=== PATIENT | female | born 1955 | race Caucasian/White ===

== ENCOUNTER 2017-04-06 16:28 | Inpatient (IN) ==
[~2017-04-06 16:28] MED LIST: *HR* Adenosine 6 MG/2 ML SYRINGE IVP ONE; Aminoglycoside Consult 1 EACH MC ONE
[2017-04-06] MEDS ORDERED: *HR* FentaNYL (PF) 100 MCG/2 ML VIAL ONE (16:55)
[2017-04-06] MEDS ORDERED: *HR* Midazolam HCl 2 MG/2 ML VIAL ONE (16:55)
[2017-04-06] MEDS ORDERED: *HR* Adenosine 6 MG/2 ML VIAL IVP ONE (17:00)
[2017-04-06] MEDS: 0.9 % Sodium Chloride 1,000 ML IVC SCH ×4 (17:00→21:39)
[2017-04-06 17:09] LABS: Hematocrit 22.3 % (35.3-44.9); Mean Corpuscular HGB Conc 32.7 g/dL (31.6-35.5); Mean Corpuscular Hemoglobin 32.6 pg (28.0-33.3); Mean Corpuscular Volume 99.6 fL (83.0-100.0); Mean Platelet Volume 12.7 fL (9.4-12.4); Nucleated Red Blood Cells 0.6 /100 WBC (0); Platelet Count 173 K/mcL (140-400); Red Blood Count 2.24 M/mcL (3.82-4.97); Red Cell Distribution Width 18.3 % (11.5-14.5)
[2017-04-06] MEDS ORDERED: 0.9 % Sodium Chloride 1,000 ML ONE (17:16)
[2017-04-06 17:22] LABS: Albumin/Globulin Ratio 0.5 (1.1-2.2); Bilirubin,Total 4.5 mg/dL (0.2-1.2); Calcium 7.6 mg/dL (8.6-10.8); Globulin 3.5 g/dL (2.4-3.5); Potassium 3.6 mEq/L (3.5-4.5); Total Protein 5.2 g/dL (6.0-8.3)
[2017-04-06 17:26] LABS: Albumin 1.7 g/dL (3.5-5.0)
[2017-04-06 17:31] LABS: Hemoglobin 7.3 g/dL (11.5-15.4)
--- NOTE | 2017-04-06 17:31 | Emergency Department Note ---
Disposition Clinical Impression: Elevated troponin, SVT (supraventricular tachycardia), Total bilirubin, elevated, History of pancreatic cancer, Hyponatremia, Hypochloremia, Hypomagnesemia, Hypophosphatemia Leukocytosis Qualifiers: Leukocytosis type: unspecified Qualified Code(s): D72.829 - Elevated white blood cell count, unspecified Hypotension Qualifiers: Hypotension type: unspecified hypotension type Qualified Code(s): I95.9 - Hypotension, unspecified Anemia Qualifiers: Anemia type: other cause Other causes of anemia: other cause, not classified Qualified Code(s): D64.89 - Other specified anemias Disposition: Admitted As Inpatient Condition: Serious Time of Disposition: 19:20 Weakness HPI - General Chief complaint: ED Weakness Stated complaint: Weakness Time Seen by Provider: 04/06/17 16:42 Source: family Mode of arrival: wheelchair Limitations: other Nursing Notes Reviewed: Yes Vital Signs Reviewed: Yes - History of Present Illness HPI Narrative: Patient is a 62-year-old female with past medical history of pancreatic cancer, receives chemotherapy with Dr. Dwyer. She also has a history of DVTs and PEs and is currently on Lovenox. Patient presented to the ED due to generalized weakness and shortness of breath. She says that she has been significantly short of breath for the past 24 hours. When hooked up to the monitor, patient was tachycardic in the 200s. Blood pressure was 50s over 40s. Patient appeared fatigued, was having some trouble concentrating. Denies any overt chest pain. Admits to current shortness of breath. She says that she has not been eating and drinking well over the past several days. She has also been having significant diarrhea over the past several days. Denies any history of arrhythmias or tachycardia in the past. Pain Scale: 0 - Related Data Home Medications Medication Instructions Recorded Confirmed Loperamide HCl [Imodium A-D] 2 mg PO PER PKG DI PRN 04/06/17 04/06/17 Morphine Sulfate SR (12 HR) [MS 30 mg PO Q8HR 04/06/17 04/06/17 Contin] OxyCODONE Immed Rel [Roxicodone 5 10 mg PO Q2HR PRN 04/06/17 04/06/17 MG] Stomatitis Mixture 5 ml PO Q4H PRN 04/06/17 04/06/17 Previous Rx's Medication Instructions Recorded Lidocaine/Prilocaine [Emla] 1 appl TP AD #30 gm 02/11/17 Ondansetron HCl [Zofran] 4 mg PO Q6H PRN #40 tablet 02/11/17 Prochlorperazine Maleate 10 mg PO Q6HR PRN #40 tablet 02/11/17 [Compazine] Dronabinol [Marinol] 5 mg PO BIDWM #60 capsule 02/20/17 Enoxaparin [Lovenox] 100 mg SQ Q12HR #60 02/20/17 Omeprazole 20 mg PO DAILY #90 tablet. 03/04/17 Furosemide [Lasix] 20 mg PO DAILY #90 tablet 03/25/17 Spironolactone [Aldactone] 25 mg PO DAILY #90 tablet 03/25/17 Sucralfate [Carafate] 1 gm PO QIDAC #120 tablet 03/25/17 Allergies Allergy/AdvReac Type Severity Reaction Status Date / Time No Known Drug Allergies Allergy none Verified 04/06/17 16:37 All systems ED: reviewed and negative except as stated. Constitutional: Denies: fever Cardiovascular: Denies: chest pain Respiratory: Reports: dyspnea Gastrointestinal: Reports: diarrhea. Denies: abdominal pain, nausea, vomiting Endocrine: Reports: fatigue Past Medical History - Past Medical History Attestation: Yes The following information was validated with the patient. Source: patient, obtained from family Medical history: Reports: cancer - Social History Smoking Status: Former smoker Smokeless Tobacco Status: No Alcohol use: Reports: none Drug use: Reports: none Physical Exam - General Limitations: other General appearance: alert, other (Patient appears very fatigued, mildly confused ) - Head Head exam: atraumatic, normocephalic, normal inspection - Eye Eye exam: Present: PERRL, EOMI, scleral icterus - ENT ENT exam: normal exam, normal oropharynx, mucous membranes moist - Neck Neck exam: Present: normal inspection, full ROM, trachea midline - Chest Chest inspection: Present: normal inspection, symmetric chest wall rise - Respiratory Respiratory exam: Present: normal lung sounds bilaterally, other (tachypnic). Absent: respiratory distress, wheezes - Cardiovascular Cardiovascular exam: Present: tachycardia (SVT) - Abdominal Exam Abdominal exam: Present: soft, Non-Tender. Absent: tenderness, distention, guarding, rebound, rigidity - Extremities Exam Extremities exam: Present: full ROM, pedal edema. Absent: tenderness - Neurological Exam Neurological exam: Present: alert, oriented X3 - Psychiatric Psychiatric exam: Present: normal affect, normal mood - Skin Skin exam: Present: warm, dry, intact, normal color Course Course Narrative: Patient's heart rate was in the 200s, blood pressure was 70s over 50s. Patient was hooked up to pads, crash cart was at the bedside. Respiratory and ancillary staff was called to bedside. Patient was given IV fluids while we were getting prepped for synchronized cardioversion due to tachycardia with hypertension and confusion, she temporarily went to a blood pressure 110 systolic. We tried adenosine 6 mg. This brought her rate down from 200s down to sinus tachycardia of 102. EKG was performed and she is now in normal sinus rhythm. No acute ST elevation or depression. Patient immediately is feeling better subjectively. Patient was ordered 3 L normal saline. Blood pressure is slowly improving. Now 80s systolic of 90, will start Levophed that through her port. Cardiology has been paged to discuss elevated troponin level s/p sinus tach, possible PE and discuss starting heparin. 17:46 labs show leukocytosis, anemia of 7.3. Hyponatremia, hypochloremia. Total bili and alkaline phosphatase are elevated but trending down from previous labs. She does have acute kidney injury. Troponin is elevated 0.47 This could be due to patient being in SVT for last 24 hours. CXR negative. Concern for PE, but patient cannot have CTA due to creatinine >2. Not stable enough BP [place] to take to V/Q scan currently. 18:09 while waiting on cardiology, I have consulted oncology and spoke with Dr. Dwyer to update him on the patient. I have also consulted Dr. Smith for new onset ANGELA. Both have agreed to be consults and orders are placed. Repeat blood pressure shows BP in the 60s over 30s. We will start Levophed at this time. Will also start empiric vanc and zosyn due to leukocytosis. 18:52 I spoke with powerhouse laborer, Dr. Chong. I discussed elevated troponin in the setting of unstable SVT that was converted with adenosine, history of PE, currently on Lovenox. After discussion, Dr. Chong recommended that for anticoagulation would not be started at this time due to patient's acute drop in hemoglobin from 9 to 7.3 with unexplained bleeding. Hemoccult was negative. Patient denies any current known bleeding. We will admit the patient to ICU for further care. Vital Signs Temperature 98.4 F 04/06/17 16:38 Pulse Rate 206 04/06/17 16:38 Respiratory Rate 18 04/06/17 16:38 Blood Pressure 82/49 04/06/17 16:38 O2 Sat by Pulse Oximetry 94 04/06/17 16:38 Temperature 98.2 F 04/06/17 23:41 Pulse Rate 82 04/06/17 23:41 Respiratory Rate 18 04/06/17 23:41 Blood Pressure 96/69 04/06/17 23:41 O2 Sat by Pulse Oximetry 96 04/06/17 23:41 Oxygen Delivery Oxygen Delivery Nasal Cannula Weakness - MDM Narrative Medical decision making narrative: Patient's heart rate was in the 200s, blood pressure was 70s over 50s. Patient was hooked up to pads, crash cart was at the bedside. Respiratory and ancillary staff was called to bedside. Patient was given IV fluids while we were getting prepped for synchronized cardioversion due to tachycardia with hypertension and confusion, she temporarily went to a blood pressure 110 systolic. We tried adenosine 6 mg. This brought her rate down from 200s down to sinus tachycardia of 102. EKG was performed and she is now in normal sinus rhythm. No acute ST elevation or depression. Patient immediately is feeling better subjectively. Patient was ordered 3 L normal saline. Blood pressure is slowly improving. Now 80s systolic of 90, will start Levophed that through her port. Cardiology has been paged to discuss elevated troponin level s/p sinus tach, possible PE and discuss starting heparin. labs show leukocytosis, anemia of 7.3. Hyponatremia, hypochloremia. Total bili and alkaline phosphatase are elevated but trending down from previous labs. She does have acute kidney injury. Troponin is elevated 0.47 This could be due to patient being in SVT for last 24 hours. CXR negative. Concern for PE, but patient cannot have CTA due to creatinine >2. Not stable enough BP [place] to take to V/Q scan currently. 18:09 while waiting on cardiology, I have consulted oncology and spoke with Dr. Dwyer to update him on the patient. I have also consulted Dr. Smith for new onset ANGELA. Both have agreed to be consults and orders are placed. Repeat blood pressure shows BP in the 60s over 30s. We will start Levophed at this time. Will also start empiric vanc and zosyn due to leukocytosis. 18:52 I spoke with powerhouse laborer, Dr. Chong. I discussed elevated troponin in the setting of unstable SVT that was converted with adenosine, history of PE, currently on Lovenox. After discussion, Dr. Chong recommended that for anticoagulation would not be started at this time due to patient's acute drop in hemoglobin from 9 to 7.3 with unexplained bleeding. Hemoccult was negative. Patient denies any current known bleeding. We will admit the patient to ICU for further care. - Lab Data Lab results reviewed: Yes I reviewed the patient's lab results. Result diagrams: 04/06/17 16:59 04/06/17 16:59 Lab Results 04/06/17 04/06/17 04/06/17 Range/Units 16:49 16:59 16:59 WBC 13.3 H (4.3-11.1) K/mcL RBC 2.24 L (3.82-4.97) M/mcL Hgb 7.3 L (11.5-15.4) g/dL Hct 22.3 L (35.3-44.9) % MCV 99.6 (83.0-100.0) fL MCH 32.6 (28.0-33.3) pg MCHC 32.7 (31.6-35.5) g/dL RDW 18.3 H (11.5-14.5) % Plt Count 173 (140-400) K/mcL MPV 12.7 H (9.4-12.4) fL Immature Gran % Test Not Performed Seg Neutrophils % 64.0 % Band Neutrophils % 12.0 H (0-4) % Lymphocytes % 16.0 % Monocytes % 4.0 % Eosinophils % Test Not Performed Basophils % Test Not Performed Myelocytes % 4.0 H (0) % Neutrophils # 10.1 H (1.6-8.9) K/mcL Lymphocytes # 2.1 (0.6-4.6) K/mcL Monocytes # 0.5 (0.0-1.3) K/mcL Eosinophils # Test Not Performed Basophils # Test Not Performed Nucleated RBCs/100 WBC 0.6 H (0) /100 WBC Toxic Granulation Present A (Not Present) Platelet Estimate Normal (Normal) Large Platelets Present A (Not Present) Polychromasia 2+ A (Not Present) Anisocytosis 1+ A (Not Present) Macrocytosis Present A (Not Present) PT (9.4-12.1) Seconds INR APTT (26.0-36.0) Seconds Sodium 127 L (136-145) mEq/L Potassium 3.6 (3.5-4.5) mEq/L Chloride 93 L (98-109) mEq/L Carbon Dioxide 20 (19-29) mEq/L BUN 22 H (7-20) mg/dL Creatinine 2.58 H (0.57-1.11) mg/dL Est GFR ( Amer) 23 L (> 60) Est GFR (Non-Af Amer) 19 L (> 60) BUN/Creatinine Ratio 9 (6-26) Glucose 103 H (70-99) mg/dL POC Glucose 130 H (58-89) Calculated Osmolality 268 L (280-300) Lactic Acid (0.5-2.2) mmol/L Calcium 7.6 L (8.6-10.8) mg/dL Phosphorus 2.0 L (2.3-4.7) mg/dL Magnesium 1.3 L (1.6-2.6) mg/dL Total Bilirubin 4.5 H (0.2-1.2) mg/dL Direct Bilirubin 3.1 H (0.0-0.5) mg/dL Indirect Bilirubin 1.4 H (0.0-1.2) mg/dL AST 71 H (5-34) Units/L ALT 35 (0-55) Units/L Alkaline Phosphatase 525 H (38-126) Units/L Troponin I (0-0.03) ng/mL Serum Total Protein 5.2 L (6.0-8.3) g/dL Albumin 1.7 L (3.5-5.0) g/dL Globulin 3.5 (2.4-3.5) g/dL Albumin/Globulin Ratio 0.5 L (1.1-2.2) Blood Type Antibody Screen Crossmatch 04/06/17 04/06/17 04/06/17 Range/Units 16:59 16:59 16:59 WBC (4.3-11.1) K/mcL RBC (3.82-4.97) M/mcL Hgb (11.5-15.4) g/dL Hct (35.3-44.9) % MCV (83.0-100.0) fL MCH (28.0-33.3) pg MCHC (31.6-35.5) g/dL RDW (11.5-14.5) % Plt Count (140-400) K/mcL MPV (9.4-12.4) fL Immature Gran % Seg Neutrophils % % Band Neutrophils % (0-4) % Lymphocytes % % Monocytes % % Eosinophils % Basophils % Myelocytes % (0) % Neutrophils # (1.6-8.9) K/mcL Lymphocytes # (0.6-4.6) K/mcL Monocytes # (0.0-1.3) K/mcL Eosinophils # Basophils # Nucleated RBCs/100 WBC (0) /100 WBC Toxic Granulation (Not Present) Platelet Estimate (Normal) Large Platelets (Not Present) Polychromasia (Not Present) Anisocytosis (Not Present) Macrocytosis (Not Present) PT 31.5 H (9.4-12.1) Seconds INR 2.9 APTT 47.9 H (26.0-36.0) Seconds Sodium (136-145) mEq/L Potassium (3.5-4.5) mEq/L Chloride (98-109) mEq/L Carbon Dioxide (19-29) mEq/L BUN (7-20) mg/dL Creatinine (0.57-1.11) mg/dL Est GFR ( Amer) (> 60) Est GFR (Non-Af Amer) (> 60) BUN/Creatinine Ratio (6-26) Glucose (70-99) mg/dL POC Glucose (58-89) Calculated Osmolality (280-300) Lactic Acid (0.5-2.2) mmol/L Calcium (8.6-10.8) mg/dL Phosphorus (2.3-4.7) mg/dL Magnesium (1.6-2.6) mg/dL Total Bilirubin (0.2-1.2) mg/dL Direct Bilirubin (0.0-0.5) mg/dL Indirect Bilirubin (0.0-1.2) mg/dL AST (5-34) Units/L ALT (0-55) Units/L Alkaline Phosphatase (38-126) Units/L Troponin I 0.47 H* (0-0.03) ng/mL Serum Total Protein (6.0-8.3) g/dL Albumin (3.5-5.0) g/dL Globulin (2.4-3.5) g/dL Albumin/Globulin Ratio (1.1-2.2) Blood Type A POSITIVE Antibody Screen NEGATIVE Crossmatch See Detail 04/06/17 Range/Units 17:58 WBC (4.3-11.1) K/mcL RBC (3.82-4.97) M/mcL Hgb (11.5-15.4) g/dL Hct (35.3-44.9) % MCV (83.0-100.0) fL MCH (28.0-33.3) pg MCHC (31.6-35.5) g/dL RDW (11.5-14.5) % Plt Count (140-400) K/mcL MPV (9.4-12.4) fL Immature Gran % Seg Neutrophils % % Band Neutrophils % (0-4) % Lymphocytes % % Monocytes % % Eosinophils % Basophils % Myelocytes % (0) % Neutrophils # (1.6-8.9) K/mcL Lymphocytes # (0.6-4.6) K/mcL Monocytes # (0.0-1.3) K/mcL Eosinophils # Basophils # Nucleated RBCs/100 WBC (0) /100 WBC Toxic Granulation (Not Present) Platelet Estimate (Normal) Large Platelets (Not Present) Polychromasia (Not Present) Anisocytosis (Not Present) Macrocytosis (Not Present) PT (9.4-12.1) Seconds INR APTT (26.0-36.0) Seconds Sodium (136-145) mEq/L Potassium (3.5-4.5) mEq/L Chloride (98-109) mEq/L Carbon Dioxide (19-29) mEq/L BUN (7-20) mg/dL Creatinine (0.57-1.11) mg/dL Est GFR ( Amer) (> 60) Est GFR (Non-Af Amer) (> 60) BUN/Creatinine Ratio (6-26) Glucose (70-99) mg/dL POC Glucose (58-89) Calculated Osmolality (280-300) Lactic Acid 2.0 (0.5-2.2) mmol/L Calcium (8.6-10.8) mg/dL Phosphorus (2.3-4.7) mg/dL Magnesium (1.6-2.6) mg/dL Total Bilirubin (0.2-1.2) mg/dL Direct Bilirubin (0.0-0.5) mg/dL Indirect Bilirubin (0.0-1.2) mg/dL AST (5-34) Units/L ALT (0-55) Units/L Alkaline Phosphatase (38-126) Units/L Troponin I (0-0.03) ng/mL Serum Total Protein (6.0-8.3) g/dL Albumin (3.5-5.0) g/dL Globulin (2.4-3.5) g/dL Albumin/Globulin Ratio (1.1-2.2) Blood Type Antibody Screen Crossmatch - Radiology Data Radiology results reviewed: Yes I reviewed the patient's radiology results. Chest X-Ray 04/06/17 16:43 IMPRESSION: No acute abnormalities seen in the chest D/ / 04/06/2017 17:26:52 Savage Irizarry MD / [facility] Interpreting Provider: Savage Irizarry MD - EKG Data EKG attestation: Yes I reviewed and interpreted this EKG. EKG results narrative: EKG #1. 04/06/2017 at 16:42. SVT. Rate 206. QRS 140. QTC 359. Normal axis. EKG #2 after adenosine. 04/06/2017 17:02. Sinus tachycardia. Rate 102. MN 147. QRS 88. QTC 387. Mild left axis deviation. No acute ST elevation or depression. T-wave inversion in lead 3, Q waves in lead 3. S.B.A.R. - S.B.A.R. Situation: Demographics, MOA Background: Presenting Complaint, Relevant PMH, Meds, & Allergies Assessment: Vital Signs, Course and respsone to treatment, Exam Concerns, Patient/Family Expectation, Pertinant Lab Results Recommendation: Barrier(s) to disposition, Recommendation based on pending studies, treatments, or consults Fabiola Report Given to: Dr. Hudson Hicks Repor Time: 19:20 Attestation Statement - Attestation Attestation: I, Maxime Solis, examined this patient and my medical decision-making was reviewed with the [employer]/PA/Advanced Practice Nurse/Resident Physician. I agree with the documented findings, disposition and treatment plan as described except to the extent set forth below. 62-year-old female presents to emergency department with acute onset of weakness over the past 2-3 days. On initial evaluation the patient has a heart rate greater than 200. It appears to be a regular narrow QRS rhythm which is likely a reentrant supraventricular tachycardia. Patient blood pressure was hypotensive during initial evaluation and patient was being prepped for cardioversion. She has been taking Lovenox twice a day at home for treatment of PE. Patient remained awake and alert and he was taking a longer than usual amount of time for respiratory to get to the room. While waiting we used adenosine 6 mg fast push which resolved the patient's arrhythmia. A laboratory evaluation the patient has a mild leukocytosis however she has a significant bandemia. Septic workup was initiated. She was given antibiotics in the emergency department. Patient has significant elevation in her troponin at 0.47 although she denies chest pain in the emergency department. Patient comfortable with the plan for admission to the hospital for further care and evaluation.
[2017-04-06 17:40] LABS: INR 2.9; Prothrombin Time 31.5 Seconds (9.4-12.1)
[2017-04-06 17:42] LABS: Activated Partial Thrombo Time 47.9 Seconds (26.0-36.0)
[2017-04-06 17:49] LABS: Lymphocytes # 2.1 K/mcL (0.6-4.6); Monocytes # 0.5 K/mcL (0.0-1.3); Neutrophils # 10.1 K/mcL (1.6-8.9)
[2017-04-06 17:50] LABS: Polychromasia 2+ (Not Present)
[2017-04-06 17:51] LABS: Anisocytosis 1+ (Not Present); Toxic Granulation Present (Not Present)
[2017-04-06 17:54] LABS: Large Platelets Present (Not Present); Macrocytosis Present (Not Present); Platelet Estimate Normal (Normal)
[2017-04-06 17:57] LABS: Bilirubin,Direct 3.1 mg/dL (0.0-0.5); Bilirubin,Indirect 1.4 mg/dL (0.0-1.2); Magnesium 1.3 mg/dL (1.6-2.6)
[2017-04-06] MEDS: Norepinephrine 4 MG in D5% in Water 250 ML IVC SCH ×2 (18:14→23:53)
[2017-04-06] MEDS ORDERED: Magnesium Sulfate 1 GM in D5% in Water 100 ML IVPB ONE ×2 (18:19→19:34)
[2017-04-06] MEDS ORDERED: Piperacillin/Tazobactam 3.375 GM in D5% in Water (Mini-Bag+) 100 ML IVPB ONE (18:49)
[2017-04-06] MEDS ORDERED: Vancomycin 1,500 MG in D5% in Water 250 ML IVPB ONE (19:00)
[2017-04-06] MEDS ORDERED: Vancomycin 1,500 MG in D5% in Water 250 ML IVPB SCH (19:00)
[2017-04-06] MEDS ORDERED: Naloxone 0.4 MG/ML INJ IVP PRN (19:36)
[2017-04-06] MEDS ORDERED: Ondansetron 4 MG/2 ML VIAL IVP PRN (19:49)
--- NOTE | 2017-04-06 19:50 | Internal Med History&Physical ---
<Tristan Sheehan - Last Filed: 04/06/17 22:03> Date of Encounter: 04/06/17 Time of Encounter: 19:50 Assessment and Plan (1) Sepsis Current visit: Yes Status: Acute Patient met 2 SIRS criteria with WBC 13.3 and HR 102 (after resolution of SVT) Patient reports increased diarrhea 5 times per day for the past 1 week (worse than chronic chemo induced diarrhea). Fecal occult blood test negative. Stool studies pending Blood cultures pending, patient has right upper chest port for chemo CXR negative. Sputum culture and Urine culture ordered. Continue empiric antibiotics Vanc, Zosyn, and Flagyl until culture resulted. ( Covering for possible port infection vs intra-abdominal infection) Steroids started for possible stress induced response Qualifiers: Qualified Code(s): A41.9 - Sepsis, unspecified organism (2) Hypotension Current visit: Yes Status: Acute Secondary to hypovolemic shock vs septic shock vs dehydration. Continue Levophed. Patient has right upper chest port. Consider orthostatics once patient improved. Qualifiers: Hypotension type: unspecified hypotension type Qualified Code(s): I95.9 - Hypotension, unspecified (3) Elevated troponin Current visit: Yes Status: Acute Initial Troponin 0.47. Likely related to demand ischemia from sepsis, trend serial troponins. Cardiology consulted. (4) Pancreatic cancer metastasized to liver Current visit: No Status: Acute Hold analgesics secondary to hypotension. Continue symptomatic management. Ensure TID for anorexia Oncology consulted. (5) SVT (supraventricular tachycardia) Current visit: Yes Status: Acute SVT resolved after Adenosine. EKGs reviewed. Patient hemodynamically unstable with hypotension but was not cardioverted before Adenosine trial. She remains A& Ox3. Cardiology consulted TSH pending. Consider ordering CTA to r/o PE once patient hemodynamically stable. (6) Anemia Current visit: Yes Status: Acute Transfuse 1 unit PRBC. Trend serial H&H q8h. No active bleeding. Hemoccult blood test negative. Qualifiers: Anemia type: other cause Other causes of anemia: other cause, not classified Qualified Code(s): D64.89 - Other specified anemias (7) ANGELA (acute kidney injury) Current visit: Yes Status: Acute Likely related to dehydration / diarrhea. Nephrology consulted. Continue IVF. (8) Hyponatremia Current visit: Yes Status: Acute Likely related to dehydration vs component of SIADH associated with cancer. Urine electrolytes ordered. Nephrology consulted. Continue IVF. 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 Of note, patient received her third round of chemotherapy on 03/25/17 and is scheduled for next chemo treatment on 04/08/17. She has a port in her right upper chest and Oncologist is Dr. Dwyer. She reports associated palpitations, SOB , decreased appetite, poor urine output, and drinking ensure BID. She recently started Lasix 2 weeks ago due to lower extremity edema. Patient denies fever, chills, CP, abd pain, N/V, recent travel, current tobacco use, contraceptives use, and has been compliant with home Lovenox use for DVT prophylaxis. Daughter is also a nurse and is at bedside during time of exam. In the ED, patient had SVT with initial HR 206 and was given Adenosine with relief of symptoms. She was started on a levophed drip due to hypotension despite IVFs and Troponin was elevated at 0.47. Fecal occult blood test was negative. Past Med Surg Social Fam HX - Past Medical History Medical history: cancer (pancreatic), DVT, pulmonary embolus - Past Surgical History Surgical History: other (biliary stent, BTL, left shoulder) - Social History Smoking Status: Former smoker Smokeless Tobacco Status: No Alcohol use: none Drug use: none Internal Medicine - H&P: Meds Lidocaine/Prilocaine [Emla] 1 appl TP AD #30 gm 02/11/17 [Rx] Ondansetron HCl [Zofran] 4 mg PO Q6H PRN #40 tablet 02/11/17 [Rx] Prochlorperazine Maleate [Compazine] 10 mg PO Q6HR PRN #40 tablet 02/11/17 [Rx] Dronabinol [Marinol] 5 mg PO BIDWM #60 capsule 02/20/17 [Rx] Enoxaparin [Lovenox] 100 mg SQ Q12HR #60 02/20/17 [Rx] Omeprazole 20 mg PO DAILY #90 tablet. 03/04/17 [Rx] Furosemide [Lasix] 20 mg PO DAILY #90 tablet 03/25/17 [Rx] Spironolactone [Aldactone] 25 mg PO DAILY #90 tablet 03/25/17 [Rx] Sucralfate [Carafate] 1 gm PO QIDAC #120 tablet 03/25/17 [Rx] Loperamide HCl [Imodium A-D] 2 mg PO PER PKG DI PRN 04/06/17 [History] Morphine Sulfate SR (12 HR) [MS Contin] 30 mg PO Q8HR 04/06/17 [History] OxyCODONE Immed Rel [Roxicodone 5 MG] 10 mg PO Q2HR PRN 04/06/17 [History] Stomatitis Mixture 5 ml PO Q4H PRN 04/06/17 [History] 3 Allergy/AdvReac Type Severity Reaction Status Date / Time No Known Drug Allergies Allergy none Verified 04/06/17 16:37 All Systems PM: A 10-system review of systems was performed and is negative for pertinent findings except as documented above in the HPI. - Constitutional Constitutional: anorexia, fatigue, lethargy, weakness, no chills, no fever(s), no weight gain, no weight loss - EENT Eyes: no change in vision Nose, mouth and throat: no dysphagia, no nasal congestion, no sore throat - Cardiovascular Cardiovascular ROS IM: edema, palpitations, no chest pain - Respiratory Respiratory: dyspnea, no cough, no chest congestion, no excessive phlegm production - Gastrointestinal Gastrointestinal: change in bowel habits, diarrhea, no abdominal pain, no nausea , no vomiting - Genitourinary Genitourinary: no dysuria, no urinary frequency, no urinary urgency - Musculoskeletal Musculoskeletal ROS IM: no back pain, no numbness, no tingling - Integumentary Integumentary IM: no erythema, no new lesions, no rash - Neurological Neurological ROS: weakness, no dizziness, no numbness, no tingling - Psychiatric Psychiatric: no anxiety, no depression - Endocrine Endocrine IM: fatigue, no polydipsia, no polyphagia, no polyuria - Constitutional Vitals: Temp Pulse Resp BP Pulse Ox 98.4 F 91 16 87/58 100 04/06/17 16:38 04/06/17 19:30 04/06/17 19:30 04/06/17 19:30 04/06/17 19:30 General appearance: Present: cooperative, A&O X 3, pleasant, no acute distress, obese, answers questions appropriately - Head Head exam: Present: atraumatic, normal inspection, normocephalic - Eye Eye exam: Present: EOMI, PERRL - ENT ENT exam: Present: mucous membranes moist, normal oropharynx - Neck Neck exam general surgery: Present: normal inspection, supple. Absent: lymphadenopathy, tenderness - Respiratory Respiratory exam: Present: CTAB. Absent: rhonchi, wheezes - Cardiovascular Cardiovascular exam: Present: RRR, +S1, +S2 - GI/Abdominal GI/Abdominal exam: Present: normal bowel sounds, soft. Absent: distended, guarding, tenderness - Extremities Exam Extremities exam: Present: normal capillary refill, pedal edema (2+), warm. Absent: tenderness - Neurological Exam Neurological exam: Present: alert, oriented X3, no focal deficits, strengths equal and symetr throughout. Absent: altered - Psychiatric Psychiatric exam: Present: normal affect, normal mood - Skin Skin exam: Present: dry, intact, warm. Absent: erythema Additional comments: jaundice Internal Med - H&P Results - Labs CBC & Chem 7: 04/06/17 16:59 04/06/17 16:59 Labs: Short CBC 04/06/17 Range/Units 16:59 WBC 13.3 H (4.3-11.1) K/mcL Hgb 7.3 L (11.5-15.4) g/dL Hct 22.3 L (35.3-44.9) % Plt Count 173 (140-400) K/mcL Neutrophils # 10.1 H (1.6-8.9) K/mcL BMP 04/06/17 16:59 Sodium 127 L Potassium 3.6 Chloride 93 L Carbon Dioxide 20 BUN 22 H Creatinine 2.58 H Glucose 103 H Calcium 7.6 L Cardiac Enzymes 04/06/17 Range/Units 16:59 Troponin I 0.47 H* (0-0.03) ng/mL Liver Function 04/06/17 Range/Units 16:59 Total Bilirubin 4.5 H (0.2-1.2) mg/dL Direct Bilirubin 3.1 H (0.0-0.5) mg/dL AST 71 H (5-34) Units/L ALT 35 (0-55) Units/L Alkaline Phosphatase 525 H (38-126) Units/L Albumin 1.7 L (3.5-5.0) g/dL - EKG Data -: EKG Interpreted by Myself Rate: tachycardia (Initial EKG HR 206 SVT QRS 140. QTC 359. Normal axis. Repeat EKG Rate 102. SD 147. QRS 88. QTC 387. Mild left axis deviation. No acute ST elevation or depression. T-wave inversion in lead 3, Q waves in lead 3.) - Impressions ITS Impressions Chest X-Ray 04/06/17 16:43 IMPRESSION: No acute abnormalities seen in the chest D/ / 04/06/2017 17:26:52 Savage Irizarry MD / [facility] Interpreting Provider: Savage Irizarry MD <Valentin Jiang - Last Filed: 04/06/17 23:16> Date of Encounter: 04/06/17 Time of Encounter: 21:50 Past Med Surg Social Fam HX - Additional Family History Additional family history: negative for pancreatic CA - Constitutional Constitutional: anorexia, fatigue - EENT Eyes: no blurry vision, no change in vision Ears: no ear pain, no tinnitus Nose, mouth and throat: no sinus pressure, no sore throat - Cardiovascular Cardiovascular ROS IM: dyspnea, lightheadedness, palpitations, no chest pain - Respiratory Respiratory: dyspnea, pain on inspiration, no hemoptysis - Gastrointestinal Gastrointestinal: diarrhea, early satiety - Genitourinary Genitourinary: no dysuria, no flank pain, no hematuria - Musculoskeletal Musculoskeletal ROS IM: no arthralgias, no back pain - Integumentary Integumentary IM: jaundice, no rash - Neurological Neurological ROS: weakness, no focal weakness, no frequent falls, no headache(s) - Allergic/Immunologic Allergic/Immunologic: no wheezing, no GI upset with certain foods - Constitutional Vitals: Temp Pulse Resp BP Pulse Ox 98.9 F 85 16 81/53 99 04/06/17 22:37 04/06/17 22:37 04/06/17 22:37 04/06/17 22:37 04/06/17 22:37 General appearance: Present: cooperative, A&O X 3, pleasant, no acute distress, answers questions appropriately - Head Head exam: Present: normal inspection - Eye Eye exam: Present: EOMI, PERRL, scleral icterus (mild) - ENT ENT exam: Present: mucous membranes dry, normal oropharynx - Neck Neck exam general surgery: Present: full ROM, supple - Respiratory Respiratory exam: Present: CTAB. Absent: accessory muscle use, rales, rhonchi, wheezes - Cardiovascular Cardiovascular exam: Present: RRR, +S1, +S2. Absent: diastolic murmur, systolic murmur Additional comments: A port site clean, dry, without redness or swelling or pain - GI/Abdominal GI/Abdominal exam: Present: normal bowel sounds, soft. Absent: tenderness - Extremities Exam Extremities exam: Present: pedal edema, warm. Absent: calf tenderness - Back Exam Back exam: Absent: CVA tenderness (L), CVA tenderness (R) - Neurological Exam Neurological exam: Present: no focal deficits - Psychiatric Psychiatric exam: Present: normal affect, normal mood - Skin Skin exam: Present: dry, warm Internal Med - H&P Results - Labs CBC & Chem 7: 04/06/17 16:59 04/06/17 16:59 - EKG Data -: EKG Interpreted by Myself Rate: tachycardia (appears SVT) - Diagnostic Studies Chest x-ray Status: image reviewed by me (negative) - Attending Attestation I discussed the patient CADDO, PMH, ROS, lab data, and exam findings with Dr. Sheehan. I then saw and examined patient in ICU. Pt is resting in bed now in no distress. She presented in shock, likely due to cardiogenic (rhythm induced) cause, which was likely precipitated by electrolyte imbalance from her diarrhea. She also likely had hypovolemic shock from severe diarrhea and possibly septic shock as well. She reports low grade fevers at home and some pleuritic chest pain with deep inspiration. She is known to have PE and DVT since November and had been on Lovenox since then. She is currently being treated with chemotherapy for pancreatic cancer. She has not been on antibiotics recently and has not been hospitalized since November. I suspect her diarrhea is related to her chemotherapy and/or pancreatic cancer. I have low suspicion for C. Diff Colitis. I am concerned, however, for progression of her PE given her complaints of pleuritic CP and presentation in SVT. Despite drop in hemoglobin , I do not feel comfortable stopping her Lovenox. We will monitor H/H and transfuse to keep hgb > 8. When stable, she needs CTA chest to better image her prior PE and possible progression. I suspect her troponin elevation is due to demand ischemia from SVT, sepsis, and volume depletion. Pt remains on IVF, Levophed, and I requested Dr. Sheehan add stress dose steroids as well. I agree with the antibiotic choices as prescribed. Pt will remain in ICU remains critical at this time. Cardiology has been consulted, and we'll consult Pulmonology as well to manage ICU care. Other than my comments above and noted exam findings, I agree with Dr. Sheehan's assessment and plan. Total 65 minutes critical care time spent with patient, assessing her, and managing her care with Dr. Sheehan.
[2017-04-06] MEDS ORDERED: Vancomycin (wt based) 1,000 MG VIAL IVPB SCH (20:00)
[2017-04-06] MEDS ORDERED: 0.9 % Sodium Chloride 250 ML ONE (22:00)
[2017-04-06] MEDS: MetroNIDAZOLE 500 MG/100 ML 500 MG/100 ML BAG IVPB SCH (23:06)
[2017-04-06] MEDS: Hydrocortisone Sodium Succ 100 MG/2 ML VIAL IVP SCH (23:06)
[2017-04-06 23:58] LABS: Hematocrit 23.5 % (35.3-44.9); Hemoglobin 7.8 g/dL (11.5-15.4); Immature Platelets 11.8 % (1.1-6.1); Mean Corpuscular HGB Conc 33.2 g/dL (31.6-35.5); Mean Corpuscular Hemoglobin 32.6 pg (28.0-33.3); Mean Corpuscular Volume 98.3 fL (83.0-100.0); Mean Platelet Volume 11.3 fL (9.4-12.4); Nucleated Red Blood Cells 0.3 /100 WBC (0); Platelet Count 169 K/mcL (140-400); Red Blood Count 2.39 M/mcL (3.82-4.97); Red Cell Distribution Width 17.5 % (11.5-14.5)
[2017-04-07 00:17] LABS: Albumin/Globulin Ratio 0.5 (1.1-2.2); Bilirubin,Total 4.4 mg/dL (0.2-1.2); Calcium 6.9 mg/dL (8.6-10.8); Globulin 3.1 g/dL (2.4-3.5); Potassium 2.9 mEq/L (3.5-4.5); Total Protein 4.6 g/dL (6.0-8.3)
[2017-04-07 00:20] LABS: Albumin 1.5 g/dL (3.5-5.0)
[2017-04-07 00:34] LABS: Dohle Bodies Present (Not Present); Lymphocytes # 2.1 K/mcL (0.6-4.6); Monocytes # 0.6 K/mcL (0.0-1.3); Neutrophils # 11.8 K/mcL (1.6-8.9); Polychromasia 1+ (Not Present)
[2017-04-07 00:35] LABS: Burr Cells 1+ (Not Present); Large Platelets Present (Not Present)
[2017-04-07 00:50] LABS: Thyroid Stimulating Hormone 1.781 mcIU/mL (0.350-4.840)
[2017-04-07] MEDS: 0.9 % Sodium Chloride 1,000 ML IVC SCH ×2 (01:08→04:44)
[2017-04-07 03:24] LABS: Basophils # 0.1 K/mcL (0.0-0.2); Basophils % 0.3 %; Hematocrit 23.7 % (35.3-44.9); Immature Granulocytes % 7.6 % (0-4); Lymphocytes % 7.4 %; Mean Corpuscular HGB Conc 33.8 g/dL (31.6-35.5); Mean Corpuscular Hemoglobin 33.1 pg (28.0-33.3); Mean Corpuscular Volume 97.9 fL (83.0-100.0); Mean Platelet Volume 11.6 fL (9.4-12.4); Monocytes # 1.2 K/mcL (0.0-1.3); Neutrophils # 13.1 K/mcL (1.6-8.9); Nucleated Red Blood Cells 0.2 /100 WBC (0); Platelet Count 156 K/mcL (140-400); Red Blood Count 2.42 M/mcL (3.82-4.97); Red Cell Distribution Width 17.7 % (11.5-14.5); Segmented Neutrophils % 77.7 %
[2017-04-07 03:25] LABS: Lymphocytes # 1.2 K/mcL (0.6-4.6)
[2017-04-07 03:39] LABS: Albumin 1.6 g/dL (3.5-5.0); Albumin/Globulin Ratio 0.5 (1.1-2.2); Bilirubin,Total 4.4 mg/dL (0.2-1.2); Calcium 6.9 mg/dL (8.6-10.8); Magnesium 1.3 mg/dL (1.6-2.6); Potassium 3.2 mEq/L (3.5-4.5); Total Protein 4.6 g/dL (6.0-8.3)
[2017-04-07 03:42] LABS: Dohle Bodies Present (Not Present); Large Platelets Present (Not Present); Toxic Vacuolation Present (Not Present)
[2017-04-07 03:43] LABS: Burr Cells 1+ (Not Present)
[2017-04-07] MEDS ORDERED: Magnesium Sulfate 2 GM in D5% in Water 100 ML IVPB ONE (03:50)
[2017-04-07] MEDS: Norepinephrine 4 MG in D5% in Water 250 ML IVC SCH ×3 (04:45→20:07)
[2017-04-07 05:35] LABS: Acinetobacter baumannii by PCR Not Detected (Not Detect); Candida albicans by PCR Not Detected (Not Detect); Candida glabrata by PCR Not Detected (Not Detect); Candida krusei by PCR Not Detected (Not Detect); Candida parapsilosis by PCR Not Detected (Not Detect); Candida tropicalis by PCR Not Detected (Not Detect); Enterococcus by PCR Not Detected (Not Detect); Escherichia coli by PCR Not Detected (Not Detect); Klebsiella oxytoca by PCR Not Detected (Not Detect); Klebsiella pneumoniae by PCR ***DETECTED*** (Not Detect); Pseudomonas aeruginosa by PCR Not Detected (Not Detect); Serratia marcescens by PCR Not Detected (Not Detect); Staphylococcus aureus by PCR Not Detected (Not Detect); Streptococcus agalactiae(B)PCR Not Detected (Not Detect); Streptococcus by PCR Not Detected (Not Detect); Streptococcus pneumoniae PCR Not Detected (Not Detect); Streptococcus pyogenes (A) PCR Not Detected (Not Detect); blaKPC Carbapenem-Resist Gene Not Detected (Not Detect); mecA Methicillin-Resist Gene Not Detected (Not Detect); vanA/B Vancomycin-Resist Genes Not Detected (Not Detect)
[2017-04-07] MEDS ORDERED: *HR* Enoxaparin 100 MG/ML SYRINGE SQ SCH (06:00)
[2017-04-07] MEDS ORDERED: Famotidine 20 MG/2 ML VIAL IVP SCH (06:00)
--- NOTE | 2017-04-07 07:06 | Pulmonology Consult Note ---
<Samuel Cuellar W - Last Filed: 04/07/17 10:22> Date of Encounter: 04/07/17 Medications and Allergies Lidocaine/Prilocaine [Emla] 1 appl TP AD #30 gm 02/11/17 [Rx] Ondansetron HCl [Zofran] 4 mg PO Q6H PRN #40 tablet 02/11/17 [Rx] Prochlorperazine Maleate [Compazine] 10 mg PO Q6HR PRN #40 tablet 02/11/17 [Rx] Dronabinol [Marinol] 5 mg PO BIDWM #60 capsule 02/20/17 [Rx] Enoxaparin [Lovenox] 100 mg SQ Q12HR #60 02/20/17 [Rx] Omeprazole 20 mg PO DAILY #90 tablet. 03/04/17 [Rx] Furosemide [Lasix] 20 mg PO DAILY #90 tablet 03/25/17 [Rx] Spironolactone [Aldactone] 25 mg PO DAILY #90 tablet 03/25/17 [Rx] Sucralfate [Carafate] 1 gm PO QIDAC #120 tablet 03/25/17 [Rx] Loperamide HCl [Imodium A-D] 2 mg PO PER PKG DI PRN 04/06/17 [History] Morphine Sulfate SR (12 HR) [MS Contin] 30 mg PO Q8HR 04/06/17 [History] OxyCODONE Immed Rel [Roxicodone 5 MG] 10 mg PO Q2HR PRN 04/06/17 [History] Stomatitis Mixture 5 ml PO Q4H PRN 04/06/17 [History] 3 Allergy/AdvReac Type Severity Reaction Status Date / Time No Known Drug Allergies Allergy none Verified 04/06/17 16:37 All Systems: A 10-system review of systems was performed and is negative for pertinent findings except as documented above in the HPI. Physical Examination Vital Signs: Vital Signs, Last 4 Hours Temp Pulse Resp BP Pulse Ox 04/07/17 06:00 74 14 90/60 98 04/07/17 05:00 77 12 90/58 98 04/07/17 04:32 98.4 F Results - Laboratory Findings CBC and BMP: 04/07/17 03:15 04/07/17 03:15 PT/INR, D-dimer PT 31.5 Seconds (9.4-12.1) H 04/06/17 16:59 Abnormal lab findings: Abnormal lab results WBC 16.8 K/mcL (4.3-11.1) H 04/07/17 03:15 RBC 2.42 M/mcL (3.82-4.97) L 04/07/17 03:15 Hgb 8.0 g/dL (11.5-15.4) L 04/07/17 03:15 Hct 23.7 % (35.3-44.9) L 04/07/17 03:15 RDW 17.7 % (11.5-14.5) H 04/07/17 03:15 Immature Gran % 7.6 % (0-4) H 04/07/17 03:15 Myelocytes % 2.0 % (0) H 04/06/17 23:55 Neutrophils # 13.1 K/mcL (1.6-8.9) H 04/07/17 03:15 Nucleated RBCs/100 WBC 0.2 /100 WBC (0) H 04/07/17 03:15 Toxic Granulation Present (Not Present) A 04/06/17 16:59 Toxic Vacuolation Present (Not Present) A 04/07/17 03:15 Dohle Bodies Present (Not Present) A 04/07/17 03:15 Large Platelets Present (Not Present) A 04/07/17 03:15 Immature Plt Fraction 11.8 % (1.1-6.1) H 04/06/17 23:55 Polychromasia 1+ (Not Present) A 04/06/17 23:55 Anisocytosis 1+ (Not Present) A 04/06/17 16:59 Macrocytosis Present (Not Present) A 04/06/17 16:59 Barry Cells 1+ (Not Present) A 04/07/17 03:15 PT 31.5 Seconds (9.4-12.1) H 04/06/17 16:59 APTT 47.9 Seconds (26.0-36.0) H 04/06/17 16:59 Sodium 127 mEq/L (136-145) L 04/07/17 03:15 Potassium 3.2 mEq/L (3.5-4.5) L 04/07/17 03:15 Chloride 97 mEq/L (98-109) L 04/07/17 03:15 BUN 24 mg/dL (7-20) H 04/07/17 03:15 Creatinine 2.44 mg/dL (0.57-1.11) H 04/07/17 03:15 Est GFR ( Amer) 24 (> 60) L 04/07/17 03:15 Est GFR (Non-Af Amer) 20 (> 60) L 04/07/17 03:15 Glucose 166 mg/dL (70-99) H 04/07/17 03:15 POC Glucose 147 (58-89) H 04/06/17 21:25 Calculated Osmolality 272 (280-300) L 04/07/17 03:15 Calcium 6.9 mg/dL (8.6-10.8) L 04/07/17 03:15 Magnesium 1.3 mg/dL (1.6-2.6) L 04/07/17 03:15 Total Bilirubin 4.4 mg/dL (0.2-1.2) H 04/07/17 03:15 Direct Bilirubin 3.1 mg/dL (0.0-0.5) H 04/06/17 16:59 Indirect Bilirubin 1.4 mg/dL (0.0-1.2) H 04/06/17 16:59 AST 48 Units/L (5-34) H 04/07/17 03:15 Alkaline Phosphatase 485 Units/L (38-126) H 04/07/17 03:15 Troponin I 0.54 ng/mL (0-0.03) H* 04/07/17 03:15 Serum Total Protein 4.6 g/dL (6.0-8.3) L 04/07/17 03:15 Albumin 1.6 g/dL (3.5-5.0) L 04/07/17 03:15 Albumin/Globulin Ratio 0.5 (1.1-2.2) L 04/07/17 03:15 Enterobacteriac sp PCR DETECTED (Not Detect) A 04/06/17 17:58 Klebsiella pneumoniae DETECTED (Not Detect) A 04/06/17 17:58 - Clinical Findings Intake & Output: Intake & Output 04/06/17 04/07/17 04/07/17 23:59 07:59 15:59 Intake Total 1235 / 4358 1663 / 1663 Balance 1235 / 4358 1663 / 1663 Weight 104.2 kg Consult Discharge Plan - Plan Referrals: NONE,PCP [Primary Care Provider] - - Attending Attestation I examined this patient and my medical decision-making was reviewed with the Resident Physician. I agree with the documented findings, disposition and treatment plan as described except to the extent set forth below. We independently had [id number] contact with the patient I spent 35min of Critical Care time with this patient. It involved decision making of high complexity to assess, manipulate, and support vital organ system failure and/or to prevent further life threatening deterioration of the patient' s condition. The time involved in the performance of separately reportable procedures was not counted toward critical care time. Patient seen and examined at bedside Labs, radiology, chart personally reviewed. Management was reviewed during multidisciplinary critical care rounds. Neuropsych:Mild encephalopathy related to sepsis. Pulm: acceptable oxygenation on 2LNC cont to monitor. Cards: SVT responded to NSTEMI suspected type 2 demand ischemia ECHO pending. We will evaluate need for cardiology consultation based upon clinical course and echocardiographic findings FEN-GI: NPO for now. History of Pancreatic Ca with obstruction s/p stenting. LFTs stable. Evaluate for Cholangitis. Diarrhea likely s/t sepsis Renal: ANGELA replace lytes as needed. High likelihood of obstructive hydronephrosis given underlying intra-abdominal metastatic disease CT abdomen should allow us to ferret this out as well urinary Vasquez catheter placed for more accurate monitoring of urine output. Hyponatremia ?volume depletion and increased ADH with critical illness. Urine and serum osmolarity and urine lytes pending. ID: Septic Shock s/t Klebsiella PNA ?UTI vs Intrabdominal Source cont Vanc/ Zosyn deescalate in next 24-48 based upon micro s/s Cont Flagyl for possible colitis GI panel pending. 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 Hisrory of Pancreatic Ca with active malignancy oncology following. Anemia which is chronic and no overt signs of bleeding repeat CBC in 6hours Endo: Glucose Monitored and controlled cont bolus dosing of Integ/MSK: Skin Care per routine ICU Nursing Protocol to prevent ulcers. Lines: All lines examined without evidence of infection Dispo: She will remain in the ICU today for critical illness. CODE: Dispo <Ndiaye,Yamil - Last Filed: 04/07/17 14:29> Date of Encounter: 04/07/17 Time of Encounter: 07:45 Assessment and Plan (1) Septic shock due to Klebsiella pneumoniae Current Visit: Yes Status: Acute Patient has increased white blood cell count (16.8). She continues to be borderline hypotensive, currently on norepinephrine 15 mcg per minute. Blood culture is positive for Klebsiella pneumonia 2 pending sensitivities. She denies any fever, chills, nausea, and vomiting. Chest x-ray shows no acute abnormalities. CT abdomen/pelvis without contrast demonstrated right hydronephrosis and nephrology is currently following. UA today demonstrates positive UTI . Septic shock likely due to Klebsiella UTI. We will discontinue Flagyl and Vanco, and the patient will start on Zosyn today. Patient is currently on 25% albumin bolus with goal of controlling blood pressure and weaning Levophed. Continue pain management as needed. Continue to monitor with a.m. labs. (2) Encephalopathy acute Current Visit: Yes Status: Acute Patient is currently alert and oriented 3. She expresses some confusion. Mild encephalopathy likely related to sepsis. We expect her to recover once sepsis is resolved (3) Demand ischemia Current Visit: Yes Status: Acute Patient has positive troponin 3 with unremarkable EKG. She likely had type II demand ischemia as there is no presence of an acute primary coronary thrombotic event. Echocardiogram performed today demonstrates normal left ventricular systolic function with ejection fraction of 65%, mild to moderate pulmonary hypertension with estimated RVSP of 46 mmHg. Consider outpatient follow up as cardiology consult not necessary at this time. (4) ANGELA (acute kidney injury) Current Visit: Yes Status: Acute ANGELA in the setting of septic shock. Patient is on electrolyte protocol. CT abdomen without contrast demonstrates likely obstructive hydronephrosis on the right given underlying pancreatic cancer with ongoing chemotherapy. Urine Vasquez catheter was placed for more adequate monitoring of urine output. Patient has hypotonic hyponatremia with renal function panel pending. Urology was consulted for possible recommendations/ surgical intervention. Nephrology is following, pending renal ultrasound to rule out obstructive uropathy. Lower extremity edema may be related to venous obstruction. Avoid nephrotoxins. Patient is to remain nothing by mouth with strict I and O's. Continue IV fluids. (5) Anemia Current Visit: Yes Status: Acute Patient is on home Lovenox 100 mg due to history of DVT and PE. We are switching to heparin for DVT prophylaxis as it is more appropriate for possible future procedures. Qualifiers: Anemia type: other cause Other causes of anemia: other cause, not classified Qualified Code(s): D64.89 - Other specified anemias (6) Hyperglycemia Current Visit: Yes Status: Acute Hyperglycemia in the setting of steroid use. Continue with SSI. (7) History of pancreatic cancer Current Visit: No Status: Acute Continue outpatient treatment after discharge. 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 Patient is on her third round of chemotherapy on 03/25/17 and is scheduled for next chemotherapy treatment on 04/08/17. She has a port in her right upper chest, her oncologist is Dr. Dwyer. She reports associated palpitations, shortness of breath for the last 24 hours, decreased appetite, poor urine output, and is drinking ensure twice a day. She also recently started Lasix 2 weeks ago due to lower extremity edema. At the time of arrival to ED, the patient denied fever, chills, chest pain, abdominal pain, nausea and vomiting, recent travel. She states that she has been compliant with home Lovenox for DVT prophylaxis. In the ED, patient had SVT with initial heart rate of 206 and was given adenosine with relief of symptoms. She was started on levophed drip due to hypotension despite fluids. Troponin was elevated 3. Fecal occult blood test was negative. EKG is normal sinus rhythm. Patient has leukocytosis and low electrolytes. Past Med Surg Social Fam HX - Past Medical History Medical history: cancer - Past Surgical History Surgical History: other (biliary stent, BTL, left shoulder) - Social History Smoking Status: Former smoker Smokeless Tobacco Status: No Alcohol use: none Drug use: none All Systems: A 10-system review of systems was performed and is negative for pertinent findings except as documented above in the HPI. - Constitutional Constitutional: as per HPI - EENT Eyes: no loss of peripheral vision, no loss of vision Nose, mouth and throat: no sore throat - Cardiovascular Cardiovascular: as per HPI - Respiratory Respiratory: dyspnea, no hemoptysis - Gastrointestinal Gastrointestinal: as per HPI - Genitourinary Genitourinary: as per HPI, change in urinary stream, no dysuria - Musculoskeletal Musculoskeletal: as per HPI - Neurological Neurological: confusion, no abnormal speech - Endocrine Endocrine: palpitations - Hematologic/Lymphatic Hematologic/Lymphatic: no easy bleeding Physical Examination Vital Signs: Vital Signs, Last 4 Hours Temp Pulse Resp BP Pulse Ox 04/07/17 06:00 74 14 90/60 98 04/07/17 05:00 77 12 90/58 98 04/07/17 04:32 98.4 F 04/07/17 04:00 78 F L 79 16 87/60 98 General appearance: no acute distress Eyes: icteric Neck: supple Effort: normal Inspection: normal Auscultation: bilateral: clear Cardiovascular: regular rate and rhythm Gastrointestinal: normoactive bowel sounds, non-distended, other (Urine Vasquez present with tea-colored urine) Integumentary: normal Extremities: no cyanosis, edema (Bilateral LE edema 2+) Musculoskeletal: no deformities normal mental status, non-focal exam, CN II-XII normal, motor strength normal and symmetric Results - Laboratory Findings CBC and BMP: 04/07/17 03:15 04/07/17 03:15 PT/INR, D-dimer PT 31.5 Seconds (9.4-12.1) H 04/06/17 16:59 Abnormal lab findings: Abnormal lab results WBC 16.8 K/mcL (4.3-11.1) H 04/07/17 03:15 RBC 2.42 M/mcL (3.82-4.97) L 04/07/17 03:15 Hgb 8.0 g/dL (11.5-15.4) L 04/07/17 03:15 Hct 23.7 % (35.3-44.9) L 04/07/17 03:15 RDW 17.7 % (11.5-14.5) H 04/07/17 03:15 Immature Gran % 7.6 % (0-4) H 04/07/17 03:15 Myelocytes % 2.0 % (0) H 04/06/17 23:55 Neutrophils # 13.1 K/mcL (1.6-8.9) H 04/07/17 03:15 Nucleated RBCs/100 WBC 0.2 /100 WBC (0) H 04/07/17 03:15 Toxic Granulation Present (Not Present) A 04/06/17 16:59 Toxic Vacuolation Present (Not Present) A 04/07/17 03:15 Dohle Bodies Present (Not Present) A 04/07/17 03:15 Large Platelets Present (Not Present) A 04/07/17 03:15 Immature Plt Fraction 11.8 % (1.1-6.1) H 04/06/17 23:55 Polychromasia 1+ (Not Present) A 04/06/17 23:55 Anisocytosis 1+ (Not Present) A 04/06/17 16:59 Macrocytosis Present (Not Present) A 04/06/17 16:59 Barry Cells 1+ (Not Present) A 04/07/17 03:15 PT 31.5 Seconds (9.4-12.1) H 04/06/17 16:59 APTT 47.9 Seconds (26.0-36.0) H 04/06/17 16:59 Sodium 127 mEq/L (136-145) L 04/07/17 03:15 Potassium 3.2 mEq/L (3.5-4.5) L 04/07/17 03:15 Chloride 97 mEq/L (98-109) L 04/07/17 03:15 BUN 24 mg/dL (7-20) H 04/07/17 03:15 Creatinine 2.44 mg/dL (0.57-1.11) H 04/07/17 03:15 Est GFR ( Amer) 24 (> 60) L 04/07/17 03:15 Est GFR (Non-Af Amer) 20 (> 60) L 04/07/17 03:15 Glucose 166 mg/dL (70-99) H 04/07/17 03:15 POC Glucose 147 (58-89) H 04/06/17 21:25 Calculated Osmolality 272 (280-300) L 04/07/17 03:15 Calcium 6.9 mg/dL (8.6-10.8) L 04/07/17 03:15 Magnesium 1.3 mg/dL (1.6-2.6) L 04/07/17 03:15 Total Bilirubin 4.4 mg/dL (0.2-1.2) H 04/07/17 03:15 Direct Bilirubin 3.1 mg/dL (0.0-0.5) H 04/06/17 16:59 Indirect Bilirubin 1.4 mg/dL (0.0-1.2) H 04/06/17 16:59 AST 48 Units/L (5-34) H 04/07/17 03:15 Alkaline Phosphatase 485 Units/L (38-126) H 04/07/17 03:15 Troponin I 0.54 ng/mL (0-0.03) H* 04/07/17 03:15 Serum Total Protein 4.6 g/dL (6.0-8.3) L 04/07/17 03:15 Albumin 1.6 g/dL (3.5-5.0) L 04/07/17 03:15 Albumin/Globulin Ratio 0.5 (1.1-2.2) L 04/07/17 03:15 Enterobacteriac sp PCR DETECTED (Not Detect) A 04/06/17 17:58 Klebsiella pneumoniae DETECTED (Not Detect) A 04/06/17 17:58 - Clinical Findings Intake & Output: Intake & Output 04/06/17 04/06/17 04/07/17 15:59 23:59 07:59 Intake Total 1235 / 4358 1663 / 1663 Balance 1235 / 4358 1663 / 1663 Weight 104.2 kg
--- NOTE | 2017-04-07 07:57 | Oncology Inp Consult Note ---
Date of Encounter: 04/07/17 Time of Encounter: 07:30 Assessment and Plan (1) History of pancreatic cancer Status: Acute Assessment and plan: Patient has had a very difficult course since her diagnosis. She was due for her fourth treatment of chemotherapy today. Obviously this will be on hold till she recovers from this. CT scan findings were reviewed and noted. These will be discussed with the patient as well. Further decisions regarding her treatment will be made at a later date. If she has continued issues with sepsis or has difficulty recovering, hospice could be considered, but based off her current status this morning, I think she should recover from this event. We will continue to follow. Do not hesitate to call [phone] (2) Sepsis Status: Acute Assessment and plan: Patient has sepsis with klebsiella bacteremia. This appears secondary to urinary source. She is on appropriate antimicrobial treatment. In addition, urologic evaluation has recommended stenting which I agree with. Appreciate the expert care provided by my pulmonary and urology colleagues. Qualifiers: Sepsis type: sepsis due to unspecified organism Qualified Code(s): A41.9 - Sepsis, unspecified organism - Data of Consult Requesting Physician: Polo Garces Primary Care Provider: PCP NONE - Consult Narrative Reason for consult: Pancreatic cancer, patient known to you History of present illness: Ms. Trevizo is a 62 year old female with known metastatic pancreatic cancer who is currently under my care. I just met this patient to short weeks ago after the departure of her previous oncologist. She has a complicated oncologic history where she had a pancreatic head mass causing obstructive jaundice. She is status post ERCP and metal stent placement 01/27/2017. In addition to this, she has been found of a probable malignant left renal lesion and OS. Her course of comp Karissa by bilateral DVT with PE. Should manage with Lovenox 100 mg twice a day. She was placed on palliative FOLFIRINOX 02/18/17 and has received 3 treatments to date. Her family contacted our office yesterday. She was confused, lethargic and complained of abdominal discomfort. We asked her to proceed to the closest emergency Department. The family is resistant about going to [facility]. Therefore, we recommended a drive her to our emergency department for further evaluation. In the emergency department, she was hypotensive, tachycardic and septic. She required adenosine to break SVT and was admitted to the ICU. She is found to have a Klebsiella bacteremia with associated sepsis from a urinary source. Mrs. Kelly feels much better today. She does not remove much about yesterday. She does admit to having rigors. No other new aches or pains. Past Med Surg Social Fam HX - Past Medical History Medical history: cancer (metastatic pancreatic cancer) - Past Surgical History Surgical History: other (biliary stent, BTL, left shoulder) - Social History Smoking Status: Former smoker Smokeless Tobacco Status: No Alcohol use: none Drug use: none Medications and Allergies Lidocaine/Prilocaine [Emla] 1 appl TP AD #30 gm 02/11/17 [Rx] Ondansetron HCl [Zofran] 4 mg PO Q6H PRN #40 tablet 02/11/17 [Rx] Prochlorperazine Maleate [Compazine] 10 mg PO Q6HR PRN #40 tablet 02/11/17 [Rx] Dronabinol [Marinol] 5 mg PO BIDWM #60 capsule 02/20/17 [Rx] Enoxaparin [Lovenox] 100 mg SQ Q12HR #60 02/20/17 [Rx] Omeprazole 20 mg PO DAILY #90 tablet. 03/04/17 [Rx] Furosemide [Lasix] 20 mg PO DAILY #90 tablet 03/25/17 [Rx] Spironolactone [Aldactone] 25 mg PO DAILY #90 tablet 03/25/17 [Rx] Sucralfate [Carafate] 1 gm PO QIDAC #120 tablet 03/25/17 [Rx] Loperamide HCl [Imodium A-D] 2 mg PO PER PKG DI PRN 04/06/17 [History] Morphine Sulfate SR (12 HR) [MS Contin] 30 mg PO Q8HR 04/06/17 [History] OxyCODONE Immed Rel [Roxicodone 5 MG] 10 mg PO Q2HR PRN 04/06/17 [History] Stomatitis Mixture 5 ml PO Q4H PRN 04/06/17 [History] 3 Allergy/AdvReac Type Severity Reaction Status Date / Time No Known Drug Allergies Allergy none Verified 04/06/17 16:37 All systems: reviewed and no additional remarkable complaints except as stated Constitutional: Present: chills, fever(s), lethargy, malaise Eyes: Present: as per HPI Cardiovascular: Present: as per HPI Respiratory: Present: dyspnea on exertion Gastrointestinal: Present: abdominal pain Genitourinary: Present: urinary frequency Musculoskeletal: Present: as per HPI Neurological: Present: confusion Oncology - Exam - Constitutional Vitals: Temp Pulse Resp BP Pulse Ox 98.4 F 74 14 90/60 98 04/07/17 04:32 04/07/17 06:00 04/07/17 06:00 04/07/17 06:00 04/07/17 06:00 - Head Head exam: Present: atraumatic, normal inspection, normocephalic - Eye Eye exam: Present: normal appearance, conjuntiva pink, sclera anicteric - ENT ENT exam: Present: mucous membranes moist, normal exam - Neck Neck exam: Present: full ROM, normal inspection - Respiratory Respiratory exam: Present: CTAB - Cardiovascular Cardiovascular exam: Present: RRR - GI/Abdominal GI/Abdominal exam: Present: hypoactive bowel sounds, soft - Neurological Exam Neurological exam: Present: alert, CN II-XII intact, oriented X3 Oncology - Results Labs: Short CBC 04/06/17 04/07/17 Range/Units 23:55 03:15 WBC 14.7 H 16.8 H (4.3-11.1) K/mcL Hgb 7.8 L 8.0 L (11.5-15.4) g/dL Hct 23.5 L 23.7 L (35.3-44.9) % Plt Count 169 156 (140-400) K/mcL Neutrophils # 11.8 H 13.1 H (1.6-8.9) K/mcL BMP 04/06/17 04/07/17 23:55 03:15 Sodium 127 L 127 L Potassium 2.9 L 3.2 L Chloride 98 97 L Carbon Dioxide 19 20 BUN 21 H 24 H Creatinine 2.30 H 2.44 H Glucose 160 H 166 H Calcium 6.9 L 6.9 L Cardiac Enzymes 04/06/17 04/07/17 Range/Units 23:55 03:15 Troponin I 0.56 H* 0.54 H* (0-0.03) ng/mL Liver Function 04/06/17 04/07/17 Range/Units 23:55 03:15 Total Bilirubin 4.4 H 4.4 H (0.2-1.2) mg/dL AST 53 H 48 H (5-34) Units/L ALT 32 34 (0-55) Units/L Alkaline Phosphatase 488 H 485 H (38-126) Units/L Albumin 1.5 L 1.6 L (3.5-5.0) g/dL CT OF THE ABDOMEN AND PELVIS WITHOUT CONTRAST 04/07/2017 8:46 am TECHNIQUE: CT of the abdomen and pelvis was performed without the administration of intravenous contrast. Multiplanar reformatted images are provided for review. Dose modulation, iterative reconstruction, and/or weight based adjustment of the mA/kV was utilized to reduce the radiation dose to as low as reasonably achievable. COMPARISON: 03/10/2017, 01/22/2017 HISTORY: ORDERING SYSTEM PROVIDED HISTORY: bacteremia, biliary stent Initial encounter. FINDINGS: Lower Chest: Trace left pleural effusion. Focal opacities in the lung bases, left worse than right, likely atelectasis however there is no significant interval change of a 1.8 cm left and a 0.5 cm right slightly irregular nodular opacities in the costophrenic angles. Organs: Vague areas of low-attenuation are noted throughout the liver some of which may be related to fatty change. Liver metastases noted on the prior exam are less conspicuous on this study due to lack of intravenous contrast and fatty change. Common bile duct stent is again identified. There is debris in the proximal common bile duct. There is pneumobilia. The unenhanced spleen and adrenal glands are without focal abnormality. There is prominence of the pancreatic head which correlates to known underlying mass but is otherwise not well-visualized due to lack of intravenous contrast. The pancreatic duct is dilated and the pancreatic head is stable with upstream mild pancreatic atrophy. There is persistent moderate to severe right hydroureteral nephrosis extending to the level of the mid to distal right ureter. No obstructing stone is identified. No left hydronephrosis. There is a stable 2.3 cm cystic lesion in the upper pole of the left kidney. There is high-density material within the gallbladder which may be related to stones, sludge or contrast material. GI/Bowel: Bowel is relatively decompressed, however there is apparent wall thickening of the colon with mild pericolonic stranding. No dilated loops of bowel. No free air. Pelvis: Small volume free fluid. There is gas within the bladder likely related to recent intervention. No pelvic adenopathy. Peritoneum/Retroperitoneum: The aorta is normal caliber with mild atherosclerosis. There is increased mesenteric edema and stranding as well as small volume ascites. No drainable fluid collection. There are scattered subcentimeter mesenteric lymph nodes not significantly changed since the prior exam. Bones/Soft Tissues: Increased subcutaneous edema. There is a new 1.7 x 0.8 cm mixed lytic and sclerotic lesion in the anterior L2 vertebral body with similar appearing foci along the anterior aspect of L3 and L4 as well. There is also a new 7 mm sclerotic lesion in the right iliac crest and a subtle 9 mm lesion in the inferior right pubic ramus. CT/CT abd pelvis wo no iv no oral IMPRESSION: 1. Worsening anasarca with subcutaneous edema, trace left pleural effusion and worsening small volume ascites. 2. Although the bowel is not well distended, there is apparent wall thickening of the colon which could reflect colitis. 3. Vague areas of low attenuation throughout the liver which may reflect known metastases versus fatty change. Evaluation for metastatic disease in the liver as well as evaluation of the primary pancreatic mass is otherwise limited due to lack of intravenous contrast. 4. Common bile duct stent in place with pneumobilia. 5. High-density material within the gallbladder which may be related to stones, sludge or contrast material. 6. Persistent moderate severe right hydroureteronephrosis extending to the level of the mid to distal ureter. Underlying stricture is suspected. Overall findings are new since 01/22/2017, but grossly stable since 03/10/2017. No discrete stone is otherwise identified. 7. There are a few new predominately sclerotic lesions noted within the lumbar spine and pelvis suspicious for metastatic disease. 8. Bibasilar opacities, which are nonspecific and could be related to atelectasis, however it should be noted there are stable somewhat nodular opacities in the costophrenic angles bilaterally and metastatic disease cannot be excluded and should be followed on subsequent exams. Consult Discharge Plan - Plan Referrals: NONE,PCP [Primary Care Provider] -
[2017-04-07] MEDS ORDERED: D5% in Water 1,000 ML IVC PRN (08:58)
[2017-04-07] MEDS ORDERED: *HR* Dextrose 50 % in Water (Syg) 50 ML SYRINGE IVP PRN (08:58)
[2017-04-07] MEDS ORDERED: Dextrose Gel 15 GM PO PRN ×2 (08:58)
[2017-04-07 09:17] LABS: Bilirubin,Urine Large (Negative); Blood,Urine Small (Negative); Clarity,Urine Turbid (Clear); Glucose,Urine (UA) Normal (Normal); Ketones,Urine Trace mg/dL (Negative); Leukocyte Esterase,Urine Large (Negative); Nitrite,Urine Positive (Negative); Protein,Urine 100 mg/dL (Neg-Trace); Specific Gravity,Urine 1.019 (1.010-1.025); Urobilinogen,Urine Normal (Normal)
[2017-04-07 09:19] LABS: Hyaline Casts,Urine None Seen per lpf (None-Few); RBC,Urine 0-3 per hpf (0-3); Squamous Epithelial Cell,Urine Moderate per lpf (None-Few); WBC,Urine TNTC per hpf (0-3)
[2017-04-07 09:21] LABS: Color,Urine Amber (Yellow)
[2017-04-07 09:44] LABS: Bacteria,Urine Many per hpf (None-Few)
[2017-04-07 09:48] LABS: Calcium Oxalate Crystals,Urine Present
[2017-04-07] MEDS: Piperacillin/Tazobactam 3.375 GM in D5% in Water (Mini-Bag+) 100 ML IVPB SCH ×2 (10:06→20:12)
[2017-04-07] MEDS: MetroNIDAZOLE 500 MG/100 ML 500 MG/100 ML BAG IVPB SCH (10:06)
[2017-04-07] MEDS: Hydrocortisone Sodium Succ 100 MG/2 ML VIAL IVP SCH ×3 (10:06→23:56)
--- NOTE | 2017-04-07 10:14 | Nephrology Consult Note ---
Date of Encounter: 04/07/17 Time of Encounter: 09:00 Assessment and Plan (1) ANGELA (acute kidney injury) Current Visit: Yes Status: Acute ANGELA in setting of sepsis/shock, decreased oral intake with continued use of diuretics, GI losses, possible tumor lysis. Will order uric acid. Renal US to rule out obstructive uropathy. Lower extremity swelling may be related to venous obstruction. Continue IV fluids. Avoid unnecessary nephrotoxins. History of Present Illness - Reason for Consult Acute Kidney Injury - History of Present Illness Ms. Trevizo is a 62 year old female with history of pancreatic cancer, involving retroperitoneal lymph nodes and liver and Malignant left renal lesion. Other PMH -DVT, PE. Currently on chemotherapy, last dose on Mar 25. Ms. Trevizo presented to ER yesterday with SOB and weakness. Was found to have heart rate in 200's, SBP in 70's. Converted on own with IV fluids and Adenosine. Levophed added for BP support. Labs Hgb 7.3, hemoccult negative. Leukocytosis, hyponatremia, hypochloremia, creat 2.58, troponin 0.47. CXR negative. Blood cultures from Apr 06-gm neg, klebsiella pneumoniae. On Vanco, Zosyn and Flagyl. This morning at consult patient alert, oriented x 3. NSR. Continues with pressor support. Daughter at bedside.States has had increasing weakness, SOB, ongoing diarrhea and lower extremity swelling for past two weeks with marked decreased urine output and decreasing appetite and decreased fluid intake. Admits mild transient nausea, denies emesis. States started on Lasix and Aldactone two weeks ago per oncology for LE swelling. States did not see improvement in swelling or urine output. Admits past remote NSAID use, denies any recent use. Denies any past renal history. Prior creat 0.63-0.97 from January 2017 to Mar 25, 2017. Creat 2.44 today. Per nursing only 200cc urine output since admission, "murky tea color." Spec to lab. Past Med Surg Social Fam HX - Past Medical History Medical history: cancer - Past Surgical History Surgical History: other (biliary stent, BTL, left shoulder) - Social History Smoking Status: Former smoker Smokeless Tobacco Status: No Alcohol use: none Drug use: none Medications and Allergies Lidocaine/Prilocaine [Emla] 1 appl TP AD #30 gm 02/11/17 [Rx] Ondansetron HCl [Zofran] 4 mg PO Q6H PRN #40 tablet 02/11/17 [Rx] Prochlorperazine Maleate [Compazine] 10 mg PO Q6HR PRN #40 tablet 02/11/17 [Rx] Dronabinol [Marinol] 5 mg PO BIDWM #60 capsule 02/20/17 [Rx] Enoxaparin [Lovenox] 100 mg SQ Q12HR #60 02/20/17 [Rx] Omeprazole 20 mg PO DAILY #90 tablet. 03/04/17 [Rx] Furosemide [Lasix] 20 mg PO DAILY #90 tablet 03/25/17 [Rx] Spironolactone [Aldactone] 25 mg PO DAILY #90 tablet 03/25/17 [Rx] Sucralfate [Carafate] 1 gm PO QIDAC #120 tablet 03/25/17 [Rx] Loperamide HCl [Imodium A-D] 2 mg PO PER PKG DI PRN 04/06/17 [History] Morphine Sulfate SR (12 HR) [MS Contin] 30 mg PO Q8HR 04/06/17 [History] OxyCODONE Immed Rel [Roxicodone 5 MG] 10 mg PO Q2HR PRN 04/06/17 [History] Stomatitis Mixture 5 ml PO Q4H PRN 04/06/17 [History] 3 Allergy/AdvReac Type Severity Reaction Status Date / Time No Known Drug Allergies Allergy none Verified 04/06/17 16:37 Review of Systems All Systems: reviewed and no additional remarkable complaints except as stated Exam - Vital Signs Vital signs: Initial Vital Signs Temp Pulse Resp BP Pulse Ox 98.4 F 206 18 82/49 94 04/06/17 16:38 04/06/17 16:38 04/06/17 16:38 04/06/17 16:38 04/06/17 16:38 Vital Signs - Last 8 Hours Temp Pulse Resp BP Pulse Ox 04/07/17 08:40 77 20 88/54 96 04/07/17 08:33 98.0 F 04/07/17 07:30 76 20 93/63 99 04/07/17 06:00 74 14 90/60 98 04/07/17 05:00 77 12 90/58 98 04/07/17 04:32 98.4 F 04/07/17 04:00 78 F L 79 16 87/60 98 04/07/17 03:00 79 18 84/57 100 Intake and Output 04/06/17 04/07/17 04/07/17 23:59 07:59 15:59 Intake Total 1235 / 4358 1663 / 1663 Balance 1235 / 4358 1663 / 1663 Intake: IV Fluids 785 / 806 1613 / 1613 0.9 % Sodium Chloride 1, 1000 / 1000 000 ML @ 125 mls/hr IVC . Q8H [facility] Rx#:[id number] Levophed 4 MG In Dextrose 233 / 254 254 / 254 5% 250 ML @ 8 MCG/MIN 30 .48 mls/hr IVC CONT [facility] Rx#:[id number] Magnesium Sulfate 2 GM In 102 / 102 104 / 104 Dextrose 5% 100 ML @ 100 mls/hr IVPB ONCE ONE Rx# :[id number] Flagyl Premix 500 MG/100 100 / 100 ML 500 mg In 100 ml @ 100 mls/hr IVPB Q8HR [facility] Rx# :[id number] Zosyn 3.375 GM In 100 / 100 Dextrose 5% (Minibag+) 100 ML 100 ML @ 25 mls/hr IVPB ONCE ONE Rx#: [id number] Potassium Phosphate 22 255 / 255 MEQ In 0.9 % Sodium Chloride 250 ML @ 40 mls/ hr IVPB ONCE ONE Rx#: [id number] Vancocin 1,500 MG In 250 / 250 Dextrose 5% 250 ML @ 166. 67 mls/hr IVPB ONCE ONE Rx#:[id number] Oral 100 / 100 50 / 50 Blood Product 350 / 350 Rbcs Leuko Poor As-1 350 / 350 Unit [id number] Other: Weight 104.2 kg Patient Weight 04/07/17 23:59 Weight 104.2 kg - General Appearance General appearance: well-developed, well-nourished, appears started age EENT: mucous membranes moist Neck: no JVD Respiratory: clear Cardiology: edema, regular rate, regular rhythm Additional Comments: 1-2+ pitting/dependent edema buttock down Gastrointestinal: normoactive bowel sounds, no tenderness Integumentary: warm and dry Neurologic: alert and oriented x3 Psychiatric: mood/affect appropriate, cooperative Results - Lab Results 04/07/17 03:15 04/07/17 03:15 Most recent lab results Calcium 6.9 mg/dL (8.6-10.8) L 04/07/17 03:15 Phosphorus 3.0 mg/dL (2.3-4.7) 04/07/17 03:15 Magnesium 1.3 mg/dL (1.6-2.6) L 04/07/17 03:15 Consult Discharge Plan - Plan Referrals: NONE,PCP [Primary Care Provider] -
[2017-04-07 10:46] LABS: Creatinine,Urine 243 mg/dL
[2017-04-07 10:57] LABS: Sodium, Urine < 20.0 mEq/L
[2017-04-07] MEDS ORDERED: *HR* Heparin 5,000 UNIT/ML VIAL IVP PRN ×2 (11:00)
[2017-04-07 11:12] LABS: INR 2.8
[2017-04-07 11:14] LABS: Activated Partial Thrombo Time 53.2 Seconds (26.0-36.0)
[2017-04-07] MEDS ORDERED: Albumin 25% 25gram/100mL 25 GM/100 ML IV.SOLN IVPB ONE (11:22)
[2017-04-07] MEDS ORDERED: Calcium Gluconate 1,000 MG in D5% in Water 100 ML IVPB PRN (11:24)
[2017-04-07] MEDS: Insulin LISPRO 300 UNITS/3 ML VIAL SQ SCH ×2 (11:40→17:02)
[2017-04-07] MEDS: Heparin 25,000 UNIT/500 ML D5W 25,000 UNIT/500 ML MLS IVC SCH (12:08)
[2017-04-07 12:13] LABS: Osmolality,Urine 290 mOsm/kg (300-1090)
--- NOTE | 2017-04-07 12:43 | Cardiology Consult Note ---
<Lina More Christina - Last Filed: 04/07/17 13:12> Date of Encounter: 04/07/17 Time of Encounter: 12:30 Assessment and Plan (1) Elevated troponin Current Visit: Yes Status: Acute Mild troponin elevation in the setting of ARF/ANGELA, acute anemia, sepsis, and hypovolemic shock; likely secondary to demand ischemia. Doubt ACS. Patient is chest pain free upon exam. Continue medical management; patient has pancreatic CA with mets to liver and possibly bone. No statin due to liver mets, no asa due to acute anemia, no betablocker due to hypotension/pressors. Anticipate sign-off if no significant findings on echocardiogram. (2) SVT (supraventricular tachycardia) Current Visit: Yes Status: Acute Resolved. Likely secondary to hypovolemic shock, ARF, sepsis No further testing as inpatient from Cardiology recommended. (3) Sepsis Current Visit: Yes Status: Acute Continue supportive care per ICU team. On pressors, IV atb. Qualifiers: Sepsis type: sepsis due to unspecified organism Qualified Code(s): A41.9 - Sepsis, unspecified organism (4) ANGELA (acute kidney injury) Current Visit: Yes Status: Acute ANGELA/ARF, Nephrology following. Urology consulted for right hydronephorsis. (5) Pancreatic cancer metastasized to liver Current Visit: Yes Status: Acute Discussion w patient/family: The assessment and plan as outlined above was discussed with the patient and/or family members who expressed understanding and agreement. All questions were answered. Thank you for involving us in the care of your patient. Please call with any questions. The patient will be discussed and reviewed with Dr. Chong; changes to be made accordingly. History of Present Illness Consult date: 04/07/17 Requesting physician: Wes Rodas Consult reason: Elevated troponin, SVT Chief complaint: Weakness History of present illness: Ms. Trevizo is a 62 year old female with PMHx significant for PE/DVT, pancreatic CA with mets who presented with 4-5 day history of significant weakness, fatigue , and malaise. Associated symptoms include diarrhea for the past several days. Has been undergoing chemotherapy since January 2017 for pancreatic cancer (total of 3 treatments). Upon arrival she was found to be in SVT and given adenosine. Labs were also remarkable for acute anemia, acute renal failure, and sepsis likely secondary to hypovolemic shock. She denies any prior cardiac history or testing. Past Med Surg Social Fam HX - Past Medical History Attestation: Yes The following information was validated with the patient. Source: patient Medical history: cancer, DVT (PE), pulmonary embolus - Past Surgical History Surgical History: other (biliary stent, BTL, left shoulder) - Social History Smoking Status: Former smoker Smokeless Tobacco Status: No Alcohol use: none Drug use: none Medications and Allergies Lidocaine/Prilocaine [Emla] 1 appl TP AD #30 gm 02/11/17 [Rx] Ondansetron HCl [Zofran] 4 mg PO Q6H PRN #40 tablet 02/11/17 [Rx] Prochlorperazine Maleate [Compazine] 10 mg PO Q6HR PRN #40 tablet 02/11/17 [Rx] Dronabinol [Marinol] 5 mg PO BIDWM #60 capsule 02/20/17 [Rx] Enoxaparin [Lovenox] 100 mg SQ Q12HR #60 02/20/17 [Rx] Omeprazole 20 mg PO DAILY #90 tablet. 03/04/17 [Rx] Furosemide [Lasix] 20 mg PO DAILY #90 tablet 03/25/17 [Rx] Spironolactone [Aldactone] 25 mg PO DAILY #90 tablet 03/25/17 [Rx] Sucralfate [Carafate] 1 gm PO QIDAC #120 tablet 03/25/17 [Rx] Loperamide HCl [Imodium A-D] 2 mg PO PER PKG DI PRN 04/06/17 [History] Morphine Sulfate SR (12 HR) [MS Contin] 30 mg PO Q8HR 04/06/17 [History] OxyCODONE Immed Rel [Roxicodone 5 MG] 10 mg PO Q2HR PRN 04/06/17 [History] Stomatitis Mixture 5 ml PO Q4H PRN 04/06/17 [History] 3 Allergy/AdvReac Type Severity Reaction Status Date / Time No Known Drug Allergies Allergy none Verified 04/06/17 16:37 All Systems Review: A 10-system review of systems was performed and is negative for pertinent findings except as documented above in the HPI. - Cardiovascular Cardiovascular: as per HPI Physical Examination Vital Signs, Last 4 Hours Pulse Resp BP Pulse Ox 04/07/17 11:30 81 21 100/71 96 04/07/17 10:33 77 19 95/66 95 04/07/17 09:40 76 19 105/75 96 General: Conversant (appears chronically ill) HEENT: Atraumatic, Normocephaly Cardiac: Reg Rate and Rhythm, Normal S1 and S2 Lungs: Other (Diminished bibasilar) Neuro: Alert and responsive Abdomen: Soft Skin: No rashes noted on visualized skin Musculoskeletal: No Chest Wall Tenderness Extremities: Normal Pulses, Other (bilateral lower extremity edema) Results 04/07/17 03:15 04/07/17 03:15 Lab Results 04/06/17 04/06/17 04/06/17 23:55 23:55 23:55 WBC 14.7 H Hgb 7.8 L Hct 23.5 L Plt Count 169 INR APTT Sodium 127 L Potassium 2.9 L Chloride 98 Carbon Dioxide 19 BUN 21 H Creatinine 2.30 H Glucose 160 H Calcium 6.9 L Magnesium Total Bilirubin 4.4 H AST 53 H ALT 32 Alkaline Phosphatase 488 H Troponin I 0.56 H* TSH 1.781 04/07/17 04/07/17 04/07/17 03:15 03:15 03:15 WBC 16.8 H Hgb 8.0 L Hct 23.7 L Plt Count 156 INR APTT Sodium 127 L Potassium 3.2 L Chloride 97 L Carbon Dioxide 20 BUN 24 H Creatinine 2.44 H Glucose 166 H Calcium 6.9 L Magnesium 1.3 L Total Bilirubin 4.4 H AST 48 H ALT 34 Alkaline Phosphatase 485 H Troponin I 0.54 H* TSH Active Medications Dextrose/Water (Dextrose 50% (Syg)) 25 ml IVP AD PRN PRN Reason: Hypoglycemia Stop: 10/07/17 08:59 Glucagon (Glucagen) 1 mg IM ONCE PRN PRN Reason: Hypoglycemia Stop: 10/07/17 08:59 Glucose (Gluctose) 15 gm PO ONCE PRN PRN Reason: Hypoglycemia Stop: 10/07/17 08:59 Glucose (Gluctose) 30 gm PO ONCE PRN PRN Reason: Hypoglycemia Stop: 10/07/17 08:59 Heparin Sodium (Porcine) (Heparin) 7,300 unit 70 unit/kg (7300 unit) IVP Q6HR PRN PRN Reason: SEE COMMENTS Stop: 10/07/17 11:01 Heparin Sodium (Porcine) (Heparin) 3,600 unit 35 unit/kg (3600 unit) IVP Q6H PRN PRN Reason: SEE COMMENTS Stop: 10/07/17 11:01 Hydrocortisone Sodium Succinate (Solu-Cortef) 100 mg IVP Q8HR AYAN Stop: 10/07/17 00:01 Last Admin: 04/07/17 10:06 Dose: 100 mg Norepinephrine Bitartrate 4 mg (/ Dextrose) 254 mls @ 30.48 mls/hr IVC CONT AYAN ; 8 MCG/MIN PRN Reason: Protocol Stop: 10/06/17 17:31 Last Admin: 04/07/17 10:45 Dose: 15 mcg/min, 57.15 mls/hr Sodium Chloride (0.9 % Sodium Chloride) 1,000 mls @ 125 mls/hr IVC .Q8H AYAN Stop: 04/07/17 19:44 Last Admin: 04/07/17 04:44 Dose: 125 mls/hr Piperacillin Sod/Tazobactam (Sod 3.375 gm/ Dextrose) 100 mls @ 25 mls/hr IVPB Q12H AYAN Stop: 10/07/17 08:01 Last Admin: 04/07/17 10:06 Dose: 25 mls/hr Metronidazole (Flagyl Premix 500 Mg/100 Ml) 500 mg in 100 mls @ 100 mls/hr IVPB Q8HR AYAN Stop: 10/07/17 00:01 Last Infusion: 04/07/17 11:06 Dose: Infused Heparin Sodium/Dextrose (Heparin 25,000 Unit/500 Ml D5w) 25,000 unit in 500 mls @ 29.176 mls/hr IVC .Q17H9M AYAN; 14 UNIT/KG/HR PRN Reason: Protocol Stop: 10/07/17 11:01 Last Admin: 04/07/17 12:08 Dose: 14 unit/kg/hr, 29.176 mls/hr Dextrose (Dextrose 5%) 1,000 mls @ 100 mls/hr IVC .Q10H PRN PRN Reason: HYPOGLYCEMIA Stop: 10/07/17 08:59 Albumin Human (Flexbumin) 25 gm in 100 mls @ 60 mls/hr IVPB ONCE ONE Stop: 04/07/17 13:01 Last Admin: 04/07/17 11:56 Dose: 100 mls/hr Calcium Gluconate 1,000 mg/ (Dextrose) 110 mls @ 50 mls/hr IVPB Q6HR PRN PRN Reason: Hypocalcemia Stop: 10/07/17 11:25 Potassium Chloride (Potassium Chloride 10 Meq/100ml) 10 meq in 100 mls @ 100 mls/hr IVPB Q1H PRN PRN Reason: Potassium less than 4 Stop: 10/07/17 11:25 Insulin Human Lispro (Humalog) 0 units SQ TIDAC AYAN PRN Reason: Protocol Stop: 10/07/17 11:31 Naloxone HCl (Narcan) 0.4 mg IVP Q2MIN PRN PRN Reason: Opioid Reversal Stop: 10/06/17 19:37 Ondansetron HCl (Zofran) 4 mg IVP Q6H PRN; Protocol PRN Reason: Nausea And Vomiting Stop: 10/06/17 20:01 Prochlorperazine Maleate (Compazine) 10 mg PO Q6HR PRN PRN Reason: nausea/vomiting Stop: 10/06/17 19:48 Impressions Chest X-Ray 04/06/17 16:43 IMPRESSION: No acute abnormalities seen in the chest D/ / 04/06/2017 17:26:52 Savage Irizarry MD / justice Interpreting Provider: Savage Irizarry MD Abdomen/Pelvis CT 04/07/17 06:54 IMPRESSION: 1. Worsening anasarca with subcutaneous edema, trace left pleural effusion and worsening small volume ascites. 2. Although the bowel is not well distended, there is apparent wall thickening of the colon which could reflect colitis. 3. Vague areas of low attenuation throughout the liver which may reflect known metastases versus fatty change. Evaluation for metastatic disease in the liver as well as evaluation of the primary pancreatic mass is otherwise limited due to lack of intravenous contrast. 4. Common bile duct stent in place with pneumobilia. 5. High-density material within the gallbladder which may be related to stones, sludge or contrast material. 6. Persistent moderate severe right hydroureteronephrosis extending to the level of the mid to distal ureter. Underlying stricture is suspected. Overall findings are new since 01/22/2017, but grossly stable since 03/10/2017. No discrete stone is otherwise identified. 7. There are a few new predominately sclerotic lesions noted within the lumbar spine and pelvis suspicious for metastatic disease. 8. Bibasilar opacities, which are nonspecific and could be related to atelectasis, however it should be noted there are stable somewhat nodular opacities in the costophrenic angles bilaterally and metastatic disease cannot be excluded and should be followed on subsequent exams. Interpreting Provider: Bhakti Ledesma MD - Imaging and Cardiology Echo: pending Other Results: Tele: avg HR=79 SR. - EKG Interpretation EKG results cardiology: personally reviewed Consult Discharge Plan - Plan Referrals: NONE,PCP [Primary Care Provider] - <Makenzie Chong - Last Filed: 04/07/17 17:05> Date of Encounter: 04/07/17 Assessment and Plan Discussion w patient/family: The assessment and plan as outlined above was discussed with the patient and/or family members who expressed understanding and agreement. All questions were answered. Thank you for involving us in the care of your patient. Please call with any questions. History of Present Illness History of present illness: Ms. Trevizo is a 62 year old female All Systems Review: A 10-system review of systems was performed and is negative for pertinent findings except as documented above in the HPI. Physical Examination Vital Signs, Last 4 Hours Temp Pulse Resp BP Pulse Ox 04/07/17 16:44 98.0 F 04/07/17 15:30 98 F 76 20 91/63 95 04/07/17 14:30 77 20 94/64 96 04/07/17 13:30 76 21 95/68 95 04/07/17 12:57 98.0 F Results 04/07/17 14:20 04/07/17 14:20 Lab Results 04/06/17 04/06/17 04/06/17 23:55 23:55 23:55 WBC 14.7 H Hgb 7.8 L Hct 23.5 L Plt Count 169 INR APTT Sodium 127 L Potassium 2.9 L Chloride 98 Carbon Dioxide 19 BUN 21 H Creatinine 2.30 H Glucose 160 H Calcium 6.9 L Magnesium Total Bilirubin 4.4 H AST 53 H ALT 32 Alkaline Phosphatase 488 H Troponin I 0.56 H* TSH 1.781 04/07/17 04/07/17 04/07/17 03:15 03:15 03:15 WBC 16.8 H Hgb 8.0 L Hct 23.7 L Plt Count 156 INR APTT Sodium 127 L Potassium 3.2 L Chloride 97 L Carbon Dioxide 20 BUN 24 H Creatinine 2.44 H Glucose 166 H Calcium 6.9 L Magnesium 1.3 L Total Bilirubin 4.4 H AST 48 H ALT 34 Alkaline Phosphatase 485 H Troponin I 0.54 H* TSH 04/07/17 04/07/17 04/07/17 10:45 14:20 14:20 WBC 18.3 H Hgb 7.7 L Hct 23.1 L Plt Count 105 L INR 2.8 APTT 53.2 H Sodium 127 L Potassium 3.2 L Chloride 97 L Carbon Dioxide 19 BUN 27 H Creatinine 2.37 H Glucose 193 H Calcium 7.1 L Magnesium Total Bilirubin AST ALT Alkaline Phosphatase Troponin I TSH - Attending Attestation I examined this patient and my medical decision-making was reviewed with the Resident Physician. I agree with the documented findings, disposition and treatment plan. Ms. Trevizo presents with tachycardia, HR 200's per documentation in the ER. She was hypotensive at the time. They administered 6mg IV adenosine and per notes, heart rates slowed to 102 bpm demonstrating sinus tachycardia. Underlying rhythm given this information is difficult to determine. She has not demonstrated any further episodes since admission. She was also noted to be hypotensive which subsequently has been determined to be secondary to sepsis. Additionally, blood counts dropped from 10.8 (February) to 9.5 (March ) to 7.3 on admit. Complicating this is a mild troponin elevation which does not clearly represent ACS in the setting of acute renal failure. Patient is chest pain free on exam and does not recall having recent chest pain. Her echo returned demonstrating normal LVEF. Patient is not on statin due to liver mets , is not on aspirin due to concern for drop in blood count and cannot tolerate AVN blockers due to hypotension. No further cardiac recommendations at this time. Will sign off. Please call with questions.
[2017-04-07 14:42] LABS: Hematocrit 23.1 % (35.3-44.9); Hemoglobin 7.7 g/dL (11.5-15.4); Mean Corpuscular HGB Conc 33.3 g/dL (31.6-35.5); Mean Corpuscular Hemoglobin 32.5 pg (28.0-33.3); Mean Corpuscular Volume 97.5 fL (83.0-100.0); Mean Platelet Volume 11.4 fL (9.4-12.4); Nucleated Red Blood Cells 0.1 /100 WBC (0); Platelet Count 105 K/mcL (140-400); Red Blood Count 2.37 M/mcL (3.82-4.97); Red Cell Distribution Width 18.2 % (11.5-14.5)
[2017-04-07 14:59] LABS: Calcium 7.1 mg/dL (8.6-10.8); Phosphorous 2.8 mg/dL (2.3-4.7); Potassium 3.2 mEq/L (3.5-4.5)
--- NOTE | 2017-04-07 15:24 | Urology - Consult Note ---
Date of Encounter: 04/07/17 Time of Encounter: 15:22 - Assessment and Plan (1) Hydronephrosis due to obstruction of ureter Current Visit: Yes Status: Acute Assessment and plan: 62-year-old woman with a history of pancreatic cancer and now a new right hydroureteronephrosis. She has concern for bacteremia. I recommend proceeding with a cystoscopy and right ureteral stent placement. She was informed of the risks of the surgery which include but are not limited to bleeding, infection, injury to structures, need for further procedures, stent irritation, need for nephrostomy tube, and failure to place a stent. I will attempt to place this stent at the bedside given that she has need for vasopressor support. Urology CN:HPI Consult date: 04/07/17 Reason for consult Urology: Hydronephrosis History of present illness: 62-year-old woman with a history of pancreatic cancer was admitted with sepsis. She has been hypotensive and is requiring vasopressors. A CT scan showed concern for right hydroureteronephrosis. Although there is no distinct retroperitoneal mass, there does seem to be a transition point within the right ureter. She has not been febrile. A catheter has been inserted. A blood culture has been positive for Klebsiella and her urinalysis was purulent. Past Med Surg Social Fam HX - Past Medical History Medical history: cancer - Past Surgical History Surgical History: other (biliary stent, BTL, left shoulder) - Social History Smoking Status: Former smoker Smokeless Tobacco Status: No Alcohol use: none Drug use: none Medications and Allergies Lidocaine/Prilocaine [Emla] 1 appl TP AD #30 gm 02/11/17 [Rx] Ondansetron HCl [Zofran] 4 mg PO Q6H PRN #40 tablet 02/11/17 [Rx] Prochlorperazine Maleate [Compazine] 10 mg PO Q6HR PRN #40 tablet 02/11/17 [Rx] Dronabinol [Marinol] 5 mg PO BIDWM #60 capsule 02/20/17 [Rx] Enoxaparin [Lovenox] 100 mg SQ Q12HR #60 02/20/17 [Rx] Omeprazole 20 mg PO DAILY #90 tablet. 03/04/17 [Rx] Furosemide [Lasix] 20 mg PO DAILY #90 tablet 03/25/17 [Rx] Spironolactone [Aldactone] 25 mg PO DAILY #90 tablet 03/25/17 [Rx] Sucralfate [Carafate] 1 gm PO QIDAC #120 tablet 03/25/17 [Rx] Loperamide HCl [Imodium A-D] 2 mg PO PER PKG DI PRN 04/06/17 [History] Morphine Sulfate SR (12 HR) [MS Contin] 30 mg PO Q8HR 04/06/17 [History] OxyCODONE Immed Rel [Roxicodone 5 MG] 10 mg PO Q2HR PRN 04/06/17 [History] Stomatitis Mixture 5 ml PO Q4H PRN 04/06/17 [History] 3 Allergy/AdvReac Type Severity Reaction Status Date / Time No Known Drug Allergies Allergy none Verified 04/06/17 16:37 Review of Systems - Constitutional no chills, no fever(s) - EENT Nose, mouth and throat: no dizziness - Cardiovascular no chest pain - Respiratory no dyspnea - Gastrointestinal no nausea, no vomiting - Genitourinary Genitourinary: no flank pain, no hematuria - Musculoskeletal no back pain - Integumentary no erythema, no rash - Neurological no weakness - Psychiatric no suicidal ideation - Hematologic/Lymphatic no easy bleeding - Allergic/Immunologic no wheezing Exam Initial Vital Signs Temp Pulse Resp BP Pulse Ox 98.4 F 206 18 82/49 94 04/06/17 16:38 04/06/17 16:38 04/06/17 16:38 04/06/17 16:38 04/06/17 16:38 - General physical appearance Present: well developed, well nourished, no distress - Eyes Present: icteric - ENT Present: normal nares - Neck Present: trachea midline - Respiratory Present: normal respiratory effort - Cardiovascular Cardiovascular exam IM: RRR - Abdomen Abdomen: Present: soft Urology Results - Labs 04/07/17 14:20 04/07/17 14:20 Abnormal lab results WBC 18.3 K/mcL (4.3-11.1) H 04/07/17 14:20 RBC 2.37 M/mcL (3.82-4.97) L 04/07/17 14:20 Hgb 7.7 g/dL (11.5-15.4) L 04/07/17 14:20 Hct 23.1 % (35.3-44.9) L 04/07/17 14:20 RDW 18.2 % (11.5-14.5) H 04/07/17 14:20 Plt Count 105 K/mcL (140-400) L 04/07/17 14:20 Immature Gran % 7.6 % (0-4) H 04/07/17 03:15 Myelocytes % 2.0 % (0) H 04/06/17 23:55 Neutrophils # 13.1 K/mcL (1.6-8.9) H 04/07/17 03:15 Nucleated RBCs/100 WBC 0.1 /100 WBC (0) H 04/07/17 14:20 Toxic Granulation Present (Not Present) A 04/06/17 16:59 Toxic Vacuolation Present (Not Present) A 04/07/17 03:15 Dohle Bodies Present (Not Present) A 04/07/17 03:15 Large Platelets Present (Not Present) A 04/07/17 03:15 Immature Plt Fraction 11.8 % (1.1-6.1) H 04/06/17 23:55 Polychromasia 1+ (Not Present) A 04/06/17 23:55 Anisocytosis 1+ (Not Present) A 04/06/17 16:59 Macrocytosis Present (Not Present) A 04/06/17 16:59 [place] Cells 1+ (Not Present) A 04/07/17 03:15 PT 31.0 Seconds (9.4-12.1) H 04/07/17 10:45 APTT 53.2 Seconds (26.0-36.0) H 04/07/17 10:45 Sodium 127 mEq/L (136-145) L 04/07/17 14:20 Potassium 3.2 mEq/L (3.5-4.5) L 04/07/17 14:20 Chloride 97 mEq/L (98-109) L 04/07/17 14:20 BUN 27 mg/dL (7-20) H 04/07/17 14:20 Creatinine 2.37 mg/dL (0.57-1.11) H 04/07/17 14:20 Est GFR ( Amer) 25 (> 60) L 04/07/17 14:20 Est GFR (Non-Af Amer) 21 (> 60) L 04/07/17 14:20 Glucose 193 mg/dL (70-99) H 04/07/17 14:20 POC Glucose 147 (58-89) H 04/06/17 21:25 Calculated Osmolality 274 (280-300) L 04/07/17 14:20 Calcium 7.1 mg/dL (8.6-10.8) L 04/07/17 14:20 Magnesium 1.3 mg/dL (1.6-2.6) L 04/07/17 03:15 Total Bilirubin 4.4 mg/dL (0.2-1.2) H 04/07/17 03:15 Direct Bilirubin 3.1 mg/dL (0.0-0.5) H 04/06/17 16:59 Indirect Bilirubin 1.4 mg/dL (0.0-1.2) H 04/06/17 16:59 AST 48 Units/L (5-34) H 04/07/17 03:15 Alkaline Phosphatase 485 Units/L (38-126) H 04/07/17 03:15 Troponin I 0.54 ng/mL (0-0.03) H* 04/07/17 03:15 Serum Total Protein 4.6 g/dL (6.0-8.3) L 04/07/17 03:15 Albumin 2.0 g/dL (3.5-5.0) L D 04/07/17 14:20 Albumin/Globulin Ratio 0.5 (1.1-2.2) L 04/07/17 03:15 Urine Color Juanita (Yellow) A 04/07/17 08:50 Urine Clarity Turbid (Clear) A 04/07/17 08:50 Urine Protein 100 mg/dL (Neg-Trace) H 04/07/17 08:50 Urine Ketones Trace mg/dL (Negative) H 04/07/17 08:50 Urine Blood Small (Negative) H 04/07/17 08:50 Urine Nitrite Positive (Negative) A 04/07/17 08:50 Urine Bilirubin Large (Negative) H 04/07/17 08:50 Ur Leukocyte Esterase Large (Negative) H 04/07/17 08:50 Urine Microscopic WBC TNTC per hpf (0-3) H 04/07/17 08:50 Ur Squamous Epith Cells Moderate per lpf (None-Few) H 04/07/17 08:50 Urine Bacteria Many per hpf (None-Few) H 04/07/17 08:50 Ur Culture Indicated? YES (NO) A 04/07/17 08:50 Urine Osmolality 290 mOsm/kg (300-1090) L 04/07/17 08:40 Enterobacteriac sp PCR DETECTED (Not Detect) A 04/06/17 17:58 Klebsiella pneumoniae DETECTED (Not Detect) A 04/06/17 17:58 Diabetes panel 04/06/17 04/07/17 04/07/17 Range/Units 23:55 03:15 14:20 Sodium 127 L 127 L 127 L (136-145) mEq/L Potassium 2.9 L 3.2 L 3.2 L (3.5-4.5) mEq/L Chloride 98 97 L 97 L (98-109) mEq/L Carbon Dioxide 19 20 19 (19-29) mEq/L BUN 21 H 24 H 27 H (7-20) mg/dL Creatinine 2.30 H 2.44 H 2.37 H (0.57-1.11) mg/dL Glucose 160 H 166 H 193 H (70-99) mg/dL Calcium 6.9 L 6.9 L 7.1 L (8.6-10.8) mg/dL AST 53 H 48 H (5-34) Units/L ALT 32 34 (0-55) Units/L Alkaline Phosphatase 488 H 485 H (38-126) Units/L Albumin 1.5 L 1.6 L 2.0 L D (3.5-5.0) g/dL Thyroid panel 04/06/17 Range/Units 23:55 TSH 1.781 (0.350-4.840) mcIU/mL Calcium panel 04/06/17 04/07/17 04/07/17 Range/Units 23:55 03:15 14:20 Calcium 6.9 L 6.9 L 7.1 L (8.6-10.8) mg/dL Phosphorus 3.0 2.8 (2.3-4.7) mg/dL Albumin 1.5 L 1.6 L 2.0 L D (3.5-5.0) g/dL Pituitary panel 04/06/17 04/07/17 04/07/17 Range/Units 23:55 03:15 14:20 Sodium 127 L 127 L 127 L (136-145) mEq/L Potassium 2.9 L 3.2 L 3.2 L (3.5-4.5) mEq/L Chloride 98 97 L 97 L (98-109) mEq/L Carbon Dioxide 19 20 19 (19-29) mEq/L BUN 21 H 24 H 27 H (7-20) mg/dL Creatinine 2.30 H 2.44 H 2.37 H (0.57-1.11) mg/dL Glucose 160 H 166 H 193 H (70-99) mg/dL Calcium 6.9 L 6.9 L 7.1 L (8.6-10.8) mg/dL TSH 1.781 (0.350-4.840) mcIU/mL Adrenal panel 04/06/17 04/07/17 04/07/17 Range/Units 23:55 03:15 14:20 Sodium 127 L 127 L 127 L (136-145) mEq/L Potassium 2.9 L 3.2 L 3.2 L (3.5-4.5) mEq/L Chloride 98 97 L 97 L (98-109) mEq/L Carbon Dioxide 19 20 19 (19-29) mEq/L BUN 21 H 24 H 27 H (7-20) mg/dL Creatinine 2.30 H 2.44 H 2.37 H (0.57-1.11) mg/dL Glucose 160 H 166 H 193 H (70-99) mg/dL Calcium 6.9 L 6.9 L 7.1 L (8.6-10.8) mg/dL Total Bilirubin 4.4 H 4.4 H (0.2-1.2) mg/dL AST 53 H 48 H (5-34) Units/L ALT 32 34 (0-55) Units/L Alkaline Phosphatase 488 H 485 H (38-126) Units/L Albumin 1.5 L 1.6 L 2.0 L D (3.5-5.0) g/dL All other labs normal. - Imaging CT scan - abdomen: report reviewed, image reviewed CT scan - pelvis: report reviewed, image reviewed Consult Discharge Plan - Plan Referrals: NONE,PCP [Primary Care Provider] -
[2017-04-07 15:34] LABS: Lymphocytes # 1.5 K/mcL (0.6-4.6); Monocytes # 0.7 K/mcL (0.0-1.3); Neutrophils # 16.1 K/mcL (1.6-8.9); Platelet Estimate Slight Decrease (Normal)
[2017-04-07] MEDS: Albumin 25% 25gram/100mL 25 GM/100 ML IV.SOLN IVC SCH ×4 (16:14→18:00)
[2017-04-07 17:04] LABS: Albumin/Globulin Ratio 0.7 (1.1-2.2); Bilirubin,Direct 3.4 mg/dL (0.0-0.5); Bilirubin,Indirect 1.1 mg/dL (0.0-1.2); Bilirubin,Total 4.5 mg/dL (0.2-1.2); Globulin 2.9 g/dL (2.4-3.5); Magnesium 1.8 mg/dL (1.6-2.6); Total Protein 4.9 g/dL (6.0-8.3)
--- NOTE | 2017-04-07 18:01 | Urology Procedure Note ---
Date of Encounter: 04/07/17 Time of Encounter: 17:58 Procedures:Urology - Cystoscopy Additional comments: After informed consent was obtained, cystoscopy was performed under sterile conditions. The right ureteral orifice was identified and a Zip wire was placed. Resistance was met. The scope was removed. A KUB was obtained and the wire was in the proximal ureter. I advanced the open ended catheter and could not get the wire past the curve in the ureter. A retrograde pyelogram was performed which showed a dilated and tortuous right ureter. An angle tipped zip wire was placed and I was able to get the wire into the kidney. The open ended catheter was advanced into the kidney. The zip wire was exchanged for a sensor wire. The ureter straigthened. I then placed a 6 Swiss x 26cm JJ stent. The stent appeared to have a good placement. Cystoscopy confirmed stent placement in the bladder. A garcia was placed. She tolerated the procedure well.
[2017-04-07] MEDS ORDERED: Vancomycin 1,500 MG in D5% in Water 250 ML IVPB SCH (19:00)
[2017-04-08 04:15] LABS: INR 3.4; Prothrombin Time 37.1 Seconds (9.4-12.1)
[2017-04-08 06:00] LABS: Activated Partial Thrombo Time 186.6 Seconds (26.0-36.0)
[2017-04-08 06:01] LABS: Heparin anti-factor XA UFH 0.35 IU/mL (0.30-0.70)
[2017-04-08] MEDS: Norepinephrine 4 MG in D5% in Water 250 ML IVC SCH (06:12)
[2017-04-08 06:25] LABS: Mean Corpuscular Volume 98.1 fL (83.0-100.0); Nucleated Red Blood Cells 0.2 /100 WBC (0)
[2017-04-08 06:28] LABS: Hematocrit 20.5 % (35.3-44.9); Hemoglobin 6.7 g/dL (11.5-15.4); Immature Platelets 17.3 % (1.1-6.1); Mean Corpuscular HGB Conc 32.7 g/dL (31.6-35.5); Mean Corpuscular Hemoglobin 32.1 pg (28.0-33.3); Mean Platelet Volume 12.4 fL (9.4-12.4); Red Blood Count 2.09 M/mcL (3.82-4.97); Red Cell Distribution Width 18.3 % (11.5-14.5)
[2017-04-08] MEDS: Heparin 25,000 UNIT/500 ML D5W 25,000 UNIT/500 ML MLS IVC SCH ×2 (06:57→10:27)
[2017-04-08] MEDS: Hydrocortisone Sodium Succ 100 MG/2 ML VIAL IVP SCH ×2 (07:12→15:06)
[2017-04-08 07:13] LABS: Calcium 7.4 mg/dL (8.6-10.8); Potassium 3.4 mEq/L (3.5-4.5)
[2017-04-08] MEDS: Piperacillin/Tazobactam 3.375 GM in D5% in Water (Mini-Bag+) 100 ML IVPB SCH (07:13)
[2017-04-08] MEDS: Insulin LISPRO 300 UNITS/3 ML VIAL SQ SCH ×3 (07:15→16:27)
--- NOTE | 2017-04-08 07:37 | Oncology Inp Progress Note ---
Date of Encounter: 04/08/17 Time of Encounter: 07:35 (1) History of pancreatic cancer Current Visit: No Status: Acute Assessment and plan: Patient has had a very difficult course since her diagnosis. She was due for her fourth treatment of chemotherapy today. Obviously this will be on hold till she recovers from this. We will continue to follow. Do not hesitate to call [phone] (2) Sepsis Current Visit: Yes Status: Acute Assessment and plan: Patient has sepsis with klebsiella bacteremia. This appears secondary to urinary source. She is on appropriate antimicrobial treatment. In addition, urologic evaluation has recommended stenting which I agree with. Appreciate the expert care provided by my pulmonary and urology colleagues. Qualifiers: Sepsis type: sepsis due to unspecified organism Qualified Code(s): A41.9 - Sepsis, unspecified organism (3) Anemia Current Visit: Yes Status: Acute Assessment and plan: Multifactorial secondary to infection/ANGELA/chemotherapy/malignancy. H/H stable. Continue to observe. Transfuse if hgb <7 or symptomatic. Further evaluation once at steady state as an outpatient. Qualifiers: Anemia type: other cause Other causes of anemia: other cause, not classified Qualified Code(s): D64.89 - Other specified anemias (4) Hydronephrosis due to obstruction of ureter Current Visit: Yes Status: Acute Assessment and plan: Identified 03/10/17 imaging. Associated with ANGELA and UTI with sepsis. S/P stent right ureter 04/07/17. Indices improving. (5) Leukocytosis Current Visit: Yes Status: Acute Assessment and plan: Secondary to infection and recent neulasta. Observe. Qualifiers: Leukocytosis type: bandemia Qualified Code(s): D72.825 - Bandemia Oncology: Subj Interval history: Feeling much better this AM. Strength better. Remains afebrile. No chills. Underwent right renal stenting yesterday for right hydronephrosis. This was identified 03/10/17 CT imaging. Urine cultures with GNR. Blood cultures x 2 with Klebsiella. Renal failure improving. - Constitutional Vitals: Vital Signs Temp Pulse Resp BP Pulse Ox 04/08/17 07:24 80 04/08/17 07:00 81 16 95/66 97 04/08/17 06:00 98 22 107/72 92 04/08/17 05:59 98.0 F 04/08/17 05:00 83 18 112/77 94 04/08/17 04:00 82 14 96/60 92 04/08/17 03:00 86 16 90/58 92 04/08/17 01:44 84 16 103/69 92 04/08/17 00:49 83 12 102/67 92 04/08/17 00:15 98.7 F 04/07/17 23:45 81 20 98/67 92 04/07/17 22:46 78 16 103/69 91 04/07/17 22:00 71 16 99/67 92 04/07/17 20:46 81 16 102/70 93 04/07/17 20:00 97.6 F 89 16 102/72 93 04/07/17 19:00 87 18 107/78 92 04/07/17 18:25 80 20 119/82 96 04/07/17 17:30 75 21 98/60 95 04/07/17 16:44 98.0 F 04/07/17 15:30 98 F 76 20 91/63 95 04/07/17 14:30 77 20 94/64 96 04/07/17 13:30 76 21 95/68 95 04/07/17 12:57 98.0 F 04/07/17 12:30 81 20 92/66 94 04/07/17 11:30 81 21 100/71 96 04/07/17 10:33 77 19 95/66 95 04/07/17 09:40 76 19 105/75 96 04/07/17 08:40 77 20 88/54 96 04/07/17 08:33 98.0 F Intake and Output 04/07/17 04/08/17 04/08/17 16:59 00:59 08:59 Intake Total 943 / 943 529 / 529 384 / 384 Output Total 550 / 550 275 / 275 150 / 150 Balance 393 / 393 254 / 254 234 / 234 Intake: IV Fluids 943 / 943 529 / 529 384 / 384 Flexbumin 25 gm In 100 ml @ 60 100 / 100 300 / 300 mls/hr IVC .Q1H40M [facility] Rx#: [id number] Heparin 25,000 UNIT/500 ML D5W 135 / 135 129 / 129 130 / 130 25,000 unit In 500 ml @ 14 UNIT /KG/HR 29.176 mls/hr IVC . Q17H9M [facility] Rx#:[id number] Levophed 4 MG In Dextrose 5% 508 / 508 254 / 254 250 ML @ 8 MCG/MIN 30.48 mls/hr IVC CONT [facility] Rx#:[id number] Flagyl Premix 500 MG/100 ML 500 100 / 100 mg In 100 ml @ 100 mls/hr IVPB Q8HR [facility] Rx#:[id number] Zosyn 3.375 GM In Dextrose 5% ( 100 / 100 100 / 100 Minibag+) 100 ML 100 ML @ 25 mls/hr IVPB Q12H [facility] Rx#: [id number] Oral 0 / 0 0 / 0 Output: Catheter 550 / 550 275 / 275 150 / 150 Other: Stool Size Small Stool Consistency loose Stool Color Brown # Bowel Movements 2 Weight 107.1 kg - Head Head exam: Present: atraumatic, normal inspection, normocephalic - Eye Eye exam: Present: scleral icterus, conjuntiva pink - ENT ENT exam: Present: mucous membranes moist, normal exam - Neck Neck exam: Present: full ROM, normal inspection - Respiratory Respiratory exam: Present: CTAB - Cardiovascular Cardiovascular exam: Present: RRR - GI/Abdominal GI/Abdominal exam: Present: normal bowel sounds, soft - Extremities Exam Extremities exam: Present: normal inspection - Neurological Exam Neurological exam: Present: alert, CN II-XII intact, oriented X3 Oncology: Obj Data - Labs CBC & Chem 7: 04/07/17 14:20 04/08/17 03:42 Labs: Laboratory Results - last 24 hr 04/07/17 04/07/17 04/07/17 08:40 08:50 10:45 WBC RBC Hgb Hct MCV MCH MCHC RDW Plt Count MPV Seg Neutrophils % Lymphocytes % Monocytes % Neutrophils # Lymphocytes # Monocytes # Nucleated RBCs/100 WBC Platelet Estimate PT 31.0 H INR 2.8 APTT 53.2 H Heparin Anti-Xa, Unfract Sodium Potassium Chloride Carbon Dioxide BUN Creatinine Est GFR ( Amer) Est GFR (Non-Af Amer) BUN/Creatinine Ratio Glucose POC Glucose Calculated Osmolality Uric Acid Calcium Phosphorus Magnesium Total Bilirubin Direct Bilirubin Indirect Bilirubin AST ALT Alkaline Phosphatase Serum Total Protein Albumin Globulin Albumin/Globulin Ratio Urine Color Juanita A Urine Clarity Turbid A Urine pH 6.0 Ur Specific [place] 1.019 Urine Protein 100 H Urine Glucose (UA) Normal Urine Ketones Trace H Urine Blood Small H Urine Nitrite Positive A Urine Bilirubin Large H Urine Urobilinogen Normal Ur Leukocyte Esterase Large H Urine Microscopic RBC 0-3 Urine Microscopic WBC TNTC H Ur Squamous Epith Cells Moderate H Calcium Oxalate Crystal Present Urine Bacteria Many H Hyaline Casts None Seen Ur Culture Indicated? YES A Urine Osmolality 290 L Urine Creatinine 243 Urine Sodium < 20.0 Specimen Rejected 04/07/17 04/07/17 04/07/17 14:20 14:20 14:20 WBC 18.3 H RBC 2.37 L Hgb 7.7 L Hct 23.1 L MCV 97.5 MCH 32.5 MCHC 33.3 RDW 18.2 H Plt Count 105 L MPV 11.4 Seg Neutrophils % 88.0 Lymphocytes % 8.0 Monocytes % 4.0 Neutrophils # 16.1 H Lymphocytes # 1.5 Monocytes # 0.7 Nucleated RBCs/100 WBC 0.1 H Platelet Estimate Slight Decrease L PT INR APTT Heparin Anti-Xa, Unfract Sodium 127 L Potassium 3.2 L Chloride 97 L Carbon Dioxide 19 BUN 27 H Creatinine 2.37 H Est GFR ( Amer) 25 L Est GFR (Non-Af Amer) 21 L BUN/Creatinine Ratio 11 Glucose 193 H POC Glucose Calculated Osmolality 274 L Uric Acid 7.5 H Calcium 7.1 L Phosphorus 2.8 Magnesium 1.8 Total Bilirubin 4.5 H Direct Bilirubin 3.4 H Indirect Bilirubin 1.1 AST 37 H ALT 31 Alkaline Phosphatase 459 H Serum Total Protein 4.9 L Albumin 2.0 L D Globulin 2.9 Albumin/Globulin Ratio 0.7 L Urine Color Urine Clarity Urine pH Ur Specific [place] Urine Protein Urine Glucose (UA) Urine Ketones Urine Blood Urine Nitrite Urine Bilirubin Urine Urobilinogen Ur Leukocyte Esterase Urine Microscopic RBC Urine Microscopic WBC Ur Squamous Epith Cells Calcium Oxalate Crystal Urine Bacteria Hyaline Casts Ur Culture Indicated? Urine Osmolality Urine Creatinine Urine Sodium Specimen Rejected 04/07/17 04/07/17 04/07/17 16:03 17:01 18:15 WBC RBC Hgb Hct MCV MCH MCHC RDW Plt Count MPV Seg Neutrophils % Lymphocytes % Monocytes % Neutrophils # Lymphocytes # Monocytes # Nucleated RBCs/100 WBC Platelet Estimate PT INR APTT Heparin Anti-Xa, Unfract Sodium Potassium Chloride Carbon Dioxide BUN Creatinine Est GFR ( Amer) Est GFR (Non-Af Amer) BUN/Creatinine Ratio Glucose POC Glucose 193 H 383 H Calculated Osmolality Uric Acid Calcium Phosphorus Magnesium Total Bilirubin Direct Bilirubin Indirect Bilirubin AST ALT Alkaline Phosphatase Serum Total Protein Albumin Globulin Albumin/Globulin Ratio Urine Color Urine Clarity Urine pH Ur Specific [place] Urine Protein Urine Glucose (UA) Urine Ketones Urine Blood Urine Nitrite Urine Bilirubin Urine Urobilinogen Ur Leukocyte Esterase Urine Microscopic RBC Urine Microscopic WBC Ur Squamous Epith Cells Calcium Oxalate Crystal Urine Bacteria Hyaline Casts Ur Culture Indicated? Urine Osmolality Urine Creatinine Urine Sodium Specimen Rejected Not Liquid 04/08/17 04/08/17 04/08/17 01:36 03:42 03:42 WBC RBC Hgb Hct MCV MCH MCHC RDW Plt Count MPV Seg Neutrophils % Lymphocytes % Monocytes % Neutrophils # Lymphocytes # Monocytes # Nucleated RBCs/100 WBC Platelet Estimate PT 37.1 H INR 3.4 APTT 186.6 H* D 98.0 H Heparin Anti-Xa, Unfract 0.35 Sodium 127 L Potassium 3.4 L Chloride 98 Carbon Dioxide 15 L BUN 27 H Creatinine 2.14 H Est GFR ( Amer) 28 L Est GFR (Non-Af Amer) 23 L BUN/Creatinine Ratio 13 Glucose 153 H POC Glucose Calculated Osmolality 272 L Uric Acid Calcium 7.4 L Phosphorus Magnesium Total Bilirubin Direct Bilirubin Indirect Bilirubin AST ALT Alkaline Phosphatase Serum Total Protein Albumin Globulin Albumin/Globulin Ratio Urine Color Urine Clarity Urine pH Ur Specific [place] Urine Protein Urine Glucose (UA) Urine Ketones Urine Blood Urine Nitrite Urine Bilirubin Urine Urobilinogen Ur Leukocyte Esterase Urine Microscopic RBC Urine Microscopic WBC Ur Squamous Epith Cells Calcium Oxalate Crystal Urine Bacteria Hyaline Casts Ur Culture Indicated? Urine Osmolality Urine Creatinine Urine Sodium Specimen Rejected 04/08/17 07:12 WBC RBC Hgb Hct MCV MCH MCHC RDW Plt Count MPV Seg Neutrophils % Lymphocytes % Monocytes % Neutrophils # Lymphocytes # Monocytes # Nucleated RBCs/100 WBC Platelet Estimate PT INR APTT Heparin Anti-Xa, Unfract Sodium Potassium Chloride Carbon Dioxide BUN Creatinine Est GFR ( Amer) Est GFR (Non-Af Amer) BUN/Creatinine Ratio Glucose POC Glucose 181 H Calculated Osmolality Uric Acid Calcium Phosphorus Magnesium Total Bilirubin Direct Bilirubin Indirect Bilirubin AST ALT Alkaline Phosphatase Serum Total Protein Albumin Globulin Albumin/Globulin Ratio Urine Color Urine Clarity Urine pH Ur Specific [place] Urine Protein Urine Glucose (UA) Urine Ketones Urine Blood Urine Nitrite Urine Bilirubin Urine Urobilinogen Ur Leukocyte Esterase Urine Microscopic RBC Urine Microscopic WBC Ur Squamous Epith Cells Calcium Oxalate Crystal Urine Bacteria Hyaline Casts Ur Culture Indicated? Urine Osmolality Urine Creatinine Urine Sodium Specimen Rejected - Impressions Impressions KUB X-Ray 04/07/17 00:00 IMPRESSION: 1. C-arm fluoroscopy provided for right ureteral stent placement. D/ / Bear Kern MD / Bear Kern MD Interpreting Provider: Bear Kern MD X-Ray 04/07/17 00:00 IMPRESSION: 1. C-arm fluoroscopy provided for right ureteral stent placement. D/ / Bear Kern MD / Bear Kern MD Interpreting Provider: Bear Kern MD X-Ray 04/07/17 00:00 IMPRESSION: 1. C-arm fluoroscopy provided for right ureteral stent placement. D/ / Bear Kern MD / Bear Kern MD Interpreting Provider: Bear Kern MD Abdomen/Pelvis CT 04/07/17 06:54 IMPRESSION: 1. Worsening anasarca with subcutaneous edema, trace left pleural effusion and worsening small volume ascites. 2. Although the bowel is not well distended, there is apparent wall thickening of the colon which could reflect colitis. 3. Vague areas of low attenuation throughout the liver which may reflect known metastases versus fatty change. Evaluation for metastatic disease in the liver as well as evaluation of the primary pancreatic mass is otherwise limited due to lack of intravenous contrast. 4. Common bile duct stent in place with pneumobilia. 5. High-density material within the gallbladder which may be related to stones, sludge or contrast material. 6. Persistent moderate severe right hydroureteronephrosis extending to the level of the mid to distal ureter. Underlying stricture is suspected. Overall findings are new since 01/22/2017, but grossly stable since 03/10/2017. No discrete stone is otherwise identified. 7. There are a few new predominately sclerotic lesions noted within the lumbar spine and pelvis suspicious for metastatic disease. 8. Bibasilar opacities, which are nonspecific and could be related to atelectasis, however it should be noted there are stable somewhat nodular opacities in the costophrenic angles bilaterally and metastatic disease cannot be excluded and should be followed on subsequent exams. D/ / 04/07/2017 09:17:07 Bhakti Ledesma MD / laurie Interpreting Provider: Bhakti Ledesma MD Echocardiogram 04/07/17 07:00 Impressions: Normal LV systolic function, LVEF 65%. Mildly dilated right ventricle with normal systolic function. Mild mitral regurgitation. Mild-moderate pulmonary hypertension. Estimated RVSP = 46 mmHg. Left Ventricular Wall Motion: Rest Echo Findings All wall segments showed normal motion. Findings: Study Quality * Suboptimal echo windows. ECG Findings * Normal sinus rhythm. Left Ventricle * Normal LV systolic function, LVEF 65%. * Normal LV chamber size and wall thickness. * Normal left ventricular diastolic function. Right Ventricle * Mildly dilated right ventricle with normal systolic function. Left Atrium * Normal left atrial size. Right Atrium * Normal right atrial size. Aorta * Normally sized aortic root. Pericardium * There is no pericardial effusion present. IVC * The IVC is not well evaluated. Aortic Valve * Trileaflet aortic valve. * No aortic stenosis. * No aortic regurgitation. Mitral Valve * Normal mitral valve structure. * No mitral stenosis. * Mild mitral regurgitation. Tricuspid Valve * Normal tricuspid valve structure. * No tricuspid stenosis. * Trace tricuspid regurgitation. * Mild-moderate pulmonary hypertension. Estimated RVSP = 46 mmHg. Pulmonic Valve * Pulmonic valve not well visualized. * No pulmonic stenosis. * Trace pulmonic regurgitation. KUB X-Ray 04/07/17 17:06 IMPRESSION: 1. C-arm fluoroscopy provided for right ureteral stent placement. D/ / Bear Kern MD / Bear Kern MD Interpreting Provider: Bear Kern MD Retroperitoneum Ultrasound 04/07/17 20:00 IMPRESSION: Moderate right hydronephrosis status post right ureteral stent placement. D/ / 04/07/2017 20:50:40 Leander Geller MD / bcarter Interpreting Provider: Leander Geller MD - ABG Interpretation ABG results: PT/INR, D-dimer PT 37.1 Seconds (9.4-12.1) H 04/08/17 03:42 Consult Discharge Plan - Plan Referrals: NONE,PCP [Primary Care Provider] -
--- NOTE | 2017-04-08 07:41 | Pulmonology Progress Note ---
<MarienisaSamuel W - Last Filed: 04/08/17 12:04> Date of Encounter: 04/08/17 Objective PUL Vital signs: Last Vital Signs Temp 97.4 F L 04/08/17 11:48 Pulse 80 04/08/17 11:00 Resp 16 04/08/17 11:00 BP 107/91 04/08/17 11:00 Pulse Ox 94 04/08/17 11:00 Results - Laboratory Findings CBC and BMP: 04/08/17 03:42 04/08/17 03:42 PT/INR, D-dimer PT 37.1 Seconds (9.4-12.1) H 04/08/17 03:42 Abnormal lab findings: Abnormal lab results WBC 16.6 K/mcL (4.3-11.1) H 04/08/17 03:42 RBC 2.09 M/mcL (3.82-4.97) L 04/08/17 03:42 Hgb 6.7 g/dL (11.5-15.4) L 04/08/17 03:42 Hct 20.5 % (35.3-44.9) L 04/08/17 03:42 RDW 18.3 % (11.5-14.5) H 04/08/17 03:42 Plt Count 77 K/mcL (140-400) L 04/08/17 03:42 Immature Gran % 7.6 % (0-4) H 04/07/17 03:15 Myelocytes % 2.0 % (0) H 04/06/17 23:55 Neutrophils # 14.6 K/mcL (1.6-8.9) H 04/08/17 03:42 Nucleated RBCs/100 WBC 0.2 /100 WBC (0) H 04/08/17 03:42 Toxic Granulation Present (Not Present) A 04/08/17 03:42 Toxic Vacuolation Present (Not Present) A 04/07/17 03:15 Dohle Bodies Present (Not Present) A 04/07/17 03:15 Platelet Estimate Decreased (Normal) L 04/08/17 03:42 Large Platelets Present (Not Present) A 04/07/17 03:15 Immature Plt Fraction 17.3 % (1.1-6.1) H 04/08/17 03:42 Polychromasia 1+ (Not Present) A 04/08/17 03:42 Anisocytosis 1+ (Not Present) A 04/08/17 03:42 Microcytosis Present (Not Present) A 04/08/17 03:42 Macrocytosis Present (Not Present) A 04/08/17 03:42 [place] Cells 1+ (Not Present) A 04/07/17 03:15 PT 37.1 Seconds (9.4-12.1) H 04/08/17 03:42 APTT 128.2 Seconds (26.0-36.0) H* 04/08/17 08:51 Sodium 127 mEq/L (136-145) L 04/08/17 03:42 Potassium 3.4 mEq/L (3.5-4.5) L 04/08/17 03:42 Carbon Dioxide 15 mEq/L (19-29) L 04/08/17 03:42 BUN 27 mg/dL (7-20) H 04/08/17 03:42 Creatinine 2.14 mg/dL (0.57-1.11) H 04/08/17 03:42 Est GFR ( Amer) 28 (> 60) L 04/08/17 03:42 Est GFR (Non-Af Amer) 23 (> 60) L 04/08/17 03:42 Glucose 153 mg/dL (70-99) H 04/08/17 03:42 POC Glucose 165 (58-89) H 04/08/17 11:28 Calculated Osmolality 272 (280-300) L 04/08/17 03:42 Uric Acid 7.5 mg/dL (2.6-6.0) H 04/07/17 14:20 Calcium 7.4 mg/dL (8.6-10.8) L 04/08/17 03:42 Total Bilirubin 4.5 mg/dL (0.2-1.2) H 04/07/17 14:20 Direct Bilirubin 3.4 mg/dL (0.0-0.5) H 04/07/17 14:20 AST 37 Units/L (5-34) H 04/07/17 14:20 Alkaline Phosphatase 459 Units/L (38-126) H 04/07/17 14:20 Troponin I 0.54 ng/mL (0-0.03) H* 04/07/17 03:15 Serum Total Protein 4.9 g/dL (6.0-8.3) L 04/07/17 14:20 Albumin 2.0 g/dL (3.5-5.0) L D 04/07/17 14:20 Albumin/Globulin Ratio 0.7 (1.1-2.2) L 04/07/17 14:20 Urine Color Juanita (Yellow) A 04/07/17 08:50 Urine Clarity Turbid (Clear) A 04/07/17 08:50 Urine Protein 100 mg/dL (Neg-Trace) H 04/07/17 08:50 Urine Ketones Trace mg/dL (Negative) H 04/07/17 08:50 Urine Blood Small (Negative) H 04/07/17 08:50 Urine Nitrite Positive (Negative) A 04/07/17 08:50 Urine Bilirubin Large (Negative) H 04/07/17 08:50 Ur Leukocyte Esterase Large (Negative) H 04/07/17 08:50 Urine Microscopic WBC TNTC per hpf (0-3) H 04/07/17 08:50 Ur Squamous Epith Cells Moderate per lpf (None-Few) H 04/07/17 08:50 Urine Bacteria Many per hpf (None-Few) H 04/07/17 08:50 Ur Culture Indicated? YES (NO) A 04/07/17 08:50 Urine Osmolality 290 mOsm/kg (300-1090) L 04/07/17 08:40 Enterobacteriac sp PCR DETECTED (Not Detect) A 04/06/17 17:58 Klebsiella pneumoniae DETECTED (Not Detect) A 04/06/17 17:58 - Microbiology Findings Microbiology Findings: Microbiology, Last 48 Hours 04/07/17 08:50 Urine Culture - Preliminary Urine,Clean Catch Gram Negative Viral - Clinical Findings Intake & Output: Intake & Output 04/07/17 04/08/17 04/08/17 23:59 07:59 15:59 Intake Total 664 / 664 484 / 484 1118 / 1118 Output Total 600 / 600 425 / 425 300 / 300 Balance 64 / 64 59 / 59 818 / 818 Weight 107.1 kg 107.048 kg Consult Discharge Plan - Plan Referrals: NONE,PCP [Primary Care Provider] - - Attending Attestation I examined this patient and my medical decision-making was reviewed with the Resident Physician. I agree with the documented findings, disposition and treatment plan as described except to the extent set forth below. We independently had [id number] contact with the patient Patient seen and examined at bedside Labs, radiology, chart personally reviewed. Management was reviewed during multidisciplinary critical care rounds. Neuropsych:Mild encephalopathy related to sepsis she is much more awake today continue to focus on the establishment of sleep-wake cycle and avoidance of sensory deprivation Pulm: acceptable oxygenation on 2LNC cont to monitor. Cards: Atrial fibrillation today which is likely related to vasopressor and possible anemia echo done yesterday did not show any evidence of new reduced ejection fraction or wall motion abnormalities. We will switch levo fed to phenylephrine for ongoing treatment of distributive shock secondary to sepsis. However encouragingly vasopressor requirements has nearly been eliminated FEN-GI: Advance diet as tolerated. History of Pancreatic Ca with obstruction s/ p stenting. LFTs stable.Diarrhea likely s/t sepsis and since she has been in the hospital she is only had formed stools I will stop treatment for colitis as I think that this is less likely Renal: ANGELA which is a combination of prerenal likely intrinsic renal and postrenal causes replace lytes as needed she has undergone ureteral stenting yesterday on the right side with overall improvement in AK appreciate nephrology and urology recommendations ID: Septic Shock s/t Klebsiella Bacteremia s/t Urinary Source we will de- escalate her antimicrobials based upon sensitivities which are pending at this time Heme/Onc: 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 Hisrory of Pancreatic Ca with active malignancy oncology following. Unfortunately blood counts have dropped slightly overnight hemoglobin now less than 7 there is some evidence of blood in her urine which is likely from recent manipulation this is a challenging case in that she has developed new thrombocytopenia which is a combination of things but most acutely I suspect critical illness and medication effect possibly from Zosyn and need for anticoagulation for ongoing PTE with active malignancy balance I favor continuing anticoagulation at present repeating CBC after blood cell transfusion and if blood counts continue to drop and/or worsening thrombocytopenia (in addition to any evidence of brank bleeding) likely will have to discontinue infusion of heparin. She also developed worsening coagulopathy which is again multifactorial but related to nutrition and critical illness we will dose of vitamin K for this. Hematology/ oncology is also following this case Endo: Glucose Monitored and controlled cont bolus dosing of insulin Integ/MSK: Skin Care per routine ICU Nursing Protocol to prevent ulcers. Lines: All lines examined without evidence of infection Dispo: She will remain in the ICU today for critical illness. CODE: Full code <Yamil Ndiaye - Last Filed: 04/08/17 16:06> Date of Encounter: 04/08/17 Time of Encounter: 08:20 Assessment and Plan (1) Septic shock due to Klebsiella pneumoniae Current Visit: Yes Status: Acute Patient continues to have leukocytosis. Due to an episode of A. fib with RVR, we obtained a 12-lead EKG, her Levophed was discontinued and she was started on phenylephrine. Magnesium levels are normal and stable. Electrolytes are stable for patient. We will continue monitoring with BMP. Her blood pressure is currently stable, she is tachycardic with heart rate in the 120s. Blood cultures are positive 2 for Klebsiella pneumonia pending sensitivities. CT abdomen without contrast demonstrated right hydronephrosis, uriteral stent was placed yesterday and new urine Vasquez is draining bloody urine. Septic shock is likely due to Klebsiella UTI. We will discontinue Zosyn as it can attribute to new onset thrombocytopenia and start her on Rocephin. Continue pain management as needed. Monitor with a.m. labs. (2) Encephalopathy acute Current Visit: Yes Status: Acute Patient is alert and oriented 3. Her mental status is improved today. She is able to follow verbal commands. Mild encephalopathy likely related to sepsis. we expect her to continue recovering (3) Demand ischemia Current Visit: Yes Status: Acute Patient has positive troponin 3 with unremarkable EKG. She likely had type II demand ischemia as there is no presence of an acute primary coronary thrombotic event. Echocardiogram performed today demonstrates normal left ventricular systolic function with ejection fraction of 65%, mild to moderate pulmonary hypertension with estimated RVSP of 46 mmHg. Consider outpatient follow up as cardiology consult not necessary at this time. (4) Anemia Current Visit: Yes Status: Acute Patient's H/H is downtrending and urine Vasquez contains bloody urine. We are giving patient 1 unit of blood products. Recheck CBC once transfusion is completed. Vitamin K was administered. Qualifiers: Anemia type: other cause Other causes of anemia: other cause, not classified Qualified Code(s): D64.89 - Other specified anemias (5) Atrial fibrillation with RVR Current Visit: Yes Status: Acute Patient had an episode of A. fib with RVR today. Her Levophed was discontinued as it can cause tachycardia and phenylephrine was started. Dose of digoxin was given. Continue to monitor with telemetry (6) Thrombocytopenia Current Visit: Yes Status: Acute Patient's platelets have decreased today, could be due to heparin. Recheck CBC and discontinue heparin if hemoglobin and platelets continues to decrease. Patient is receiving 1 unit of blood due to decrease hemoglobin. The patient also developed worsening coagulopathy which could be related to nutrition and critical illness. Vitamin K was administered (7) ANGELA (acute kidney injury) Current Visit: Yes Status: Acute ANGELA in the setting of septic shock. Patient is on electrolyte protocol. CT abdomen without contrast demonstrates likely obstructive hydronephrosis on the right given underlying pancreatic cancer with ongoing chemotherapy. Ureteral stent was inserted. Renal ultrasound demonstrate moderate right hydronephrosis. Urine Vasquez catheter was placed for more adequate monitoring of urine output and is draining red urine. Lower extremity edema may be related to venous obstruction. Avoid nephrotoxins. ANGELA likely intrinsic and post renal causes, continue electrolyte protocol. Patient okay to continue diabetic diet (8) Hyperglycemia Current Visit: Yes Status: Acute Hyperglycemia in the setting of steroid use. Continue with SSI (9) History of pancreatic cancer Current Visit: No Status: Acute Continue outpatient treatment after discharge (10) DVT prophylaxis Current Visit: Yes Status: Acute Patient has history for DVTs and PE. However, urine Vasquez draining bloody urine and her H/H is downtrending. She is receiving a unit of blood. Recheck CBC and if H/H continues to drop, we will discontinue heparin. Subjective Principal diagnosis: Septic shock Interval history: Patient had a ureteral stent placed yesterday night. New Vasquez was inserted draining bloody urine. Heparin was discontinued for an hour. The patient also experienced an episode of A. fib with RVR, 12-lead EKG obtained. Patient was switched to phenylephrine and Levophed was discontinued. Patient is alert and oriented 3. She states that she feels weak. Her appetite is improving. She has been passing gas and has had bowel movements. Objective PUL Vital signs: Last Vital Signs Temp 98.0 F 04/08/17 05:59 Pulse 80 04/08/17 07:24 Resp 16 04/08/17 07:00 BP 95/66 04/08/17 07:00 Pulse Ox 97 04/08/17 07:00 General appearance: no acute distress Eyes: icteric ENT: oropharynx moist Neck: supple Auscultation: bilateral: clear Cardiovascular: irregular rhythm, other (Tachycardic) Gastrointestinal: normoactive bowel sounds, soft, non-tender, non-distended Integumentary: normal Extremities: no cyanosis, no edema, no clubbing Musculoskeletal: no deformities Gait: normal posture normal mental status, non-focal exam, other (Patient is alert and oriented 3) mood appropriate, affect normal Results - Laboratory Findings CBC and BMP: 04/08/17 03:42 04/08/17 03:42 PT/INR, D-dimer PT 37.1 Seconds (9.4-12.1) H 04/08/17 03:42 Abnormal lab findings: Abnormal lab results WBC 18.3 K/mcL (4.3-11.1) H 04/07/17 14:20 RBC 2.37 M/mcL (3.82-4.97) L 04/07/17 14:20 Hgb 7.7 g/dL (11.5-15.4) L 04/07/17 14:20 Hct 23.1 % (35.3-44.9) L 04/07/17 14:20 RDW 18.2 % (11.5-14.5) H 04/07/17 14:20 Plt Count 105 K/mcL (140-400) L 04/07/17 14:20 Immature Gran % 7.6 % (0-4) H 04/07/17 03:15 Myelocytes % 2.0 % (0) H 04/06/17 23:55 Neutrophils # 16.1 K/mcL (1.6-8.9) H 04/07/17 14:20 Nucleated RBCs/100 WBC 0.1 /100 WBC (0) H 04/07/17 14:20 Toxic Granulation Present (Not Present) A 04/06/17 16:59 Toxic Vacuolation Present (Not Present) A 04/07/17 03:15 Dohle Bodies Present (Not Present) A 04/07/17 03:15 Platelet Estimate Slight Decrease (Normal) L 04/07/17 14:20 Large Platelets Present (Not Present) A 04/07/17 03:15 Immature Plt Fraction 11.8 % (1.1-6.1) H 04/06/17 23:55 Polychromasia 1+ (Not Present) A 04/06/17 23:55 Anisocytosis 1+ (Not Present) A 04/06/17 16:59 Macrocytosis Present (Not Present) A 04/06/17 16:59 Lois Cells 1+ (Not Present) A 04/07/17 03:15 PT 37.1 Seconds (9.4-12.1) H 04/08/17 03:42 APTT 98.0 Seconds (26.0-36.0) H 04/08/17 03:42 Sodium 127 mEq/L (136-145) L 04/08/17 03:42 Potassium 3.4 mEq/L (3.5-4.5) L 04/08/17 03:42 Carbon Dioxide 15 mEq/L (19-29) L 04/08/17 03:42 BUN 27 mg/dL (7-20) H 04/08/17 03:42 Creatinine 2.14 mg/dL (0.57-1.11) H 04/08/17 03:42 Est GFR ( Amer) 28 (> 60) L 04/08/17 03:42 Est GFR (Non-Af Amer) 23 (> 60) L 04/08/17 03:42 Glucose 153 mg/dL (70-99) H 04/08/17 03:42 POC Glucose 181 (58-89) H 04/08/17 07:12 Calculated Osmolality 272 (280-300) L 04/08/17 03:42 Uric Acid 7.5 mg/dL (2.6-6.0) H 04/07/17 14:20 Calcium 7.4 mg/dL (8.6-10.8) L 04/08/17 03:42 Total Bilirubin 4.5 mg/dL (0.2-1.2) H 04/07/17 14:20 Direct Bilirubin 3.4 mg/dL (0.0-0.5) H 04/07/17 14:20 AST 37 Units/L (5-34) H 04/07/17 14:20 Alkaline Phosphatase 459 Units/L (38-126) H 04/07/17 14:20 Troponin I 0.54 ng/mL (0-0.03) H* 04/07/17 03:15 Serum Total Protein 4.9 g/dL (6.0-8.3) L 04/07/17 14:20 Albumin 2.0 g/dL (3.5-5.0) L D 04/07/17 14:20 Albumin/Globulin Ratio 0.7 (1.1-2.2) L 04/07/17 14:20 Urine Color Juanita (Yellow) A 04/07/17 08:50 Urine Clarity Turbid (Clear) A 04/07/17 08:50 Urine Protein 100 mg/dL (Neg-Trace) H 04/07/17 08:50 Urine Ketones Trace mg/dL (Negative) H 04/07/17 08:50 Urine Blood Small (Negative) H 04/07/17 08:50 Urine Nitrite Positive (Negative) A 04/07/17 08:50 Urine Bilirubin Large (Negative) H 04/07/17 08:50 Ur Leukocyte Esterase Large (Negative) H 04/07/17 08:50 Urine Microscopic WBC TNTC per hpf (0-3) H 04/07/17 08:50 Ur Squamous Epith Cells Moderate per lpf (None-Few) H 04/07/17 08:50 Urine Bacteria Many per hpf (None-Few) H 04/07/17 08:50 Ur Culture Indicated? YES (NO) A 04/07/17 08:50 Urine Osmolality 290 mOsm/kg (300-1090) L 04/07/17 08:40 Enterobacteriac sp PCR DETECTED (Not Detect) A 04/06/17 17:58 Klebsiella pneumoniae DETECTED (Not Detect) A 04/06/17 17:58 - Microbiology Findings Microbiology Findings: Microbiology, Last 48 Hours 04/07/17 08:50 Urine Culture - Preliminary Urine,Clean Catch Gram Negative Viral - Clinical Findings Intake & Output: Intake & Output 04/07/17 04/07/17 04/08/17 15:59 23:59 07:59 Intake Total 708 / 708 664 / 664 484 / 484 Output Total 150 / 150 600 / 600 225 / 225 Balance 558 / 558 64 / 64 259 / 259 Weight 107.1 kg
[2017-04-08] MEDS ORDERED: Ringers Solution, Lactated 500 ML IVC ONE ×2 (08:07→08:30)
[2017-04-08 08:39] LABS: Platelet Count 77 K/mcL (140-400)
[2017-04-08 08:42] LABS: Neutrophils # 14.6 K/mcL (1.6-8.9); Platelet Estimate Decreased (Normal); Polychromasia 1+ (Not Present)
[2017-04-08 08:43] LABS: Anisocytosis 1+ (Not Present); Macrocytosis Present (Not Present); Microcytosis Present (Not Present); Toxic Granulation Present (Not Present)
--- NOTE | 2017-04-08 08:43 | Urology Progress Note ---
Date of Encounter: 04/08/17 Time of Encounter: 08:41 - Assessment and Plan (1) Hydronephrosis due to obstruction of ureter Current Visit: Yes Status: Acute Assessment and plan: s/p right ureteral stent placement. POD #1. 1. Continue stent. 2. Await urine culture results. 3. Continue abx for Klebsiella. 4. Ultrasound reviewed. Stent can be seen in the kidney. (2) Renal cyst Current Visit: Yes Status: Acute Assessment and plan: Left renal cyst not well seen on U/S. Will observe for now. Consider repeat CT with contrast if creatinine improves. Progress Note Narrative: POD #1 s/p right ureteral stent placement. Doing well. Urine has been light pink. She denies any pain associated with the stent. Still on vasopressor. Objective Initial Vital Signs Temp Pulse Resp BP Pulse Ox 98.4 F 206 18 82/49 94 04/06/17 16:38 04/06/17 16:38 04/06/17 16:38 04/06/17 16:38 04/06/17 16:38 - General physical appearance Present: well developed, well nourished, no distress - Respiratory Present: normal respiratory effort - Abdomen Present: soft - Genitourinary Urine Appearance: Present: Clear, Hematuria (Clear to light pink urine with garcia.) - Labs 04/08/17 03:42 04/08/17 03:42 Diabetes panel 04/07/17 04/08/17 Range/Units 14:20 03:42 Sodium 127 L 127 L (136-145) mEq/L Potassium 3.2 L 3.4 L (3.5-4.5) mEq/L Chloride 97 L 98 (98-109) mEq/L Carbon Dioxide 19 15 L (19-29) mEq/L BUN 27 H 27 H (7-20) mg/dL Creatinine 2.37 H 2.14 H (0.57-1.11) mg/dL Glucose 193 H 153 H (70-99) mg/dL Calcium 7.1 L 7.4 L (8.6-10.8) mg/dL AST 37 H (5-34) Units/L ALT 31 (0-55) Units/L Alkaline Phosphatase 459 H (38-126) Units/L Albumin 2.0 L D (3.5-5.0) g/dL Calcium panel 04/07/17 04/08/17 Range/Units 14:20 03:42 Calcium 7.1 L 7.4 L (8.6-10.8) mg/dL Phosphorus 2.8 (2.3-4.7) mg/dL Albumin 2.0 L D (3.5-5.0) g/dL Pituitary panel 04/07/17 04/08/17 Range/Units 14:20 03:42 Sodium 127 L 127 L (136-145) mEq/L Potassium 3.2 L 3.4 L (3.5-4.5) mEq/L Chloride 97 L 98 (98-109) mEq/L Carbon Dioxide 19 15 L (19-29) mEq/L BUN 27 H 27 H (7-20) mg/dL Creatinine 2.37 H 2.14 H (0.57-1.11) mg/dL Glucose 193 H 153 H (70-99) mg/dL Calcium 7.1 L 7.4 L (8.6-10.8) mg/dL Adrenal panel 04/07/17 04/08/17 Range/Units 14:20 03:42 Sodium 127 L 127 L (136-145) mEq/L Potassium 3.2 L 3.4 L (3.5-4.5) mEq/L Chloride 97 L 98 (98-109) mEq/L Carbon Dioxide 19 15 L (19-29) mEq/L BUN 27 H 27 H (7-20) mg/dL Creatinine 2.37 H 2.14 H (0.57-1.11) mg/dL Glucose 193 H 153 H (70-99) mg/dL Calcium 7.1 L 7.4 L (8.6-10.8) mg/dL Total Bilirubin 4.5 H (0.2-1.2) mg/dL AST 37 H (5-34) Units/L ALT 31 (0-55) Units/L Alkaline Phosphatase 459 H (38-126) Units/L Albumin 2.0 L D (3.5-5.0) g/dL Consult Discharge Plan - Plan Referrals: NONE,PCP [Primary Care Provider] -
--- NOTE | 2017-04-08 08:44 | Nephrology Progress Note ---
Date of Encounter: 04/08/17 Time of Encounter: 08:42 Subjective Interval history: Patient reports overall she is feeling better. She is requiring less levo fed for blood pressure support. However she did go into A. fib earlier today with a rapid ventricular response. She does not appear to be experiencing any symptoms. She status post placement of a right ureteral stent for a right hydronephrosis noted on previous CAT scan. Serum creatinine is slightly improved from 2.37 down to 2.14. Patient seems to be improving from the standpoint of her acute kidney injury in the setting of Klebsiella bacteremia sepsis ureter tract infection and right hydronephrosis along with septic shock. Supportive treatment and antibiotics will be continued. We will continue to monitor her renal function. Potassium was slightly low she will require some potassium supplementation. There is no indication for acute dialytic intervention at this time. Objective - Vital Signs Vital signs: Vital Signs Temp Pulse Resp BP Pulse Ox 04/08/17 08:00 135 18 104/80 98 04/08/17 07:47 97.8 F 04/08/17 07:24 80 04/08/17 07:00 81 16 95/66 97 04/08/17 06:00 98 22 107/72 92 04/08/17 05:59 98.0 F 04/08/17 05:00 83 18 112/77 94 04/08/17 04:00 82 14 96/60 92 04/08/17 03:00 86 16 90/58 92 04/08/17 01:44 84 16 103/69 92 04/08/17 00:49 83 12 102/67 92 04/08/17 00:15 98.7 F 04/07/17 23:45 81 20 98/67 92 04/07/17 22:46 78 16 103/69 91 04/07/17 22:00 71 16 99/67 92 04/07/17 20:46 81 16 102/70 93 04/07/17 20:00 97.6 F 89 16 102/72 93 04/07/17 19:00 87 18 107/78 92 04/07/17 18:25 80 20 119/82 96 04/07/17 17:30 75 21 98/60 95 04/07/17 16:44 98.0 F 04/07/17 15:30 98 F 76 20 91/63 95 04/07/17 14:30 77 20 94/64 96 04/07/17 13:30 76 21 95/68 95 04/07/17 12:57 98.0 F 04/07/17 12:30 81 20 92/66 94 04/07/17 11:30 81 21 100/71 96 04/07/17 10:33 77 19 95/66 95 04/07/17 09:40 76 19 105/75 96 Intake and Output 04/07/17 04/08/17 04/08/17 23:59 07:59 15:59 Intake Total 664 / 664 484 / 484 75 / 75 Output Total 600 / 600 425 / 425 Balance 64 / 64 59 / 59 75 / 75 Intake: IV Fluids 664 / 664 484 / 484 75 / 75 Flexbumin 25 gm In 100 ml @ 60 400 / 400 mls/hr IVC .Q1H40M [facility] Rx#: [id number] Heparin 25,000 UNIT/500 ML D5W 264 / 264 130 / 130 25,000 unit In 500 ml @ 14 UNIT /KG/HR 29.176 mls/hr IVC . Q17H9M [facility] Rx#:[id number] Levophed 4 MG In Dextrose 5% 254 / 254 75 / 75 250 ML @ 8 MCG/MIN 30.48 mls/hr IVC CONT [facility] Rx#:[id number] Zosyn 3.375 GM In Dextrose 5% ( 100 / 100 Minibag+) 100 ML 100 ML @ 25 mls/hr IVPB Q12H [facility] Rx#: [id number] Oral 0 / 0 0 / 0 Output: Catheter 600 / 600 425 / 425 Other: Stool Size Small Stool Consistency loose liquid Stool Color Brown Green # Bowel Movements 1 Weight 107.1 kg 107.048 kg Blood Glucose* 181 Patient Weight 04/08/17 23:59 Weight 107.048 kg - General Appearance Exam: Patient is alert and oriented. She is in no acute distress. Lungs essentially clear to auscultation. Heart irregular rate and rhythm consistent with atrial fibrillation. Abdomen is nontender. There is 2+ lower extremity swelling. - Lab 04/08/17 03:42 04/08/17 03:42 Most recent lab results Calcium 7.4 mg/dL (8.6-10.8) L 04/08/17 03:42 Phosphorus 2.8 mg/dL (2.3-4.7) 04/07/17 14:20 Magnesium 1.8 mg/dL (1.6-2.6) 04/07/17 14:20 Urine Creatinine 243 mg/dL 04/07/17 08:40 Urine Sodium < 20.0 mEq/L 04/07/17 08:40 Consult Discharge Plan - Plan Referrals: NONE,PCP [Primary Care Provider] -
[2017-04-08 08:52] LABS: Magnesium 1.9 mg/dL (1.6-2.6)
[2017-04-08 09:21] LABS: Activated Partial Thrombo Time 128.2 Seconds (26.0-36.0)
[2017-04-08 09:26] LABS: Heparin anti-factor XA UFH 0.3 IU/mL (0.30-0.70)
[2017-04-08] MEDS ORDERED: 0.9 % Sodium Chloride 250 ML ONE (10:21)
[2017-04-08] MEDS: Phenylephrine 10 MG in D5% in Water 250 ML IVC SCH ×2 (10:28→17:46)
[2017-04-08] MEDS: *HR* Morphine Sulfate SR (12 HR) 30 MG TABLET.ER PO SCH ×2 (11:23→20:18)
[2017-04-08] MEDS ORDERED: *HR* Digoxin 0.5 MG/2 ML AMPUL IVP ONE (13:15)
[2017-04-08 16:40] LABS: Immature Platelets 18.7 % (1.1-6.1)
[2017-04-08 16:56] LABS: Hemoglobin 9.2 g/dL (11.5-15.4); Mean Corpuscular HGB Conc 34.1 g/dL (31.6-35.5); Mean Corpuscular Hemoglobin 31.5 pg (28.0-33.3); Mean Corpuscular Volume 92.5 fL (83.0-100.0); Mean Platelet Volume 12.7 fL (9.4-12.4); Nucleated Red Blood Cells 0.1 /100 WBC (0); Red Blood Count 2.92 M/mcL (3.82-4.97); Red Cell Distribution Width 18.6 % (11.5-14.5)
[2017-04-08 17:17] LABS: Platelet Count 64 K/mcL (140-400)
[2017-04-08 17:21] LABS: Dohle Bodies Present (Not Present); Lymphocytes # 1.2 K/mcL (0.6-4.6); Toxic Granulation Present (Not Present)
[2017-04-08 17:22] LABS: Polychromasia 1+ (Not Present)
[2017-04-08] MEDS: *HR* Digoxin 0.5 MG/2 ML AMPUL IVP SCH (20:17)
[2017-04-08 23:06] LABS: Red Blood Count 2.87 M/mcL (3.82-4.97); Red Cell Distribution Width 19.2 % (11.5-14.5)
[2017-04-08 23:08] LABS: Basophils # 0.1 K/mcL (0.0-0.2); Basophils % 0.4 %; Hematocrit 26.5 % (35.3-44.9); Hemoglobin 8.9 g/dL (11.5-15.4); Immature Granulocytes % 5.8 % (0-4); Immature Platelets 18.8 % (1.1-6.1); Lymphocytes # 1.2 K/mcL (0.6-4.6); Lymphocytes % 6.3 %; Mean Corpuscular HGB Conc 33.6 g/dL (31.6-35.5); Mean Corpuscular Volume 92.3 fL (83.0-100.0); Mean Platelet Volume 13.4 fL (9.4-12.4); Monocytes # 0.3 K/mcL (0.0-1.3); Monocytes % 1.8 %; Nucleated Red Blood Cells 0.1 /100 WBC (0); Segmented Neutrophils % 85.7 %
[2017-04-08 23:39] LABS: Platelet Count 54 K/mcL (140-400)
[2017-04-08 23:40] LABS: Toxic Granulation Present (Not Present)
[2017-04-08 23:41] LABS: Dohle Bodies Present (Not Present); Polychromasia 1+ (Not Present)
[2017-04-09] MEDS: Hydrocortisone Sodium Succ 100 MG/2 ML VIAL IVP SCH ×2 (00:46→07:09)
[2017-04-09] MEDS ORDERED: *HR* Digoxin 0.5 MG/2 ML AMPUL ONE (04:50)
[2017-04-09] MEDS: *HR* Digoxin 0.5 MG/2 ML AMPUL IVP SCH (04:58)
[2017-04-09] MEDS: *HR* Morphine Sulfate SR (12 HR) 30 MG TABLET.ER PO SCH ×3 (05:03→21:07)
[2017-04-09 05:52] LABS: Nucleated Red Blood Cells 0.1 /100 WBC (0); Red Blood Count 2.99 M/mcL (3.82-4.97)
[2017-04-09 05:54] LABS: Hematocrit 27.4 % (35.3-44.9); Immature Platelets 18.8 % (1.1-6.1); Mean Corpuscular HGB Conc 32.8 g/dL (31.6-35.5); Mean Corpuscular Hemoglobin 30.1 pg (28.0-33.3); Mean Corpuscular Volume 91.6 fL (83.0-100.0); Mean Platelet Volume 13.8 fL (9.4-12.4); Red Cell Distribution Width 19.3 % (11.5-14.5)
[2017-04-09 05:56] LABS: Platelet Count 48 K/mcL (140-400)
[2017-04-09 06:01] LABS: Calcium 7.5 mg/dL (8.6-10.8); Potassium 3.9 mEq/L (3.5-4.5)
[2017-04-09 06:36] LABS: Lymphocytes # 1.4 K/mcL (0.6-4.6); Neutrophils # 15.5 K/mcL (1.6-8.9)
[2017-04-09 06:37] LABS: Anisocytosis 2+ (Not Present); Platelet Estimate Decreased (Normal)
[2017-04-09 06:39] LABS: Hypersegmented Neutrophils Present (Not Present)
[2017-04-09] MEDS ORDERED: Furosemide 20 MG/2 ML VIAL IVP ONE ×2 (07:10→07:26)
[2017-04-09] MEDS: Insulin LISPRO 300 UNITS/3 ML VIAL SQ SCH ×3 (07:27→16:02)
--- NOTE | 2017-04-09 07:44 | Pulmonology Progress Note ---
<Mague Macias - Last Filed: 04/09/17 10:45> Date of Encounter: 04/09/17 Time of Encounter: 07:45 Assessment and Plan (1) Septic shock due to Klebsiella pneumoniae Current Visit: Yes Status: Acute Patient came in with septic shock from UTI. Culture showed Klebsiella which was sensitive to Rocephin. Patient currently off pressors. White blood cell count trending downward and is now 17.2. Urine continues to be darker in color. Turn towards a straw like color overnight and then this morning change back to blood. We stopped the heparin. (2) Encephalopathy acute Current Visit: Yes Status: Acute Patient's a and O 3 at this time but has periods of time where she is confused and no longer alert and oriented. Most likely due to sepsis but will obtain a CT of the head without contrast today to rule out any metastasis or bleed. (3) History of pancreatic cancer Current Visit: Yes Status: Acute Continue outpatient chemotherapy. (4) Anemia Current Visit: Yes Status: Acute Hemoglobin 9.0 today. Patient received 2 units of blood yesterday. Heparin stopped due to bloody urine this a.m. Qualifiers: Anemia type: other cause Other causes of anemia: other cause, not classified Qualified Code(s): D64.89 - Other specified anemias (5) ANGELA (acute kidney injury) Current Visit: Yes Status: Acute ANGELA in the setting of septic shock. Patient is on electrolyte protocol. CT abdomen without contrast demonstrated likely obstructive hydronephrosis on the right given underlying pancreatic cancer with ongoing chemotherapy. Ureteral stent was inserted. Renal ultrasound demonstrated moderate right hydronephrosis. Urine Vasquez catheter was placed for more adequate monitoring of urine output and is draining red urine. Yesterday evening the urine started to change towards a strawcolored. This a.m. it changed back to a dark red color. We stopped the heparin. Lower extremity edema may be related to venous obstruction. Avoid nephrotoxins. ANGELA likely intrinsic and post renal causes, continue electrolyte protocol. Patient okay to continue diabetic diet (6) Demand ischemia Current Visit: Yes Status: Acute Patient had positive troponin 3 with unremarkable EKG. She likely had type II demand ischemia as there is no presence of an acute primary coronary thrombotic event. Echocardiogram performed demonstrates normal left ventricular systolic function with ejection fraction of 65%, mild to moderate pulmonary hypertension with estimated RVSP of 46 mmHg. Consider outpatient follow up as cardiology consult not necessary at this time. (7) Hyperglycemia Current Visit: Yes Status: Acute Hyperglycemia in the setting of steroid use. Continue with SSI (8) Atrial fibrillation with RVR Current Visit: Yes Status: Acute Levophed was discontinued as it can cause tachycardia and phenylephrine was started. Dose of digoxin was given. Continue to monitor with telemetry (9) Thrombocytopenia Current Visit: Yes Status: Acute Platelets now 48. Continue to trend down. Administered vitamin K and 1 unit of blood yesterday. Consult hematology. (10) DVT prophylaxis Current Visit: Yes Status: Acute Patient on heparin until this morning. We will follow up with oncology to determine next steps for DVT prophylaxis. Subjective Principal diagnosis: Septic shock Interval history: Overnight the patient's urine turned into a strawlike color. Then early this morning and returned back into a bright red. Heparin stopped this morning. We will speak with oncologist about future need of anticoagulation. Patient is a and O 2 this morning. Multiple episodes overnight of confusion. She states no pain at this time. Objective PUL Vital signs: Last Vital Signs Temp 97.4 F L 04/09/17 05:02 Pulse 76 04/09/17 07:32 Resp 14 04/09/17 07:00 BP 133/91 04/09/17 07:00 Pulse Ox 98 04/09/17 07:00 General appearance: no acute distress, alert Eyes: nonicteric ENT: oropharynx moist Neck: supple Effort: normal Auscultation: bilateral: clear Cardiovascular: regular rate and rhythm Gastrointestinal: normoactive bowel sounds, non-distended Integumentary: normal Extremities: no cyanosis, edema Musculoskeletal: no deformities Gait: normal posture normal mental status, non-focal exam mood appropriate, affect normal Results - Laboratory Findings CBC and BMP: 04/09/17 05:40 04/09/17 05:40 PT/INR, D-dimer PT 37.1 Seconds (9.4-12.1) H 04/08/17 03:42 Abnormal lab findings: Abnormal lab results WBC 17.2 K/mcL (4.3-11.1) H 04/09/17 05:40 RBC 2.99 M/mcL (3.82-4.97) L 04/09/17 05:40 Hgb 9.0 g/dL (11.5-15.4) L 04/09/17 05:40 Hct 27.4 % (35.3-44.9) L 04/09/17 05:40 RDW 19.3 % (11.5-14.5) H 04/09/17 05:40 Plt Count 48 K/mcL (140-400) L 04/09/17 05:40 MPV 13.8 fL (9.4-12.4) H 04/09/17 05:40 Immature Gran % 5.8 % (0-4) H 04/08/17 22:42 Myelocytes % 2.0 % (0) H 04/09/17 05:40 Neutrophils # 15.5 K/mcL (1.6-8.9) H 04/09/17 05:40 Nucleated RBCs/100 WBC 0.1 /100 WBC (0) H 04/09/17 05:40 Hypersegmented Neuts Present (Not Present) A 04/09/17 05:40 Toxic Granulation Present (Not Present) A 04/08/17 22:42 Toxic Vacuolation Present (Not Present) A 04/07/17 03:15 Dohle Bodies Present (Not Present) A 04/08/17 22:42 Platelet Estimate Decreased (Normal) L 04/09/17 05:40 Large Platelets Present (Not Present) A 04/07/17 03:15 Immature Plt Fraction 18.8 % (1.1-6.1) H 04/09/17 05:40 Polychromasia 1+ (Not Present) A 04/08/17 22:42 Anisocytosis 2+ (Not Present) A 04/09/17 05:40 Microcytosis Present (Not Present) A 04/08/17 03:42 Macrocytosis Present (Not Present) A 04/08/17 03:42 Kewadin Cells 1+ (Not Present) A 04/07/17 03:15 PT 37.1 Seconds (9.4-12.1) H 04/08/17 03:42 APTT 51.9 Seconds (26.0-36.0) H 04/09/17 05:40 Sodium 128 mEq/L (136-145) L 04/09/17 05:40 Carbon Dioxide 16 mEq/L (19-29) L 04/09/17 05:40 BUN 24 mg/dL (7-20) H 04/09/17 05:40 Creatinine 1.58 mg/dL (0.57-1.11) H 04/09/17 05:40 Est GFR ( Amer) 40 (> 60) L 04/09/17 05:40 Est GFR (Non-Af Amer) 33 (> 60) L 04/09/17 05:40 Glucose 141 mg/dL (70-99) H 04/09/17 05:40 POC Glucose 149 (58-89) H 04/09/17 07:17 Calculated Osmolality 272 (280-300) L 04/09/17 05:40 Uric Acid 7.5 mg/dL (2.6-6.0) H 04/07/17 14:20 Calcium 7.5 mg/dL (8.6-10.8) L 04/09/17 05:40 Total Bilirubin 4.5 mg/dL (0.2-1.2) H 04/07/17 14:20 Direct Bilirubin 3.4 mg/dL (0.0-0.5) H 04/07/17 14:20 AST 37 Units/L (5-34) H 04/07/17 14:20 Alkaline Phosphatase 459 Units/L (38-126) H 04/07/17 14:20 Troponin I 0.54 ng/mL (0-0.03) H* 04/07/17 03:15 Serum Total Protein 4.9 g/dL (6.0-8.3) L 04/07/17 14:20 Albumin 2.0 g/dL (3.5-5.0) L D 04/07/17 14:20 Albumin/Globulin Ratio 0.7 (1.1-2.2) L 04/07/17 14:20 Urine Color Juanita (Yellow) A 04/07/17 08:50 Urine Clarity Turbid (Clear) A 04/07/17 08:50 Urine Protein 100 mg/dL (Neg-Trace) H 04/07/17 08:50 Urine Ketones Trace mg/dL (Negative) H 04/07/17 08:50 Urine Blood Small (Negative) H 04/07/17 08:50 Urine Nitrite Positive (Negative) A 04/07/17 08:50 Urine Bilirubin Large (Negative) H 04/07/17 08:50 Ur Leukocyte Esterase Large (Negative) H 04/07/17 08:50 Urine Microscopic WBC TNTC per hpf (0-3) H 04/07/17 08:50 Ur Squamous Epith Cells Moderate per lpf (None-Few) H 04/07/17 08:50 Urine Bacteria Many per hpf (None-Few) H 04/07/17 08:50 Ur Culture Indicated? YES (NO) A 04/07/17 08:50 Urine Osmolality 290 mOsm/kg (300-1090) L 04/07/17 08:40 Enterobacteriac sp PCR DETECTED (Not Detect) A 04/06/17 17:58 Klebsiella pneumoniae DETECTED (Not Detect) A 04/06/17 17:58 - Microbiology Findings Microbiology Findings: Microbiology, Last 48 Hours 04/07/17 08:50 Urine Culture - Final Urine,Clean Catch Klebsiella pneu.ssp pneumoniae - Clinical Findings Intake & Output: Intake & Output 04/08/17 04/08/17 04/09/17 15:59 23:59 07:59 Intake Total 2382 / 2382 723 / 723 389 / 389 Output Total 600 / 600 1100 / 1100 1150 / 1150 Balance 1782 / 1782 -377 / -377 -761 / -761 Weight 107.048 kg Consult Discharge Plan - Plan Referrals: NONE,PCP [Primary Care Provider] - <Samuel Cuellar W - Last Filed: 04/09/17 13:13> Date of Encounter: 04/09/17 Objective PUL Vital signs: Last Vital Signs Temp 97.4 F L 04/09/17 11:46 Pulse 100 04/09/17 13:00 Resp 16 04/09/17 13:00 BP 111/88 04/09/17 13:00 Pulse Ox 100 04/09/17 13:00 Results - Laboratory Findings CBC and BMP: 04/09/17 05:40 04/09/17 05:40 PT/INR, D-dimer PT 12.4 Seconds (9.4-12.1) H D 04/09/17 11:26 Abnormal lab findings: Abnormal lab results WBC 17.2 K/mcL (4.3-11.1) H 04/09/17 05:40 RBC 2.99 M/mcL (3.82-4.97) L 04/09/17 05:40 Hgb 9.0 g/dL (11.5-15.4) L 04/09/17 05:40 Hct 27.4 % (35.3-44.9) L 04/09/17 05:40 RDW 19.3 % (11.5-14.5) H 04/09/17 05:40 Plt Count 48 K/mcL (140-400) L 04/09/17 05:40 MPV 13.8 fL (9.4-12.4) H 04/09/17 05:40 Immature Gran % 5.8 % (0-4) H 04/08/17 22:42 Myelocytes % 2.0 % (0) H 04/09/17 05:40 Neutrophils # 15.5 K/mcL (1.6-8.9) H 04/09/17 05:40 Nucleated RBCs/100 WBC 0.1 /100 WBC (0) H 04/09/17 05:40 Hypersegmented Neuts Present (Not Present) A 04/09/17 05:40 Toxic Granulation Present (Not Present) A 04/08/17 22:42 Toxic Vacuolation Present (Not Present) A 04/07/17 03:15 Dohle Bodies Present (Not Present) A 04/08/17 22:42 Platelet Estimate Decreased (Normal) L 04/09/17 05:40 Large Platelets Present (Not Present) A 04/07/17 03:15 Immature Plt Fraction 18.8 % (1.1-6.1) H 04/09/17 05:40 Polychromasia 1+ (Not Present) A 04/08/17 22:42 Anisocytosis 2+ (Not Present) A 04/09/17 05:40 Microcytosis Present (Not Present) A 04/08/17 03:42 Macrocytosis Present (Not Present) A 04/08/17 03:42 Kewadin Cells 1+ (Not Present) A 04/07/17 03:15 PT 12.4 Seconds (9.4-12.1) H D 04/09/17 11:26 APTT 51.9 Seconds (26.0-36.0) H 04/09/17 05:40 Sodium 128 mEq/L (136-145) L 04/09/17 05:40 Carbon Dioxide 16 mEq/L (19-29) L 04/09/17 05:40 BUN 24 mg/dL (7-20) H 04/09/17 05:40 Creatinine 1.58 mg/dL (0.57-1.11) H 04/09/17 05:40 Est GFR ( Amer) 40 (> 60) L 04/09/17 05:40 Est GFR (Non-Af Amer) 33 (> 60) L 04/09/17 05:40 Glucose 141 mg/dL (70-99) H 04/09/17 05:40 POC Glucose 131 (58-89) H 04/09/17 11:29 Calculated Osmolality 272 (280-300) L 04/09/17 05:40 Uric Acid 7.5 mg/dL (2.6-6.0) H 04/07/17 14:20 Calcium 7.5 mg/dL (8.6-10.8) L 04/09/17 05:40 Total Bilirubin 4.5 mg/dL (0.2-1.2) H 04/07/17 14:20 Direct Bilirubin 3.4 mg/dL (0.0-0.5) H 04/07/17 14:20 AST 37 Units/L (5-34) H 04/07/17 14:20 Alkaline Phosphatase 459 Units/L (38-126) H 04/07/17 14:20 Troponin I 0.54 ng/mL (0-0.03) H* 04/07/17 03:15 Serum Total Protein 4.9 g/dL (6.0-8.3) L 04/07/17 14:20 Albumin 2.0 g/dL (3.5-5.0) L D 04/07/17 14:20 Albumin/Globulin Ratio 0.7 (1.1-2.2) L 04/07/17 14:20 Urine Color Juanita (Yellow) A 04/07/17 08:50 Urine Clarity Turbid (Clear) A 04/07/17 08:50 Urine Protein 100 mg/dL (Neg-Trace) H 04/07/17 08:50 Urine Ketones Trace mg/dL (Negative) H 04/07/17 08:50 Urine Blood Small (Negative) H 04/07/17 08:50 Urine Nitrite Positive (Negative) A 04/07/17 08:50 Urine Bilirubin Large (Negative) H 04/07/17 08:50 Ur Leukocyte Esterase Large (Negative) H 04/07/17 08:50 Urine Microscopic WBC TNTC per hpf (0-3) H 04/07/17 08:50 Ur Squamous Epith Cells Moderate per lpf (None-Few) H 04/07/17 08:50 Urine Bacteria Many per hpf (None-Few) H 04/07/17 08:50 Ur Culture Indicated? YES (NO) A 04/07/17 08:50 Urine Osmolality 290 mOsm/kg (300-1090) L 04/07/17 08:40 Enterobacteriac sp PCR DETECTED (Not Detect) A 04/06/17 17:58 Klebsiella pneumoniae DETECTED (Not Detect) A 04/06/17 17:58 - Microbiology Findings Microbiology Findings: Microbiology, Last 48 Hours 04/07/17 08:50 Urine Culture - Final Urine,Clean Catch Klebsiella pneu.ssp pneumoniae - Clinical Findings Intake & Output: Intake & Output 04/08/17 04/09/17 04/09/17 23:59 07:59 15:59 Intake Total 723 / 723 389 / 389 390.5 / 390.5 Output Total 1100 / 1100 1500 / 1500 1000 / 1000 Balance -377 / -377 -1111 / -1111 -609.5 / -609.5 Weight 107 kg - Attending Attestation I examined this patient and my medical decision-making was reviewed with the Resident Physician. I agree with the documented findings, disposition and treatment plan as described except to the extent set forth below. We independently had [id number] contact with the patient Patient seen and examined at bedside Labs, radiology, chart personally reviewed. Management was reviewed during multidisciplinary critical care rounds. Neuropsych: Worsening delirium today without focal neurological deficit given thrombocytopenia and use of anticoagulation I have performed a CT of the head. Again we will continue to focus on sleep wake cycle samaritan avoidance of CLINICAL TECHNICIAN depressant medications and avoidance of sensory deprivation Pulm: acceptable oxygenation on 2LNC cont to monitor. Cards: A. fib with RVR yesterday which converted to sinus after load being with digoxin. She had dysuria shock which has resolved she has been off vasopressors now since last evening FEN-GI: Advance diet as tolerated. History of Pancreatic Ca with obstruction s/ p stenting. LFTs stable.no further episodes of diarrhea Renal: ANGELA resolving continue to replace electrolytes per protocol and employee nephro protective strategy. She is status post ureteral stenting for obstruction. Grossly she has hematuria but H&H stable. Appreciate nephrology and Urology's recommendations ID: Septic Shock s/t Klebsiella Bacteremia s/t Urinary Source improving repeat blood cultures today continue ceftriaxone to complete 10-14 day course Heme/Onc: History of VT E was on long-term anticoagulation including heparin drip while inpatient here. Given thrombocytopenia I have stopped infusion of heparin as the risk of bleeding outweighs the benefit of prevention of further venous thromboembolism area and I discussed the case with hematology who agrees with this plan. Additionally she has a mild coagulopathy which is being treated with vitamin K. H&H after transfusion of 2 units packed red blood cells yesterday is stable after appropriate increment although her urine is grossly bloody there is no overt evidence of overt signs of bleeding Endo: Glucose Monitored and controlled cont bolus dosing of insulin. Stop stress dose steroids Integ/MSK: Skin Care per routine ICU Nursing Protocol to prevent ulcers. Lines: All lines examined without evidence of infection Dispo: She will remain in the ICU today CODE: Full code
--- NOTE | 2017-04-09 08:08 | Electrocardiograph Report ---
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
--- NOTE | 2017-04-09 08:08 | Electrocardiograph Report ---
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
--- NOTE | 2017-04-09 08:08 | Electrocardiograph Report ---
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
--- NOTE | 2017-04-09 09:46 | Nephrology Progress Note ---
Date of Encounter: 04/09/17 Time of Encounter: 09:25 - Assessment and Plan (1) ANGELA (acute kidney injury) Current Visit: Yes Status: Acute S/P right ureteral stent. Renal fct improving, creat 1.58. Urine output 2125cc. ANGELA in setting of sepsis/shock, decreased oral intake with continued use of diuretics, GI losses, possible tumor lysis. Lower extremity swelling may be related to venous obstruction. Avoid unnecessary nephrotoxins. Subjective Principal diagnosis: Septic shock Interval history: S/P right ureteral stent. Sitting up in chair. Tearful because hair beginning to fall out. Vasquez with dark anderson/wine urine with few clots. Objective - Vital Signs Vital signs: Vital Signs Temp Pulse Resp BP Pulse Ox 04/09/17 09:00 98 16 119/96 100 04/09/17 08:00 96 14 132/98 96 04/09/17 07:49 96.4 F L 04/09/17 07:32 76 04/09/17 07:00 85 14 133/91 98 04/09/17 06:00 73 10 126/90 99 04/09/17 05:02 97.4 F L 04/09/17 05:00 71 10 115/71 99 04/09/17 04:00 70 12 104/72 99 04/09/17 03:00 70 15 105/73 99 04/09/17 02:00 76 13 112/79 98 04/09/17 01:00 83 13 117/81 98 04/09/17 00:00 97.5 F L 84 12 118/81 98 04/08/17 23:00 84 11 109/90 98 04/08/17 22:00 112 12 114/92 98 04/08/17 21:00 120 12 127/91 98 04/08/17 20:00 97.3 F L 115 16 116/95 98 04/08/17 18:00 130 20 112/83 97 04/08/17 17:00 120 20 104/89 98 04/08/17 16:00 115 14 122/89 98 04/08/17 15:34 97.4 F L 04/08/17 15:00 122 18 117/80 98 04/08/17 14:53 97.8 F 128 18 103/81 97 04/08/17 14:00 126 14 85/63 95 04/08/17 13:00 131 16 101/81 95 04/08/17 12:56 98.7 F 128 16 101/81 04/08/17 12:41 97.8 F 130 14 101/73 95 04/08/17 12:29 97.8 F 128 16 109/82 96 04/08/17 12:00 129 04/08/17 11:48 97.4 F L 04/08/17 11:00 80 16 107/91 94 04/08/17 10:45 97.8 F 84 16 96/73 96 04/08/17 10:30 97.8 F 126 14 113/96 97 04/08/17 10:00 123 16 85/71 97 Intake and Output 04/08/17 04/09/17 04/09/17 23:59 07:59 15:59 Intake Total 723 / 723 389 / 389 Output Total 1100 / 1100 1500 / 1500 Balance -377 / -377 -1111 / -1111 Intake: IV Fluids 603 / 603 239 / 239 Heparin 25,000 UNIT/500 ML D5W 103 / 103 239 / 239 25,000 unit In 500 ml @ 14 UNIT /KG/HR 29.176 mls/hr IVC . Q17H9M AYAN Rx#:[id number] Phenylephrine 10 MG In Dextrose 100 / 100 5% 250 ML @ 100 MCG/MIN 150.6 mls/hr IVC CONT AYAN Rx#: [id number] Potassium Chloride 10 mEq/100mL 400 / 400 10 meq In 100 ml @ 100 mls/hr IVPB Q1H PRN Rx#:[id number] Oral 120 / 120 150 / 150 Output: Urine 550 / 550 Urethral (Vasquez) 550 / 550 Catheter 550 / 550 1500 / 1500 Other: Weight 107 kg Blood Glucose* 133 149 Patient Weight 04/09/17 23:59 Weight 107 kg - General Appearance General appearance: Present: well-developed, well-nourished, appears started age EENT: Present: mucous membranes moist Neck: Present: no JVD Respiratory: Present: clear Cardiology: Present: edema, regular rate, regular rhythm Additional Comments: 2+ pitting LE Gastrointestinal: Present: normoactive bowel sounds, no tenderness Integumentary: Present: warm and dry Neurologic: Present: alert and oriented x3 Psychiatric: Present: mood/affect appropriate, cooperative - Lab 04/09/17 05:40 04/09/17 05:40 Most recent lab results Calcium 7.5 mg/dL (8.6-10.8) L 04/09/17 05:40 Phosphorus 2.8 mg/dL (2.3-4.7) 04/07/17 14:20 Magnesium 1.9 mg/dL (1.6-2.6) 04/08/17 03:42 Urine Creatinine 243 mg/dL 04/07/17 08:40 Urine Sodium < 20.0 mEq/L 04/07/17 08:40 Consult Discharge Plan - Plan Referrals: NONE,PCP [Primary Care Provider] -
[2017-04-09 12:10] LABS: INR 1.1; Prothrombin Time 12.4 Seconds (9.4-12.1)
[2017-04-09] MEDS: Sucralfate 1 GM TABLET PO SCH ×3 (12:40→21:07)
[2017-04-09] MEDS: Heparin 25,000 UNIT/500 ML D5W 25,000 UNIT/500 ML MLS IVC SCH (12:41)
[2017-04-09 16:30] LABS: Hematocrit 29.7 % (35.3-44.9); Immature Platelets 19.9 % (1.1-6.1); Mean Corpuscular HGB Conc 33.7 g/dL (31.6-35.5); Nucleated Red Blood Cells 0.1 /100 WBC (0); Red Blood Count 3.23 M/mcL (3.82-4.97); Red Cell Distribution Width 19.5 % (11.5-14.5)
[2017-04-09 16:43] LABS: Platelet Count 44 K/mcL (140-400)
[2017-04-09 17:06] LABS: Lymphocytes # 0.8 K/mcL (0.6-4.6); Neutrophils # 18.1 K/mcL (1.6-8.9)
[2017-04-09 17:07] LABS: Anisocytosis 1+ (Not Present); Platelet Estimate Marked Decrease (Normal)
[2017-04-10] MEDS: *HR* Morphine Sulfate SR (12 HR) 30 MG TABLET.ER PO SCH ×3 (04:25→19:42)
[2017-04-10 07:07] LABS: Hemoglobin 10.3 g/dL (11.5-15.4); Mean Corpuscular Volume 92.3 fL (83.0-100.0)
[2017-04-10 07:08] LABS: Hematocrit 31.3 % (35.3-44.9); Immature Platelets 20.3 % (1.1-6.1); Mean Corpuscular HGB Conc 32.9 g/dL (31.6-35.5); Mean Corpuscular Hemoglobin 30.4 pg (28.0-33.3); Nucleated Red Blood Cells 0.1 /100 WBC (0); Red Blood Count 3.39 M/mcL (3.82-4.97); Red Cell Distribution Width 19.7 % (11.5-14.5)
[2017-04-10 07:09] LABS: Platelet Count 40 K/mcL (140-400)
[2017-04-10 07:20] LABS: Potassium 3.3 mEq/L (3.5-4.5)
[2017-04-10] MEDS: Sucralfate 1 GM TABLET PO SCH ×4 (07:23→21:18)
--- NOTE | 2017-04-10 07:23 | Pulmonology Progress Note ---
<Mague Macias - Last Filed: 04/10/17 12:00> Date of Encounter: 04/10/17 Time of Encounter: 07:30 Assessment and Plan (1) Septic shock due to Klebsiella pneumoniae Current Visit: Yes Status: Acute Patient came in with septic shock from UTI. Culture showed Klebsiella which was sensitive to Rocephin. Patient currently off pressors. White blood cell count trending is now 19.6 . Urine continues to be darker in color. We stopped the heparin. And we will continue to trend blood work. (2) Encephalopathy acute Current Visit: Yes Status: Acute Patient's A &O 3 at this time but has periods of time where she is confused and no longer alert and oriented. Most likely due to sepsis vs. delirium. Patient showing signs of inattentiveness therefore most likely delirium. CT of the head completed yesterday was within normal limits. (3) History of pancreatic cancer Current Visit: Yes Status: Acute Continue outpatient chemotherapy. (4) Anemia Current Visit: Yes Status: Acute Hemoglobin 10.3 today. Heparin discontinued yesterday due to continued bloody urine. We will continue to trend. Qualifiers: Anemia type: other cause Other causes of anemia: other cause, not classified Qualified Code(s): D64.89 - Other specified anemias (5) ANGELA (acute kidney injury) Current Visit: Yes Status: Acute ANGELA in the setting of septic shock. Patient is on electrolyte protocol. CT abdomen without contrast demonstrated likely obstructive hydronephrosis on the right given underlying pancreatic cancer with ongoing chemotherapy. Ureteral stent was inserted. Renal ultrasound demonstrated moderate right hydronephrosis. Urine Vasquez catheter was placed for more adequate monitoring of urine output and is draining red urine. Heparin was discontinued yesterday due to continuous red colored urine output. Patient still maintaining red urine. Avoid nephrotoxins. ANGELA likely intrinsic and post renal causes, continue electrolyte protocol. (6) Demand ischemia Current Visit: Yes Status: Acute Patient had positive troponin 3 with unremarkable EKG. She likely had type II demand ischemia as there is no presence of an acute primary coronary thrombotic event. Echocardiogram performed demonstrates normal left ventricular systolic function with ejection fraction of 65%, mild to moderate pulmonary hypertension with estimated RVSP of 46 mmHg. Consider outpatient follow up as cardiology consult not necessary at this time. (7) Hyperglycemia Current Visit: Yes Status: Acute Hyperglycemia in the setting of steroid use. Continue with SSI (8) Atrial fibrillation with RVR Current Visit: Yes Status: Acute Levophed was discontinued as it can cause tachycardia and phenylephrine was started. Dose of digoxin was given. Continue to monitor with telemetry. No episodes overnight. (9) Thrombocytopenia Current Visit: Yes Status: Acute Platelets now 40. Continue to trend down. Hematology has been consulted (10) DVT prophylaxis Current Visit: Yes Status: Acute Patient cannot receive subcutaneous heparin due to platelets only being 40. Patient also recently had a DVT therefore we cannot use SCDs at this time. Subjective Principal diagnosis: Septic shock Interval history: No acute events overnight. Patient urine remains dark red. Platelets continued to decrease and now are 40. Oncology has been consulted. Patient has no acute complaints at this time. Objective PUL Vital signs: Last Vital Signs Temp 96.7 F L 04/10/17 04:00 Pulse 99 04/10/17 06:00 Resp 14 04/10/17 06:00 BP 104/70 04/10/17 06:00 Pulse Ox 96 04/10/17 06:00 General appearance: no acute distress, alert Eyes: nonicteric ENT: oropharynx moist Neck: supple, no JVD Effort: normal Auscultation: bilateral: clear Cardiovascular: regular rate and rhythm Gastrointestinal: normoactive bowel sounds, soft, non-distended Integumentary: normal Extremities: no cyanosis, pink and warm Musculoskeletal: no deformities Gait: normal posture normal mental status, non-focal exam mood appropriate, affect normal Results - Laboratory Findings CBC and BMP: 04/10/17 07:00 04/10/17 07:00 PT/INR, D-dimer PT 12.4 Seconds (9.4-12.1) H D 04/09/17 11:26 Abnormal lab findings: Abnormal lab results WBC 19.6 K/mcL (4.3-11.1) H 04/10/17 07:00 RBC 3.39 M/mcL (3.82-4.97) L 04/10/17 07:00 Hgb 10.3 g/dL (11.5-15.4) L 04/10/17 07:00 Hct 31.3 % (35.3-44.9) L 04/10/17 07:00 RDW 19.7 % (11.5-14.5) H 04/10/17 07:00 Plt Count 40 K/mcL (140-400) L 04/10/17 07:00 Immature Gran % 5.8 % (0-4) H 04/08/17 22:42 Metamyelocytes % 2.0 % (0) H 04/09/17 16:20 Myelocytes % 2.0 % (0) H 04/09/17 05:40 Neutrophils # 18.1 K/mcL (1.6-8.9) H 04/09/17 16:20 Nucleated RBCs/100 WBC 0.1 /100 WBC (0) H 04/10/17 07:00 Hypersegmented Neuts Present (Not Present) A 04/09/17 05:40 Toxic Granulation Present (Not Present) A 04/08/17 22:42 Toxic Vacuolation Present (Not Present) A 04/07/17 03:15 Dohle Bodies Present (Not Present) A 04/08/17 22:42 Platelet Estimate Marked Decrease (Normal) L 04/09/17 16:20 Large Platelets Present (Not Present) A 04/07/17 03:15 Immature Plt Fraction 20.3 % (1.1-6.1) H 04/10/17 07:00 Polychromasia 1+ (Not Present) A 04/08/17 22:42 Anisocytosis 1+ (Not Present) A 04/09/17 16:20 Microcytosis Present (Not Present) A 04/08/17 03:42 Macrocytosis Present (Not Present) A 04/08/17 03:42 [place] Cells 1+ (Not Present) A 04/07/17 03:15 PT 12.4 Seconds (9.4-12.1) H D 04/09/17 11:26 APTT 51.9 Seconds (26.0-36.0) H 04/09/17 05:40 Sodium 133 mEq/L (136-145) L 04/10/17 07:00 Potassium 3.3 mEq/L (3.5-4.5) L 04/10/17 07:00 BUN 23 mg/dL (7-20) H 04/10/17 07:00 Creatinine 1.31 mg/dL (0.57-1.11) H 04/10/17 07:00 Est GFR ( Amer) 50 (> 60) L 04/10/17 07:00 Est GFR (Non-Af Amer) 41 (> 60) L 04/10/17 07:00 Glucose 144 mg/dL (70-99) H 04/10/17 07:00 POC Glucose 140 (58-89) H 04/10/17 07:17 Uric Acid 7.5 mg/dL (2.6-6.0) H 04/07/17 14:20 Calcium 8.0 mg/dL (8.6-10.8) L 04/10/17 07:00 Total Bilirubin 4.5 mg/dL (0.2-1.2) H 04/07/17 14:20 Direct Bilirubin 3.4 mg/dL (0.0-0.5) H 04/07/17 14:20 AST 37 Units/L (5-34) H 04/07/17 14:20 Alkaline Phosphatase 459 Units/L (38-126) H 04/07/17 14:20 Troponin I 0.54 ng/mL (0-0.03) H* 04/07/17 03:15 Serum Total Protein 4.9 g/dL (6.0-8.3) L 04/07/17 14:20 Albumin 2.0 g/dL (3.5-5.0) L D 04/07/17 14:20 Albumin/Globulin Ratio 0.7 (1.1-2.2) L 04/07/17 14:20 Urine Color Juanita (Yellow) A 04/07/17 08:50 Urine Clarity Turbid (Clear) A 04/07/17 08:50 Urine Protein 100 mg/dL (Neg-Trace) H 04/07/17 08:50 Urine Ketones Trace mg/dL (Negative) H 04/07/17 08:50 Urine Blood Small (Negative) H 04/07/17 08:50 Urine Nitrite Positive (Negative) A 04/07/17 08:50 Urine Bilirubin Large (Negative) H 04/07/17 08:50 Ur Leukocyte Esterase Large (Negative) H 04/07/17 08:50 Urine Microscopic WBC TNTC per hpf (0-3) H 04/07/17 08:50 Ur Squamous Epith Cells Moderate per lpf (None-Few) H 04/07/17 08:50 Urine Bacteria Many per hpf (None-Few) H 04/07/17 08:50 Ur Culture Indicated? YES (NO) A 04/07/17 08:50 Urine Osmolality 290 mOsm/kg (300-1090) L 04/07/17 08:40 Enterobacteriac sp PCR DETECTED (Not Detect) A 04/06/17 17:58 Klebsiella pneumoniae DETECTED (Not Detect) A 04/06/17 17:58 - Microbiology Findings Microbiology Findings: Microbiology, Last 48 Hours 04/07/17 08:50 Urine Culture - Final Urine,Clean Catch Klebsiella pneu.ssp pneumoniae - Clinical Findings Intake & Output: Intake & Output 04/09/17 04/09/17 04/10/17 15:59 23:59 07:59 Intake Total 390.5 / 390.5 480 / 480 240 / 240 Output Total 1600 / 1600 475 / 475 350 / 350 Balance -1209.5 / -1209.5 5 / 5 -110 / -110 Weight 107 kg 105.9 kg Consult Discharge Plan - Plan Referrals: NONE,PCP [Primary Care Provider] - <Samuel Cuellar W - Last Filed: 04/10/17 14:25> Date of Encounter: 04/10/17 Objective PUL Vital signs: Last Vital Signs Temp 98.5 F 04/10/17 13:03 Pulse 108 04/10/17 13:00 Resp 24 04/10/17 13:00 BP 103/75 04/10/17 13:00 Pulse Ox 96 04/10/17 13:00 Results - Laboratory Findings CBC and BMP: 04/10/17 12:30 04/10/17 07:00 PT/INR, D-dimer PT 12.4 Seconds (9.4-12.1) H D 04/09/17 11:26 Abnormal lab findings: Abnormal lab results WBC 20.8 K/mcL (4.3-11.1) H 04/10/17 12:30 RBC 3.34 M/mcL (3.82-4.97) L 04/10/17 12:30 Hgb 10.3 g/dL (11.5-15.4) L 04/10/17 12:30 Hct 30.9 % (35.3-44.9) L 04/10/17 12:30 RDW 19.6 % (11.5-14.5) H 04/10/17 12:30 Plt Count 35 K/mcL (140-400) L 04/10/17 12:30 Immature Gran % 5.2 % (0-4) H 04/10/17 12:30 Metamyelocytes % 2.0 % (0) H 04/09/17 16:20 Myelocytes % 2.0 % (0) H 04/09/17 05:40 Neutrophils # 18.1 K/mcL (1.6-8.9) H 04/10/17 12:30 Nucleated RBCs/100 WBC 0.2 /100 WBC (0) H 04/10/17 12:30 Hypersegmented Neuts Present (Not Present) A 04/09/17 05:40 Toxic Granulation Present (Not Present) A 04/10/17 12:30 Toxic Vacuolation Present (Not Present) A 04/07/17 03:15 Dohle Bodies Present (Not Present) A 04/08/17 22:42 Platelet Estimate Marked Decrease (Normal) L 04/10/17 12:30 Large Platelets Present (Not Present) A 04/07/17 03:15 Immature Plt Fraction 21.8 % (1.1-6.1) H 04/10/17 12:30 Polychromasia 1+ (Not Present) A 04/10/17 07:00 Anisocytosis 1+ (Not Present) A 04/10/17 12:30 Microcytosis Present (Not Present) A 04/08/17 03:42 Macrocytosis Present (Not Present) A 04/08/17 03:42 Lois Cells 1+ (Not Present) A 04/07/17 03:15 PT 12.4 Seconds (9.4-12.1) H D 04/09/17 11:26 APTT 51.9 Seconds (26.0-36.0) H 04/09/17 05:40 Sodium 133 mEq/L (136-145) L 04/10/17 07:00 Potassium 3.3 mEq/L (3.5-4.5) L 04/10/17 07:00 BUN 23 mg/dL (7-20) H 04/10/17 07:00 Creatinine 1.31 mg/dL (0.57-1.11) H 04/10/17 07:00 Est GFR ( Amer) 50 (> 60) L 04/10/17 07:00 Est GFR (Non-Af Amer) 41 (> 60) L 04/10/17 07:00 Glucose 144 mg/dL (70-99) H 04/10/17 07:00 POC Glucose 145 (58-89) H 04/10/17 11:30 Uric Acid 7.5 mg/dL (2.6-6.0) H 04/07/17 14:20 Calcium 8.0 mg/dL (8.6-10.8) L 04/10/17 07:00 Total Bilirubin 4.2 mg/dL (0.2-1.2) H 04/10/17 07:00 Direct Bilirubin 3.2 mg/dL (0.0-0.5) H 04/10/17 07:00 Alkaline Phosphatase 555 Units/L (38-126) H 04/10/17 07:00 Troponin I 0.54 ng/mL (0-0.03) H* 04/07/17 03:15 Serum Total Protein 4.6 g/dL (6.0-8.3) L 04/10/17 07:00 Albumin 2.2 g/dL (3.5-5.0) L 04/10/17 07:00 Albumin/Globulin Ratio 0.9 (1.1-2.2) L 04/10/17 07:00 Urine Color Juanita (Yellow) A 04/07/17 08:50 Urine Clarity Turbid (Clear) A 04/07/17 08:50 Urine Protein 100 mg/dL (Neg-Trace) H 04/07/17 08:50 Urine Ketones Trace mg/dL (Negative) H 04/07/17 08:50 Urine Blood Small (Negative) H 04/07/17 08:50 Urine Nitrite Positive (Negative) A 04/07/17 08:50 Urine Bilirubin Large (Negative) H 04/07/17 08:50 Ur Leukocyte Esterase Large (Negative) H 04/07/17 08:50 Urine Microscopic WBC TNTC per hpf (0-3) H 04/07/17 08:50 Ur Squamous Epith Cells Moderate per lpf (None-Few) H 04/07/17 08:50 Urine Bacteria Many per hpf (None-Few) H 04/07/17 08:50 Ur Culture Indicated? YES (NO) A 04/07/17 08:50 Urine Osmolality 290 mOsm/kg (300-1090) L 04/07/17 08:40 Enterobacteriac sp PCR DETECTED (Not Detect) A 04/06/17 17:58 Klebsiella pneumoniae DETECTED (Not Detect) A 04/06/17 17:58 - Microbiology Findings Microbiology Findings: Microbiology, Last 48 Hours 04/07/17 08:50 Urine Culture - Final Urine,Clean Catch Klebsiella pneu.ssp pneumoniae - Clinical Findings Intake & Output: Intake & Output 04/09/17 04/10/17 04/10/17 23:59 07:59 15:59 Intake Total 480 / 480 240 / 240 390.5 / 390.5 Output Total 475 / 475 450 / 450 125 / 125 Balance 5 / 5 -210 / -210 265.5 / 265.5 Weight 105.9 kg 107 kg - Attending Attestation I examined this patient and my medical decision-making was reviewed with the Resident Physician. I agree with the documented findings, disposition and treatment plan as described except to the extent set forth below. We independently had [id number] contact with the patient Patient seen and examined at bedside Labs, radiology, chart personally reviewed. Management was reviewed during multidisciplinary critical care rounds. Neuropsych: Worsening delirium without focal neurologic deficit head CT negative for acute process checking ammonia level to rule out hepatic encephalopathy contribution I think this is a combination of resolving renal failure critical illness and poor health. Again we will continue to focus on sleep wake cycle anabaptism avoidance of SCHED[employer]LE [employer] depressant medications and avoidance of sensory deprivation Pulm: acceptable oxygenation on 2LNC cont to monitor. Cards: Distributive shock has resolved . No longer in SVT blood pressure stable continue to monitor FEN-GI: Advance diet as tolerated. History of Pancreatic Ca with obstruction s/ p stenting. LFTs stable.no further episodes of diarrhea Renal: ANGELA resolving continue to replace electrolytes per protocol and employee nephro protective strategy. She is status post ureteral stenting for obstruction. Grossly she has hematuria but H&H stable. Appreciate nephrology and Urology's recommendations ID: Septic Shock s/t Klebsiella Bacteremia s/t Urinary Source improving repeat blood cultures today continue ceftriaxone to complete 14 day course. 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 I suspect that the etiology of thrombocytopenia is consumption although fibrinogen normal at is low normal for a critical illness patient. Thrombocytopenia precludes anticoagulation I have discussed the case with hematology plan for IVC filter placement to be performed by interventional radiology. Peripheral smear pending. Hemoglobin stable Endo: Glucose Monitored and controlled cont bolus dosing of insulin. Integ/MSK: Skin Care per routine ICU Nursing Protocol to prevent ulcers. Lines: All lines examined without evidence of infection Dispo: She will remain in the ICU today CODE: Full code family updated at bedside including her daughter and her son
[2017-04-10] MEDS: Phenylephrine 10 MG in D5% in Water 250 ML IVC SCH (07:24)
[2017-04-10] MEDS: Insulin LISPRO 300 UNITS/3 ML VIAL SQ SCH ×3 (07:24→16:00)
[2017-04-10] MEDS: Heparin 25,000 UNIT/500 ML D5W 25,000 UNIT/500 ML MLS IVC SCH (07:24)
[2017-04-10 07:54] LABS: Lymphocytes # 1.6 K/mcL (0.6-4.6)
[2017-04-10 07:55] LABS: Anisocytosis 1+ (Not Present); Platelet Estimate Marked Decrease (Normal)
[2017-04-10 07:56] LABS: Polychromasia 1+ (Not Present)
[2017-04-10 07:57] LABS: Toxic Granulation Present (Not Present)
[2017-04-10 08:10] LABS: Albumin 2.2 g/dL (3.5-5.0); Albumin/Globulin Ratio 0.9 (1.1-2.2); Bilirubin,Direct 3.2 mg/dL (0.0-0.5); Bilirubin,Total 4.2 mg/dL (0.2-1.2); Globulin 2.4 g/dL (2.4-3.5); Total Protein 4.6 g/dL (6.0-8.3)
--- NOTE | 2017-04-10 12:06 | Nephrology Progress Note ---
Date of Encounter: 04/10/17 Time of Encounter: 11:00 - Assessment and Plan (1) ANGELA (acute kidney injury) Current Visit: Yes Status: Acute S/P right ureteral stent. Renal fct improving, creat 1.31. Urine output 3575cc. ANGELA in setting of sepsis/shock, decreased oral intake with continued use of diuretics, GI losses, possible tumor lysis. Lower extremity swelling may be related to venous obstruction. Avoid unnecessary nephrotoxins. Subjective Principal diagnosis: Septic shock Interval history: S/P right ureteral stent. Laying in bed. Vasquez with dark anderson/wine urine. Objective - Vital Signs Vital signs: Vital Signs Temp Pulse Resp BP Pulse Ox 04/10/17 11:00 104 24 93/62 100 04/10/17 09:00 110 16 106/74 100 04/10/17 08:00 108 22 96/77 100 04/10/17 07:41 102 04/10/17 07:00 97.8 F 120 20 121/65 100 04/10/17 06:00 99 14 104/70 96 04/10/17 05:00 99 10 95/73 96 04/10/17 04:00 96.7 F L 99 16 102/70 96 04/10/17 03:00 86 14 101/70 94 04/10/17 02:00 93 10 99/70 95 04/10/17 01:00 85 10 97/72 96 04/10/17 00:18 97.6 F 04/10/17 00:00 97.6 F 89 11 98/62 94 04/09/17 23:00 86 10 100/73 96 04/09/17 22:00 97 8 92/76 95 04/09/17 21:00 97 16 117/86 98 04/09/17 20:00 96.8 F L 99 10 96/71 94 04/09/17 19:00 95 30 132/96 95 04/09/17 17:00 103 16 118/90 100 04/09/17 16:00 90 16 116/82 98 04/09/17 15:00 97.4 F L 93 14 115/80 98 04/09/17 14:00 100 18 115/89 97 04/09/17 13:00 100 16 111/88 100 Intake and Output 04/09/17 04/10/17 04/10/17 23:59 07:59 15:59 Intake Total 480 / 480 240 / 240 240 / 240 Output Total 475 / 475 450 / 450 Balance 5 / 5 -210 / -210 240 / 240 Intake: Oral 480 / 480 240 / 240 240 / 240 Output: Catheter 475 / 475 450 / 450 Other: Stool Size Moderate Stool Consistency liquid Stool Color Green Weight 105.9 kg 107 kg Blood Glucose* 138 140 Patient Weight 04/10/17 23:59 Weight 107 kg - General Appearance General appearance: Present: well-developed, well-nourished, appears started age EENT: Present: mucous membranes moist Neck: Present: no JVD Respiratory: Present: clear Cardiology: Present: edema, regular rate, regular rhythm Additional Comments: dependent edema buttock/thighs. 1+ knees down Gastrointestinal: Present: normoactive bowel sounds, no tenderness Integumentary: Present: warm and dry Neurologic: Present: alert and oriented x3 Psychiatric: Present: mood/affect appropriate, cooperative - Lab 04/10/17 07:00 04/10/17 07:00 Most recent lab results Calcium 8.0 mg/dL (8.6-10.8) L 04/10/17 07:00 Phosphorus 2.8 mg/dL (2.3-4.7) 04/07/17 14:20 Magnesium 1.9 mg/dL (1.6-2.6) 04/08/17 03:42 Urine Creatinine 243 mg/dL 04/07/17 08:40 Urine Sodium < 20.0 mEq/L 04/07/17 08:40 Consult Discharge Plan - Plan Referrals: NONE,PCP [Primary Care Provider] -
[2017-04-10 12:42] LABS: Basophils # 0.1 K/mcL (0.0-0.2); Basophils % 0.3 %; Hematocrit 30.9 % (35.3-44.9); Hemoglobin 10.3 g/dL (11.5-15.4); Immature Granulocytes % 5.2 % (0-4); Immature Platelets 21.8 % (1.1-6.1); Lymphocytes # 1.2 K/mcL (0.6-4.6); Lymphocytes % 5.7 %; Mean Corpuscular HGB Conc 33.3 g/dL (31.6-35.5); Mean Corpuscular Hemoglobin 30.8 pg (28.0-33.3); Mean Corpuscular Volume 92.5 fL (83.0-100.0); Monocytes # 0.4 K/mcL (0.0-1.3); Monocytes % 1.7 %; Neutrophils # 18.1 K/mcL (1.6-8.9); Nucleated Red Blood Cells 0.2 /100 WBC (0); Red Blood Count 3.34 M/mcL (3.82-4.97); Red Cell Distribution Width 19.6 % (11.5-14.5); Segmented Neutrophils % 87.1 %
--- NOTE | 2017-04-10 12:42 | Event Note ---
Date of Encounter: 04/10/17 Time of Encounter: 12:40 This patient who presented with septic shock which is resolved and Klebsiella bacteremia which is being treated appropriately is at high-risk for development of pulmonary embolus given recent diagnosis of DVT and inability anti-coagulate given thrombocytopenia. Discussed the case with substation mechanic Dr. De La Vega and interventional radiologist and I feel that IVC filter is warranted at this time risk of possible seeding of IVC filter is low (although possible) at least from an infectious standpoint but on balance given pulmonary embolus in this situation could be catastrophic and life ending the balance would favor placement of IVC filter discussed with patient and family at bedside plan to proceed with IVC filter.
[2017-04-10 12:51] LABS: Platelet Count 35 K/mcL (140-400)
[2017-04-10 13:13] LABS: Anisocytosis 1+ (Not Present); Platelet Estimate Marked Decrease (Normal); Toxic Granulation Present (Not Present)
[2017-04-10] MEDS ORDERED: Heparin 1,000 UNITS/500 mL NS 500 ML ONE (14:45)
[2017-04-10] MEDS ORDERED: Acetaminophen 325 MG TABLET PO PRN (15:16)
--- NOTE | 2017-04-10 15:16 | IR Procedure Note ---
Date of procedure: 04/10/17 Consent Obtained: Written consent Timeout: Correct patient and procedure verified, Time out performed, Skin prep completed Local anesthetic: Lidocaine 1% Indications: DVT with thrombocytopenia and unable to anticoagulate Procedure Performed: IVC filter placement Results/Findings: Celect filter Complications: None; Tolerated procedure well (Monitor in holding)
[2017-04-10 18:51] LABS: Hematocrit 31.2 % (35.3-44.9); Hemoglobin 10.4 g/dL (11.5-15.4); Immature Platelets 22.9 % (1.1-6.1); Mean Corpuscular HGB Conc 33.3 g/dL (31.6-35.5); Mean Corpuscular Hemoglobin 30.9 pg (28.0-33.3); Mean Corpuscular Volume 92.6 fL (83.0-100.0); Nucleated Red Blood Cells 0.2 /100 WBC (0); Red Blood Count 3.37 M/mcL (3.82-4.97); Red Cell Distribution Width 19.6 % (11.5-14.5)
[2017-04-10 19:14] LABS: Platelet Count 37 K/mcL (140-400)
--- NOTE | 2017-04-10 19:14 | Oncology Inp Progress Note ---
Date of Encounter: 04/13/17 Time of Encounter: 19:12 (1) Septic shock Current Visit: Yes Status: Acute Assessment and plan: Presented with septic shock. Creatinine normal prior to admission and went up to 2.5 on 04/06/2017. She has right hydronephrosis and post stent. Creatinine has improved 1.3 Neutrophil count elevated at 18,000 from sepsis. Also persistent thrombocytopenia likely from combination of sepsis and medications including Zosyn (2) Thrombocytopenia Current Visit: Yes Status: Acute Assessment and plan: Total counts normal prior to admission and currently around 35-40,000. Clinically no bleeding. D-dimer elevated around 2400. Fibrinogen 267 which is normal. Given that it is an acute phase reactant probably fibrinogen is lower than expected. Recent diagnosis of DVT in past history of PE Discussed with pulmonology Dr. Fish. She is not a suitable candidate for anticoagulation and risk of PE is high Agree with IVC filter placement which she had through interventional radiology today on 04/10/2017 (3) Pancreatic cancer metastasized to liver Current Visit: Yes Status: Acute Assessment and plan: She got palliative treatment with FOLFIRINOX about 3 doses. Multiple liver metastasis Her CA-19-9 is very high at [id number] Oncology: Subj Interval history: Metastatic pancreatic cancer with septic shock admitted to ICU. Persistent thrombocytopenia.she is alert and oriented. Intermittent episodes of confusion during conversation. No major distress or shortness of breath. She tolerated IVC filter placement. No clinical evidence of bleeding - Constitutional Vitals: Vital Signs Temp Pulse Resp BP Pulse Ox 04/10/17 18:00 107 22 108/76 100 04/10/17 17:00 105 20 88/66 100 04/10/17 16:10 104 04/10/17 16:00 104 20 87/64 100 04/10/17 15:16 86 04/10/17 13:03 98.5 F 04/10/17 13:00 108 24 103/75 96 04/10/17 12:00 101 18 78/65 100 04/10/17 11:00 104 24 93/62 100 04/10/17 09:00 110 16 106/74 100 04/10/17 08:00 108 22 96/77 100 04/10/17 07:41 102 04/10/17 07:00 97.8 F 120 20 121/65 100 04/10/17 06:00 99 14 104/70 96 04/10/17 05:00 99 10 95/73 96 04/10/17 04:00 96.7 F L 99 16 102/70 96 04/10/17 03:00 86 14 101/70 94 04/10/17 02:00 93 10 99/70 95 04/10/17 01:00 85 10 97/72 96 04/10/17 00:18 97.6 F 04/10/17 00:00 97.6 F 89 11 98/62 94 04/09/17 23:00 86 10 100/73 96 04/09/17 22:00 97 8 92/76 95 04/09/17 21:00 97 16 117/86 98 04/09/17 20:00 96.8 F L 99 10 96/71 94 Intake and Output 04/10/17 04/10/17 04/10/17 07:59 15:59 23:59 Intake Total 240 / 240 390.5 / 390.5 200 / 200 Output Total 450 / 450 125 / 125 150 / 150 Balance -210 / -210 265.5 / 265.5 50 / 50 Intake: IV Fluids 150.5 / 150.5 200 / 200 AquaMephyton 5 MG In 0.9 % 50.5 / 50.5 Sodium Chloride 50 ML @ 101 mls /hr IVPB Q24H [facility] Rx#: [id number] Potassium Chloride 10 mEq/100mL 200 / 200 10 meq In 100 ml @ 100 mls/hr IVPB Q1H PRN Rx#:[id number] Rocephin 2,000 MG In Dextrose 5 100 / 100 % (Minibag+) 100 ML 100 ML @ 200 mls/hr IVPB Q24H [facility] Rx#: [id number] Oral 240 / 240 240 / 240 Output: Catheter 450 / 450 125 / 125 150 / 150 Other: Stool Size Moderate Stool Consistency liquid Stool Color Green Weight 105.9 kg 107 kg Blood Glucose* 140 145 Patient Weight 04/10/17 23:59 Weight 107 kg Exam: GENERAL: Alert and oriented, able to carry on a conversation. No distress Mental Status: Affect appropriate for circumstances HEENT: Sclerae anicteric. No mucositis or thrush. No other oral or pharyngeal lesions or erythema. Skin: No rashes or petechiae. No evidence of skin malignancy Lymph nodes: No cervical, supraclavicular, axillary, or inguinal adenopathy. Lungs: Air entry decreased at bases Cardiovascular: Regular rate and rhythm. No skipped beats Abdomen: Soft, nontender; no organomegaly or masses palpable. Extremities: Trace edema. No calf swelling or tenderness. No joint deformity. Neurologic: Alert, cranial nerves II-XII intact; normal gait; no focal weakness or sensory abnormalities Oncology: Obj Data - Labs CBC & Chem 7: 04/13/17 07:30 04/13/17 07:30 Labs: Laboratory Results - last 24 hr 04/09/17 04/10/17 04/10/17 21:26 07:00 07:00 WBC 19.6 H RBC 3.39 L Hgb 10.3 L Hct 31.3 L MCV 92.3 MCH 30.4 MCHC 32.9 RDW 19.7 H Plt Count 40 L MPV TNP Immature Gran % Test Not Performed Seg Neutrophils % 92.0 Lymphocytes % 8.0 Monocytes % Test Not Performed Eosinophils % Test Not Performed Basophils % Test Not Performed Neutrophils # 18.0 H Lymphocytes # 1.6 Monocytes # Test Not Performed Eosinophils # Test Not Performed Basophils # Test Not Performed Nucleated RBCs/100 WBC 0.1 H Toxic Granulation Present A Platelet Estimate Marked Decrease L Immature Plt Fraction 20.3 H Polychromasia 1+ A Anisocytosis 1+ A Smear Path Review See Below Fibrinogen Sodium 133 L Potassium 3.3 L Chloride 101 Carbon Dioxide 21 BUN 23 H Creatinine 1.31 H Est GFR ( Amer) 50 L Est GFR (Non-Af Amer) 41 L BUN/Creatinine Ratio 18 Glucose 144 H POC Glucose 139 H Calculated Osmolality 282 Calcium 8.0 L Total Bilirubin 4.2 H Direct Bilirubin 3.2 H Indirect Bilirubin 1.0 AST 24 ALT 29 Alkaline Phosphatase 555 H Ammonia Serum Total Protein 4.6 L Albumin 2.2 L Globulin 2.4 Albumin/Globulin Ratio 0.9 L 04/10/17 04/10/17 04/10/17 07:00 07:17 08:00 WBC RBC Hgb Hct MCV MCH MCHC RDW Plt Count MPV Immature Gran % Seg Neutrophils % Lymphocytes % Monocytes % Eosinophils % Basophils % Neutrophils # Lymphocytes # Monocytes # Eosinophils # Basophils # Nucleated RBCs/100 WBC Toxic Granulation Platelet Estimate Immature Plt Fraction Polychromasia Anisocytosis Smear Path Review Fibrinogen 267 Sodium Potassium Chloride Carbon Dioxide BUN Creatinine Est GFR ( Amer) Est GFR (Non-Af Amer) BUN/Creatinine Ratio Glucose POC Glucose 140 H Calculated Osmolality Calcium Total Bilirubin Direct Bilirubin Indirect Bilirubin AST ALT Alkaline Phosphatase Ammonia 28 Serum Total Protein Albumin Globulin Albumin/Globulin Ratio 04/10/17 04/10/17 04/10/17 11:30 12:30 16:00 WBC 20.8 H RBC 3.34 L Hgb 10.3 L Hct 30.9 L MCV 92.5 MCH 30.8 MCHC 33.3 RDW 19.6 H Plt Count 35 L MPV TNP Immature Gran % 5.2 H Seg Neutrophils % 87.1 Lymphocytes % 5.7 Monocytes % 1.7 Eosinophils % 0.0 Basophils % 0.3 Neutrophils # 18.1 H Lymphocytes # 1.2 Monocytes # 0.4 Eosinophils # 0.0 Basophils # 0.1 Nucleated RBCs/100 WBC 0.2 H Toxic Granulation Present A Platelet Estimate Marked Decrease L Immature Plt Fraction 21.8 H Polychromasia Anisocytosis 1+ A Smear Path Review Fibrinogen Sodium Potassium Chloride Carbon Dioxide BUN Creatinine Est GFR ( Amer) Est GFR (Non-Af Amer) BUN/Creatinine Ratio Glucose POC Glucose 145 H 108 H Calculated Osmolality Calcium Total Bilirubin Direct Bilirubin Indirect Bilirubin AST ALT Alkaline Phosphatase Ammonia Serum Total Protein Albumin Globulin Albumin/Globulin Ratio - Impressions Impressions Abdomen/Pelvis CT 04/07/17 06:54 IMPRESSION: 1. Worsening anasarca with subcutaneous edema, trace left pleural effusion and worsening small volume ascites. 2. Although the bowel is not well distended, there is apparent wall thickening of the colon which could reflect colitis. 3. Vague areas of low attenuation throughout the liver which may reflect known metastases versus fatty change. Evaluation for metastatic disease in the liver as well as evaluation of the primary pancreatic mass is otherwise limited due to lack of intravenous contrast. 4. Common bile duct stent in place with pneumobilia. 5. High-density material within the gallbladder which may be related to stones, sludge or contrast material. 6. Persistent moderate severe right hydroureteronephrosis extending to the level of the mid to distal ureter. Underlying stricture is suspected. Overall findings are new since 01/22/2017, but grossly stable since 03/10/2017. No discrete stone is otherwise identified. 7. There are a few new predominately sclerotic lesions noted within the lumbar spine and pelvis suspicious for metastatic disease. 8. Bibasilar opacities, which are nonspecific and could be related to atelectasis, however it should be noted there are stable somewhat nodular opacities in the costophrenic angles bilaterally and metastatic disease cannot be excluded and should be followed on subsequent exams. D/ / 04/07/2017 09:17:07 Bhakti Ledesma MD / laurie Interpreting Provider: Bhakti Ledesma MD Guidance Needle Placement Ultrasound 04/10/17 00:00 IMPRESSION: 1. IVC has normal appearance, suitable for filter placement. 2. Infrarenal inferior vena cava filter placement as discussed above. D/ / Bear Kern MD / Bear Kern MD Interpreting Provider: Bear Kern MD Filter Placement 04/10/17 00:00 IMPRESSION: 1. IVC has normal appearance, suitable for filter placement. 2. Infrarenal inferior vena cava filter placement as discussed above. D/ / Bear Kern MD / Baer Kern MD Interpreting Provider: Bear Kern MD - ABG Interpretation ABG results: PT/INR, D-dimer PT 12.4 Seconds (9.4-12.1) H D 04/09/17 11:26 Consult Discharge Plan - Plan Referrals: NONE,PCP [Primary Care Provider] -
[2017-04-10 19:17] LABS: Lymphocytes # 4.2 K/mcL (0.6-4.6); Monocytes # 0.5 K/mcL (0.0-1.3); Neutrophils # 18.6 K/mcL (1.6-8.9); Toxic Granulation Present (Not Present)
[2017-04-10 19:18] LABS: Anisocytosis 1+ (Not Present); Platelet Estimate Marked Decrease (Normal)
[2017-04-11] MEDS: *HR* Morphine Sulfate SR (12 HR) 30 MG TABLET.ER PO SCH ×3 (04:01→20:13)
[2017-04-11 04:42] LABS: Calcium 7.7 mg/dL (8.6-10.8); Magnesium 1.6 mg/dL (1.6-2.6); Potassium 3.7 mEq/L (3.5-4.5)
[2017-04-11 04:44] LABS: Hematocrit 28.4 % (35.3-44.9); Hemoglobin 9.6 g/dL (11.5-15.4); Immature Platelets 26.6 % (1.1-6.1); Mean Corpuscular HGB Conc 33.8 g/dL (31.6-35.5); Mean Corpuscular Hemoglobin 31.7 pg (28.0-33.3); Mean Corpuscular Volume 93.7 fL (83.0-100.0); Nucleated Red Blood Cells 0.2 /100 WBC (0); Red Blood Count 3.03 M/mcL (3.82-4.97); Red Cell Distribution Width 19.8 % (11.5-14.5)
[2017-04-11 05:07] LABS: Platelet Count 28 K/mcL (140-400)
[2017-04-11 05:10] LABS: Monocytes # 0.8 K/mcL (0.0-1.3); Neutrophils # 16.9 K/mcL (1.6-8.9); Platelet Estimate Marked Decrease (Normal); Reactive Lymphocytes Present (Not Present); Toxic Granulation Present (Not Present)
[2017-04-11 05:11] LABS: Anisocytosis 1+ (Not Present)
[2017-04-11 07:00] LABS: Albumin/Globulin Ratio 0.9 (1.1-2.2); Bilirubin,Direct 2.8 mg/dL (0.0-0.5); Bilirubin,Indirect 0.9 mg/dL (0.0-1.2); Bilirubin,Total 3.7 mg/dL (0.2-1.2); Globulin 2.2 g/dL (2.4-3.5); Total Protein 4.1 g/dL (6.0-8.3)
[2017-04-11 07:08] LABS: Albumin 1.9 g/dL (3.5-5.0)
[2017-04-11] MEDS ORDERED: *HR* Metoprolol 5 MG/5 ML VIAL IVP PRN (07:35)
[2017-04-11] MEDS ORDERED: Magnesium Sulfate 2 GM in D5% in Water 100 ML IVPB ONE (07:37)
[2017-04-11] MEDS ORDERED: *HR* Metoprolol 5 MG/5 ML VIAL IVP ONE (07:41)
[2017-04-11] MEDS: Sucralfate 1 GM TABLET PO SCH ×4 (08:21→20:13)
--- NOTE | 2017-04-11 08:24 | Pulmonology Progress Note ---
Date of Encounter: 04/11/17 Time of Encounter: 08:22 Assessment and Plan (1) Septic shock due to Klebsiella pneumoniae Current Visit: Yes Status: Acute Management was reviewed during multidisciplinary critical care rounds. Neuropsych: Persistent delirium without focal neurologic deficit head CT negative for acute process ammonia within normal limits. I think this is a combination of resolving renal failure critical illness and poor health. Again we will continue to focus on sleep wake cycle latter-day avoidance of [employer] depressant medications and avoidance of sensory deprivation Pulm: acceptable oxygenation on 2LNC cont to monitor. Cards: Distributive shock has resolved . Atrial fibrillation with RVR today given notable blocking agent which we can titrate to effect FEN-GI: Advance diet as tolerated. History of Pancreatic Ca with obstruction s/ p stenting. LFTs stable.no further episodes of diarrhea Renal: ANGELA resolved continue to replace electrolytes per protocol and employ a nephro protective strategy. She is status post ureteral stenting for obstruction. Grossly she has hematuria but H&H stable. Appreciate nephrology and Urology's recommendations ID: Septic Shock s/t Klebsiella Bacteremia s/t Urinary Source improving. Repeat blood cultures no growth to date. Persistent leukocytosis and no diarrhea change be concern for untreated colitis I will restart Flagyl for this and check a C. difficile antigen. Heme/Onc: History of VTE however continues to be significantly thrombocytopenia with dropped counts that are dropping status post IVC filter yesterday I suspect that the etiology of thrombocytopenia is consumption although fibrinogen normal at is low normal for a critical illness patient. Peripheral smear without evidence of schistocytes Hemoglobin stable. Hematology/Oncology following Endo: Glucose Monitored and controlled cont bolus dosing of insulin. Integ/MSK: Skin Care per routine ICU Nursing Protocol to prevent ulcers. Lines: All lines examined without evidence of infection Dispo: Stable for transfer to telemetry for ongoing needs CODE: Full code family updated at bedside including her daughter and her son. Her overall prognosis is very poor it is possible that she will not make a significant enough recovery to leave the hospital and resume chemotherapy although this remains to be determined. We will consider palliative care consult after discussion with family today and oncologist (2) Colitis Current Visit: Yes Status: Acute (3) Total bilirubin, elevated Current Visit: Yes Status: Acute (4) History of pancreatic cancer Current Visit: Yes Status: Acute (5) Hyponatremia Current Visit: Yes Status: Acute (6) DVT prophylaxis Current Visit: Yes Status: Acute (7) ANGELA (acute kidney injury) Current Visit: Yes Status: Acute (8) Encephalopathy acute Current Visit: Yes Status: Acute (9) Hyperglycemia Current Visit: Yes Status: Acute (10) Atrial fibrillation with RVR Current Visit: Yes Status: Acute (11) Thrombocytopenia Current Visit: Yes Status: Acute (12) Pancreatic cancer metastasized to liver Current Visit: Yes Status: Acute Subjective Principal diagnosis: Septic shock Interval history: She had episode of atrial fibrillation with rapid ventricular response without associated hypotension earlier this morning. She remains considerably confused per nursing staff with but intermittently is able to follow commands and makes sense. No overt evidence of bleeding per nursing staff. IVC filter placed yesterday by interventional radiology. Platelet count continues to drop she has been evaluated by hematology for this. She had several loose bowel movements overnight Objective PUL Vital signs: Last Vital Signs Temp 97.9 F 04/11/17 08:12 Pulse 166 04/11/17 07:45 Resp 20 04/11/17 07:45 BP 107/58 04/11/17 07:45 Pulse Ox 100 04/11/17 07:45 General appearance: no acute distress, other (She is noted to be emotionally labile and bouts of crying can be triggered relatively easily) ENT: oropharynx moist Effort: normal Auscultation: bilateral: diminished breath sounds (In lung bases) Cardiovascular: irregular rhythm Gastrointestinal: normoactive bowel sounds, soft (Distended but nontender she has active bowel sounds) Extremities: anasarca non-focal exam anxious Results - Laboratory Findings CBC and BMP: 04/11/17 04:13 04/11/17 04:13 PT/INR, D-dimer PT 12.4 Seconds (9.4-12.1) H D 04/09/17 11:26 Abnormal lab findings: Abnormal lab results WBC 19.6 K/mcL (4.3-11.1) H 04/11/17 04:13 RBC 3.03 M/mcL (3.82-4.97) L 04/11/17 04:13 Hgb 9.6 g/dL (11.5-15.4) L 04/11/17 04:13 Hct 28.4 % (35.3-44.9) L 04/11/17 04:13 RDW 19.8 % (11.5-14.5) H 04/11/17 04:13 Plt Count 28 K/mcL (140-400) L* 04/11/17 04:13 Immature Gran % 5.2 % (0-4) H 04/10/17 12:30 Metamyelocytes % 2.0 % (0) H 04/09/17 16:20 Myelocytes % 2.0 % (0) H 04/09/17 05:40 Neutrophils # 16.9 K/mcL (1.6-8.9) H 04/11/17 04:13 Nucleated RBCs/100 WBC 0.2 /100 WBC (0) H 04/11/17 04:13 Hypersegmented Neuts Present (Not Present) A 04/09/17 05:40 Reactive Lymphocytes Present (Not Present) A 04/11/17 04:13 Toxic Granulation Present (Not Present) A 04/11/17 04:13 Toxic Vacuolation Present (Not Present) A 04/07/17 03:15 Dohle Bodies Present (Not Present) A 04/08/17 22:42 Platelet Estimate Marked Decrease (Normal) L 04/11/17 04:13 Large Platelets Present (Not Present) A 04/07/17 03:15 Immature Plt Fraction 26.6 % (1.1-6.1) H 04/11/17 04:13 Polychromasia 1+ (Not Present) A 04/10/17 07:00 Anisocytosis 1+ (Not Present) A 04/11/17 04:13 Microcytosis Present (Not Present) A 04/08/17 03:42 Macrocytosis Present (Not Present) A 04/08/17 03:42 Lois Cells 1+ (Not Present) A 04/07/17 03:15 PT 12.4 Seconds (9.4-12.1) H D 04/09/17 11:26 APTT 51.9 Seconds (26.0-36.0) H 04/09/17 05:40 Sodium 133 mEq/L (136-145) L 04/11/17 04:13 BUN 22 mg/dL (7-20) H 04/11/17 04:13 Creatinine 1.15 mg/dL (0.57-1.11) H 04/11/17 04:13 Est GFR ( Amer) 58 (> 60) L 04/11/17 04:13 Est GFR (Non-Af Amer) 48 (> 60) L 04/11/17 04:13 Glucose 130 mg/dL (70-99) H 04/11/17 04:13 POC Glucose 123 (58-89) H 04/11/17 07:19 Uric Acid 7.5 mg/dL (2.6-6.0) H 04/07/17 14:20 Calcium 7.7 mg/dL (8.6-10.8) L 04/11/17 04:13 Total Bilirubin 3.7 mg/dL (0.2-1.2) H 04/11/17 04:13 Direct Bilirubin 2.8 mg/dL (0.0-0.5) H 04/11/17 04:13 Alkaline Phosphatase 515 Units/L (38-126) H 04/11/17 04:13 Troponin I 0.54 ng/mL (0-0.03) H* 04/07/17 03:15 Serum Total Protein 4.1 g/dL (6.0-8.3) L 04/11/17 04:13 Albumin 1.9 g/dL (3.5-5.0) L 04/11/17 04:13 Globulin 2.2 g/dL (2.4-3.5) L 04/11/17 04:13 Albumin/Globulin Ratio 0.9 (1.1-2.2) L 04/11/17 04:13 Urine Color Juanita (Yellow) A 04/07/17 08:50 Urine Clarity Turbid (Clear) A 04/07/17 08:50 Urine Protein 100 mg/dL (Neg-Trace) H 04/07/17 08:50 Urine Ketones Trace mg/dL (Negative) H 04/07/17 08:50 Urine Blood Small (Negative) H 04/07/17 08:50 Urine Nitrite Positive (Negative) A 04/07/17 08:50 Urine Bilirubin Large (Negative) H 04/07/17 08:50 Ur Leukocyte Esterase Large (Negative) H 04/07/17 08:50 Urine Microscopic WBC TNTC per hpf (0-3) H 04/07/17 08:50 Ur Squamous Epith Cells Moderate per lpf (None-Few) H 04/07/17 08:50 Urine Bacteria Many per hpf (None-Few) H 04/07/17 08:50 Ur Culture Indicated? YES (NO) A 04/07/17 08:50 Urine Osmolality 290 mOsm/kg (300-1090) L 04/07/17 08:40 Enterobacteriac sp PCR DETECTED (Not Detect) A 04/06/17 17:58 Klebsiella pneumoniae DETECTED (Not Detect) A 04/06/17 17:58 - Microbiology Findings Microbiology Findings: Microbiology, Last 48 Hours 04/07/17 08:50 Urine Culture - Final Urine,Clean Catch Klebsiella [email or web address].[id number] pneumoniae - Clinical Findings Intake & Output: Intake & Output 04/10/17 04/11/17 04/11/17 23:59 07:59 15:59 Intake Total 400 / 400 Output Total 350 / 350 175 / 175 150 / 150 Balance 50 / 50 -175 / -175 -150 / -150 Weight 106.8 kg Consult Discharge Plan - Plan Referrals: NONE,PCP [Primary Care Provider] -
[2017-04-11] MEDS: MetroNIDAZOLE 500 MG/100 ML 500 MG/100 ML BAG IVPB SCH ×2 (08:25→16:41)
[2017-04-11] MEDS: Insulin LISPRO 300 UNITS/3 ML VIAL SQ SCH ×3 (08:26→16:41)
[2017-04-11] MEDS: Phenylephrine 10 MG in D5% in Water 250 ML IVC SCH (10:07)
--- NOTE | 2017-04-11 10:27 | Nephrology Progress Note ---
Date of Encounter: 04/11/17 Time of Encounter: 10:23 - Assessment and Plan (1) ANGELA (acute kidney injury) Current Visit: Yes Status: Acute ANGELA sec to sepsis, diuretics and obstructive uropathy. Has rt ureteral stent. currently non oliguric with UO of 925 ml, cr trended down to 1.15 corrected calcium is nl. will sign off, please reconsult if needed Subjective Principal diagnosis: Septic shock Interval history: stable over night, denies pain, SOB. BP intermittently low Objective - Vital Signs Vital signs: Vital Signs Temp Pulse Resp BP Pulse Ox 04/11/17 08:45 85 19 104/70 100 04/11/17 08:40 99 20 100/64 100 04/11/17 08:12 97.9 F 04/11/17 07:45 166 20 107/58 100 04/11/17 06:17 86 11 93/73 100 04/11/17 05:23 91 13 95/68 100 04/11/17 04:16 97.9 F 04/11/17 04:00 91 13 86/65 100 04/11/17 03:20 90 12 86/73 100 04/11/17 02:00 95 16 97/61 100 04/11/17 01:16 88 16 111/82 100 04/11/17 01:00 88 04/11/17 00:15 87 18 85/68 100 04/10/17 23:53 97.4 F L 04/10/17 23:00 91 20 95/62 100 04/10/17 22:16 101 16 114/85 100 04/10/17 21:15 97.9 F 99 22 89/66 100 04/10/17 20:15 102 22 83/70 100 04/10/17 19:45 102 04/10/17 19:15 109 18 85/74 100 04/10/17 18:00 107 22 108/76 100 04/10/17 17:00 105 20 88/66 100 04/10/17 16:10 104 04/10/17 16:00 104 20 87/64 100 04/10/17 15:16 86 04/10/17 13:03 98.5 F 04/10/17 13:00 108 24 103/75 96 04/10/17 12:00 101 18 78/65 100 04/10/17 11:00 104 24 93/62 100 Intake and Output 04/10/17 04/11/17 04/11/17 23:59 07:59 15:59 Intake Total 400 / 400 250 / 250 Output Total 350 / 350 175 / 175 150 / 150 Balance 50 / 50 -175 / -175 100 / 100 Intake: IV Fluids 300 / 300 250 / 250 ALBURX 5% 12.5 gm In 250 ml @ 250 / 250 60 mls/hr IVC .Q4H10M [facility] Rx#: [id number] Potassium Chloride 10 mEq/100mL 300 / 300 10 meq In 100 ml @ 100 mls/hr IVPB Q1H PRN Rx#:[id number] Oral 100 / 100 Output: Catheter 350 / 350 175 / 175 150 / 150 Other: Stool Size Large Stool Consistency liquid Stool Characteristics Mucoid Stool Color Brown Green # Bowel Movements 1 Weight 106.8 kg Blood Glucose* 124 123 Patient Weight 04/11/17 23:59 Weight 106.8 kg - General Appearance Exam: cvs; s1s2 present, no mumurs resp; decreased air entry, no crackles. ABD; soft, NT, BS present EXT; 2 # edema - Lab 04/11/17 04:13 04/11/17 04:13 Most recent lab results Calcium 7.7 mg/dL (8.6-10.8) L 04/11/17 04:13 Phosphorus 2.8 mg/dL (2.3-4.7) 04/07/17 14:20 Magnesium 1.6 mg/dL (1.6-2.6) 04/11/17 04:13 Urine Creatinine 243 mg/dL 04/07/17 08:40 Urine Sodium < 20.0 mEq/L 04/07/17 08:40 Consult Discharge Plan - Plan Referrals: NONE,PCP [Primary Care Provider] -
[2017-04-11 10:53] LABS: Adenovirus F 40/41 PCR Not detected (Not detect); Astrovirus PCR Not detected (Not detect); C.difficile Toxin A/B by PCR Not detected (Not detect); Campylobacter by PCR Not detected (Not detect); Cryptosporidium by PCR Not detected (Not detect); Cyclospora cayetanensis PCR Not detected (Not detect); E. coli O157 by PCR Not detected (Not detect); Entamoeba histolytica PCR Not detected (Not detect); Enteroaggregative E.coli(EAEC) Not detected (Not detect); Enteropathogenic E.coli(EPEC) Not detected (Not detect); Enterotoxigenic E.coli (ETEC) Not detected (Not detect); Giardia lamblia PCR Not detected (Not detect); Norovirus GI/GII PCR Not detected (Not detect); Plesiomonas shigelloides PCR Not detected (Not detect); Rotavirus A PCR Not detected (Not detect); Salmonella PCR Not detected (Not detect); Sapovirus PCR Not detected (Not detect); Shig/EnteroinvasiveE coli EIEC Not detected (Not detect); Shigalike tox-prod E coli STEC Not detected (Not detect); Vibrio PCR Not detected (Not detect); Vibrio cholerae PCR Not detected (Not detect); Yersinia enterocolitica PCR Not detected (Not detect)
[2017-04-11] MEDS: Lactobacillus 1 EACH CAP.SPRINK PO SCH ×2 (10:59→20:13)
--- NOTE | 2017-04-11 17:12 | Oncology Inp Progress Note ---
Date of Encounter: 04/11/17 Time of Encounter: 17:00 (1) Pancreatic cancer metastasized to liver Current Visit: Yes Status: Acute Assessment and plan: s/p Rx with FOLFIRINOX for metastatic cancer, hospitalized needing ICU care with Klebsiella pneumonia sepsis. Cytopenia from multiple factors. Clinically does not happen to be bleeding. Not on heparin, s/p IVC filter with hx PE. Transfuse if plt decline further <15k or has clinical bleeding issues. Oncology: Subj Interval history: Patient is resting comfortable not able to answer all questions - Constitutional Vitals: Vital Signs Temp Pulse Resp BP Pulse Ox 04/11/17 16:00 97.6 F 04/11/17 15:15 89 19 89/61 97 04/11/17 14:15 86 18 94/70 98 04/11/17 13:15 89 19 96/60 98 04/11/17 12:12 97.5 F L 90 19 101/65 100 04/11/17 11:10 100 19 105/75 100 04/11/17 09:50 101 20 102/73 100 04/11/17 08:45 85 19 104/70 100 04/11/17 08:40 99 20 100/64 100 04/11/17 08:12 97.9 F 04/11/17 07:45 166 20 107/58 100 04/11/17 06:17 86 11 93/73 100 04/11/17 05:23 91 13 95/68 100 04/11/17 04:16 97.9 F 04/11/17 04:00 91 13 86/65 100 04/11/17 03:20 90 12 86/73 100 04/11/17 02:00 95 16 97/61 100 04/11/17 01:16 88 16 111/82 100 04/11/17 01:00 88 04/11/17 00:15 87 18 85/68 100 04/10/17 23:53 97.4 F L 04/10/17 23:00 91 20 95/62 100 04/10/17 22:16 101 16 114/85 100 04/10/17 21:15 97.9 F 99 22 89/66 100 04/10/17 20:15 102 22 83/70 100 04/10/17 19:45 102 04/10/17 19:15 109 18 85/74 100 04/10/17 18:00 107 22 108/76 100 Intake and Output 04/11/17 04/11/17 04/11/17 07:59 15:59 23:59 Intake Total 940 / 940 Output Total 175 / 175 400 / 400 300 / 300 Balance -175 / -175 540 / 540 -300 / -300 Intake: IV Fluids 700 / 700 ALBURX 5% 12.5 gm In 250 ml @ 500 / 500 60 mls/hr IVC .Q4H10M [facility] Rx#: [id number] Flagyl Premix 500 MG/100 ML 500 100 / 100 mg In 100 ml @ 100 mls/hr IVPB Q8HR [facility] Rx#:[id number] Rocephin 2,000 MG In Dextrose 5 100 / 100 % (Minibag+) 100 ML 100 ML @ 200 mls/hr IVPB Q24H [facility] Rx#: [id number] Oral 240 / 240 Output: Catheter 175 / 175 400 / 400 300 / 300 Other: Meal Lunch Percent of Meal Consumed 20% Stool Size Large Stool Consistency liquid Stool Characteristics Mucoid Stool Color Brown Green # Bowel Movements 1 Weight 106.8 kg Blood Glucose* 161 127 Patient Weight 04/11/17 23:59 Weight 106.8 kg General appearance: no acute distress - Head Head exam: Present: atraumatic - Eye Eye exam: Present: sclera anicteric - ENT ENT exam: Present: mucous membranes dry - Respiratory Respiratory exam: Present: CTAB - Cardiovascular Cardiovascular exam: Present: +S1, +S2 - Extremities Exam Extremities exam: Present: pedal edema - Neurological Exam Neurological exam: Present: alert, altered Additional comments: lethargic but arousable Oncology: Obj Data - Labs CBC & Chem 7: 04/11/17 04:13 04/11/17 04:13 Labs: Laboratory Results - last 24 hr 04/10/17 04/10/17 04/11/17 18:32 21:22 04:13 WBC 23.3 H 19.6 H RBC 3.37 L 3.03 L Hgb 10.4 L 9.6 L Hct 31.2 L 28.4 L MCV 92.6 93.7 MCH 30.9 31.7 MCHC 33.3 33.8 RDW 19.6 H 19.8 H Plt Count 37 L 28 L* MPV TNP TNP Seg Neutrophils % 74.0 82.0 Band Neutrophils % 6.0 H 4.0 Lymphocytes % 18.0 10.0 Monocytes % 2.0 4.0 Neutrophils # 18.6 H 16.9 H Lymphocytes # 4.2 2.0 Monocytes # 0.5 0.8 Nucleated RBCs/100 WBC 0.2 H 0.2 H Reactive Lymphocytes Present A Toxic Granulation Present A Present A Platelet Estimate Marked Decrease L Marked Decrease L Immature Plt Fraction 22.9 H 26.6 H Anisocytosis 1+ A 1+ A Sodium Potassium Chloride Carbon Dioxide BUN Creatinine Est GFR ( Amer) Est GFR (Non-Af Amer) BUN/Creatinine Ratio Glucose POC Glucose 124 H Calculated Osmolality Calcium Magnesium Total Bilirubin Direct Bilirubin Indirect Bilirubin AST ALT Alkaline Phosphatase Serum Total Protein Albumin Globulin Albumin/Globulin Ratio Stl C. cayetanensis PCR Stool Rotavirus A PCR Stl Adenov F 40/41 PCR Stool Astrovirus (PCR) Stool Campylobacter PCR Stl C. diff Tox A/B PCR Stool Cryptosporidium PCR Stl Sh Tox Pr E STEC PCR Stool E coli O157 PCR Stl Enterotoxigenic E PCR Stool EPEC (PCR) Stool EAEC (PCR) Stl E. histolytica PCR Stool Giardia Lamblia PCR Stool Salmonella PCR Stool Sapovirus (PCR) Stl P. shigelloides PCR Stl Shigella/EIEC PCR St Y.enterocolitica PCR Stool Vibrio (PCR) Stl Vibrio cholerae PCR Stl Norovirus GI/GII PCR Stl GI Panel (PCR) Com 04/11/17 04/11/17 04/11/17 04:13 07:19 09:10 WBC RBC Hgb Hct MCV MCH MCHC RDW Plt Count MPV Seg Neutrophils % Band Neutrophils % Lymphocytes % Monocytes % Neutrophils # Lymphocytes # Monocytes # Nucleated RBCs/100 WBC Reactive Lymphocytes Toxic Granulation Platelet Estimate Immature Plt Fraction Anisocytosis Sodium 133 L Potassium 3.7 Chloride 104 Carbon Dioxide 22 BUN 22 H Creatinine 1.15 H Est GFR ( Amer) 58 L Est GFR (Non-Af Amer) 48 L BUN/Creatinine Ratio 19 Glucose 130 H POC Glucose 123 H Calculated Osmolality 281 Calcium 7.7 L Magnesium 1.6 Total Bilirubin 3.7 H Direct Bilirubin 2.8 H Indirect Bilirubin 0.9 AST 24 ALT 24 Alkaline Phosphatase 515 H Serum Total Protein 4.1 L Albumin 1.9 L Globulin 2.2 L Albumin/Globulin Ratio 0.9 L Stl C. cayetanensis PCR Not detected Stool Rotavirus A PCR Not detected Stl Adenov F 40/41 PCR Not detected Stool Astrovirus (PCR) Not detected Stool Campylobacter PCR Not detected Stl C. diff Tox A/B PCR Not detected Stool Cryptosporidium PCR Not detected Stl Sh Tox Pr E STEC PCR Not detected Stool E coli O157 PCR Not detected Stl Enterotoxigenic E PCR Not detected Stool EPEC (PCR) Not detected Stool EAEC (PCR) Not detected Stl E. histolytica PCR Not detected Stool Giardia Lamblia PCR Not detected Stool Salmonella PCR Not detected Stool Sapovirus (PCR) Not detected Stl P. shigelloides PCR Not detected Stl Shigella/EIEC PCR Not detected St Y.enterocolitica PCR Not detected Stool Vibrio (PCR) Not detected Stl Vibrio cholerae PCR Not detected Stl Norovirus GI/GII PCR Not detected Stl GI Panel (PCR) Com See below 04/11/17 04/11/17 12:16 15:34 WBC RBC Hgb Hct MCV MCH MCHC RDW Plt Count MPV Seg Neutrophils % Band Neutrophils % Lymphocytes % Monocytes % Neutrophils # Lymphocytes # Monocytes # Nucleated RBCs/100 WBC Reactive Lymphocytes Toxic Granulation Platelet Estimate Immature Plt Fraction Anisocytosis Sodium Potassium Chloride Carbon Dioxide BUN Creatinine Est GFR ( Amer) Est GFR (Non-Af Amer) BUN/Creatinine Ratio Glucose POC Glucose 161 H 127 H Calculated Osmolality Calcium Magnesium Total Bilirubin Direct Bilirubin Indirect Bilirubin AST ALT Alkaline Phosphatase Serum Total Protein Albumin Globulin Albumin/Globulin Ratio Stl C. cayetanensis PCR Stool Rotavirus A PCR Stl Adenov F 40/41 PCR Stool Astrovirus (PCR) Stool Campylobacter PCR Stl C. diff Tox A/B PCR Stool Cryptosporidium PCR Stl Sh Tox Pr E STEC PCR Stool E coli O157 PCR Stl Enterotoxigenic E PCR Stool EPEC (PCR) Stool EAEC (PCR) Stl E. histolytica PCR Stool Giardia Lamblia PCR Stool Salmonella PCR Stool Sapovirus (PCR) Stl P. shigelloides PCR Stl Shigella/EIEC PCR St Y.enterocolitica PCR Stool Vibrio (PCR) Stl Vibrio cholerae PCR Stl Norovirus GI/GII PCR Stl GI Panel (PCR) Com - ABG Interpretation ABG results: PT/INR, D-dimer PT 12.4 Seconds (9.4-12.1) H D 04/09/17 11:26 Consult Discharge Plan - Plan Referrals: NONE,PCP [Primary Care Provider] -
[2017-04-11 20:37] LABS: Basophils % 0.3 %; Eosinophils % 0.1 %
[2017-04-11 20:39] LABS: Basophils # 0.1 K/mcL (0.0-0.2); Hematocrit 29.3 % (35.3-44.9); Hemoglobin 9.8 g/dL (11.5-15.4); Immature Granulocytes % 5.6 % (0-4); Immature Platelets 29.4 % (1.1-6.1); Lymphocytes # 1.5 K/mcL (0.6-4.6); Lymphocytes % 6.3 %; Mean Corpuscular HGB Conc 33.4 g/dL (31.6-35.5); Mean Corpuscular Hemoglobin 30.9 pg (28.0-33.3); Mean Corpuscular Volume 92.4 fL (83.0-100.0); Monocytes # 0.7 K/mcL (0.0-1.3); Neutrophils # 20.1 K/mcL (1.6-8.9); Nucleated Red Blood Cells 0.2 /100 WBC (0); Red Blood Count 3.17 M/mcL (3.82-4.97); Red Cell Distribution Width 19.7 % (11.5-14.5); Segmented Neutrophils % 84.7 %
[2017-04-11 20:40] LABS: Platelet Count 34 K/mcL (140-400)
[2017-04-11 21:08] LABS: Platelet Estimate Decreased (Normal); Toxic Granulation Present (Not Present)
[2017-04-12] MEDS: MetroNIDAZOLE 500 MG/100 ML 500 MG/100 ML BAG IVPB SCH ×2 (00:07→08:52)
[2017-04-12] MEDS: *HR* Morphine Sulfate SR (12 HR) 30 MG TABLET.ER PO SCH ×3 (03:57→21:00)
[2017-04-12] MEDS: Sucralfate 1 GM TABLET PO SCH ×5 (06:26→21:00)
[2017-04-12 06:30] LABS: BUN/Creatinine Ratio 21 (6-26); Blood Urea Nitrogen 18 mg/dL (7-20); Calcium 7.8 mg/dL (8.6-10.8); Carbon Dioxide 24 mEq/L (19-29); Chloride 101 mEq/L (98-109); Glucose 140 mg/dL (70-99); Magnesium 1.8 mg/dL (1.6-2.6); Osmolality,Calculated 276 (280-300); Potassium 3.5 mEq/L (3.5-4.5); Sodium 131 mEq/L (136-145); eGFR For African Americans > 60 (> 60); eGFR For Non-African Americans > 60 (> 60)
[2017-04-12 06:41] LABS: Basophils # 0.1 K/mcL (0.0-0.2); Basophils % 0.3 %; Eosinophils % 0.2 %; Hematocrit 29.6 % (35.3-44.9); Hemoglobin 9.8 g/dL (11.5-15.4); Immature Granulocytes % 6.2 % (0-4); Lymphocytes # 1.6 K/mcL (0.6-4.6); Lymphocytes % 6.7 %; Mean Corpuscular HGB Conc 33.1 g/dL (31.6-35.5); Mean Corpuscular Hemoglobin 30.5 pg (28.0-33.3); Mean Corpuscular Volume 92.2 fL (83.0-100.0); Monocytes # 0.7 K/mcL (0.0-1.3); Monocytes % 2.9 %; Red Blood Count 3.21 M/mcL (3.82-4.97); Red Cell Distribution Width 19.9 % (11.5-14.5); Segmented Neutrophils % 83.7 %
[2017-04-12 06:43] LABS: Eosinophils # 0.1 K/mcL (0.0-0.6); Neutrophils # 19.8 K/mcL (1.6-8.9); Platelet Count 36 K/mcL (140-400)
[2017-04-12 06:49] LABS: Platelet Estimate Marked Decrease (Normal)
[2017-04-12 06:50] LABS: Anisocytosis 1+ (Not Present); Poikilocytosis 1+ (Not Present)
--- NOTE | 2017-04-12 07:17 | Pulmonology Progress Note ---
<Mague Macias - Last Filed: 04/12/17 09:21> Date of Encounter: 04/12/17 Time of Encounter: 09:00 Assessment and Plan (1) Septic shock due to Klebsiella pneumoniae Current Visit: Yes Status: Acute Patient came in with septic shock from UTI. Culture showed Klebsiella which was sensitive to Rocephin. Patient currently off pressors. White blood cell count now 23.6 . Urine continues to be red in color. continue to trend blood work. Repeat blood cultures are now negative (2) Encephalopathy acute Current Visit: Yes Status: Acute Patient's A &O 3 at this time but has periods of time where she is confused and no longer alert and oriented. Most likely due to sepsis vs. delirium. Patient showing signs of inattentiveness therefore most likely delirium. CT of the head completed was within normal limits. (3) History of pancreatic cancer Current Visit: Yes Status: Acute Continue outpatient chemotherapy. (4) Anemia Current Visit: Yes Status: Acute Hemoglobin 9.8 today. We will continue to trend. No signs of active bleeding at this time Qualifiers: Anemia type: other cause Other causes of anemia: other cause, not classified Qualified Code(s): D64.89 - Other specified anemias (5) ANGELA (acute kidney injury) Current Visit: Yes Status: Acute ANGELA in the setting of septic shock. Patient is on electrolyte protocol. CT abdomen without contrast demonstrated likely obstructive hydronephrosis on the right given underlying pancreatic cancer with ongoing chemotherapy. Ureteral stent was inserted. Renal ultrasound demonstrated moderate right hydronephrosis. Urine Vasquez catheter was placed for more adequate monitoring of urine output and is draining sharepoint trainer red colored urine. HAvoid nephrotoxins. ANGELA likely intrinsic and post renal causes, continue electrolyte protocol. Creatinine of 0.86 today (6) Demand ischemia Current Visit: Yes Status: Acute Patient had positive troponin 3 with unremarkable EKG. She likely had type II demand ischemia as there is no presence of an acute primary coronary thrombotic event. Echocardiogram performed demonstrates normal left ventricular systolic function with ejection fraction of 65%, mild to moderate pulmonary hypertension with estimated RVSP of 46 mmHg. Consider outpatient follow up as cardiology consult not necessary at this time. (7) Hyperglycemia Current Visit: Yes Status: Acute Hyperglycemia in the setting of steroid use. Continue with SSI (8) Atrial fibrillation with RVR Current Visit: Yes Status: Acute Levophed was discontinued as it can cause tachycardia and phenylephrine was started. Dose of digoxin was given. Continue to monitor with telemetry. (9) Thrombocytopenia Current Visit: Yes Status: Acute Platelets now 36. Continue to trend down. Hematology has been consulted (10) DVT prophylaxis Current Visit: Yes Status: Acute IVC filter Subjective Principal diagnosis: Septic shock Interval history: No acute events overnight. Patient urine improving to a sharepoint trainer reddish color. Platelets continued to decrease and now are 36. Hematology has been consulted. Patient has no acute complaints at this time. Multiple episodes of liquid stool yesterday prompted us to complete a stool sample test which came back negative. IVC filter has been placed for DVT prophylaxis Objective PUL Vital signs: Last Vital Signs Temp 97.6 F 04/12/17 04:14 Pulse 92 04/12/17 06:18 Resp 13 04/12/17 06:18 BP 115/94 04/12/17 06:18 Pulse Ox 100 04/12/17 06:18 General appearance: no acute distress, alert (Alert at this time. Patient has multiple episodes of confusion overnight per nursing.) Eyes: nonicteric ENT: oropharynx moist Neck: supple, no JVD Effort: normal Auscultation: bilateral: clear Cardiovascular: regular rate and rhythm Gastrointestinal: normoactive bowel sounds, soft, non-distended Integumentary: normal Extremities: no cyanosis, no edema Musculoskeletal: no deformities Gait: normal posture normal mental status, non-focal exam mood appropriate, affect normal Results - Laboratory Findings CBC and BMP: 04/12/17 06:10 04/12/17 06:10 PT/INR, D-dimer PT 12.4 Seconds (9.4-12.1) H D 04/09/17 11:26 Abnormal lab findings: Abnormal lab results WBC 23.6 K/mcL (4.3-11.1) H 04/12/17 06:10 RBC 3.21 M/mcL (3.82-4.97) L 04/12/17 06:10 Hgb 9.8 g/dL (11.5-15.4) L 04/12/17 06:10 Hct 29.6 % (35.3-44.9) L 04/12/17 06:10 RDW 19.9 % (11.5-14.5) H 04/12/17 06:10 Plt Count 36 K/mcL (140-400) L 04/12/17 06:10 Immature Gran % 6.2 % (0-4) H 04/12/17 06:10 Metamyelocytes % 2.0 % (0) H 04/09/17 16:20 Myelocytes % 2.0 % (0) H 04/09/17 05:40 Neutrophils # 19.8 K/mcL (1.6-8.9) H 04/12/17 06:10 Nucleated RBCs/100 WBC 0.2 /100 WBC (0) H 04/11/17 20:22 Hypersegmented Neuts Present (Not Present) A 04/09/17 05:40 Reactive Lymphocytes Present (Not Present) A 04/11/17 04:13 Toxic Granulation Present (Not Present) A 04/11/17 20:22 Toxic Vacuolation Present (Not Present) A 04/07/17 03:15 Dohle Bodies Present (Not Present) A 04/08/17 22:42 Platelet Estimate Marked Decrease (Normal) L 04/12/17 06:10 Large Platelets Present (Not Present) A 04/07/17 03:15 Immature Plt Fraction 29.4 % (1.1-6.1) H 04/11/17 20:22 Polychromasia 1+ (Not Present) A 04/10/17 07:00 Poikilocytosis 1+ (Not Present) A 04/12/17 06:10 Anisocytosis 1+ (Not Present) A 04/12/17 06:10 Microcytosis Present (Not Present) A 04/08/17 03:42 Macrocytosis Present (Not Present) A 04/08/17 03:42 Lois Cells 1+ (Not Present) A 04/07/17 03:15 PT 12.4 Seconds (9.4-12.1) H D 04/09/17 11:26 APTT 51.9 Seconds (26.0-36.0) H 04/09/17 05:40 Sodium 131 mEq/L (136-145) L 04/12/17 06:10 Glucose 140 mg/dL (70-99) H 04/12/17 06:10 POC Glucose 115 (58-89) H 04/11/17 19:43 Calculated Osmolality 276 (280-300) L 04/12/17 06:10 Uric Acid 7.5 mg/dL (2.6-6.0) H 04/07/17 14:20 Calcium 7.8 mg/dL (8.6-10.8) L 04/12/17 06:10 Total Bilirubin 3.7 mg/dL (0.2-1.2) H 04/11/17 04:13 Direct Bilirubin 2.8 mg/dL (0.0-0.5) H 04/11/17 04:13 Alkaline Phosphatase 515 Units/L (38-126) H 04/11/17 04:13 Troponin I 0.54 ng/mL (0-0.03) H* 04/07/17 03:15 Serum Total Protein 4.1 g/dL (6.0-8.3) L 04/11/17 04:13 Albumin 1.9 g/dL (3.5-5.0) L 04/11/17 04:13 Globulin 2.2 g/dL (2.4-3.5) L 04/11/17 04:13 Albumin/Globulin Ratio 0.9 (1.1-2.2) L 04/11/17 04:13 Urine Color Juanita (Yellow) A 04/07/17 08:50 Urine Clarity Turbid (Clear) A 04/07/17 08:50 Urine Protein 100 mg/dL (Neg-Trace) H 04/07/17 08:50 Urine Ketones Trace mg/dL (Negative) H 04/07/17 08:50 Urine Blood Small (Negative) H 04/07/17 08:50 Urine Nitrite Positive (Negative) A 04/07/17 08:50 Urine Bilirubin Large (Negative) H 04/07/17 08:50 Ur Leukocyte Esterase Large (Negative) H 04/07/17 08:50 Urine Microscopic WBC TNTC per hpf (0-3) H 04/07/17 08:50 Ur Squamous Epith Cells Moderate per lpf (None-Few) H 04/07/17 08:50 Urine Bacteria Many per hpf (None-Few) H 04/07/17 08:50 Ur Culture Indicated? YES (NO) A 04/07/17 08:50 Urine Osmolality 290 mOsm/kg (300-1090) L 04/07/17 08:40 Enterobacteriac sp PCR DETECTED (Not Detect) A 04/06/17 17:58 Klebsiella pneumoniae DETECTED (Not Detect) A 04/06/17 17:58 - Microbiology Findings Microbiology Findings: Microbiology, Last 48 Hours 04/09/17 13:10 Blood Culture - Preliminary Peripheral Venipuncture No growth. 04/09/17 11:26 Blood Culture - Preliminary Peripheral Venipuncture No growth. - Clinical Findings Intake & Output: Intake & Output 04/11/17 04/11/17 04/12/17 15:59 23:59 07:59 Intake Total 940 / 940 200 / 200 100 / 100 Output Total 400 / 400 450 / 450 400 / 400 Balance 540 / 540 -250 / -250 -300 / -300 Weight 110.3 kg Consult Discharge Plan - Plan Referrals: NONE,PCP [Primary Care Provider] - <Samuel Cuellar - Last Filed: 04/12/17 09:35> Date of Encounter: 04/12/17 Assessment and Plan (1) Septic shock due to Klebsiella pneumoniae Current Visit: Yes Status: Acute (2) Colitis Current Visit: Yes Status: Acute (3) Total bilirubin, elevated Current Visit: Yes Status: Acute (4) History of pancreatic cancer Current Visit: Yes Status: Acute (5) Hyponatremia Current Visit: Yes Status: Acute (6) DVT prophylaxis Current Visit: Yes Status: Acute (7) ANGELA (acute kidney injury) Current Visit: Yes Status: Acute (8) Encephalopathy acute Current Visit: Yes Status: Acute (9) Hyperglycemia Current Visit: Yes Status: Acute (10) Atrial fibrillation with RVR Current Visit: Yes Status: Acute (11) Thrombocytopenia Current Visit: Yes Status: Acute (12) Pancreatic cancer metastasized to liver Current Visit: Yes Status: Acute Objective PUL Vital signs: Last Vital Signs Temp 97.6 F 04/12/17 04:14 Pulse 97 04/12/17 08:30 Resp 19 04/12/17 08:30 BP 91/63 04/12/17 08:30 Pulse Ox 100 04/12/17 08:30 Results - Laboratory Findings CBC and BMP: 04/12/17 06:10 04/12/17 06:10 PT/INR, D-dimer PT 12.4 Seconds (9.4-12.1) H D 04/09/17 11:26 Abnormal lab findings: Abnormal lab results WBC 23.6 K/mcL (4.3-11.1) H 04/12/17 06:10 RBC 3.21 M/mcL (3.82-4.97) L 04/12/17 06:10 Hgb 9.8 g/dL (11.5-15.4) L 04/12/17 06:10 Hct 29.6 % (35.3-44.9) L 04/12/17 06:10 RDW 19.9 % (11.5-14.5) H 04/12/17 06:10 Plt Count 36 K/mcL (140-400) L 04/12/17 06:10 Immature Gran % 6.2 % (0-4) H 04/12/17 06:10 Metamyelocytes % 2.0 % (0) H 04/09/17 16:20 Myelocytes % 2.0 % (0) H 04/09/17 05:40 Neutrophils # 19.8 K/mcL (1.6-8.9) H 04/12/17 06:10 Nucleated RBCs/100 WBC 0.2 /100 WBC (0) H 04/11/17 20:22 Hypersegmented Neuts Present (Not Present) A 04/09/17 05:40 Reactive Lymphocytes Present (Not Present) A 04/11/17 04:13 Toxic Granulation Present (Not Present) A 04/11/17 20:22 Toxic Vacuolation Present (Not Present) A 04/07/17 03:15 Dohle Bodies Present (Not Present) A 04/08/17 22:42 Platelet Estimate Marked Decrease (Normal) L 04/12/17 06:10 Large Platelets Present (Not Present) A 04/07/17 03:15 Immature Plt Fraction 29.4 % (1.1-6.1) H 04/11/17 20:22 Polychromasia 1+ (Not Present) A 04/10/17 07:00 Poikilocytosis 1+ (Not Present) A 04/12/17 06:10 Anisocytosis 1+ (Not Present) A 04/12/17 06:10 Microcytosis Present (Not Present) A 04/08/17 03:42 Macrocytosis Present (Not Present) A 04/08/17 03:42 Lignum Cells 1+ (Not Present) A 04/07/17 03:15 PT 12.4 Seconds (9.4-12.1) H D 04/09/17 11:26 APTT 51.9 Seconds (26.0-36.0) H 04/09/17 05:40 Sodium 131 mEq/L (136-145) L 04/12/17 06:10 Glucose 140 mg/dL (70-99) H 04/12/17 06:10 POC Glucose 127 (58-89) H 04/12/17 07:16 Calculated Osmolality 276 (280-300) L 04/12/17 06:10 Uric Acid 7.5 mg/dL (2.6-6.0) H 04/07/17 14:20 Calcium 7.8 mg/dL (8.6-10.8) L 04/12/17 06:10 Total Bilirubin 3.7 mg/dL (0.2-1.2) H 04/11/17 04:13 Direct Bilirubin 2.8 mg/dL (0.0-0.5) H 04/11/17 04:13 Alkaline Phosphatase 515 Units/L (38-126) H 04/11/17 04:13 Troponin I 0.54 ng/mL (0-0.03) H* 04/07/17 03:15 Serum Total Protein 4.1 g/dL (6.0-8.3) L 04/11/17 04:13 Albumin 1.9 g/dL (3.5-5.0) L 04/11/17 04:13 Globulin 2.2 g/dL (2.4-3.5) L 04/11/17 04:13 Albumin/Globulin Ratio 0.9 (1.1-2.2) L 04/11/17 04:13 Urine Color Juanita (Yellow) A 04/07/17 08:50 Urine Clarity Turbid (Clear) A 04/07/17 08:50 Urine Protein 100 mg/dL (Neg-Trace) H 04/07/17 08:50 Urine Ketones Trace mg/dL (Negative) H 04/07/17 08:50 Urine Blood Small (Negative) H 04/07/17 08:50 Urine Nitrite Positive (Negative) A 04/07/17 08:50 Urine Bilirubin Large (Negative) H 04/07/17 08:50 Ur Leukocyte Esterase Large (Negative) H 04/07/17 08:50 Urine Microscopic WBC TNTC per hpf (0-3) H 04/07/17 08:50 Ur Squamous Epith Cells Moderate per lpf (None-Few) H 04/07/17 08:50 Urine Bacteria Many per hpf (None-Few) H 04/07/17 08:50 Ur Culture Indicated? YES (NO) A 04/07/17 08:50 Urine Osmolality 290 mOsm/kg (300-1090) L 04/07/17 08:40 Enterobacteriac sp PCR DETECTED (Not Detect) A 04/06/17 17:58 Klebsiella pneumoniae DETECTED (Not Detect) A 04/06/17 17:58 - Microbiology Findings Microbiology Findings: Microbiology, Last 48 Hours 04/09/17 13:10 Blood Culture - Preliminary Peripheral Venipuncture No growth. 04/09/17 11:26 Blood Culture - Preliminary Peripheral Venipuncture No growth. - Clinical Findings Intake & Output: Intake & Output 04/11/17 04/12/17 04/12/17 23:59 07:59 15:59 Intake Total 200 / 200 100 / 100 240 / 240 Output Total 450 / 450 400 / 400 Balance -250 / -250 -300 / -300 240 / 240 Weight 110.3 kg - Attending Attestation I examined this patient and my medical decision-making was reviewed with the Resident Physician. I agree with the documented findings, disposition and treatment plan as described except to the extent set forth below. We independently had [id number] contact with the patient Patient seen and examined at bedside Labs, radiology, chart personally reviewed. Management was reviewed during multidisciplinary critical care rounds. Platelet count has stabilized and has come up slightly overnight. I suspect this is consumptive coagulopathy. Diarrhea has slowed down stool studies were negative for C. difficile or other forms of colitis stop Flagyl She remains delirious although to my examination today mental status has improved slightly By mouth intake remains marginal we will continue to encourage this WBC count persistently elevated but despite repeat cultures there has been no clear source of infection we will continue to treat with ceftriaxone for Klebsiella UTI for a total of 14 days depending on clinical course. In part leukocytosis may be related to underlying malignancy. Appreciate oncology recommendations She has an IVC filter for recent DVT and thrombocytopenia She has intermittent runs of atrial fibrillation currently she is in sinus rhythm. She responds favorably to beta katherin during these events. Overall prognosis poor recommend consultation with palliative care Stable for transfer to [facility] for ongoing care
[2017-04-12] MEDS: Lactobacillus 1 EACH CAP.SPRINK PO SCH ×2 (08:52→21:00)
[2017-04-12] MEDS: Insulin LISPRO 300 UNITS/3 ML VIAL SQ SCH ×3 (08:53→19:47)
[2017-04-12] MEDS ORDERED: D5% in Water 1,000 ML IVC PRN (09:44)
[2017-04-12] MEDS ORDERED: *HR* Metoprolol 5 MG/5 ML VIAL IVP PRN (09:44)
[2017-04-12] MEDS ORDERED: Ondansetron 4 MG/2 ML VIAL IVP PRN (09:44)
[2017-04-12] MEDS ORDERED: *HR* Dextrose 50 % in Water (Syg) 50 ML SYRINGE IVP PRN (09:44)
[2017-04-12] MEDS ORDERED: Dextrose Gel 15 GM PO PRN ×2 (09:44)
[2017-04-12] MEDS ORDERED: Acetaminophen 325 MG TABLET PO PRN (09:44)
[2017-04-12] MEDS ORDERED: Naloxone 0.4 MG/ML INJ IVP PRN (09:44)
[2017-04-12 09:50] LABS: INR 1.3; Prothrombin Time 13.9 Seconds (9.4-12.1)
[2017-04-13] MEDS: *HR* Morphine Sulfate SR (12 HR) 30 MG TABLET.ER PO SCH ×2 (04:00→12:31)
--- NOTE | 2017-04-13 08:33 | Electrocardiograph Report ---
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
[2017-04-13 08:44] LABS: Red Blood Count 3.43 M/mcL (3.82-4.97)
[2017-04-13 08:46] LABS: Hemoglobin 10.8 g/dL (11.5-15.4); Mean Corpuscular HGB Conc 33.8 g/dL (31.6-35.5); Mean Corpuscular Hemoglobin 31.5 pg (28.0-33.3); Mean Corpuscular Volume 93.3 fL (83.0-100.0); Mean Platelet Volume 14.2 fL (9.4-12.4); Red Cell Distribution Width 20.1 % (11.5-14.5)
[2017-04-13 08:48] LABS: Platelet Count 77 K/mcL (140-400)
[2017-04-13 09:00] LABS: Alanine Aminotransferase 23 Units/L (0-55); Albumin/Globulin Ratio 0.8 (1.1-2.2); Alkaline Phosphatase 805 Units/L (38-126); Aspartate Amino Transferase 23 Units/L (5-34); BUN/Creatinine Ratio 21 (6-26); Blood Urea Nitrogen 17 mg/dL (7-20); Calcium 7.8 mg/dL (8.6-10.8); Carbon Dioxide 21 mEq/L (19-29); Chloride 98 mEq/L (98-109); Globulin 2.6 g/dL (2.4-3.5); Glucose 154 mg/dL (70-99); Osmolality,Calculated 271 (280-300); Potassium 4.1 mEq/L (3.5-4.5); Sodium 128 mEq/L (136-145); Total Protein 4.6 g/dL (6.0-8.3); eGFR For African Americans > 60 (> 60); eGFR For Non-African Americans > 60 (> 60)
[2017-04-13 09:01] LABS: Bilirubin,Total 4.4 mg/dL (0.2-1.2)
[2017-04-13 09:07] LABS: Anisocytosis 1+ (Not Present); Lymphocytes # 3.3 K/mcL (0.6-4.6); Neutrophils # 23.9 K/mcL (1.6-8.9); Platelet Estimate Decreased (Normal)
[2017-04-13 09:08] LABS: Poikilocytosis 1+ (Not Present); Polychromasia 1+ (Not Present)
[2017-04-13] MEDS: Insulin LISPRO 300 UNITS/3 ML VIAL SQ SCH ×3 (09:22→17:23)
--- NOTE | 2017-04-13 09:24 | Electrocardiograph Report ---
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
[2017-04-13] MEDS: Sucralfate 1 GM TABLET PO SCH ×4 (09:32→21:06)
[2017-04-13] MEDS: Lactobacillus 1 EACH CAP.SPRINK PO SCH ×2 (09:32→21:06)
[2017-04-13] MEDS: Furosemide 20 MG TABLET PO SCH (12:28)
--- NOTE | 2017-04-13 16:12 | Palliative - Consult Note ---
Date of Encounter: 04/13/17 Time of Encounter: 14:15 - Assessment and Plan (1) Cancer associated pain Current Visit: Yes Status: Acute Assessment and plan: Patient has been on MS Contin 30mg every 8 hours at home, however, she has denied pain the last several days and has refused this. Will have short acting medication available if needed, as MS Contin will not help with acute pain. D/ W pt/family. (2) Counseling regarding advanced care planning and goals of care Current Visit: Yes Status: Acute Assessment and plan: Patients family states she has done a living will, but refused to do a power of deputy county attorney, and desired family to make her healthcare decisions together. Awaiting oncology to speak with family re: further treatment and prognosis. Family is unsure she can tolerate current chemotherapy. Discussed discharge options going forward - pt still working and he would like her to go to rehab. PT/OT consult pending. Also discussed home palliative care (Pt resides in [facility] and [facility] has home palliative program) and discussed transition to hospice if unable to tolerate chemo or disease progression. Family does not think pt will participate in code status discussion today. Will revisit in am. (3) History of pancreatic cancer Current Visit: Yes Status: Acute Palliative-CN HPI - Data of Consult Consult date: 04/13/17 Requesting Physician: Polo Garces Primary Care Provider: PCP NONE - Consult Narrative History of present illness: Ms. Trevizo is a 62 year old female with a recent diagnosis of metastatic pancreatic cancer diagnosed in January, who was admitted 10 days ago and treated for severe sepsis. 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 She also has history of recent PE/DVT, but now with thrombocytopenia, therefore could not continue on anticoagulants. IVC filter was also placed during this admission. Patient also has developed altered mental status, that family states waxes and wanes. She has been receiving Folfirinox that was began in early February. Family states she did very well with first 2 treatments with little side effects, but that the 3rd treatment "took everything out of her". and children doubt her ability to continue on this chemo regimen. Upon my visit, she is up in chair. She is short with answers to questions, and appears a little irritated with my questioning. She denies all symptoms, other than weakness and edema. She makes inappropriate statements at times. Family is at bedside. They describe that her mental status will be fine one minute, and confused the next. CC: Polo Garces Past Med Surg Social Fam HX - Past Medical History Medical history: cancer (metastatic pancreatic cancer) - Past Surgical History Surgical History: other (biliary stent, BTL, left shoulder) - Social History Smoking Status: Former smoker Smokeless Tobacco Status: No Alcohol use: none Drug use: none Medications and Allergies Lidocaine/Prilocaine [Emla] 1 appl TP AD #30 gm 02/11/17 [Rx] Ondansetron HCl [Zofran] 4 mg PO Q6H PRN #40 tablet 02/11/17 [Rx] Prochlorperazine Maleate [Compazine] 10 mg PO Q6HR PRN #40 tablet 02/11/17 [Rx] Dronabinol [Marinol] 5 mg PO BIDWM #60 capsule 02/20/17 [Rx] Enoxaparin [Lovenox] 100 mg SQ Q12HR #60 02/20/17 [Rx] Omeprazole 20 mg PO DAILY #90 tablet. 03/04/17 [Rx] Furosemide [Lasix] 20 mg PO DAILY #90 tablet 03/25/17 [Rx] Spironolactone [Aldactone] 25 mg PO DAILY #90 tablet 03/25/17 [Rx] Sucralfate [Carafate] 1 gm PO QIDAC #120 tablet 03/25/17 [Rx] Loperamide HCl [Imodium A-D] 2 mg PO PER PKG DI PRN 04/06/17 [History] Morphine Sulfate SR (12 HR) [MS Contin] 30 mg PO Q8HR 04/06/17 [History] OxyCODONE Immed Rel [Roxicodone 5 MG] 10 mg PO Q2HR PRN 04/06/17 [History] Stomatitis Mixture 5 ml PO Q4H PRN 04/06/17 [History] 3 Allergy/AdvReac Type Severity Reaction Status Date / Time No Known Drug Allergies Allergy none Verified 04/06/17 16:37 All systems: reviewed and no additional remarkable complaints except as stated ( generalized edema, generalized weakness) Palliative Care-Exam - Constitutional Vitals: Temp Pulse Resp BP Pulse Ox 99.2 F 81 15 99/73 94 04/13/17 15:39 04/13/17 15:39 04/13/17 15:39 04/13/17 15:39 04/13/17 15:39 General appearance: Present: no acute distress - Head Head Exam: Present: normal inspection, normocephalic - Eye Eye exam: Present: PERRL, scleral icterus - Respiratory Additional comments: Rales noted posterior LLL - Cardiovascular Cardiovascular exam: Present: +S1, +S2 - GI/Abdominal Exam GI/Abdominal exam: Present: distended, normal bowel sounds, soft, tenderness - Catheter Type: Urethral (Vasquez) Additional comments: Urine light fitz in color - Extremities Exam Additional comments: 2-3 + edema bilaterally upper and lower extremities - Neurological Exam Neurological exam: Present: alert, strengths equal and symetr throughout Additional comments: Oriented to name and place. - Skin Skin exam: Present: dry, warm Internal Medicine - CN: Reslt - Labs CBC & Chem 7: 04/13/17 07:30 04/13/17 07:30 Labs: Short CBC 04/13/17 Range/Units 07:30 WBC 27.2 H (4.3-11.1) K/mcL Hgb 10.8 L (11.5-15.4) g/dL Hct 32.0 L (35.3-44.9) % Plt Count 77 L D (140-400) K/mcL Neutrophils # 23.9 H (1.6-8.9) K/mcL BMP 04/13/17 07:30 Sodium 128 L Potassium 4.1 Chloride 98 Carbon Dioxide 21 BUN 17 Creatinine 0.82 Glucose 154 H Calcium 7.8 L Liver Function 04/13/17 Range/Units 07:30 Total Bilirubin 4.4 H (0.2-1.2) mg/dL AST 23 (5-34) Units/L ALT 23 (0-55) Units/L Alkaline Phosphatase 805 H (38-126) Units/L Albumin 2.0 L (3.5-5.0) g/dL - ABG Interpretation ABG results: PT/INR, D-dimer PT 13.9 Seconds (9.4-12.1) H 04/12/17 09:30 Consult Discharge Plan - Plan Referrals: NONE,PCP [Primary Care Provider] - Palliative Quality Palliative Quality: Screen for Code Status: Yes, Screen for Goals of Care: Yes, Screen for Pain: Yes, If Pain Regimen Started, Initiate Bowel Regimen: Yes, Screen for Nausea/Vomitting: Yes
[2017-04-13] MEDS ORDERED: Morphine Oral CONC 5 MG/0.25 ML ORAL.SYG PO PRN (16:25)
--- NOTE | 2017-04-13 16:51 | Oncology Inp Progress Note ---
Date of Encounter: 04/13/17 Time of Encounter: 16:51 (1) Septic shock due to Klebsiella pneumoniae Current Visit: Yes Status: Acute Assessment and plan: Overall seems to be improving, although WBC is trending up. Remains afebrile, off pressors. Surveillance blood cultures from 04/09/17 remains negative. Continue management as per critical care team. (2) Pancreatic cancer metastasized to liver Current Visit: Yes Status: Acute Assessment and plan: - I discussed the results of her recent CT scan from 04/07/[address] scan from , as well as ongoing clinical events. Her WBC is trending up, but overall her sepsis seems to be improving. She remains afebrile and off pressors. - During the visit we discussed the options of adopting a different approach, focusing in quality of life under hospice versus the option of attempting further chemotherapy either as further cycles of FOLFIRINOX versus an alternative chemotherapy regimen ( or adjusted dose of chemotherapy). Ms. Velez expressed clearly that she would like to consider further chemotherapy. She is aware that she needs to be evaluated as outpatient to determine if further chemotherapy is advisable, what would depend of the status of her co morbidities and her performance status. (3) Hydronephrosis due to obstruction of ureter Current Visit: Yes Status: Acute Assessment and plan: s/p stent placement. Renal function/creatinine have returned to normal parameters. Oncology: Subj Interval history: Ms. Trevizo was seen with her daughter at bedside. She is off pressors and surveillance blood cultures remain negative. WBC went up today, but she denies fever, chills. Overall feeling better. Reports being tolerating meals, denies nausea, vomiting, diarrhea. Ms. Trevizo's daughter reports that she has not ambulated since April 03, 2017, but Ms. Trevizo believes it's not been that many days. - Constitutional Vitals: Vital Signs Temp Pulse Resp BP Pulse Ox 04/13/17 15:39 99.2 F 81 15 99/73 94 04/13/17 11:51 98.6 F 107 18 121/102 95 04/13/17 09:54 97.7 F 102 15 96/62 93 04/13/17 05:00 98 F 106 23 96/75 91 04/13/17 01:00 97.8 F 99 21 102/91 92 04/12/17 20:00 98.3 F 106 14 100/85 97 Intake and Output 04/13/17 04/13/17 04/13/17 07:59 15:59 23:59 Intake Total 320 / 320 0 / 0 Output Total 1000 / 1000 325 / 325 Balance -680 / -680 -325 / -325 Intake: Oral 320 / 320 0 / 0 Output: Urine 1000 / 1000 Catheter 325 / 325 Other: Meal Breakfast Weight 110.7 kg Blood Glucose* 133 149 Patient Weight 04/13/17 23:59 Weight 110.7 kg - Head Head exam: Present: normal inspection - Respiratory Respiratory exam: Present: CTAB - Cardiovascular Cardiovascular exam: Present: irregular rhythm - GI/Abdominal GI/Abdominal exam: Present: normal bowel sounds. Absent: hyperactive bowel sounds, organomegaly - Extremities Exam Extremities exam: Present: pedal edema Oncology: Obj Data - Labs CBC & Chem 7: 04/13/17 07:30 04/13/17 07:30 Labs: Laboratory Results - last 24 hr 04/12/17 04/13/17 04/13/17 18:46 07:30 07:30 WBC 27.2 H RBC 3.43 L Hgb 10.8 L Hct 32.0 L MCV 93.3 MCH 31.5 MCHC 33.8 RDW 20.1 H Plt Count 77 L D MPV 14.2 H Seg Neutrophils % 80.0 Band Neutrophils % 8.0 H Lymphocytes % 12.0 Neutrophils # 23.9 H Lymphocytes # 3.3 Platelet Estimate Decreased L Polychromasia 1+ A Poikilocytosis 1+ A Anisocytosis 1+ A Sodium 128 L Potassium 4.1 Chloride 98 Carbon Dioxide 21 BUN 17 Creatinine 0.82 Est GFR ( Amer) > 60 Est GFR (Non-Af Amer) > 60 BUN/Creatinine Ratio 21 Glucose 154 H POC Glucose 116 H Calculated Osmolality 271 L Calcium 7.8 L Total Bilirubin 4.4 H AST 23 ALT 23 Alkaline Phosphatase 805 H Serum Total Protein 4.6 L Albumin 2.0 L Globulin 2.6 Albumin/Globulin Ratio 0.8 L 04/13/17 08:58 WBC RBC Hgb Hct MCV MCH MCHC RDW Plt Count MPV Seg Neutrophils % Band Neutrophils % Lymphocytes % Neutrophils # Lymphocytes # Platelet Estimate Polychromasia Poikilocytosis Anisocytosis Sodium Potassium Chloride Carbon Dioxide BUN Creatinine Est GFR ( Amer) Est GFR (Non-Af Amer) BUN/Creatinine Ratio Glucose POC Glucose 139 H Calculated Osmolality Calcium Total Bilirubin AST ALT Alkaline Phosphatase Serum Total Protein Albumin Globulin Albumin/Globulin Ratio - ABG Interpretation ABG results: PT/INR, D-dimer PT 13.9 Seconds (9.4-12.1) H 04/12/17 09:30 Consult Discharge Plan - Plan Referrals: NONE,PCP [Primary Care Provider] -
--- NOTE | 2017-04-13 18:45 | Internal Med Progress Note ---
Date of Encounter: 04/13/17 Time of Encounter: 09:00 - Assessment and plan (1) History of pulmonary embolism Current Visit: Yes Status: Acute Assessment and plan: Patient was not on anticoagulation because of thrombocytopenia. She has IVC filter placed. (2) Leukocytosis Current Visit: Yes Status: Acute Assessment and plan: WBCs is still high. Continue IV antibiotics. Follow-up CBC Qualifiers: Leukocytosis type: bandemia Qualified Code(s): D72.825 - Bandemia (3) History of pancreatic cancer Current Visit: Yes Status: Acute Assessment and plan: Oncology is on board. Stage IV cancer with obstructive jaundice. Continue follow oncology recommendations (4) Anemia Current Visit: Yes Status: Acute Assessment and plan: Closely follow-up H&H. Transfusion as needed Qualifiers: Anemia type: other cause Other causes of anemia: other cause, not classified Qualified Code(s): D64.89 - Other specified anemias (5) Sepsis Current Visit: Yes Status: Acute Assessment and plan: Patient has severe UTI with septic shock. She was found right-sided ureteral obstruction. Stent has been placed by urology. Blood culture and urine culture positive for Klebesella, will continue Rocephin per sensitivity. Qualifiers: Sepsis type: sepsis due to unspecified organism Qualified Code(s): A41.9 - Sepsis, unspecified organism (6) DVT prophylaxis Current Visit: Yes Status: Acute Assessment and plan: EPCD, no anti-coagulation because of thrombocytopenia (7) ANGELA (acute kidney injury) Current Visit: Yes Status: Acute Assessment and plan: Improved after treatment. Continue closely follow-up her renal function. Avoid nephrotoxic medications (8) Thrombocytopenia Current Visit: Yes Status: Acute Assessment and plan: No active bleeding. Oncology on case. Continue closely monitoring - Time Spent With Patient 25 - 35 minutes - Subjective Interval history: Patient is a 62-year-old female with a history of pancreatic cancer with remote metastasis, PE, DVT admitted to ICU on 04/06/17 for septic shock, UTI, ANGELA, hydronephrosis. Patient was treated by antibiotic. Urology consult place a stent for Rt hydronephrosis. Patient's vitals are stable, off pressor now, renal function has improved. Patient transferred to regular floor for further management. Her blood urine culture shows Klebsiella pneumonia positive I saw and examined the patient today. She is awake alert, oriented 3. Feels fine. Vitals are stable. We will continue IV Rocephin per sensitivity for bacteremia and UTI. PT OT evaluation and palliative care consult for further management plan. - Constitutional Vitals: Temp Pulse Resp BP Pulse Ox 99.2 F 81 15 99/73 94 04/13/17 15:39 04/13/17 15:39 04/13/17 15:39 04/13/17 15:39 04/13/17 15:39 General appearance: Present: cooperative, A&O X 3, pleasant, no acute distress, answers questions appropriately - Head Head exam: Present: atraumatic, normocephalic - Eye Eye exam: Present: PERRL, conjuntiva pink, sclera anicteric Pupils: Present: PERRL - Neck Neck exam general surgery: Present: supple, trachea midline. Absent: lymphadenopathy - Respiratory Respiratory exam: Present: CTAB. Absent: accessory muscle use, rales, rhonchi, wheezes - Cardiovascular Cardiovascular exam: Present: RRR, +S1, +S2. Absent: diastolic murmur, gallop, rubs, systolic murmur - GI/Abdominal GI/Abdominal exam: Present: normal bowel sounds, soft, no peritoneal signs. Absent: distended, tenderness - Extremities Exam Extremities exam: Present: pedal edema (Moderate bilateral pedal edema), warm, radial pulses palpable and symmetrical. Absent: calf tenderness, cyanotic - Neurological Exam Neurological exam: Present: CN II-XII intact, oriented X3, no focal deficits. Absent: pronater drift, facial droop, speech deficit - Skin Skin exam: Present: dry, intact Internal Medicine: Result - Labs CBC & Chem 7: 04/13/17 07:30 04/13/17 07:30 Labs: Short CBC 04/13/17 Range/Units 07:30 WBC 27.2 H (4.3-11.1) K/mcL Hgb 10.8 L (11.5-15.4) g/dL Hct 32.0 L (35.3-44.9) % Plt Count 77 L D (140-400) K/mcL Neutrophils # 23.9 H (1.6-8.9) K/mcL BMP 04/13/17 07:30 Sodium 128 L Potassium 4.1 Chloride 98 Carbon Dioxide 21 BUN 17 Creatinine 0.82 Glucose 154 H Calcium 7.8 L Liver Function 04/13/17 Range/Units 07:30 Total Bilirubin 4.4 H (0.2-1.2) mg/dL AST 23 (5-34) Units/L ALT 23 (0-55) Units/L Alkaline Phosphatase 805 H (38-126) Units/L Albumin 2.0 L (3.5-5.0) g/dL - ABG Interpretation ABG results: PT/INR, D-dimer PT 13.9 Seconds (9.4-12.1) H 04/12/17 09:30 Consult Discharge Plan - Plan Referrals: NONE,PCP [Primary Care Provider] -
[2017-04-14] MEDS: *HR* Morphine Sulfate SR (12 HR) 30 MG TABLET.ER PO SCH ×4 (00:20→20:05)
[2017-04-14 03:45] LABS: Basophils # 0.1 K/mcL (0.0-0.2); Basophils % 0.3 %; Eosinophils % 0.1 %; Hematocrit 29.8 % (35.3-44.9); Hemoglobin 10.1 g/dL (11.5-15.4); Immature Platelets 23.9 % (1.1-6.1); Lymphocytes # 1.9 K/mcL (0.6-4.6); Lymphocytes % 7.9 %; Mean Corpuscular HGB Conc 33.9 g/dL (31.6-35.5); Mean Corpuscular Volume 91.4 fL (83.0-100.0); Mean Platelet Volume 13.5 fL (9.4-12.4); Monocytes # 1.4 K/mcL (0.0-1.3); Monocytes % 5.9 %; Neutrophils # 19.1 K/mcL (1.6-8.9); Nucleated Red Blood Cells 0.1 /100 WBC (0); Platelet Count 103 K/mcL (140-400); Red Blood Count 3.26 M/mcL (3.82-4.97); Red Cell Distribution Width 19.7 % (11.5-14.5); Segmented Neutrophils % 80.8 %
[2017-04-14 04:01] LABS: BUN/Creatinine Ratio 19 (6-26); Blood Urea Nitrogen 14 mg/dL (7-20); Calcium 7.7 mg/dL (8.6-10.8); Carbon Dioxide 22 mEq/L (19-29); Chloride 98 mEq/L (98-109); Glucose 133 mg/dL (70-99); Osmolality,Calculated 266 (280-300); Potassium 4.1 mEq/L (3.5-4.5); Sodium 127 mEq/L (136-145); eGFR For African Americans > 60 (> 60); eGFR For Non-African Americans > 60 (> 60)
[2017-04-14] MEDS: Sucralfate 1 GM TABLET PO SCH ×4 (08:25→22:34)
[2017-04-14] MEDS: Furosemide 20 MG TABLET PO SCH (08:25)
[2017-04-14] MEDS: Spironolactone 25 MG TABLET PO SCH (08:25)
[2017-04-14] MEDS: Insulin LISPRO 300 UNITS/3 ML VIAL SQ SCH ×3 (08:25→17:03)
[2017-04-14] MEDS: Lactobacillus 1 EACH CAP.SPRINK PO SCH ×2 (08:25→20:04)
--- NOTE | 2017-04-14 11:40 | Event Note ---
Date of Encounter: 04/14/17 Time of Encounter: 07:00 I have attempted to offer a progress note 3 times a day in the system shuts down each time. I did meet with and her daughter today and reviewed her course. She appears to be recovering from her Klebsiella urinary tract infection with sepsis. We now need to focus our attention on her rehabilitation with physical therapy and occupational therapy. This process will start today. Regarding her chemotherapy, further therapy will be on hold pending her recovery. We did discuss alternative treatments. She and her daughter want to pursue aggressive measures if her performance status allows. They understand that her performance status may inhibit our ability proceed with further chemotherapy. However, I am hopeful she will recover from this hospitalization and return to therapy as she has clinical indicators of improvement. Her CA 199and liver function testing have improved with therapy. We will continue to follow. Do not hesitate to call concerns or questions
--- NOTE | 2017-04-14 15:40 | Event Note ---
Date of Encounter: 04/14/17 Time of Encounter: 14:00 I have attempted to document progress note x3 today, and note closes out on me prior to finishing. Patient is alert and oriented, resting quietly in bed. Denies any pain/dyspnea/nausea, but does c/o poor appetite. No family present, but states /daughter here earlier. Continues with IV atb therapy for Klebsiella sepsis. Alert and oriented x3 at this time. Apical RRR, Lungs with diminished BS in bases. Abd soft with Active bowel sounds. Skin warm and dry. Color sallow. Cancer associated Pain management. She frequently is refusiing MS Contin, but did take this am. Has Roxanol if needed for breakthrough, but has not utilize. Anorexia -will begin Remeron 15mg q hs. Not a candidate for Megastrol r/t thrombus. Discussed discharge plan with pt. PT/OT recommendation for rehab. She is willing to go short term. Request [facility] as first choice. Will notify social work. Discussed code status at length and she is adamant at this time to remain full code. Will continue to follow
[2017-04-14] MEDS: Mirtazapine 15 MG TABLET PO SCH (20:06)
--- NOTE | 2017-04-14 22:08 | Event Note ---
Date of Encounter: 04/14/17 Time of Encounter: 11:00 I examined this patient and my medical decision-making was reviewed with the Resident Physician on 04/14/17. I agree with the documented findings, disposition and treatment plan as described except to the extent set forth below. Ms. Trevizo is currently admitted for septic shock due to Klebsiella. She remains moderate to high risk due to potential for worsening infectious status. Ms Trevizo is feeling OK at this time. No fever or chills at this time. Tolerating abx. Had brief episode of SVT when sat up today. Exam Alert Comfortable Mucus membranes dry Heart irreg No wheeze Abd soft I/P 1. Sepsis due to Klebsiella 2. SVT 3. Chronic a fib 4. Pancreatic cancer Further diagnoses and plan per progress note of today
[2017-04-15] MEDS: *HR* Morphine Sulfate SR (12 HR) 30 MG TABLET.ER PO SCH ×2 (04:00→17:14)
[2017-04-15 04:19] LABS: Basophils % 0.6 %; Hematocrit 31.7 % (35.3-44.9); Hemoglobin 10.8 g/dL (11.5-15.4); Mean Corpuscular HGB Conc 34.1 g/dL (31.6-35.5); Platelet Count 142 K/mcL (140-400); Red Cell Distribution Width 19.8 % (11.5-14.5)
[2017-04-15 04:20] LABS: Basophils # 0.2 K/mcL (0.0-0.2); Immature Granulocytes % 6.1 % (0-4); Lymphocytes # 2.8 K/mcL (0.6-4.6); Lymphocytes % 9.8 %; Mean Corpuscular Hemoglobin 31.1 pg (28.0-33.3); Mean Corpuscular Volume 91.4 fL (83.0-100.0); Mean Platelet Volume 13.5 fL (9.4-12.4); Monocytes # 2.2 K/mcL (0.0-1.3); Monocytes % 7.6 %; Neutrophils # 21.9 K/mcL (1.6-8.9); Red Blood Count 3.47 M/mcL (3.82-4.97); Segmented Neutrophils % 75.9 %
[2017-04-15 04:30] LABS: BUN/Creatinine Ratio 19 (6-26); Blood Urea Nitrogen 17 mg/dL (7-20); Carbon Dioxide 21 mEq/L (19-29); Chloride 97 mEq/L (98-109); Glucose 133 mg/dL (70-99); Osmolality,Calculated 267 (280-300); Potassium 4.5 mEq/L (3.5-4.5); eGFR For African Americans > 60 (> 60); eGFR For Non-African Americans > 60 (> 60)
[2017-04-15 04:35] LABS: Anisocytosis 1+ (Not Present); Large Platelets Present (Not Present); Platelet Estimate Normal (Normal); Reactive Lymphocytes Present (Not Present); Toxic Granulation Present (Not Present)
[2017-04-15 04:49] LABS: Sodium 127 mEq/L (136-145)
[2017-04-15] MEDS: Furosemide 20 MG TABLET PO SCH (09:32)
[2017-04-15] MEDS: Spironolactone 25 MG TABLET PO SCH (09:33)
[2017-04-15] MEDS: Lactobacillus 1 EACH CAP.SPRINK PO SCH ×2 (09:33→20:16)
[2017-04-15] MEDS: Insulin LISPRO 300 UNITS/3 ML VIAL SQ SCH (09:34)
[2017-04-15] MEDS: Sucralfate 1 GM TABLET PO SCH ×3 (09:35→20:14)
--- NOTE | 2017-04-15 11:37 | Event Note ---
Date of Encounter: 04/15/17 Time of Encounter: 11:30 Still unable to document progress note. Patient is sleeping on my arrival, awakens easily, but drifts back to sleep. Denies discomfort. PT/OT grant completed yesterday and clinical social work therapist has seen pt today. Most likely for rehab at [facility]. Remeron began last night for appetite/mood. No family is present at the time of my visit. Will continue to follow
--- NOTE | 2017-04-15 15:45 | Event Note ---
Date of Encounter: 04/15/17 Time of Encounter: 15:49 Subjective: patient reports not significant overnight events. Denies complaints during the visit. She was made aware that her platelet count have normalized. Denies bleeding events. ROS: negative for CP, SOB, bleeding. Physical exam: General : Alert and oriented. no acute distress lungs CTA BL CVS s1s2: no murmurs. Abdomen : soft, No tenderness. Extremities: bilateral lower extremity edema. Labs reviewed; platelet count back to normal parameters. Hb stable. Assessment and plan: 1.) Thrombocytopenia: - Resolved. Probably due to a combination of sepsis in the settings of poor bone marrow reserve, prior chemotherapy. - At this time there are not contraindications for anticoagulation. Patient has IVC filter in place, but history of lower extremity DVT, so it would be reasonable to resume anticoagulation at prior dose: lovenox 100 mg SQ BID. - Monitor CBC - She was made aware that we may have to hold off anticoagulation in the future if her thrombocytopenia recurs. 2.) Septic shock:seems to have resolved. 3.) Pancreatic cancer: - Upon discharge please arrange follow up with medical oncology to discuss further options of therapy. [facility] H[facility]/Oncology.
[2017-04-15] MEDS: *HR* Enoxaparin 30 MG/0.3 ML SYRINGE SQ SCH (20:16)
[2017-04-15] MEDS: Mirtazapine 15 MG TABLET PO SCH (20:16)
--- NOTE | 2017-04-15 22:34 | Event Note ---
Date of Encounter: 04/15/17 Time of Encounter: 15:00 I examined this patient and my medical decision-making was reviewed with the Resident Physicianon 04/15/17. I agree with the documented findings, disposition and treatment plan as described except to the extent set forth below. Unable to type note . Ms Trevizo is currently admitted for Klebsiella bacteremia/sepsis. She remains moderate to high risk due to potential for worsening infectious status. Ms. Trevizo feels OK today. Pain is controlled. No fever or chills. Tolerating IV abx. Needs abx through 04/22. Exam Alert. Comfortable Mucus membranes dry Heart reg No wheeze Abd soft I/P 1. Klebsiella sepsis. - abx through 04/22 2. Pancreatic cancer Working on d/c planning. Needs SNF.
--- NOTE | 2017-04-16 00:16 | Event Note ---
<Veronica Agarwal - Last Filed: 04/17/17 15:18> Date of Encounter: 04/14/17 Time of Encounter: 10:00 04/14/17 Pt seen and examined this morning. Pt states she is doing ok and reports no events overnight. She denies fever, chills, nausea, vomiting, diarrhea, constipation. GEN: VSS; AOx3; NAD; appears non-toxic CARDIOVASC: RRR, +s1, +s2 PULM: non-labored respirations and symmetric chest rise GI: Bowel sounds present, abdomen soft and nontender NEURO: no speech deficiency, no facial droop, no focal deficits Sepsis: Afebrile. Urine culture positive for Klebsiella, continue rocephin ANGELA: BUN/Cr 14 and 0.73 today, continue to avoid nephrotoxic meds Hx of pulmonary embolism: not currently anticoagulated 2/2 thrombocytopenia, will contact heme/onc for rec's Hx of pancreatic cancer: stage IV with liver metastases, obstructive jaundice Leukocytosis: improved white count today 23.6 (27.2) Anemia: continue to monitor, H/H today 10.1/29.8 Thrombocytopenia: WNL (today 181) <Matt Tran - Last Filed: 04/17/17 18:29> Date of Encounter: 04/17/17 I examined this patient and my medical decision-making was reviewed with the Resident Physician 04/14/17. I agree with the documented findings, disposition and treatment plan as described except to the extent set forth below. Please see my event note. Unable to do a full progress note on this patient due to EMR issues.
--- NOTE | 2017-04-16 00:16 | Event Note ---
<Veronica Agarwal - Last Filed: 04/17/17 16:57> Date of Encounter: 04/17/17 Time of Encounter: 10:00 04/15/17 Pt seen and examined this morning. Pt is more talkative, pleasant. Pt feels well today and has no complaints. She denies fever, chills, nausea, vomiting, diarrhea, constipation. GEN: VSS; AOx3; NAD; appears non-toxic CARDIOVASC: RRR, +s1, +s2 PULM: no coughing, wheezing, respiratory distress GI: Bowel sounds present, abdomen soft and nontender NEURO: no speech deficiency, no facial droop, no focal deficits Sepsis: Afebrile. Urine culture positive for Klebsiella, continue rocephin (day 10) ANGELA: BUN/Cr 17 and 0.89 today, continue to avoid nephrotoxic meds Hx of pulmonary embolism: not currently anticoagulated 2/2 thrombocytopenia, will contact heme/onc for rec's Hx of pancreatic cancer: stage IV with liver metastases, obstructive jaundice Leukocytosis: white count today 28.8 (23.6) Anemia: continue to monitor, H/H today 10.8/31.7 Thrombocytopenia: WNL (today 142) <Matt Tran - Last Filed: 04/17/17 18:30> Date of Encounter: 04/17/17 I examined this patient and my medical decision-making was reviewed with the Resident Physician on 04/15/17. I agree with the documented findings, disposition and treatment plan as described except to the extent set forth below. Please see my event note of this day. Unable to enter full progress in EMR for this patient.
[2017-04-16] MEDS: *HR* Morphine Sulfate SR (12 HR) 30 MG TABLET.ER PO SCH ×4 (04:25→19:45)
[2017-04-16] MEDS: Sucralfate 1 GM TABLET PO SCH ×5 (04:25→21:42)
[2017-04-16 04:32] LABS: Eosinophils % 0.1 %; Hemoglobin 10.6 g/dL (11.5-15.4)
[2017-04-16 04:34] LABS: Basophils # 0.1 K/mcL (0.0-0.2); Basophils % 0.2 %; Hematocrit 31.5 % (35.3-44.9); Immature Granulocytes % 5.7 % (0-4); Lymphocytes # 3.5 K/mcL (0.6-4.6); Lymphocytes % 11.2 %; Mean Corpuscular HGB Conc 33.7 g/dL (31.6-35.5); Mean Corpuscular Hemoglobin 31.2 pg (28.0-33.3); Mean Corpuscular Volume 92.6 fL (83.0-100.0); Mean Platelet Volume 12.8 fL (9.4-12.4); Monocytes % 7.8 %; Neutrophils # 23.6 K/mcL (1.6-8.9); Nucleated Red Blood Cells 0.1 /100 WBC (0); Platelet Count 181 K/mcL (140-400); Red Cell Distribution Width 19.8 % (11.5-14.5)
[2017-04-16 04:39] LABS: Monocytes # 2.5 K/mcL (0.0-1.3)
[2017-04-16 04:50] LABS: Albumin 2.1 g/dL (3.5-5.0); Albumin/Globulin Ratio 0.7 (1.1-2.2); Calcium 8.1 mg/dL (8.6-10.8); Globulin 2.9 g/dL (2.4-3.5); Potassium 4.5 mEq/L (3.5-4.5)
[2017-04-16 04:54] LABS: Bilirubin,Total 2.9 mg/dL (0.2-1.2)
[2017-04-16 05:14] LABS: Anisocytosis 1+ (Not Present); Platelet Estimate Normal (Normal); Polychromasia 1+ (Not Present)
[2017-04-16 05:15] LABS: Reactive Lymphocytes Present (Not Present)
[2017-04-16] MEDS: Spironolactone 25 MG TABLET PO SCH (08:22)
[2017-04-16] MEDS: Furosemide 20 MG TABLET PO SCH (08:22)
[2017-04-16] MEDS: *HR* Enoxaparin 30 MG/0.3 ML SYRINGE SQ SCH (08:22)
[2017-04-16] MEDS: Lactobacillus 1 EACH CAP.SPRINK PO SCH ×2 (08:22→21:42)
--- NOTE | 2017-04-16 10:45 | Internal Med Progress Note ---
Date of Encounter: 04/16/17 - Constitutional Vitals: Temp Pulse Resp BP Pulse Ox 97.8 F 109 17 90/56 97 04/16/17 07:00 04/16/17 07:00 04/16/17 07:00 04/16/17 07:00 04/16/17 09:15 General appearance: Present: cooperative, A&O X 3, pleasant, no acute distress, answers questions appropriately Internal Medicine: Result - Labs CBC & Chem 7: 04/16/17 04:15 04/16/17 04:15 Labs: Short CBC 04/16/17 Range/Units 04:15 WBC 31.4 H* (4.3-11.1) K/mcL Hgb 10.6 L (11.5-15.4) g/dL Hct 31.5 L (35.3-44.9) % Plt Count 181 (140-400) K/mcL Neutrophils # 23.6 H (1.6-8.9) K/mcL BMP 04/16/17 04:15 Sodium 126 L Potassium 4.5 Chloride 96 L Carbon Dioxide 20 BUN 23 H Creatinine 1.14 H Glucose 122 H Calcium 8.1 L Liver Function 04/16/17 Range/Units 04:15 Total Bilirubin 2.9 H (0.2-1.2) mg/dL AST 27 (5-34) Units/L ALT 22 (0-55) Units/L Alkaline Phosphatase 1106 H (38-126) Units/L Albumin 2.1 L (3.5-5.0) g/dL - ABG Interpretation ABG results: PT/INR, D-dimer PT 13.9 Seconds (9.4-12.1) H 04/12/17 09:30 Consult Discharge Plan - Plan Referrals: NONE,PCP [Primary Care Provider] -
--- NOTE | 2017-04-16 10:49 | Discharge Summary ---
<Veronica Agarwal - Last Filed: 04/22/17 10:31> Date of Encounter: 04/22/17 Time of Encounter: 14:54 - Discharge Diagnosis (1) Anemia Priority: Primary Status: Acute Qualifiers: Anemia type: other cause Other causes of anemia: chronic disease, neoplastic Qualified Code(s): D63.0 - Anemia in neoplastic disease (2) Leukocytosis Priority: Secondary Status: Acute Qualifiers: Leukocytosis type: bandemia Qualified Code(s): D72.825 - Bandemia (3) Pancreatic cancer metastasized to liver Priority: Secondary Status: Acute (4) ANGELA (acute kidney injury) Priority: Secondary Status: Resolved (5) Thrombocytopenia Priority: Secondary Status: Acute - Discharge Medications Prescriptions: Dronabinol [Marinol] 5 mg PO BIDWM #60 capsule OxyCODONE Immed Rel [Roxicodone 5 MG] 10 mg PO Q6H PRN #20 tablet PRN Reason: Pain Home Medications: Lidocaine/Prilocaine [Emla] 1 appl TP AD #30 gm 02/11/17 [Rx] Ondansetron HCl [Zofran] 4 mg PO Q6H PRN #40 tablet 02/11/17 [Rx] Prochlorperazine Maleate [Compazine] 10 mg PO Q6HR PRN #40 tablet 02/11/17 [Rx] Omeprazole 20 mg PO DAILY #90 tablet. 03/04/17 [Rx] Furosemide [Lasix] 20 mg PO DAILY #90 tablet 03/25/17 [Rx] Spironolactone [Aldactone] 25 mg PO DAILY #90 tablet 03/25/17 [Rx] Sucralfate [Carafate] 1 gm PO QIDAC #120 tablet 03/25/17 [Rx] Loperamide HCl [Imodium A-D] 2 mg PO PER PKG DI PRN 04/06/17 [History] Stomatitis Mixture 5 ml PO Q4H PRN 04/06/17 [History] Apixaban [Eliquis] 5 mg PO BID #60 tablet 04/22/17 [Rx] OxyCODONE Immed Rel [Roxicodone 5 MG] 10 mg PO Q6H PRN #20 tablet 04/22/17 [Rx] Dronabinol [Marinol] 5 mg PO BIDWM #60 capsule 04/23/17 [Rx] Allergies/Adverse Reactions: 3 Allergy/AdvReac Type Severity Reaction Status Date / Time No Known Drug Allergies Allergy none Verified 04/06/17 16:37 Date of admission: 04/06/17 20:00 Primary care physician: PCP NONE Consults: 04/13/17 09:46 Consult to Occupational Therapy [CONS] Routine Comment: Evaluate, develop and implement POC Reason for Consult: eval and treat Consult to Physical Therapy [CONS] Routine Comment: Evaluate, develop and implement POC Reason for Consult: eval and treat 04/13/17 11:35 Consult to Palliative Care [CONS] Routine Comment: Consulting Provider: Palliative Care Lilian Reason for Consult: family request Call Completed: No 04/14/17 16:45 Consult to Ammonia Print Operator [CONS] Routine Reason for SW Consult: PT/OT recommending SNF Discharging clinician: Veronica Agarwal - Patient Status Disposition: Transfer SNF Condition: Good Functional capacity at discharge: bed bound Overall status at discharge: patient is progressing back to baseline - Discharge Instructions Instructions: Oxycodone/Acetaminophen (By mouth), Atrial Fibrillation (DC), Acute Kidney Injury (DC), Acute Kidney Injury (GEN), Intravenous Chemotherapy ( DC), Intravenous Chemotherapy (GEN), Eating During Cancer Treatment (DC), Pancreatic Cancer (DC), Liver Cancer (DC), Liver Cancer (GEN), Sepsis (DC), Anemia (GEN), Thrombocytopenia (DC), Thrombocytopenia (GEN), Infectious Colitis (GEN) Follow Up With: Que Dwyer MD [Partnered Physician] - 04/27/17 3:20 pm NONE,PCP [Primary Care Provider] - - Diet and Activity Activity: as per physical therapy Diet: advance to your usual diet Interval History: Ms. Trevizo is a 62 year old female who presents to ED with a complaint of generalized weakness and SOB. PMhx of pancreatic cancerreceiving chemo. Symptoms for 24 hours getting progressively worse. Admits to significant diarrhea for the previous couple days but denies chest pain. On presentation to ED, pts HR was in 200s, BP was 70s/50s. She was given adenosine and fluids with improvement of VS to 102 HR and BP 80-90 systolic and converted to NSR from SVT. She was started on levophed and cardiology was consulted in ED after conversion from unstable SVT and did not recommend anticoagulation at the time due to drop in Hgb. Labs were significant for WBC 13.3, H/H of 7.3/22.3, Na of 127, BUN/Cr of 22/ 2.58, Mg 1.3, phos 2.0, Alk Phos 525, Troponin 0.47, lactic acid 2.0. CXR was negative for acute process. Patient was admitted to ICU for further management of Sepsis secondary to unknown source, elevated troponin, SVT, ANGELA, electrolyte changes. During course of hospital stay, patient gradually improved. Pulmonology, cardiology, oncology, nephrology was consulted during stay. Blood cultures grew klebsiella pneumoniae with probable urinary source. CT abdomen showed hydronephrosis and urology was consulted and placed a stent in the right ureter. Patient also developed DVT and was unable to be anticoagulated due to bleeding risk, IR was consulted for IVC filter. Broad spectrum ABx started in ED that were deescalated to rocephin once sensitivities were obtained. She received a total of 3 units of PRBCs during stay for anemia. Patients blood pressure improved and the levophed was able to be stopped. She was transferred from ICU to medicine floor. ANGELA due to shock, hydronephrosis improved to baseline. Troponin likely due to demand ischemia/ ANGELA. SVT did not return during admission. Electrolytes to baseline. On day of discharge, patient was medically stable without complaints. Her vital signs were significant for tachycardia of 105, NSR on EKG, respiratory rate of 20, BP stable at 93/65. She will be discharged to [facility] and instructed to return to emergency department if symptoms return and to complete her course of antibiotics. She was also instructed to follow up with PCP and oncology for further management of her chronic medical conditions. Hospital course: Ms. Trevizo is a 62 year old female who presents to ED with a complaint of generalized weakness and SOB. PMhx of pancreatic cancer receiving chemo. Symptoms for 24 hours getting progressively worse. Admits to significant diarrhea for the previous couple days but denies chest pain. On presentation to ED, pts HR was in 200s, BP was 70s/50s. She was given adenosine and fluids with improvement of VS to 102 HR and BP 80-90 systolic and converted to NSR from SVT. She was started on levophed and cardiology was consulted in ED after conversion from unstable SVT and did not recommend anticoagulation at the time due to drop in Hgb. Labs were significant for WBC 13.3, H/H of 7.3/22.3, Na of 127, BUN/Cr of 22/ 2.58, Mg 1.3, phos 2.0, Alk Phos 525, Troponin 0.47, lactic acid 2.0. CXR was negative for acute process. Patient was admitted to ICU for further management of Sepsis secondary to unknown source, elevated troponin, SVT, ANGELA, electrolyte changes. During course of hospital stay, patient gradually improved. Pulmonology, cardiology, oncology, nephrology was consulted during stay. Blood cultures grew klebsiella pneumoniae with probable urinary source. CT abdomen showed hydronephrosis and urology was consulted and placed a stent in the right ureter. Patient also developed DVT and was unable to be anticoagulated due to bleeding risk, IR was consulted for IVC filter. Broad spectrum ABx started in ED that were deescalated to rocephin once sensitivities were obtained, full course of rocephin completed. She received a total of 3 units of PRBCs during stay for anemia. Patient's blood pressure improved and the levophed was able to be stopped. She was transferred from ICU to medicine floor. ANGELA due to shock, hydronephrosis improved to baseline. Troponin likely due to demand ischemia/ ANGELA. SVT did not return during admission. Electrolytes to baseline. On day of discharge, patient was medically stable without complaints. Pt's lovenox was discontinued 2/2 thrombocytopenia (now improved), pt now taking Eliquis instead. Vital signs stable afebrile, HR 70, NSR on court monitor, respiratory rate of 21, BP stable at 90/62. She will be discharged to [facility] and instructed to return to emergency department if symptoms return. She was also instructed to follow up with PCP and oncology for further management of her chronic medical conditions. - Time Spent with Patient Total time spent providing and/or coordinating discharge services: - Constitutional Vitals: Temp Pulse Resp BP Pulse Ox 97.8 F 109 17 90/56 97 04/16/17 07:00 04/16/17 07:00 04/16/17 07:00 04/16/17 07:00 04/16/17 09:15 <Matt Tran - Last Filed: 04/23/17 19:38> Date of Encounter: 04/23/17 - Discharge Diagnosis (1) Septic shock due to Klebsiella pneumoniae Priority: Primary Status: Resolved (2) SVT (supraventricular tachycardia) Priority: Secondary Status: Resolved (3) Leukocytosis Status: Resolved Qualifiers: Leukocytosis type: bandemia Qualified Code(s): D72.825 - Bandemia (4) ANGELA (acute kidney injury) Status: Resolved (5) Thrombocytopenia due to drugs Priority: Secondary Status: Suspected (6) Pancreatic cancer metastasized to liver Status: Acute (7) Severe protein-calorie malnutrition Priority: Secondary Status: Chronic (8) Anemia Status: Acute Qualifiers: Anemia type: other cause Other causes of anemia: chronic disease, neoplastic Qualified Code(s): D63.0 - Anemia in neoplastic disease (9) Atrial fibrillation Priority: Secondary Status: Chronic Qualifiers: Atrial fibrillation type: chronic Qualified Code(s): I48.2 - Chronic atrial fibrillation Date of admission: 04/06/17 20:00 Primary care physician: PCP NONE Consults: 04/13/17 09:46 Consult to Occupational Therapy [CONS] Routine Comment: Evaluate, develop and implement POC Reason for Consult: eval and treat Consult to Physical Therapy [CONS] Routine Comment: Evaluate, develop and implement POC Reason for Consult: eval and treat 04/13/17 11:35 Consult to Palliative Care [CONS] Routine Comment: Consulting Provider: Palliative Care Lilian Reason for Consult: family request Call Completed: No 04/14/17 16:45 Consult to Ammonia Print Operator [CONS] Routine Reason for SW Consult: PT/OT recommending SNF Hospital course: Ms. Trevizo is a 62 year old female She had a delay in discharge due to insurance issues. She was started on Midodrine for her BP. - Time Spent with Patient Total time spent providing and/or coordinating discharge services: 38min - Constitutional Vitals: Temp Pulse Resp BP Pulse Ox 97.8 F 109 17 90/56 97 04/16/17 07:00 04/16/17 07:00 04/16/17 07:00 04/16/17 07:00 04/16/17 09:15 General appearance: Present: cooperative, A&O X 3, pleasant, no acute distress, answers questions appropriately - Attending Attestation I examined this patient and my medical decision-making was reviewed with the Resident Physician on 04/23/17. I agree with the documented findings, disposition and treatment plan as described except to the extent set forth below. Ms Trevizo has been admitted for Klebsiella sepsis. She has had a prolonged recovery. She has been approved for rehab and will be discharged today. She is afebrile. BP has fluctuated but is overall stable. Exam Alert. Comfortable Mucus membranes dry Heart reg No wheeze Abd soft Plan D/C to SNF today.
--- NOTE | 2017-04-16 10:50 | Physician Discharge Referral ---
<Matt Tran - Last Filed: 04/16/17 10:50> - Transfer Medications Home Medications: Lidocaine/Prilocaine [Emla] 1 appl TP AD #30 gm 02/11/17 [Rx] Ondansetron HCl [Zofran] 4 mg PO Q6H PRN #40 tablet 02/11/17 [Rx] Prochlorperazine Maleate [Compazine] 10 mg PO Q6HR PRN #40 tablet 02/11/17 [Rx] Dronabinol [Marinol] 5 mg PO BIDWM #60 capsule 02/20/17 [Rx] Enoxaparin [Lovenox] 100 mg SQ Q12HR #60 02/20/17 [Rx] Omeprazole 20 mg PO DAILY #90 tablet. 03/04/17 [Rx] Furosemide [Lasix] 20 mg PO DAILY #90 tablet 03/25/17 [Rx] Spironolactone [Aldactone] 25 mg PO DAILY #90 tablet 03/25/17 [Rx] Sucralfate [Carafate] 1 gm PO QIDAC #120 tablet 03/25/17 [Rx] Loperamide HCl [Imodium A-D] 2 mg PO PER PKG DI PRN 04/06/17 [History] Morphine Sulfate SR (12 HR) [MS Contin] 30 mg PO Q8HR 04/06/17 [History] OxyCODONE Immed Rel [Roxicodone 5 MG] 10 mg PO Q2HR PRN 04/06/17 [History] Stomatitis Mixture 5 ml PO Q4H PRN 04/06/17 [History] Allergies/Adverse Reactions: 3 Allergy/AdvReac Type Severity Reaction Status Date / Time No Known Drug Allergies Allergy none Verified 04/06/17 16:37 - Respiratory Orders Smoking Cessation: Smoking cessation has been advised. For more information, call the [place] Tobacco Quit Line at 8-812-VQDA-NOW. CERTIFICATION: I certify that the transfer of the above named patient to an Extended Care Facility is necessary for the continuing treatment of the diagnosis listed. The above information is true and accurate reflection of patient's current condition. Confidential - Redisclosure prohibited without a patient's written consent. <Veronica Agarwal - Last Filed: 04/16/17 17:04> ExtendedCare Referral Info Institutional Level of Care: Skilled Prognosis: Good - Respiratory Orders Smoking Cessation: Smoking cessation has been advised. For more information, call the [place] Tobacco Quit Line at 6-750-BBDS-NOW. - Ancillary Orders May use pressure relief devices daily prn - Advance Directives Code Status: Full Code - Treatments Skin tear care topically daily PRN per policy CERTIFICATION: I certify that the transfer of the above named patient to an Extended Care Facility is necessary for the continuing treatment of the diagnosis listed. The above information is true and accurate reflection of patient's current condition. Confidential - Redisclosure prohibited without a patient's written consent.
[2017-04-16] MEDS ORDERED: Morphine Oral CONC 5 MG/0.25 ML ORAL.SYG PO PRN (16:53)
--- NOTE | 2017-04-16 19:22 | Event Note ---
Date of Encounter: 04/16/17 Time of Encounter: 12:30 I examined this patient and my medical decision-making was reviewed with the Resident Physician on 04/16/17. I agree with the documented findings, disposition and treatment plan as described except to the extent set forth below. Ms Trevizo is currently admitted for Klebsiella sepsis. She is receiving IV abx. Her BP has been low today. She is awaiting D/C plans. She remains moderate to high risk due to potential for worsening infectious issues. Ms. Trevizo is doing OK. Her BP has been up and down. She is awaiting placement. She is still on IV abx. No fever or chills. Exam Alert. Comfortable Mucus membranes dry Heart reg No wheeze Abd soft I/P 1. Klebsiella sepsis 2. Hypotension, 3. Pancreatic cancer 4. SVT - has not recurred 5. Hyponatremia Further diagnoses and plan as per progress note of this date.
[2017-04-16] MEDS: *HR* Enoxaparin 120 MG/0.8 ML SYRINGE SQ SCH (19:51)
[2017-04-16] MEDS: Mirtazapine 15 MG TABLET PO SCH (21:42)
[2017-04-17] MEDS: *HR* Morphine Sulfate SR (12 HR) 30 MG TABLET.ER PO SCH ×4 (00:35→23:53)
[2017-04-17] MEDS: *HR* Enoxaparin 120 MG/0.8 ML SYRINGE SQ SCH ×2 (05:51→17:24)
[2017-04-17] MEDS: Lactobacillus 1 EACH CAP.SPRINK PO SCH ×2 (08:08→20:12)
[2017-04-17] MEDS: Sucralfate 1 GM TABLET PO SCH ×4 (08:08→20:12)
[2017-04-17] MEDS: Spironolactone 25 MG TABLET PO SCH (08:08)
[2017-04-17] MEDS: Furosemide 20 MG TABLET PO SCH (08:09)
--- NOTE | 2017-04-17 09:26 | Palliative Progress Note ---
Date of Encounter: 04/17/17 Time of Encounter: 09:25 - Assessment and plan (1) Cancer associated pain Current Visit: Yes Status: Acute Assessment and plan: Continues with home dose MS Carter. She does not take routinely. More alert now and can swallowing pills. Will transition oral Roxanol to home dose of Oxycodone if needed for breakthrough pain. (2) Counseling regarding advanced care planning and goals of care Current Visit: Yes Status: Acute Assessment and plan: SW working on rehab placement. She has not been approved for this at this time. Will continue to follow. SHe desires full code status. (3) History of pancreatic cancer Current Visit: Yes Status: Acute - Time Spent With Patient Total time spent is greater than 50% in coordination of care (as documented) at patient's floor/unit and/or counseling patient: 25 - 35 minutes - Subjective Interval history: Patient awake and alert, visitor at bedside. C/o being incontinent of stool. States she was at least once yesterday as well. WBC increased today. B/P marginal. Denies any pain. Appetite fair - eating about 20-50% of meals. States "I force myself to eat". - Constitutional Vitals: Abnormal lab results WBC 31.4 K/mcL (4.3-11.1) H* 04/16/17 04:15 RBC 3.40 M/mcL (3.82-4.97) L 04/16/17 04:15 Hgb 10.6 g/dL (11.5-15.4) L 04/16/17 04:15 Hct 31.5 % (35.3-44.9) L 04/16/17 04:15 RDW 19.8 % (11.5-14.5) H 04/16/17 04:15 MPV 12.8 fL (9.4-12.4) H 04/16/17 04:15 Immature Gran % 5.7 % (0-4) H 04/16/17 04:15 Band Neutrophils % 8.0 % (0-4) H 04/13/17 07:30 Metamyelocytes % 2.0 % (0) H 04/09/17 16:20 Myelocytes % 2.0 % (0) H 04/09/17 05:40 Neutrophils # 23.6 K/mcL (1.6-8.9) H 04/16/17 04:15 Monocytes # 2.5 K/mcL (0.0-1.3) H 04/16/17 04:15 Nucleated RBCs/100 WBC 0.1 /100 WBC (0) H 04/16/17 04:15 Hypersegmented Neuts Present (Not Present) A 04/09/17 05:40 Reactive Lymphocytes Present (Not Present) A 04/16/17 04:15 Toxic Granulation Present (Not Present) A 04/15/17 04:03 Toxic Vacuolation Present (Not Present) A 04/07/17 03:15 Dohle Bodies Present (Not Present) A 04/08/17 22:42 Large Platelets Present (Not Present) A 04/15/17 04:03 Immature Plt Fraction 23.9 % (1.1-6.1) H 04/14/17 03:30 Polychromasia 1+ (Not Present) A 04/16/17 04:15 Poikilocytosis 1+ (Not Present) A 04/13/17 07:30 Anisocytosis 1+ (Not Present) A 04/16/17 04:15 Microcytosis Present (Not Present) A 04/08/17 03:42 Macrocytosis Present (Not Present) A 04/08/17 03:42 [place] Cells 1+ (Not Present) A 04/07/17 03:15 PT 13.9 Seconds (9.4-12.1) H 04/12/17 09:30 APTT 51.9 Seconds (26.0-36.0) H 04/09/17 05:40 Sodium 126 mEq/L (136-145) L 04/16/17 04:15 Chloride 96 mEq/L (98-109) L 04/16/17 04:15 BUN 23 mg/dL (7-20) H 04/16/17 04:15 Creatinine 1.14 mg/dL (0.57-1.11) H 04/16/17 04:15 Est GFR ( Amer) 59 (> 60) L 04/16/17 04:15 Est GFR (Non-Af Amer) 48 (> 60) L 04/16/17 04:15 Glucose 122 mg/dL (70-99) H 04/16/17 04:15 POC Glucose 133 (58-89) H 04/15/17 07:25 Calculated Osmolality 267 (280-300) L 04/16/17 04:15 Uric Acid 7.5 mg/dL (2.6-6.0) H 04/07/17 14:20 Calcium 8.1 mg/dL (8.6-10.8) L 04/16/17 04:15 Total Bilirubin 2.9 mg/dL (0.2-1.2) H 04/16/17 04:15 Direct Bilirubin 2.8 mg/dL (0.0-0.5) H 04/11/17 04:13 Alkaline Phosphatase 1106 Units/L (38-126) H 04/16/17 04:15 Troponin I 0.54 ng/mL (0-0.03) H* 04/07/17 03:15 Serum Total Protein 5.0 g/dL (6.0-8.3) L 04/16/17 04:15 Albumin 2.1 g/dL (3.5-5.0) L 04/16/17 04:15 Albumin/Globulin Ratio 0.7 (1.1-2.2) L 04/16/17 04:15 Urine Color Juanita (Yellow) A 04/07/17 08:50 Urine Clarity Turbid (Clear) A 04/07/17 08:50 Urine Protein 100 mg/dL (Neg-Trace) H 04/07/17 08:50 Urine Ketones Trace mg/dL (Negative) H 04/07/17 08:50 Urine Blood Small (Negative) H 04/07/17 08:50 Urine Nitrite Positive (Negative) A 04/07/17 08:50 Urine Bilirubin Large (Negative) H 04/07/17 08:50 Ur Leukocyte Esterase Large (Negative) H 04/07/17 08:50 Urine Microscopic WBC TNTC per hpf (0-3) H 04/07/17 08:50 Ur Squamous Epith Cells Moderate per lpf (None-Few) H 04/07/17 08:50 Urine Bacteria Many per hpf (None-Few) H 04/07/17 08:50 Ur Culture Indicated? YES (NO) A 04/07/17 08:50 Urine Osmolality 290 mOsm/kg (300-1090) L 04/07/17 08:40 Enterobacteriac sp PCR DETECTED (Not Detect) A 04/06/17 17:58 Klebsiella pneumoniae DETECTED (Not Detect) A 04/06/17 17:58 General appearance: Present: no acute distress - Respiratory Respiratory exam: Present: decreased breath sounds, CTAB - Cardiovascular Cardiovascular exam: Present: +S1, +S2 - GI/Abdominal GI/Abdominal exam: Present: distended, normal bowel sounds, soft - Extremities Exam Additional comments: 3+ bilateral edema lower extremities, 2+ upper extremities - Neurological Exam Neurological exam: Present: alert, strengths equal and symetr throughout Additional comments: Oriented to name and place. Reoriented to time. - Skin Skin exam: Present: dry, warm Palliative Quality Palliative Quality: Screen for Code Status: Yes, Screen for Goals of Care: Yes, Screen for Pain: Yes, If Pain Regimen Started, Initiate Bowel Regimen: Yes, Screen for Nausea/Vomitting: Yes - Labs CBC & Chem 7: 04/16/17 04:15 04/16/17 04:15 - ABG Interpretation ABG results: PT/INR, D-dimer PT 13.9 Seconds (9.4-12.1) H 04/12/17 09:30 Consult Discharge Plan - Plan Instructions: Atrial Fibrillation (DC), Acute Kidney Injury (DC), Acute Kidney Injury (GEN), Intravenous Chemotherapy (DC), Intravenous Chemotherapy (GEN), Eating During Cancer Treatment (DC), Pancreatic Cancer (DC), Liver Cancer (DC), Liver Cancer (GEN), Sepsis (DC), Anemia (GEN), Thrombocytopenia (DC), Thrombocytopenia (GEN), Infectious Colitis (GEN) Referrals: Que Dwyer MD [Partnered Physician] - 04/21/17 11:20 am NONE,PCP [Primary Care Provider] - Prescriptions: Enoxaparin [Lovenox *PHARMACY WT BASED*] 110 mg SQ Q12HR #60 syringe Ceftriaxone Sodium [Ceftriaxone] 2 gm IV DAILY #5 vial.port
[2017-04-17] MEDS ORDERED: *HR* OxyCODONE Immed Rel 5 MG TABLET PO PRN (09:30)
[2017-04-17 10:22] LABS: Mean Corpuscular Hemoglobin 31.4 pg (28.0-33.3); Platelet Count 161 K/mcL (140-400); Red Cell Distribution Width 20.3 % (11.5-14.5)
[2017-04-17 10:24] LABS: Hemoglobin 9.7 g/dL (11.5-15.4); Immature Platelets 18.2 % (1.1-6.1); Mean Corpuscular HGB Conc 33.4 g/dL (31.6-35.5); Mean Corpuscular Volume 93.9 fL (83.0-100.0); Mean Platelet Volume 12.7 fL (9.4-12.4); Nucleated Red Blood Cells 0.1 /100 WBC (0); Red Blood Count 3.09 M/mcL (3.82-4.97)
[2017-04-17 10:58] LABS: Albumin/Globulin Ratio 0.6 (1.1-2.2); Bilirubin,Total 2.9 mg/dL (0.2-1.2); Calcium 7.8 mg/dL (8.6-10.8); Potassium 4.1 mEq/L (3.5-4.5); Total Protein 4.9 g/dL (6.0-8.3)
[2017-04-17 11:11] LABS: Anisocytosis 2+ (Not Present); Lymphocytes # 2.1 K/mcL (0.6-4.6); Monocytes # 1.7 K/mcL (0.0-1.3); Neutrophils # 16.5 K/mcL (1.6-8.9); Platelet Estimate Normal (Normal); Toxic Granulation Present (Not Present)
[2017-04-17 11:12] LABS: Platelet Clumps Few (Not Present)
[2017-04-17 11:14] LABS: Albumin 1.9 g/dL (3.5-5.0)
--- NOTE | 2017-04-17 14:31 | Oncology Inp Progress Note ---
Date of Encounter: 04/17/17 Time of Encounter: 14:27 (1) Pancreatic cancer metastasized to liver Current Visit: Yes Status: Acute Assessment and plan: - Her condition remains stable. Her labs showed overall stable red cell counts, improved leucocytosis and normal platelets. - At this time I will sign off, upon discharge please arrange a follow up appointment with Oncology to evaluate whether palliative chemotherapy is an option. (2) DVT (deep venous thrombosis) Current Visit: Yes Status: Chronic Assessment and plan: - s/p IVC filter. - Lovenox resumed after resolution of thrombocytopenia. Well tolerated, no bleeding events. Qualifiers: DVT location: lower extremity Affected thrombotic vein of extremity: unspecified vein of extremity Chronicity: chronic Laterality: unspecified laterality Qualified Code(s): I82.509 - Chronic embolism and thrombosis of unspecified deep veins of unspecified lower extremity Code(s): I82.409 - Acute embolism and thrombosis of unspecified deep veins of unspecified lower extremity SNOMED Code(s): 821845340 Oncology: Subj Interval history: Reports feeling well. Denies complaints. Tolerating lovenox injections, denies bleeding events. - Constitutional Vitals: Vital Signs Temp Pulse Resp BP Pulse Ox 04/17/17 07:51 97 04/17/17 07:00 93 17 81/64 97 04/17/17 04:38 97.9 F 100 16 99/59 94 04/16/17 23:50 98.6 F 105 20 93/64 94 04/16/17 21:42 96 04/16/17 20:38 98.3 F 108 21 87/64 96 04/16/17 15:00 109 16 85/66 97 Intake and Output 04/16/17 04/17/17 04/17/17 23:59 07:59 15:59 Intake Total 100 / 100 Balance 100 / 100 Intake: IV Fluids 100 / 100 Rocephin 2,000 MG In Dextrose 5 100 / 100 % (Minibag+) 100 ML 100 ML @ 200 mls/hr IVPB Q24H [facility] Rx#: [id number] Other: Meal Breakfast Percent of Meal Consumed 20% Weight 114.4 kg Patient Weight 04/17/17 23:59 Weight 114.4 kg - Head Head exam: Present: normal inspection - Neck Neck exam: Present: normal inspection - Respiratory Respiratory exam: Present: CTAB - GI/Abdominal GI/Abdominal exam: Present: normal bowel sounds - Extremities Exam Extremities exam: Present: pedal edema (persistent bilateral lower extremity edema.) Oncology: Obj Data - Labs CBC & Chem 7: 04/17/17 09:55 04/17/17 09:55 Labs: Laboratory Results - last 24 hr 04/17/17 04/17/17 09:55 09:55 WBC 20.6 H RBC 3.09 L Hgb 9.7 L Hct 29.0 L MCV 93.9 MCH 31.4 MCHC 33.4 RDW 20.3 H Plt Count 161 MPV 12.7 H Seg Neutrophils % 78.0 Band Neutrophils % 2.0 Lymphocytes % 10.0 Monocytes % 8.0 Metamyelocytes % 2.0 H Neutrophils # 16.5 H Lymphocytes # 2.1 Monocytes # 1.7 H Nucleated RBCs/100 WBC 0.1 H Toxic Granulation Present A Platelet Estimate Normal Clumped Platelets Few A Immature Plt Fraction 18.2 H Anisocytosis 2+ A Sodium 127 L Potassium 4.1 Chloride 96 L Carbon Dioxide 22 BUN 24 H Creatinine 1.13 H Est GFR ( Amer) 59 L Est GFR (Non-Af Amer) 49 L BUN/Creatinine Ratio 21 Glucose 143 H Calculated Osmolality 271 L Calcium 7.8 L Total Bilirubin 2.9 H AST 28 ALT 18 Alkaline Phosphatase 973 H Serum Total Protein 4.9 L Albumin 1.9 L Globulin 3.0 Albumin/Globulin Ratio 0.6 L - ABG Interpretation ABG results: PT/INR, D-dimer PT 13.9 Seconds (9.4-12.1) H 04/12/17 09:30 Consult Discharge Plan - Plan Instructions: Atrial Fibrillation (DC), Acute Kidney Injury (DC), Acute Kidney Injury (GEN), Intravenous Chemotherapy (DC), Intravenous Chemotherapy (GEN), Eating During Cancer Treatment (DC), Pancreatic Cancer (DC), Liver Cancer (DC), Liver Cancer (GEN), Sepsis (DC), Anemia (GEN), Thrombocytopenia (DC), Thrombocytopenia (GEN), Infectious Colitis (GEN) Referrals: Que Dwyer MD [Partnered Physician] - 04/21/17 11:20 am NONE,PCP [Primary Care Provider] - Prescriptions: Enoxaparin [Lovenox *PHARMACY WT BASED*] 110 mg SQ Q12HR #60 syringe Ceftriaxone Sodium [Ceftriaxone] 2 gm IV DAILY #5 vial.port
--- NOTE | 2017-04-17 17:26 | Venous Imaging Report ---
LE Venous Duplex Patient Name:Agatha Trevizo Order Number:[id number] Procedure Date:04/17/2017 Date:1955ge:62 yrs Gender:Female Location:[facility] Room #: [id number] Analytical Lead:Veronica Singer Referring MD:Sammy Ware, [employer] Reading MD:Vimal Berry MD , FACS Secondary Indications: Risk Factors Yes/No Anticoagulants Yes Hx of Chemotherapy Yes Hx of DVT Yes Impressions: Lower extremity abnormal deep exam: right common femoral vein demonstrates chronic thrombosis. Left lower extremity: normal superficial and deep exam. Recommendations: After imaging the patient returned to their room. Test completed on 04/17/2017 at 4:45:00 am. Critical findings reported to Sandra TROY in person at 4:52:00 am on 04/17/2017 by Veronica Singer. Findings Venous Duplex Results: Right: Venous imaging of the lower extremity reveals full patency and normal vessel compressibility of the right distal iliac, right superficial femoral, right popliteal, right posterior tibial, right peroneal, right great saphenous and right lesser saphenous. Doppler signals in the evaluated veins were normal. The right common femoral demonstrates a partially compressible vein. Flow was phasic and it did augment. Left: Venous imaging of the lower extremity reveals full patency and normal vessel compressibility of the left common femoral, left superficial femoral, left popliteal, left posterior tibial, left peroneal and left great saphenous. Doppler signals in the evaluated veins were normal. Lower Extremity Venous Duplex Side Vein Compress Spontaneous Flow Augment Diameter (cm) Depth (cm) Right Distal Iliac Normal Yes Phasic Yes Right Common Femoral Partial Yes Phasic Yes Right Superficial Femoral Normal Yes Phasic Yes Right Popliteal Normal Yes Phasic Yes Right Posterior Tibial Normal Yes Phasic Yes Right Peroneal Normal Yes Phasic Yes Right Great Saphenous Normal Yes Phasic Yes Right Lesser Saphenous Normal Yes Phasic Yes Left Common Femoral Normal Yes Phasic Yes Left Superficial Femoral Normal Yes Phasic Yes Left Popliteal Normal Yes Phasic Yes Left Posterior Tibial Normal Yes Phasic Yes Left Peroneal Normal Yes Phasic Yes Left Great Saphenous Normal Yes Phasic Yes Updated by Vimal Berry MD, FACS on 04/17/2017 5:19:14 PM Vimal Berry MD electronically signed on 04/17/2017 5:19:33 PM with status of Final
--- NOTE | 2017-04-17 18:41 | Internal Med Progress Note ---
Date of Encounter: 04/17/17 Time of Encounter: 12:15 - Assessment and plan (1) Septic shock due to Klebsiella pneumoniae Current Visit: Yes Status: Acute Assessment and plan: Completing course of IV abx. (2) SVT (supraventricular tachycardia) Current Visit: Yes Status: Resolved Assessment and plan: Has not recurred. (3) Anemia Current Visit: Yes Status: Acute Assessment and plan: Stable at this point in time. Qualifiers: Anemia type: other cause Other causes of anemia: chronic disease, neoplastic Qualified Code(s): D63.0 - Anemia in neoplastic disease (4) DVT (deep venous thrombosis) Current Visit: Yes Status: Chronic Assessment and plan: Lovenox restarted. Monitoring platelets Qualifiers: DVT location: lower extremity Affected thrombotic vein of extremity: femoral Chronicity: chronic Laterality: right Qualified Code(s): I82.511 - Chronic embolism and thrombosis of right femoral vein (5) Pancreatic cancer metastasized to liver Current Visit: Yes Status: Acute - Subjective Interval history: Ms. Trevizo is currently admitted for Klebsiella sepsis. She remains moderate to high risk due to potential for worsening infectious symptoms. Ms. Trevizo feels OK. Denies fever or chills. No further confusion. No CP or SOB. No diarrhea. WBC elevated yesterday but improved today. - Constitutional Vitals: Temp Pulse Resp BP Pulse Ox 98.0 F 103 16 88/56 97 04/17/17 17:21 04/17/17 17:21 04/17/17 17:21 04/17/17 17:21 04/17/17 07:51 General appearance: Present: cooperative, A&O X 3, pleasant, answers questions appropriately - Head Head exam: Present: normocephalic - Eye Eye exam: Present: EOMI, conjuntiva pink - ENT ENT exam: Present: mucous membranes moist - Respiratory Respiratory exam: Present: decreased breath sounds, CTAB - Cardiovascular Cardiovascular exam: Present: RRR. Absent: tachycardia - GI/Abdominal GI/Abdominal exam: Present: soft. Absent: tenderness - Extremities Exam Extremities exam: Present: warm. Absent: tenderness - Neurological Exam Neurological exam: Present: alert, oriented X3 - Skin Skin exam: Present: warm. Absent: rash Internal Medicine: Result - Labs CBC & Chem 7: 04/17/17 09:55 04/17/17 09:55 Labs: Short CBC 04/17/17 Range/Units 09:55 WBC 20.6 H (4.3-11.1) K/mcL Hgb 9.7 L (11.5-15.4) g/dL Hct 29.0 L (35.3-44.9) % Plt Count 161 (140-400) K/mcL Neutrophils # 16.5 H (1.6-8.9) K/mcL BMP 04/17/17 09:55 Sodium 127 L Potassium 4.1 Chloride 96 L Carbon Dioxide 22 BUN 24 H Creatinine 1.13 H Glucose 143 H Calcium 7.8 L Liver Function 04/17/17 Range/Units 09:55 Total Bilirubin 2.9 H (0.2-1.2) mg/dL AST 28 (5-34) Units/L ALT 18 (0-55) Units/L Alkaline Phosphatase 973 H (38-126) Units/L Albumin 1.9 L (3.5-5.0) g/dL - ABG Interpretation ABG results: PT/INR, D-dimer PT 13.9 Seconds (9.4-12.1) H 04/12/17 09:30 Consult Discharge Plan - Plan Instructions: Atrial Fibrillation (DC), Acute Kidney Injury (DC), Acute Kidney Injury (GEN), Intravenous Chemotherapy (DC), Intravenous Chemotherapy (GEN), Eating During Cancer Treatment (DC), Pancreatic Cancer (DC), Liver Cancer (DC), Liver Cancer (GEN), Sepsis (DC), Anemia (GEN), Thrombocytopenia (DC), Thrombocytopenia (GEN), Infectious Colitis (GEN) Referrals: Que Dwyer MD [Partnered Physician] - 04/21/17 11:20 am NONE,PCP [Primary Care Provider] - Prescriptions: Enoxaparin [Lovenox *PHARMACY WT BASED*] 110 mg SQ Q12HR #60 syringe Ceftriaxone Sodium [Ceftriaxone] 2 gm IV DAILY #5 vial.port
[2017-04-17] MEDS: Mirtazapine 15 MG TABLET PO SCH (20:12)
[2017-04-17] MEDS ORDERED: 0.9 % Sodium Chloride 250 ML IVC ONE ×2 (21:28→23:32)
[2017-04-18 04:11] LABS: Basophils # 0.1 K/mcL (0.0-0.2); Basophils % 0.4 %; Eosinophils % 0.1 %; Hematocrit 26.6 % (35.3-44.9); Hemoglobin 8.9 g/dL (11.5-15.4); Immature Granulocytes % 3.1 % (0-4); Lymphocytes % 12.4 %; Mean Corpuscular HGB Conc 33.5 g/dL (31.6-35.5); Mean Corpuscular Hemoglobin 31.6 pg (28.0-33.3); Mean Corpuscular Volume 94.3 fL (83.0-100.0); Mean Platelet Volume 12.4 fL (9.4-12.4); Monocytes % 5.8 %; Neutrophils # 12.8 K/mcL (1.6-8.9); Platelet Count 145 K/mcL (140-400); Red Blood Count 2.82 M/mcL (3.82-4.97); Red Cell Distribution Width 20.4 % (11.5-14.5); Segmented Neutrophils % 78.2 %
[2017-04-18 04:27] LABS: Platelet Estimate Decreased (Normal)
[2017-04-18 04:28] LABS: Anisocytosis 3+ (Not Present); Microcytosis Present (Not Present)
[2017-04-18 04:30] LABS: Alanine Aminotransferase 17 Units/L (0-55); Albumin 1.7 g/dL (3.5-5.0); Albumin/Globulin Ratio 0.6 (1.1-2.2); Alkaline Phosphatase 905 Units/L (38-126); Aspartate Amino Transferase 24 Units/L (5-34); BUN/Creatinine Ratio 21 (6-26); Bilirubin,Total 2.5 mg/dL (0.2-1.2); Blood Urea Nitrogen 22 mg/dL (7-20); Calcium 7.5 mg/dL (8.6-10.8); Carbon Dioxide 22 mEq/L (19-29); Chloride 98 mEq/L (98-109); Glucose 102 mg/dL (70-99); Osmolality,Calculated 270 (280-300); Sodium 128 mEq/L (136-145); Total Protein 4.7 g/dL (6.0-8.3); eGFR For African Americans > 60 (> 60); eGFR For Non-African Americans 54 (> 60)
[2017-04-18] MEDS: *HR* Enoxaparin 120 MG/0.8 ML SYRINGE SQ SCH ×2 (05:43→20:53)
[2017-04-18] MEDS: Lactobacillus 1 EACH CAP.SPRINK PO SCH ×2 (07:45→20:52)
[2017-04-18] MEDS: Furosemide 20 MG TABLET PO SCH (07:46)
[2017-04-18] MEDS: Spironolactone 25 MG TABLET PO SCH (07:46)
[2017-04-18] MEDS: *HR* Morphine Sulfate SR (12 HR) 30 MG TABLET.ER PO SCH ×2 (07:46→16:31)
[2017-04-18] MEDS: Sucralfate 1 GM TABLET PO SCH ×4 (07:46→20:52)
--- NOTE | 2017-04-18 12:29 | Internal Med Progress Note ---
<Andrea Rizo - Last Filed: 04/18/17 13:11> Date of Encounter: 04/18/17 Time of Encounter: 12:18 - Assessment and plan (1) Septic shock due to Klebsiella pneumoniae Current Visit: Yes Status: Resolved Assessment and plan: on ceftriaxone for treatment, day 10 total 14 day treatment wbc trending down. (2) Hypotension Current Visit: Yes Status: Acute Assessment and plan: patient's Bp decreases to sstolic 70s: responds ot IVF however with anemia may require transfusion if this continues also has severe LE edema and low albumin: will try to raise intravascular volume with albumin also will order spot cortisol to assess for adrenal insufficiency. Qualifiers: Hypotension type: unspecified hypotension type Qualified Code(s): I95.9 - Hypotension, unspecified (3) Anemia Current Visit: Yes Status: Acute Assessment and plan: hgb stable. patient is having hypotensive episodes if they continue may consider transfusion Qualifiers: Anemia type: other cause Other causes of anemia: chronic disease, neoplastic Qualified Code(s): D63.0 - Anemia in neoplastic disease (4) DVT (deep venous thrombosis) Current Visit: Yes Status: Chronic Assessment and plan: chornic DVT thormbosis s/p IVC filter on lovneox Lovenox restarted. Monitoring platelets (145) Qualifiers: DVT location: lower extremity Affected thrombotic vein of extremity: femoral Chronicity: chronic Laterality: right Qualified Code(s): I82.511 - Chronic embolism and thrombosis of right femoral vein (5) History of pancreatic cancer Current Visit: Yes Status: Acute Assessment and plan: Oncology is on board. Stage IV cancer follow up outptaitnet for evaluation for palliative chemotheraphy - Subjective Interval history: Overnight patient became hypotensive she required 2 250cc bolus of saline. Currently BP stable. Patient denies blurry vision, dizziness, chest pain, sob, abdominal pain. - Constitutional Vitals: Temp Pulse Resp BP Pulse Ox 97.5 F L 100 21 102/58 96 04/18/17 12:10 04/18/17 12:10 04/18/17 12:10 04/18/17 12:10 04/18/17 12:10 General appearance: Present: cooperative, A&O X 3, pleasant, answers questions appropriately - Respiratory Respiratory exam: Present: CTAB. Absent: accessory muscle use, rales, rhonchi, wheezes - Cardiovascular Cardiovascular exam: Present: RRR, +S1, +S2. Absent: diastolic murmur, gallop, rubs, systolic murmur - GI/Abdominal GI/Abdominal exam: Present: normal bowel sounds, soft, no peritoneal signs. Absent: distended, tenderness Additional comments: anasarca of abdomen - Extremities Exam Extremities exam: Absent: tenderness Additional comments: 3+ pitting edema - Skin Skin exam: Present: dry, intact Internal Medicine: Result - Labs CBC & Chem 7: 04/18/17 03:50 04/18/17 03:50 Labs: Short CBC 04/18/17 Range/Units 03:50 WBC 16.4 H (4.3-11.1) K/mcL Hgb 8.9 L (11.5-15.4) g/dL Hct 26.6 L (35.3-44.9) % Plt Count 145 (140-400) K/mcL Neutrophils # 12.8 H (1.6-8.9) K/mcL BMP 04/18/17 03:50 Sodium 128 L Potassium 4.0 Chloride 98 Carbon Dioxide 22 BUN 22 H Creatinine 1.03 Glucose 102 H Calcium 7.5 L Liver Function 04/18/17 Range/Units 03:50 Total Bilirubin 2.5 H (0.2-1.2) mg/dL AST 24 (5-34) Units/L ALT 17 (0-55) Units/L Alkaline Phosphatase 905 H (38-126) Units/L Albumin 1.7 L (3.5-5.0) g/dL - ABG Interpretation ABG results: PT/INR, D-dimer PT 13.9 Seconds (9.4-12.1) H 04/12/17 09:30 Consult Discharge Plan - Plan Instructions: Atrial Fibrillation (DC), Acute Kidney Injury (DC), Acute Kidney Injury (GEN), Intravenous Chemotherapy (DC), Intravenous Chemotherapy (GEN), Eating During Cancer Treatment (DC), Pancreatic Cancer (DC), Liver Cancer (DC), Liver Cancer (GEN), Sepsis (DC), Anemia (GEN), Thrombocytopenia (DC), Thrombocytopenia (GEN), Infectious Colitis (GEN) Referrals: Que Dwyer MD [Partnered Physician] - 04/21/17 11:20 am NONE,PCP [Primary Care Provider] - Prescriptions: Enoxaparin [Lovenox *PHARMACY WT BASED*] 110 mg SQ Q12HR #60 syringe Ceftriaxone Sodium [Ceftriaxone] 2 gm IV DAILY #5 vial.shelbi <Matt Tran Sean - Last Filed: 04/18/17 15:37> Date of Encounter: 04/18/17 - Assessment and plan (1) Hypotension Current Visit: Yes Status: Acute Qualifiers: Hypotension type: other hypotension type Qualified Code(s): I95.89 - Other hypotension (2) Septic shock due to Klebsiella pneumoniae Current Visit: Yes Status: Resolved (3) Anemia Current Visit: Yes Status: Acute Qualifiers: Anemia type: other cause Other causes of anemia: chronic disease, neoplastic Qualified Code(s): D63.0 - Anemia in neoplastic disease (4) DVT (deep venous thrombosis) Current Visit: Yes Status: Chronic Qualifiers: DVT location: lower extremity Affected thrombotic vein of extremity: femoral Chronicity: chronic Laterality: right Qualified Code(s): I82.511 - Chronic embolism and thrombosis of right femoral vein (5) Pancreatic cancer metastasized to liver Current Visit: Yes Status: Acute (6) SVT (supraventricular tachycardia) Current Visit: Yes Status: Resolved (7) Hyponatremia Current Visit: Yes Status: Acute - Constitutional Vitals: Temp Pulse Resp BP Pulse Ox 97.5 F L 100 21 102/58 96 04/18/17 12:10 04/18/17 12:10 04/18/17 12:10 04/18/17 12:10 04/18/17 12:10 Internal Medicine: Result - Labs CBC & Chem 7: 04/18/17 03:50 04/18/17 03:50 Labs: Short CBC 04/18/17 Range/Units 03:50 WBC 16.4 H (4.3-11.1) K/mcL Hgb 8.9 L (11.5-15.4) g/dL Hct 26.6 L (35.3-44.9) % Plt Count 145 (140-400) K/mcL Neutrophils # 12.8 H (1.6-8.9) K/mcL BMP 04/18/17 03:50 Sodium 128 L Potassium 4.0 Chloride 98 Carbon Dioxide 22 BUN 22 H Creatinine 1.03 Glucose 102 H Calcium 7.5 L Liver Function 04/18/17 Range/Units 03:50 Total Bilirubin 2.5 H (0.2-1.2) mg/dL AST 24 (5-34) Units/L ALT 17 (0-55) Units/L Alkaline Phosphatase 905 H (38-126) Units/L Albumin 1.7 L (3.5-5.0) g/dL - ABG Interpretation ABG results: PT/INR, D-dimer PT 13.9 Seconds (9.4-12.1) H 04/12/17 09:30 - Attending Attestation I examined this patient and my medical decision-making was reviewed with the Resident Physician on 04/18/17. I agree with the documented findings, disposition and treatment plan as described except to the extent set forth below. Ms. Trevizo is currently admitted for Klebsiella sepsis. She continues to have episodes of hypotension. She remains moderate to high risk due to potential for worsening hemodynamic status. Ms Trevizo feels OK at this time. She is watching TV. No CP or SOB. No fever or chills. Remains on IV abx. Worked with therapy today. Exam Alert. Comfortable Mucus membranes dry Heart reg Lungs diminished Abd soft Edema present I/P 1. Klebsiella sepsis 2. Pancreatic cancer Further diagnoses and plan as above.
[2017-04-18] MEDS: Albumin 25% 25gram/100mL 25 GM/100 ML IV.SOLN IVPB SCH (16:31)
[2017-04-18] MEDS: Mirtazapine 15 MG TABLET PO SCH (20:53)
[2017-04-19] MEDS: *HR* Morphine Sulfate SR (12 HR) 30 MG TABLET.ER PO SCH ×3 (00:38→18:46)
[2017-04-19] MEDS: Albumin 25% 25gram/100mL 25 GM/100 ML IV.SOLN IVPB SCH ×3 (01:21→19:38)
[2017-04-19] MEDS: *HR* Enoxaparin 120 MG/0.8 ML SYRINGE SQ SCH ×2 (05:56→19:38)
[2017-04-19 06:14] LABS: Basophils # 0.1 K/mcL (0.0-0.2); Basophils % 0.4 %; Eosinophils % 0.2 %; Hematocrit 23.5 % (35.3-44.9); Hemoglobin 7.7 g/dL (11.5-15.4); Lymphocytes # 1.5 K/mcL (0.6-4.6); Lymphocytes % 12.7 %; Mean Corpuscular HGB Conc 32.8 g/dL (31.6-35.5); Mean Corpuscular Hemoglobin 31.4 pg (28.0-33.3); Mean Corpuscular Volume 95.9 fL (83.0-100.0); Mean Platelet Volume 12.3 fL (9.4-12.4); Monocytes # 0.8 K/mcL (0.0-1.3); Monocytes % 6.6 %; Neutrophils # 9.1 K/mcL (1.6-8.9); Platelet Count 117 K/mcL (140-400); Red Blood Count 2.45 M/mcL (3.82-4.97); Red Cell Distribution Width 20.8 % (11.5-14.5); Segmented Neutrophils % 78.1 %
[2017-04-19 06:27] LABS: Alanine Aminotransferase 13 Units/L (0-55); Alkaline Phosphatase 706 Units/L (38-126); Aspartate Amino Transferase 20 Units/L (5-34); BUN/Creatinine Ratio 21 (6-26); Bilirubin,Total 2.7 mg/dL (0.2-1.2); Blood Urea Nitrogen 21 mg/dL (7-20); Calcium 7.8 mg/dL (8.6-10.8); Carbon Dioxide 23 mEq/L (19-29); Chloride 99 mEq/L (98-109); Globulin 2.4 g/dL (2.4-3.5); Glucose 98 mg/dL (70-99); Osmolality,Calculated 269 (280-300); Potassium 3.9 mEq/L (3.5-4.5); Sodium 128 mEq/L (136-145); Total Protein 4.9 g/dL (6.0-8.3); eGFR For African Americans > 60 (> 60); eGFR For Non-African Americans 57 (> 60)
[2017-04-19 06:29] LABS: Albumin 2.5 g/dL (3.5-5.0)
[2017-04-19] MEDS: Furosemide 20 MG TABLET PO SCH (09:44)
[2017-04-19] MEDS: Sucralfate 1 GM TABLET PO SCH ×4 (09:44→21:45)
[2017-04-19] MEDS: Lactobacillus 1 EACH CAP.SPRINK PO SCH ×2 (09:44→21:45)
[2017-04-19] MEDS: Spironolactone 25 MG TABLET PO SCH (09:44)
--- NOTE | 2017-04-19 10:13 | Palliative Progress Note ---
Date of Encounter: 04/19/17 Time of Encounter: 09:50 - Assessment and plan (1) Cancer associated pain Current Visit: Yes Status: Acute Assessment and plan: She has not utilized any pain medication in a couple of days. Still denies pain today. Monitor (2) Malnutrition Current Visit: Yes Status: Acute Assessment and plan: Started on Remeron mid last week. She states she hasn't noticed a difference, but by documentation of intake, appears she eating more, and she is drinking ensure. [employer] following. Monitor. (3) Counseling regarding advanced care planning and goals of care Current Visit: Yes Status: Acute Assessment and plan: She is hoping to be stable enough for discharge in a few days. Insurance initially declined ECF transfer, hoping that they will reevaluate first of week. She still desires aggressive treatment for her cancer. Palliative following at a distance. (4) History of pancreatic cancer Current Visit: Yes Status: Acute - Time Spent With Patient Total time spent is greater than 50% in coordination of care (as documented) at patient's floor/unit and/or counseling patient: 25 - 35 minutes - Subjective Interval history: Patient awake and alert, denies any pain or discomfort. WBC finally trending down nicely. B/P slightly better. Hgb down to 7.7. Does appear by documentation of meals that she is eating more, although she states "eat what I can". - Constitutional Vitals: Abnormal lab results WBC 11.7 K/mcL (4.3-11.1) H 04/19/17 06:00 RBC 2.45 M/mcL (3.82-4.97) L 04/19/17 06:00 Hgb 7.7 g/dL (11.5-15.4) L 04/19/17 06:00 Hct 23.5 % (35.3-44.9) L 04/19/17 06:00 RDW 20.8 % (11.5-14.5) H 04/19/17 06:00 Plt Count 117 K/mcL (140-400) L 04/19/17 06:00 Metamyelocytes % 2.0 % (0) H 04/17/17 09:55 Myelocytes % 2.0 % (0) H 04/09/17 05:40 Neutrophils # 9.1 K/mcL (1.6-8.9) H 04/19/17 06:00 Nucleated RBCs/100 WBC 0.1 /100 WBC (0) H 04/17/17 09:55 Hypersegmented Neuts Present (Not Present) A 04/09/17 05:40 Reactive Lymphocytes Present (Not Present) A 04/16/17 04:15 Toxic Granulation Present (Not Present) A 04/17/17 09:55 Toxic Vacuolation Present (Not Present) A 04/07/17 03:15 Dohle Bodies Present (Not Present) A 04/08/17 22:42 Platelet Estimate Decreased (Normal) L 04/18/17 03:50 Clumped Platelets Few (Not Present) A 04/17/17 09:55 Large Platelets Present (Not Present) A 04/15/17 04:03 Immature Plt Fraction 18.2 % (1.1-6.1) H 04/17/17 09:55 Polychromasia 1+ (Not Present) A 04/16/17 04:15 Poikilocytosis 1+ (Not Present) A 04/13/17 07:30 Anisocytosis 3+ (Not Present) A 04/18/17 03:50 Microcytosis Present (Not Present) A 04/18/17 03:50 Macrocytosis Present (Not Present) A 04/08/17 03:42 [place] Cells 1+ (Not Present) A 04/07/17 03:15 PT 13.9 Seconds (9.4-12.1) H 04/12/17 09:30 APTT 51.9 Seconds (26.0-36.0) H 04/09/17 05:40 Sodium 128 mEq/L (136-145) L 04/19/17 06:00 BUN 21 mg/dL (7-20) H 04/19/17 06:00 Est GFR (Non-Af Amer) 57 (> 60) L 04/19/17 06:00 POC Glucose 133 (58-89) H 04/15/17 07:25 Calculated Osmolality 269 (280-300) L 04/19/17 06:00 Uric Acid 7.5 mg/dL (2.6-6.0) H 04/07/17 14:20 Calcium 7.8 mg/dL (8.6-10.8) L 04/19/17 06:00 Total Bilirubin 2.7 mg/dL (0.2-1.2) H 04/19/17 06:00 Direct Bilirubin 2.8 mg/dL (0.0-0.5) H 04/11/17 04:13 Alkaline Phosphatase 706 Units/L (38-126) H 04/19/17 06:00 Troponin I 0.54 ng/mL (0-0.03) H* 04/07/17 03:15 Serum Total Protein 4.9 g/dL (6.0-8.3) L 04/19/17 06:00 Albumin 2.5 g/dL (3.5-5.0) L D 04/19/17 06:00 Albumin/Globulin Ratio 1.0 (1.1-2.2) L 04/19/17 06:00 Urine Color Juanita (Yellow) A 04/07/17 08:50 Urine Clarity Turbid (Clear) A 04/07/17 08:50 Urine Protein 100 mg/dL (Neg-Trace) H 04/07/17 08:50 Urine Ketones Trace mg/dL (Negative) H 04/07/17 08:50 Urine Blood Small (Negative) H 04/07/17 08:50 Urine Nitrite Positive (Negative) A 04/07/17 08:50 Urine Bilirubin Large (Negative) H 04/07/17 08:50 Ur Leukocyte Esterase Large (Negative) H 04/07/17 08:50 Urine Microscopic WBC TNTC per hpf (0-3) H 04/07/17 08:50 Ur Squamous Epith Cells Moderate per lpf (None-Few) H 04/07/17 08:50 Urine Bacteria Many per hpf (None-Few) H 04/07/17 08:50 Ur Culture Indicated? YES (NO) A 04/07/17 08:50 Urine Osmolality 290 mOsm/kg (300-1090) L 04/07/17 08:40 Enterobacteriac sp PCR DETECTED (Not Detect) A 04/06/17 17:58 Klebsiella pneumoniae DETECTED (Not Detect) A 04/06/17 17:58 General appearance: Present: no acute distress - Respiratory Respiratory exam: Present: decreased breath sounds, CTAB - Cardiovascular Cardiovascular exam: Present: +S1, +S2 - GI/Abdominal GI/Abdominal exam: Present: distended, normal bowel sounds, soft - Extremities Exam Additional comments: Generalized edema to all extremities, although leg swelling appears slightly decreased today - Neurological Exam Neurological exam: Present: alert, oriented X3, strengths equal and symetr throughout - Psychiatric Psychiatric exam: Present: flat affect - Skin Skin exam: Present: dry, warm Palliative Quality Palliative Quality: Screen for Code Status: Yes, Screen for Goals of Care: Yes, Screen for Pain: Yes, If Pain Regimen Started, Initiate Bowel Regimen: Yes, Screen for Nausea/Vomitting: Yes - Labs CBC & Chem 7: 04/19/17 06:00 04/19/17 06:00 Labs: Laboratory Results - last 24 hr 04/19/17 04/19/17 06:00 06:00 WBC 11.7 H RBC 2.45 L Hgb 7.7 L Hct 23.5 L MCV 95.9 MCH 31.4 MCHC 32.8 RDW 20.8 H Plt Count 117 L MPV 12.3 Immature Gran % 2.0 Seg Neutrophils % 78.1 Lymphocytes % 12.7 Monocytes % 6.6 Eosinophils % 0.2 Basophils % 0.4 Neutrophils # 9.1 H Lymphocytes # 1.5 Monocytes # 0.8 Eosinophils # 0.0 Basophils # 0.1 Sodium 128 L Potassium 3.9 Chloride 99 Carbon Dioxide 23 BUN 21 H Creatinine 0.99 Est GFR ( Amer) > 60 Est GFR (Non-Af Amer) 57 L BUN/Creatinine Ratio 21 Glucose 98 Calculated Osmolality 269 L Calcium 7.8 L Total Bilirubin 2.7 H AST 20 ALT 13 Alkaline Phosphatase 706 H Serum Total Protein 4.9 L Albumin 2.5 L D Globulin 2.4 Albumin/Globulin Ratio 1.0 L Random Cortisol 12.9 - ABG Interpretation ABG results: PT/INR, D-dimer PT 13.9 Seconds (9.4-12.1) H 04/12/17 09:30 Consult Discharge Plan - Plan Instructions: Atrial Fibrillation (DC), Acute Kidney Injury (DC), Acute Kidney Injury (GEN), Intravenous Chemotherapy (DC), Intravenous Chemotherapy (GEN), Eating During Cancer Treatment (DC), Pancreatic Cancer (DC), Liver Cancer (DC), Liver Cancer (GEN), Sepsis (DC), Anemia (GEN), Thrombocytopenia (DC), Thrombocytopenia (GEN), Infectious Colitis (GEN) Referrals: Que Dwyer MD [Partnered Physician] - 04/21/17 11:20 am NONE,PCP [Primary Care Provider] - Prescriptions: Enoxaparin [Lovenox *PHARMACY WT BASED*] 110 mg SQ Q12HR #60 syringe Ceftriaxone Sodium [Ceftriaxone] 2 gm IV DAILY #5 vial.port
--- NOTE | 2017-04-19 14:42 | Internal Med Progress Note ---
<Andrea Rizo - Last Filed: 04/19/17 14:40> Date of Encounter: 04/19/17 Time of Encounter: 14:40 - Assessment and plan (1) Septic shock due to Klebsiella pneumoniae Current Visit: Yes Status: Resolved Assessment and plan: on ceftriaxone for treatment, day 11 total 14 day treatment (2) Hypotension Current Visit: Yes Status: Acute Assessment and plan: patient's Bp decreases to sstolic 70s: responds ot IVF however with anemia may require transfusion if this continues no change in hemodynamics with albumin infusion cortisol WNL hgb 7.7 if drops below 7 will transfuse. Qualifiers: Hypotension type: unspecified hypotension type Qualified Code(s): I95.9 - Hypotension, unspecified (3) Anemia Current Visit: Yes Status: Acute Assessment and plan: hgb stable. patient is having hypotensive episodes if this continue may consider transfusion Qualifiers: Anemia type: other cause Other causes of anemia: chronic disease, neoplastic Qualified Code(s): D63.0 - Anemia in neoplastic disease (4) DVT (deep venous thrombosis) Current Visit: Yes Status: Chronic Assessment and plan: chornic DVT thormbosis s/p IVC filter on lovneox Lovenox restarted. Monitoring platelets (117) likely will need to d/c lovenox. will call oncology for recommendations on anticoagulation Qualifiers: DVT location: lower extremity Affected thrombotic vein of extremity: femoral Chronicity: chronic Laterality: right Qualified Code(s): I82.511 - Chronic embolism and thrombosis of right femoral vein (5) History of pancreatic cancer Current Visit: Yes Status: Acute Assessment and plan: Oncology is on board. Stage IV cancer follow up outptaitnet for evaluation for palliative chemotheraphy - Subjective Interval history: Currently BP stable. Patient denies blurry vision, dizziness, chest pain, sob, abdominal pain. - Constitutional Vitals: Temp Pulse Resp BP Pulse Ox 97.9 F 97 16 106/58 93 04/19/17 04:51 04/19/17 06:11 04/19/17 06:11 04/19/17 06:11 04/19/17 10:00 General appearance: Present: cooperative, A&O X 3, pleasant, answers questions appropriately - Respiratory Respiratory exam: Present: CTAB. Absent: accessory muscle use, rales, rhonchi, wheezes - Cardiovascular Cardiovascular exam: Present: RRR, +S1, +S2. Absent: diastolic murmur, gallop, rubs, systolic murmur - GI/Abdominal GI/Abdominal exam: Present: normal bowel sounds, soft, no peritoneal signs. Absent: distended, tenderness - Extremities Exam Extremities exam: Present: pedal edema (2+) Internal Medicine: Result - Labs CBC & Chem 7: 04/19/17 06:00 04/19/17 06:00 Labs: Short CBC 04/19/17 Range/Units 06:00 WBC 11.7 H (4.3-11.1) K/mcL Hgb 7.7 L (11.5-15.4) g/dL Hct 23.5 L (35.3-44.9) % Plt Count 117 L (140-400) K/mcL Neutrophils # 9.1 H (1.6-8.9) K/mcL BMP 04/19/17 06:00 Sodium 128 L Potassium 3.9 Chloride 99 Carbon Dioxide 23 BUN 21 H Creatinine 0.99 Glucose 98 Calcium 7.8 L Liver Function 04/19/17 Range/Units 06:00 Total Bilirubin 2.7 H (0.2-1.2) mg/dL AST 20 (5-34) Units/L ALT 13 (0-55) Units/L Alkaline Phosphatase 706 H (38-126) Units/L Albumin 2.5 L D (3.5-5.0) g/dL - ABG Interpretation ABG results: PT/INR, D-dimer PT 13.9 Seconds (9.4-12.1) H 04/12/17 09:30 - Impressions Impressions Retroperitoneum Ultrasound 04/07/17 20:00 IMPRESSION: Moderate right hydronephrosis.Status post right ureteral stent placement. Suboptimal evaluation of the left kidney due to overlying bowel gas. Repeat sonography or CT imaging can be performed if there is persistent clinical concern regarding the left kidney. D/ / 04/07/2017 20:50:40 Leander Geller MD / [email or web address] Interpreting Provider: Leander Geller MD Consult Discharge Plan - Plan Instructions: Atrial Fibrillation (DC), Acute Kidney Injury (DC), Acute Kidney Injury (GEN), Intravenous Chemotherapy (DC), Intravenous Chemotherapy (GEN), Eating During Cancer Treatment (DC), Pancreatic Cancer (DC), Liver Cancer (DC), Liver Cancer (GEN), Sepsis (DC), Anemia (GEN), Thrombocytopenia (DC), Thrombocytopenia (GEN), Infectious Colitis (GEN) Referrals: Que Dwyer MD [Partnered Physician] - 04/21/17 11:20 am NONE,PCP [Primary Care Provider] - Prescriptions: Enoxaparin [Lovenox *PHARMACY WT BASED*] 110 mg SQ Q12HR #60 syringe Ceftriaxone Sodium [Ceftriaxone] 2 gm IV DAILY #5 vial.port <Matt Tran - Last Filed: 04/19/17 16:25> Date of Encounter: 04/19/17 - Assessment and plan (1) Hypotension Current Visit: Yes Status: Acute Qualifiers: Hypotension type: other hypotension type Qualified Code(s): I95.89 - Other hypotension (2) Thrombocytopenia due to drugs Current Visit: Yes Status: Suspected (3) Septic shock due to Klebsiella pneumoniae Current Visit: Yes Status: Resolved (4) Anemia Current Visit: Yes Status: Acute Qualifiers: Anemia type: other cause Other causes of anemia: chronic disease, neoplastic Qualified Code(s): D63.0 - Anemia in neoplastic disease (5) DVT (deep venous thrombosis) Current Visit: Yes Status: Chronic Qualifiers: DVT location: lower extremity Affected thrombotic vein of extremity: femoral Chronicity: chronic Laterality: right Qualified Code(s): I82.511 - Chronic embolism and thrombosis of right femoral vein (6) Pancreatic cancer metastasized to liver Current Visit: Yes Status: Acute (7) SVT (supraventricular tachycardia) Current Visit: Yes Status: Resolved (8) Hyponatremia Current Visit: Yes Status: Acute - Constitutional Vitals: Temp Pulse Resp BP Pulse Ox 97.9 F 93 22 106/58 94 04/19/17 04:51 04/19/17 16:03 04/19/17 16:03 04/19/17 16:03 04/19/17 16:03 Internal Medicine: Result - Labs CBC & Chem 7: 04/19/17 15:36 04/19/17 06:00 Labs: Short CBC 04/19/17 04/19/17 Range/Units 06:00 15:36 WBC 11.7 H 10.5 (4.3-11.1) K/mcL Hgb 7.7 L 8.0 L (11.5-15.4) g/dL Hct 23.5 L 24.2 L (35.3-44.9) % Plt Count 117 L 118 L (140-400) K/mcL Neutrophils # 9.1 H 8.4 (1.6-8.9) K/mcL BMP 04/19/17 06:00 Sodium 128 L Potassium 3.9 Chloride 99 Carbon Dioxide 23 BUN 21 H Creatinine 0.99 Glucose 98 Calcium 7.8 L Liver Function 04/19/17 Range/Units 06:00 Total Bilirubin 2.7 H (0.2-1.2) mg/dL AST 20 (5-34) Units/L ALT 13 (0-55) Units/L Alkaline Phosphatase 706 H (38-126) Units/L Albumin 2.5 L D (3.5-5.0) g/dL - ABG Interpretation ABG results: PT/INR, D-dimer PT 13.9 Seconds (9.4-12.1) H 04/12/17 09:30 - Impressions Impressions Retroperitoneum Ultrasound 04/07/17 20:00 IMPRESSION: Moderate right hydronephrosis.Status post right ureteral stent placement. Suboptimal evaluation of the left kidney due to overlying bowel gas. Repeat sonography or CT imaging can be performed if there is persistent clinical concern regarding the left kidney. D/ / 04/07/2017 20:50:40 Leander Geller MD / [email or web address] Interpreting Provider: Leander Geller MD - Attending Attestation I examined this patient and my medical decision-making was reviewed with the Resident Physician on 04/19/17. I agree with the documented findings, disposition and treatment plan as described except to the extent set forth below. Ms. Trevizo is currently admitted for Klebsiella sepsis. She continues to have issues with hypotension, anemia and now thrombocytopenia. She remains moderate to high risk due to potential for worsening infectious status. Ms. Trevizo is resting comfortably. No CP or SOB. No fever or chills. No new pain. No diarrhea. No obvious sign of blood loss. Exam Alert. Comfortable Mucus membranes dry Heart distant. Not tachy Lungs diminished Abd soft. Edema same. I/P 1. Anemia 2. Thrombocytopenia - stop Lovenox for now. Need to consider Eliquis if OK with Heme/onc Further diagnoses and plan as above.
[2017-04-19 15:42] LABS: Basophils % 0.3 %; Eosinophils % 0.3 %; Hematocrit 24.2 % (35.3-44.9); Immature Granulocytes % 1.2 % (0-4); Lymphocytes # 1.5 K/mcL (0.6-4.6); Lymphocytes % 13.8 %; Mean Corpuscular HGB Conc 33.1 g/dL (31.6-35.5); Mean Corpuscular Hemoglobin 31.5 pg (28.0-33.3); Mean Corpuscular Volume 95.3 fL (83.0-100.0); Mean Platelet Volume 11.9 fL (9.4-12.4); Monocytes # 0.5 K/mcL (0.0-1.3); Monocytes % 5.1 %; Neutrophils # 8.4 K/mcL (1.6-8.9); Platelet Count 118 K/mcL (140-400); Red Blood Count 2.54 M/mcL (3.82-4.97); Red Cell Distribution Width 20.8 % (11.5-14.5); Segmented Neutrophils % 79.3 %
[2017-04-19] MEDS: Mirtazapine 15 MG TABLET PO SCH (21:45)
[2017-04-20] MEDS: *HR* Morphine Sulfate SR (12 HR) 30 MG TABLET.ER PO SCH ×3 (04:40→20:59)
[2017-04-20] MEDS: *HR* Enoxaparin 120 MG/0.8 ML SYRINGE SQ SCH (05:51)
[2017-04-20 06:09] LABS: Basophils % 0.4 %; Eosinophils # 0.1 K/mcL (0.0-0.6); Eosinophils % 0.5 %; Hematocrit 23.4 % (35.3-44.9); Hemoglobin 7.6 g/dL (11.5-15.4); Immature Granulocytes % 1.4 % (0-4); Lymphocytes # 1.3 K/mcL (0.6-4.6); Lymphocytes % 12.2 %; Mean Corpuscular HGB Conc 32.5 g/dL (31.6-35.5); Mean Corpuscular Hemoglobin 31.3 pg (28.0-33.3); Mean Corpuscular Volume 96.3 fL (83.0-100.0); Monocytes # 0.7 K/mcL (0.0-1.3); Monocytes % 6.3 %; Neutrophils # 8.3 K/mcL (1.6-8.9); Nucleated Red Blood Cells 0.2 /100 WBC (0); Platelet Count 103 K/mcL (140-400); Red Blood Count 2.43 M/mcL (3.82-4.97); Segmented Neutrophils % 79.2 %
[2017-04-20 06:22] LABS: Alanine Aminotransferase 12 Units/L (0-55); Albumin 2.7 g/dL (3.5-5.0); Alkaline Phosphatase 604 Units/L (38-126); Aspartate Amino Transferase 18 Units/L (5-34); BUN/Creatinine Ratio 18 (6-26); Bilirubin,Total 2.3 mg/dL (0.2-1.2); Blood Urea Nitrogen 17 mg/dL (7-20); Calcium 7.9 mg/dL (8.6-10.8); Carbon Dioxide 23 mEq/L (19-29); Chloride 100 mEq/L (98-109); Globulin 2.6 g/dL (2.4-3.5); Glucose 109 mg/dL (70-99); Osmolality,Calculated 272 (280-300); Potassium 3.8 mEq/L (3.5-4.5); Sodium 130 mEq/L (136-145); Total Protein 5.3 g/dL (6.0-8.3); eGFR For African Americans > 60 (> 60); eGFR For Non-African Americans > 60 (> 60)
[2017-04-20] MEDS: Spironolactone 25 MG TABLET PO SCH (09:26)
[2017-04-20] MEDS: Sucralfate 1 GM TABLET PO SCH ×4 (09:27→20:59)
[2017-04-20] MEDS: Lactobacillus 1 EACH CAP.SPRINK PO SCH ×2 (09:27→20:59)
[2017-04-20] MEDS: Furosemide 20 MG TABLET PO SCH (09:27)
--- NOTE | 2017-04-20 18:59 | Event Note ---
Date of Encounter: 04/20/17 Time of Encounter: 10:00 I examined this patient and my medical decision-making was reviewed with the Resident Physician on 04/20/17. I agree with the documented findings, disposition and treatment plan as described except to the extent set forth below. Ms Trevizo is currently admitted for multiple issues including Klebsiella sepsis. She is awaiting SNF. She remains moderate risk at this time. Ms. Trevizo feels OK. No fever or chills. No dyspnea. Awaiting SNF. Exam Alert. Comfortable Mucus membranes dry Heart reg No wheeze Abd soft I/P 1. Klebsiella sepsis 2. Thrombocytopenia Further diagnoses and plan as per progress note of today.
--- NOTE | 2017-04-20 19:40 | Oncology Inp Progress Note ---
Date of Encounter: 04/21/17 Time of Encounter: 19:37 (1) Septic shock Current Visit: Yes Status: Acute Assessment and plan: Presented with septic shock. Creatinine normal prior to admission and went up to 2.5 on 04/06/2017. She has right hydronephrosis and post stent. Creatinine has improved at least 0.9 She is recovering nicely (2) Thrombocytopenia Current Visit: Yes Status: Acute Assessment and plan: Recent diagnosis of DVT in past history of PE IVC filter placement which she had through interventional radiology on 2016. Subsequently platelet Counts recovered to normal levels. 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 Her renal function is normal now. Anemia hemoglobin 7.6. Watch for bleeding. Transfuse pRBC as needed (3) Pancreatic cancer metastasized to liver Current Visit: Yes Status: Acute Assessment and plan: She got palliative treatment with FOLFIRINOX about 3 doses. Multiple liver metastasis Her CA-19-9 is very high at 632,000 Oncology: Subj Interval history: More alert and oriented. Still gets distracted. No fever chills - Constitutional Vitals: Vital Signs Temp Pulse Resp BP Pulse Ox 04/20/17 16:30 98.0 F 97 17 100/75 97 04/20/17 12:04 99.1 F 104 20 85/63 99 04/20/17 09:00 95 04/20/17 07:00 97.9 F 100 17 108/73 95 04/19/17 23:45 98.2 F 102 19 94/69 96 04/19/17 21:30 98.6 F 106 17 94/70 96 Intake and Output 04/20/17 04/20/17 04/20/17 07:59 15:59 23:59 Intake Total 20 / 20 Balance 20 20 Intake: Oral 20 / 20 Other: Meal Breakfast Percent of Meal Consumed 15% Weight 110.8 kg Patient Weight 04/20/17 23:59 Weight 110.8 kg Exam: GENERAL: Alert and oriented, well appearing. Mental Status: Affect appropriate for circumstances HEENT: Sclerae anicteric. No mucositis or thrush. No other oral or pharyngeal lesions or erythema. Skin: No rashes or petechiae. No evidence of skin malignancy Lymph nodes: No cervical, supraclavicular, axillary, or inguinal adenopathy. Lungs: Air entry normal with normal breath sounds. No rhonchi or wheezing Cardiovascular: Regular rate and rhythm. No skipped beats Abdomen: Soft, nontender; no organomegaly or masses palpable. Extremities: No edema. No calf swelling or tenderness. No joint deformity. Neurologic: Alert, cranial nerves II-XII intact; normal gait; no focal weakness or sensory abnormalities Oncology: Obj Data - Labs CBC & Chem 7: 04/21/17 04:59 04/21/17 04:59 Labs: Laboratory Results - last 24 hr 04/20/17 04/20/17 06:00 06:00 WBC 10.4 RBC 2.43 L Hgb 7.6 L Hct 23.4 L MCV 96.3 MCH 31.3 MCHC 32.5 RDW 21.0 H Plt Count 103 L MPV 11.0 Immature Gran % 1.4 Seg Neutrophils % 79.2 Lymphocytes % 12.2 Monocytes % 6.3 Eosinophils % 0.5 Basophils % 0.4 Neutrophils # 8.3 Lymphocytes # 1.3 Monocytes # 0.7 Eosinophils # 0.1 Basophils # 0.0 Nucleated RBCs/100 WBC 0.2 H Sodium 130 L Potassium 3.8 Chloride 100 Carbon Dioxide 23 BUN 17 Creatinine 0.93 Est GFR ( Amer) > 60 Est GFR (Non-Af Amer) > 60 BUN/Creatinine Ratio 18 Glucose 109 H Calculated Osmolality 272 L Calcium 7.9 L Total Bilirubin 2.3 H AST 18 ALT 12 Alkaline Phosphatase 604 H Serum Total Protein 5.3 L Albumin 2.7 L Globulin 2.6 Albumin/Globulin Ratio 1.0 L - ABG Interpretation ABG results: PT/INR, D-dimer PT 13.9 Seconds (9.4-12.1) H 04/12/17 09:30 Consult Discharge Plan - Plan Instructions: Atrial Fibrillation (DC), Acute Kidney Injury (DC), Acute Kidney Injury (GEN), Intravenous Chemotherapy (DC), Intravenous Chemotherapy (GEN), Eating During Cancer Treatment (DC), Pancreatic Cancer (DC), Liver Cancer (DC), Liver Cancer (GEN), Sepsis (DC), Anemia (GEN), Thrombocytopenia (DC), Thrombocytopenia (GEN), Infectious Colitis (GEN) Referrals: Que Dwyer MD [Partnered Physician] - 04/21/17 11:20 am NONE,PCP [Primary Care Provider] - Prescriptions: Enoxaparin [Lovenox *PHARMACY WT BASED*] 110 mg SQ Q12HR #60 syringe Ceftriaxone Sodium [Ceftriaxone] 2 gm IV DAILY #5 vial.port
[2017-04-20] MEDS: Mirtazapine 15 MG TABLET PO SCH (20:59)
--- NOTE | 2017-04-20 21:40 | Internal Med Progress Note ---
<Stefano,Veronica - Last Filed: 04/20/17 21:38> Date of Encounter: 04/20/17 Time of Encounter: 10:00 - Assessment and plan (1) Anemia Current Visit: Yes Status: Acute Assessment and plan: hgb stable, most recently 7.6/23.4 patient is having hypotensive episodes. BP stable today if this continue may consider transfusion Will continue to monitor Qualifiers: Anemia type: other cause Other causes of anemia: chronic disease, neoplastic Qualified Code(s): D63.0 - Anemia in neoplastic disease (2) Thrombocytopenia Current Visit: Yes Status: Acute Assessment and plan: Discontinued lovanox. Platelets most recently 103, as low as 28 during admission. - Consulted heme/onc, appreciate recommendations (3) Leukocytosis Current Visit: Yes Status: Acute Assessment and plan: WBC downtrending to wnl, most recently 10.4 - Continue treatment as below for urosepsis and daily CBC Qualifiers: Leukocytosis type: bandemia Qualified Code(s): D72.825 - Bandemia (4) Pancreatic cancer metastasized to liver Current Visit: Yes Status: Acute Assessment and plan: - Continue treatment as outpatient - Palliative consult, appreciate recommendations (5) ANGELA (acute kidney injury) Current Visit: Yes Status: Resolved Assessment and plan: -resolved - BUN/ Cr 7/0.93 -Improved after treatment. Continue closely follow-up her renal function. Avoid nephrotoxic medications - Time Spent With Patient 25 - 35 minutes - Subjective Interval history: Patient was seen and examined this morning. She is resting comfortably in bed. She states she is doing "just fine" without any complaints including CP, SOB, wheezing, belly pain, cough. - Constitutional Vitals: Temp Pulse Resp BP Pulse Ox 98.1 F 104 18 90/64 91 04/20/17 20:12 04/20/17 20:12 04/20/17 20:12 04/20/17 20:12 04/20/17 20:12 General appearance: Present: cooperative, A&O X 3, pleasant, answers questions appropriately Exam: Gen.: Vitals noted. No acute distress. AAOx3 HEENT: PERRL/EOMI, oropharynx clear, Normocephalic, atraumatic, MMM Neck: Supple. No adenopathy. Cardiac: RRR, no murmur, +S1/S2 Pulmonary: CTA bilaterally, no wheezes, rales or rhonchi, equal chest expansion Abdomen: soft, nontender, BS noted, no guarding Back: Nontender throughout. Extremities: BLE edema present stable from admission, nontender calf, no cyanosis or clubbing Neuro: A&Ox3, moves all extremities, no focal deficits Psych: Appropriate mood and behavior Internal Medicine: Result - Labs CBC & Chem 7: 04/20/17 06:00 04/20/17 06:00 Labs: Short CBC 04/20/17 Range/Units 06:00 WBC 10.4 (4.3-11.1) K/mcL Hgb 7.6 L (11.5-15.4) g/dL Hct 23.4 L (35.3-44.9) % Plt Count 103 L (140-400) K/mcL Neutrophils # 8.3 (1.6-8.9) K/mcL BMP 04/20/17 06:00 Sodium 130 L Potassium 3.8 Chloride 100 Carbon Dioxide 23 BUN 17 Creatinine 0.93 Glucose 109 H Calcium 7.9 L Liver Function 04/20/17 Range/Units 06:00 Total Bilirubin 2.3 H (0.2-1.2) mg/dL AST 18 (5-34) Units/L ALT 12 (0-55) Units/L Alkaline Phosphatase 604 H (38-126) Units/L Albumin 2.7 L (3.5-5.0) g/dL - ABG Interpretation ABG results: PT/INR, D-dimer PT 13.9 Seconds (9.4-12.1) H 04/12/17 09:30 Consult Discharge Plan - Plan Instructions: Atrial Fibrillation (DC), Acute Kidney Injury (DC), Acute Kidney Injury (GEN), Intravenous Chemotherapy (DC), Intravenous Chemotherapy (GEN), Eating During Cancer Treatment (DC), Pancreatic Cancer (DC), Liver Cancer (DC), Liver Cancer (GEN), Sepsis (DC), Anemia (GEN), Thrombocytopenia (DC), Thrombocytopenia (GEN), Infectious Colitis (GEN) Referrals: Que Dwyer MD [Partnered Physician] - 04/27/17 3:20 pm NONE,PCP [Primary Care Provider] - Prescriptions: Enoxaparin [Lovenox *PHARMACY WT BASED*] 110 mg SQ Q12HR #60 syringe Ceftriaxone Sodium [Ceftriaxone] 2 gm IV DAILY #5 vial.port <Matt Tran - Last Filed: 04/21/17 16:38> Date of Encounter: 04/20/17 - Assessment and plan (1) Hypotension Current Visit: Yes Status: Acute Qualifiers: Hypotension type: other hypotension type Qualified Code(s): I95.89 - Other hypotension (2) Thrombocytopenia due to drugs Current Visit: Yes Status: Suspected (3) Septic shock due to Klebsiella pneumoniae Current Visit: Yes Status: Resolved (4) Anemia Current Visit: Yes Status: Acute Qualifiers: Anemia type: other cause Other causes of anemia: chronic disease, neoplastic Qualified Code(s): D63.0 - Anemia in neoplastic disease (5) DVT (deep venous thrombosis) Current Visit: Yes Status: Chronic Qualifiers: DVT location: lower extremity Affected thrombotic vein of extremity: femoral Chronicity: chronic Laterality: right Qualified Code(s): I82.511 - Chronic embolism and thrombosis of right femoral vein (6) Pancreatic cancer metastasized to liver Current Visit: Yes Status: Acute (7) SVT (supraventricular tachycardia) Current Visit: Yes Status: Resolved (8) Hyponatremia Current Visit: Yes Status: Acute - Constitutional Vitals: Temp Pulse Resp BP Pulse Ox 98.5 F 74 12 101/69 96 04/21/17 15:36 04/21/17 15:36 04/21/17 15:36 04/21/17 15:36 04/21/17 15:36 Internal Medicine: Result - Labs CBC & Chem 7: 04/21/17 04:59 04/21/17 04:59 Labs: Short CBC 04/21/17 Range/Units 04:59 WBC 10.7 (4.3-11.1) K/mcL Hgb 7.9 L (11.5-15.4) g/dL Hct 24.4 L (35.3-44.9) % Plt Count 102 L (140-400) K/mcL BMP 04/21/17 04:59 Sodium 132 L Potassium 3.9 Chloride 102 Carbon Dioxide 23 BUN 17 Creatinine 0.82 Glucose 111 H Calcium 7.7 L - ABG Interpretation ABG results: PT/INR, D-dimer PT 13.9 Seconds (9.4-12.1) H 04/12/17 09:30 - Attending Attestation I examined this patient and my medical decision-making was reviewed with the Resident Physician on 04/20/17. I agree with the documented findings, disposition and treatment plan as described except to the extent set forth below. Please see event note of this date.
[2017-04-21] MEDS: *HR* Morphine Sulfate SR (12 HR) 30 MG TABLET.ER PO SCH ×2 (00:22→09:43)
[2017-04-21 05:07] LABS: Hematocrit 24.4 % (35.3-44.9)
[2017-04-21 05:09] LABS: Hemoglobin 7.9 g/dL (11.5-15.4); Immature Platelets 10.5 % (1.1-6.1); Mean Corpuscular HGB Conc 32.4 g/dL (31.6-35.5); Mean Corpuscular Hemoglobin 31.2 pg (28.0-33.3); Mean Corpuscular Volume 96.4 fL (83.0-100.0); Mean Platelet Volume 11.3 fL (9.4-12.4); Red Blood Count 2.53 M/mcL (3.82-4.97); Red Cell Distribution Width 21.3 % (11.5-14.5)
[2017-04-21 05:22] LABS: BUN/Creatinine Ratio 21 (6-26); Blood Urea Nitrogen 17 mg/dL (7-20); Calcium 7.7 mg/dL (8.6-10.8); Carbon Dioxide 23 mEq/L (19-29); Chloride 102 mEq/L (98-109); Glucose 111 mg/dL (70-99); Osmolality,Calculated 276 (280-300); Potassium 3.9 mEq/L (3.5-4.5); Sodium 132 mEq/L (136-145); eGFR For African Americans > 60 (> 60); eGFR For Non-African Americans > 60 (> 60)
[2017-04-21] MEDS: Lactobacillus 1 EACH CAP.SPRINK PO SCH ×2 (09:42→21:03)
[2017-04-21] MEDS: Sucralfate 1 GM TABLET PO SCH ×4 (09:43→21:03)
[2017-04-21] MEDS: Furosemide 20 MG TABLET PO SCH (09:43)
[2017-04-21] MEDS: Spironolactone 25 MG TABLET PO SCH (09:43)
--- NOTE | 2017-04-21 10:08 | Palliative Progress Note ---
Date of Encounter: 04/21/17 Time of Encounter: 10:00 - Assessment and plan (1) Cancer associated pain Current Visit: Yes Status: Acute Assessment and plan: She has not utilized [facility] Contin over the last several days, and has not utilized [facility] either. D/W pt, will D/C MS Contin and continue Oxycodone for pain. Can monitor usage and discussed with her that if her pain increases, can restart sustained release medication. (2) Malnutrition Current Visit: Yes Status: Acute Assessment and plan: Albumin improved from 1.9 to 2.7. Continue Remeron, dietary supplements. Monitor intake. (3) Counseling regarding advanced care planning and goals of care Current Visit: Yes Status: Acute Assessment and plan: She expresses much discouragement that she has not been approved for rehab. She is very anxious and hopeful this will be approved soon. She desires to continue therapy and gain strength, with the goal of restarting chemotherapy at some point. Provided emotional support. (4) History of pancreatic cancer Current Visit: Yes Status: Acute - Time Spent With Patient Total time spent is greater than 50% in coordination of care (as documented) at patient's floor/unit and/or counseling patient: 25 - 35 minutes - Subjective Interval history: Patient awake and alert, denies any pain or discomfort. Leukocytosis resolved and WBC 10.7. Eating better and taking supplements of Ensure. + BM this am. Doing exercises with physical therapy, and states she feels a little stronger. - Constitutional Vitals: Abnormal lab results RBC 2.53 M/mcL (3.82-4.97) L 04/21/17 04:59 Hgb 7.9 g/dL (11.5-15.4) L 04/21/17 04:59 Hct 24.4 % (35.3-44.9) L 04/21/17 04:59 RDW 21.3 % (11.5-14.5) H 04/21/17 04:59 Plt Count 102 K/mcL (140-400) L 04/21/17 04:59 Metamyelocytes % 2.0 % (0) H 04/17/17 09:55 Myelocytes % 2.0 % (0) H 04/09/17 05:40 Nucleated RBCs/100 WBC 0.2 /100 WBC (0) H 04/20/17 06:00 Hypersegmented Neuts Present (Not Present) A 04/09/17 05:40 Reactive Lymphocytes Present (Not Present) A 04/16/17 04:15 Toxic Granulation Present (Not Present) A 04/17/17 09:55 Toxic Vacuolation Present (Not Present) A 04/07/17 03:15 Dohle Bodies Present (Not Present) A 04/08/17 22:42 Platelet Estimate Decreased (Normal) L 04/18/17 03:50 Clumped Platelets Few (Not Present) A 04/17/17 09:55 Large Platelets Present (Not Present) A 04/15/17 04:03 Immature Plt Fraction 10.5 % (1.1-6.1) H 04/21/17 04:59 Polychromasia 1+ (Not Present) A 04/16/17 04:15 Poikilocytosis 1+ (Not Present) A 04/13/17 07:30 Anisocytosis 3+ (Not Present) A 04/18/17 03:50 Microcytosis Present (Not Present) A 04/18/17 03:50 Macrocytosis Present (Not Present) A 04/08/17 03:42 Lois Cells 1+ (Not Present) A 04/07/17 03:15 PT 13.9 Seconds (9.4-12.1) H 04/12/17 09:30 APTT 51.9 Seconds (26.0-36.0) H 04/09/17 05:40 Sodium 132 mEq/L (136-145) L 04/21/17 04:59 Glucose 111 mg/dL (70-99) H 04/21/17 04:59 POC Glucose 133 (58-89) H 04/15/17 07:25 Calculated Osmolality 276 (280-300) L 04/21/17 04:59 Uric Acid 7.5 mg/dL (2.6-6.0) H 04/07/17 14:20 Calcium 7.7 mg/dL (8.6-10.8) L 04/21/17 04:59 Total Bilirubin 2.3 mg/dL (0.2-1.2) H 04/20/17 06:00 Direct Bilirubin 2.8 mg/dL (0.0-0.5) H 04/11/17 04:13 Alkaline Phosphatase 604 Units/L (38-126) H 04/20/17 06:00 Troponin I 0.54 ng/mL (0-0.03) H* 04/07/17 03:15 Serum Total Protein 5.3 g/dL (6.0-8.3) L 04/20/17 06:00 Albumin 2.7 g/dL (3.5-5.0) L 04/20/17 06:00 Albumin/Globulin Ratio 1.0 (1.1-2.2) L 04/20/17 06:00 Urine Color Juanita (Yellow) A 04/07/17 08:50 Urine Clarity Turbid (Clear) A 04/07/17 08:50 Urine Protein 100 mg/dL (Neg-Trace) H 04/07/17 08:50 Urine Ketones Trace mg/dL (Negative) H 04/07/17 08:50 Urine Blood Small (Negative) H 04/07/17 08:50 Urine Nitrite Positive (Negative) A 04/07/17 08:50 Urine Bilirubin Large (Negative) H 04/07/17 08:50 Ur Leukocyte Esterase Large (Negative) H 04/07/17 08:50 Urine Microscopic WBC TNTC per hpf (0-3) H 04/07/17 08:50 Ur Squamous Epith Cells Moderate per lpf (None-Few) H 04/07/17 08:50 Urine Bacteria Many per hpf (None-Few) H 04/07/17 08:50 Ur Culture Indicated? YES (NO) A 04/07/17 08:50 Urine Osmolality 290 mOsm/kg (300-1090) L 04/07/17 08:40 Enterobacteriac sp PCR DETECTED (Not Detect) A 04/06/17 17:58 Klebsiella pneumoniae DETECTED (Not Detect) A 04/06/17 17:58 General appearance: Present: no acute distress - Respiratory Respiratory exam: Present: decreased breath sounds, CTAB - Cardiovascular Cardiovascular exam: Present: +S1, +S2 - GI/Abdominal GI/Abdominal exam: Present: distended, normal bowel sounds, soft - Extremities Exam Additional comments: 3+ lower extremity edema - Neurological Exam Neurological exam: Present: alert, oriented X3, strengths equal and symetr throughout - Skin Skin exam: Present: dry, warm Palliative Quality Palliative Quality: Screen for Code Status: Yes, Screen for Goals of Care: Yes, Screen for Pain: Yes, If Pain Regimen Started, Initiate Bowel Regimen: Yes, Screen for Nausea/Vomitting: Yes - Labs CBC & Chem 7: 04/21/17 04:59 04/21/17 04:59 Labs: Laboratory Results - last 24 hr 04/21/17 04/21/17 04:59 04:59 WBC 10.7 RBC 2.53 L Hgb 7.9 L Hct 24.4 L MCV 96.4 MCH 31.2 MCHC 32.4 RDW 21.3 H Plt Count 102 L MPV 11.3 Immature Plt Fraction 10.5 H Sodium 132 L Potassium 3.9 Chloride 102 Carbon Dioxide 23 BUN 17 Creatinine 0.82 Est GFR ( Amer) > 60 Est GFR (Non-Af Amer) > 60 BUN/Creatinine Ratio 21 Glucose 111 H Calculated Osmolality 276 L Calcium 7.7 L - ABG Interpretation ABG results: PT/INR, D-dimer PT 13.9 Seconds (9.4-12.1) H 04/12/17 09:30 Consult Discharge Plan - Plan Instructions: Atrial Fibrillation (DC), Acute Kidney Injury (DC), Acute Kidney Injury (GEN), Intravenous Chemotherapy (DC), Intravenous Chemotherapy (GEN), Eating During Cancer Treatment (DC), Pancreatic Cancer (DC), Liver Cancer (DC), Liver Cancer (GEN), Sepsis (DC), Anemia (GEN), Thrombocytopenia (DC), Thrombocytopenia (GEN), Infectious Colitis (GEN) Referrals: Que Dwyer MD [Partnered Physician] - 04/27/17 3:20 pm NONE,PCP [Primary Care Provider] - Prescriptions: Enoxaparin [Lovenox *PHARMACY WT BASED*] 110 mg SQ Q12HR #60 syringe Ceftriaxone Sodium [Ceftriaxone] 2 gm IV DAILY #5 vial.port
[2017-04-21] MEDS: APIXABAN 5 MG TABLET PO SCH ×2 (14:25→21:03)
--- NOTE | 2017-04-21 18:20 | Event Note ---
Date of Encounter: 04/21/17 Time of Encounter: 09:15 I examined this patient and my medical decision-making was reviewed with the Resident Physician on 04/21/17. I agree with the documented findings, disposition and treatment plan as described except to the extent set forth below. Ms Trevizo is currently admitted for acute Klebsiella sepsis. She is beginning to do more with therapy. She remains moderate to high risk due to potential for worsening clinical status. Ms Trevizo is doing OK. She is very frustrated about not getting to rehab. No CP or SOB. No fever or chills. Exam Alert. Comfortable Mucus membranes dry Heart reg No wheeze Abd soft I/P 1. Klebsiella sepsis 2. Pancreatic cancer. Awaiting placement in SNF. She wants to get stronger to be able to get more chemo. Further diagnoses and plan as above.
[2017-04-21] MEDS: Mirtazapine 15 MG TABLET PO SCH (21:03)
--- NOTE | 2017-04-21 22:00 | Internal Med Progress Note ---
Date of Encounter: 04/21/17 Time of Encounter: 13:00 - Assessment and plan (1) Anemia Current Visit: Yes Status: Acute Assessment and plan: -hgb stable, most recently 7.9/24.4 -Will continue to monitor Qualifiers: Anemia type: other cause Other causes of anemia: chronic disease, neoplastic Qualified Code(s): D63.0 - Anemia in neoplastic disease (2) Thrombocytopenia Current Visit: Yes Status: Acute Assessment and plan: -Eliquis 5 mg PO BID -Platelets most recently 102, as low as 28 during admission (3) Leukocytosis Current Visit: Yes Status: Acute Assessment and plan: WBC most recently 10.7 -continue to monitor with daily CBC Qualifiers: Leukocytosis type: bandemia Qualified Code(s): D72.825 - Bandemia (4) Pancreatic cancer metastasized to liver Current Visit: Yes Status: Acute Assessment and plan: - Continue treatment as outpatient (5) ANGELA (acute kidney injury) Current Visit: Yes Status: Resolved Assessment and plan: -resolved - BUN/Cr: 17/0.82 -Continue to follow renal function with daily BMP -Avoid nephrotoxic medications - Subjective Interval history: Patient was seen and examined today. She states she is doing well and is without complaints. Denies CP, SOB, wheezing, abdominal pain, cough. - Constitutional Vitals: Temp Pulse Resp BP Pulse Ox 98.2 F 117 18 102/79 96 04/21/17 20:00 04/21/17 20:00 04/21/17 20:00 04/21/17 20:00 04/21/17 15:36 General appearance: Present: cooperative, A&O X 3, pleasant, answers questions appropriately Exam: Gen.: Vitals noted. No acute distress. AAOx3 HEENT: EOMI, Normocephalic, atraumatic, MMM Neck: Supple. Cardiac: RRR, no murmur, +S1/S2 Pulmonary: CTA bilaterally, no wheezes, equal chest expansion Abdomen: soft, nontender, BS noted Extremities: BLE +1 edema, DP pulses present and equal Neuro: AAOx3, no focal deficits Psych: Appropriate affect and behavior Internal Medicine: Result - Labs CBC & Chem 7: 04/21/17 04:59 04/21/17 04:59 Labs: Short CBC 04/21/17 Range/Units 04:59 WBC 10.7 (4.3-11.1) K/mcL Hgb 7.9 L (11.5-15.4) g/dL Hct 24.4 L (35.3-44.9) % Plt Count 102 L (140-400) K/mcL [facility] 04/21/17 04:59 Sodium 132 L Potassium 3.9 Chloride 102 Carbon Dioxide 23 BUN 17 Creatinine 0.82 Glucose 111 H Calcium 7.7 L - ABG Interpretation ABG results: PT/INR, D-dimer PT 13.9 Seconds (9.4-12.1) H 04/12/17 09:30 Consult Discharge Plan - Plan Instructions: Atrial Fibrillation (DC), Acute Kidney Injury (DC), Acute Kidney Injury (GEN), Intravenous Chemotherapy (DC), Intravenous Chemotherapy (GEN), Eating During Cancer Treatment (DC), Pancreatic Cancer (DC), Liver Cancer (DC), Liver Cancer (GEN), Sepsis (DC), Anemia (GEN), Thrombocytopenia (DC), Thrombocytopenia (GEN), Infectious Colitis (GEN) Referrals: Que Dwyer MD [Partnered Physician] - 04/27/17 3:20 pm NONE,PCP [Primary Care Provider] - Prescriptions: Enoxaparin [Lovenox *PHARMACY WT BASED*] 110 mg SQ Q12HR #60 syringe Ceftriaxone Sodium [Ceftriaxone] 2 gm IV DAILY #5 vial.port
[2017-04-22 04:14] LABS: Hematocrit 25.2 % (35.3-44.9); Hemoglobin 7.9 g/dL (11.5-15.4); Mean Corpuscular HGB Conc 31.3 g/dL (31.6-35.5); Mean Corpuscular Hemoglobin 30.6 pg (28.0-33.3); Mean Corpuscular Volume 97.7 fL (83.0-100.0); Mean Platelet Volume 11.4 fL (9.4-12.4); Red Blood Count 2.58 M/mcL (3.82-4.97); Red Cell Distribution Width 20.5 % (11.5-14.5)
[2017-04-22 04:26] LABS: BUN/Creatinine Ratio 22 (6-26); Blood Urea Nitrogen 18 mg/dL (7-20); Calcium 7.8 mg/dL (8.6-10.8); Carbon Dioxide 24 mEq/L (19-29); Chloride 101 mEq/L (98-109); Glucose 102 mg/dL (70-99); Osmolality,Calculated 272 (280-300); Potassium 4.1 mEq/L (3.5-4.5); Sodium 130 mEq/L (136-145); eGFR For African Americans > 60 (> 60); eGFR For Non-African Americans > 60 (> 60)
[2017-04-22 04:34] LABS: Platelet Count 88 K/mcL (140-400)
[2017-04-22] MEDS: Sucralfate 1 GM TABLET PO SCH ×4 (05:51→21:34)
[2017-04-22] MEDS: Spironolactone 25 MG TABLET PO SCH (09:32)
[2017-04-22] MEDS: Lactobacillus 1 EACH CAP.SPRINK PO SCH ×2 (09:32→21:34)
[2017-04-22] MEDS: Furosemide 20 MG TABLET PO SCH (09:32)
[2017-04-22] MEDS: APIXABAN 5 MG TABLET PO SCH ×2 (09:33→21:34)
--- NOTE | 2017-04-22 10:50 | Physician Discharge Referral ---
ExtendedCare Referral Info Institutional Level of Care: Skilled - Diagnosis (1) Anemia Priority: Primary Status: Acute (2) Leukocytosis Priority: Secondary Status: Resolved (3) Pancreatic cancer metastasized to liver Priority: Secondary Status: Acute (4) ANGELA (acute kidney injury) Priority: Secondary Status: Resolved (5) Thrombocytopenia Priority: Secondary Status: Acute Prognosis: Good - Transfer Medications Prescriptions: OxyCODONE Immed Rel [Roxicodone 5 MG] 10 mg PO Q6H PRN #20 tablet PRN Reason: Pain Home Medications: Lidocaine/Prilocaine [Emla] 1 appl TP AD #30 gm 02/11/17 [Rx] Ondansetron HCl [Zofran] 4 mg PO Q6H PRN #40 tablet 02/11/17 [Rx] Prochlorperazine Maleate [Compazine] 10 mg PO Q6HR PRN #40 tablet 02/11/17 [Rx] Dronabinol [Marinol] 5 mg PO BIDWM #60 capsule 02/20/17 [Rx] Omeprazole 20 mg PO DAILY #90 tablet. 03/04/17 [Rx] Furosemide [Lasix] 20 mg PO DAILY #90 tablet 03/25/17 [Rx] Spironolactone [Aldactone] 25 mg PO DAILY #90 tablet 03/25/17 [Rx] Sucralfate [Carafate] 1 gm PO QIDAC #120 tablet 03/25/17 [Rx] Loperamide HCl [Imodium A-D] 2 mg PO PER PKG DI PRN 04/06/17 [History] Morphine Sulfate SR (12 HR) [MS Contin] 30 mg PO Q8HR 04/06/17 [History] Stomatitis Mixture 5 ml PO Q4H PRN 04/06/17 [History] Apixaban [Eliquis] 5 mg PO BID #60 tablet 04/22/17 [Rx] OxyCODONE Immed Rel [Roxicodone 5 MG] 10 mg PO Q6H PRN #20 tablet 04/22/17 [Rx] Allergies/Adverse Reactions: 3 Allergy/AdvReac Type Severity Reaction Status Date / Time No Known Drug Allergies Allergy none Verified 04/06/17 16:37 - Respiratory Orders Smoking Cessation: Smoking cessation has been advised. For more information, call the [place] Tobacco Quit Line at 9-204-QWAQ-NOW. CERTIFICATION: I certify that the transfer of the above named patient to an Extended Care Facility is necessary for the continuing treatment of the diagnosis listed. The above information is true and accurate reflection of patient's current condition. Confidential - Redisclosure prohibited without a patient's written consent.
--- NOTE | 2017-04-22 19:04 | Event Note ---
Date of Encounter: 04/22/17 Time of Encounter: 09:40 I examined this patient and my medical decision-making was reviewed with the Resident Physician on 04/22/17. I agree with the documented findings, disposition and treatment plan as described except to the extent set forth below. Ms Trevizo is currently admitted for Klebsiella sepsis and multiple medical issues. She remains moderate risk due to potential for worsening clinical status. She is waiting for approval for rehab Ms Trevizo feels OK. No new medical issues. BP borderline. Exam alert. Comfortable Heart not tachy Lungs clear Abd soft I/P 1. Sepsis - resolved 2. Try Midodrine Further diagnoses and plan as per progress note of today.
[2017-04-22] MEDS: Mirtazapine 15 MG TABLET PO SCH (21:34)
[2017-04-23 07:05] VITALS: BP 91/63
[2017-04-23] MEDS: Furosemide 20 MG TABLET PO SCH (11:13)
[2017-04-23] MEDS: APIXABAN 5 MG TABLET PO SCH (11:13)
[2017-04-23] MEDS: Sucralfate 1 GM TABLET PO SCH ×2 (11:13)
[2017-04-23] MEDS: Spironolactone 25 MG TABLET PO SCH (11:13)
[2017-04-23] MEDS: Lactobacillus 1 EACH CAP.SPRINK PO SCH (11:15)
[2017-04-23] MEDS ORDERED: FLUARIX QUAD 2017-18 36MOS UP/PF 0.5 ML SYRINGE IM ONE (14:27)
--- NOTE | 2017-04-23 17:37 | Internal Med Progress Note ---
<Veronica Agarwal - Last Filed: 04/23/17 17:34> Date of Encounter: 04/23/17 Time of Encounter: 17:34 - Assessment and plan (1) Anemia Status: Acute Assessment and plan: -Anemia remains and pt should be watched for signs of bleeding. -hgb stable, most recently 7.9 -per oncology 04/20/17 note, transfuse pRBCs as needed. Qualifiers: Anemia type: other cause Other causes of anemia: chronic disease, neoplastic Qualified Code(s): D63.0 - Anemia in neoplastic disease (2) Pancreatic cancer metastasized to liver Status: Acute Assessment and plan: -care to continue as an outpatient. Pt hopes to get stronger while at ECF so that she could pursue possibility of more chemotherapy in future. (3) ANGELA (acute kidney injury) Status: Resolved Assessment and plan: -Kidneys have recovered nicely and creatinine has been within normal range. (4) Thrombocytopenia Status: Acute Assessment and plan: -Continuing to take Eliquis for anticoagulation which is needed to guard against future thromboembolic events since Lovenox is no longer an option for this patient. -Lovenox discontinued 04/20/17 after causing her platelet count drop - Subjective Interval history: Pt seen and examined today at bedside. Pt feels well overall, reports no events overnight, and has no complaints today. She is looking forward to being discharged from hospital so she can work on "getting better" outside the hospital. - Constitutional Vitals: Temp Pulse Resp BP Pulse Ox 97.6 F 98 19 91/63 96 04/23/17 07:00 04/23/17 07:00 04/23/17 07:00 04/23/17 07:00 04/23/17 07:00 General appearance: Present: cooperative, A&O X 3, pleasant, answers questions appropriately Exam: Gen.: Vital signs stable. No acute distress. HEENT: EOMI, normocephalic, atraumatic Neck: good ROM, supple Cardiac: RRR, no murmur, +S1/S2 Pulmonary: CTA b/l, non-labored respirations Abdomen: soft, nontender, BS noted Extremities: b/l LE edema not markedly different from yesterday's exam, DP pulses palpable and equal Neuro: AAOx3, moves all extremities, no focal deficits Psych: Appropriate affect and behavior Internal Medicine: Result - Labs CBC & Chem 7: 04/22/17 04:01 04/22/17 04:01 - ABG Interpretation ABG results: PT/INR, D-dimer PT 13.9 Seconds (9.4-12.1) H 04/12/17 09:30 Consult Discharge Plan - Plan Instructions: Oxycodone/Acetaminophen (By mouth), Atrial Fibrillation (DC), Acute Kidney Injury (DC), Acute Kidney Injury (GEN), Intravenous Chemotherapy ( DC), Intravenous Chemotherapy (GEN), Eating During Cancer Treatment (DC), Pancreatic Cancer (DC), Liver Cancer (DC), Liver Cancer (GEN), Sepsis (DC), Anemia (GEN), Thrombocytopenia (DC), Thrombocytopenia (GEN), Infectious Colitis (GEN) Referrals: Que Dwyer MD [Partnered Physician] - 04/27/17 3:20 pm NONE,PCP [Primary Care Provider] - Prescriptions: Dronabinol [Marinol] 5 mg PO BIDWM #60 capsule OxyCODONE Immed Rel [Roxicodone 5 MG] 10 mg PO Q6H PRN #20 tablet PRN Reason: Pain <Matt Tran - Last Filed: 04/23/17 19:49> Date of Encounter: 04/23/17 - Assessment and plan (1) Septic shock due to Klebsiella pneumoniae Status: Resolved (2) SVT (supraventricular tachycardia) Status: Resolved (3) Leukocytosis Status: Resolved Qualifiers: Leukocytosis type: bandemia Qualified Code(s): D72.825 - Bandemia (4) ANGELA (acute kidney injury) Status: Resolved (5) Thrombocytopenia due to drugs Status: Suspected (6) Pancreatic cancer metastasized to liver Status: Acute (7) Severe protein-calorie malnutrition Status: Chronic (8) Anemia Status: Acute Qualifiers: Anemia type: other cause Other causes of anemia: chronic disease, neoplastic Qualified Code(s): D63.0 - Anemia in neoplastic disease (9) Atrial fibrillation Status: Chronic Qualifiers: Atrial fibrillation type: chronic Qualified Code(s): I48.2 - Chronic atrial fibrillation - Constitutional Vitals: Temp Pulse Resp BP Pulse Ox 97.6 F 98 19 91/63 96 04/23/17 07:00 04/23/17 07:00 04/23/17 07:00 04/23/17 07:00 04/23/17 07:00 Internal Medicine: Result - Labs CBC & Chem 7: 04/22/17 04:01 04/22/17 04:01 - ABG Interpretation ABG results: PT/INR, D-dimer PT 13.9 Seconds (9.4-12.1) H 04/12/17 09:30 - Attending Attestation I examined this patient and my medical decision-making was reviewed with the Resident Physician on 04/23/17. I agree with the documented findings, disposition and treatment plan as described except to the extent set forth below. Please see discharge summary from today.
== END 2017-04-23 18:05 | DRG 853 ==
LOC: EMEROO 16:28 → SUATTDRO 20:00 → ICNU 20:00 → 2NENU 04-12 12:16
PROVIDERS: ADMIT Family Medicine; ATTEND Internal Medicine